=== PATIENT | female | born 1975 | race Caucasian/White ===

== ENCOUNTER 2024-05-31 08:20 | Outpatient (REF) | payer OTHER, SELFPAY ==
--- NOTE | ~2024-05-31 | XR_ITS ---
EXAMINATION: XR KNEE, RIGHT CLINICAL INFORMATION: M25.561 - Pain in right knee COMPARISON: None available. TECHNIQUE: 1 view right knee standing. FINDINGS: There is mild loss of medial compartment joint space right knee. Lateral compartment is normal. No acute fracture, lytic or sclerotic process seen. The soft tissues are normal. XR/XR knee RT 1V IMPRESSION: Mild DJD medial compartment right knee. Electronically signed by: Fredrick Ackerman MD 06/03/2024 10:32 AM [facility]
--- NOTE | ~2024-05-31 | XR_ITS ---
EXAMINATION: XR KNEE, LEFT CLINICAL INFORMATION: M25.562 - Pain in left knee COMPARISON: None available. TECHNIQUE: Three views of the left knee. FINDINGS: There is mild reduction in medial and minimal patellar femoral compartment joint space. No loose bodies, bony erosive changes, fracture or dislocation. No abnormal joint effusion. XR/XR knee LT 3V IMPRESSION: Suspect mild degenerative changes involving medial and patellofemoral compartment. No abnormal joint effusion suspected. Electronically signed by: Fredrick Ackerman MD 06/03/2024 09:26 AM [facility]
== END 2024-05-31 08:21 | disposition home or self-care (01) ==
LOC: HO.HOSX 08:20
DX: M25.562 Pain in left knee (principal); M25.561 Pain in right knee
CPT/HCPCS: 73560; 73562

== ENCOUNTER 2024-05-31 08:48 | Outpatient (AMB) | payer OTHER, SELFPAY ==
--- NOTE | 2024-05-31 08:56 | A.OFFVIS_ITS ---
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 Patient reports painful clicking, pain increases with ambulation of stairs, prolonged sitting, and certain positions on the couch when she is curled up. She expresses having issues with her left hip and currently seeing a eye specialist for this. Patient reports having a fall 2 weeks ago in front of her home. She states she slipped and hit her head and landed on right side of body. She has tried Tylenol, ibuprofen, and lidocaine patches with inadequate pain relief. She would be interested in possible injection treatment today. Hx of cortisone injections in left hip with no adverse reaction. Hx of aspirations of B/L knees in high school from playing soccer. Hx of Type 2 DM. Allergies No Known Allergies Allergy (Verified 05/31/24 08:59) HPI Comments Details: Patient is a 48-year-old female presents for evaluation of bilateral knee pain, left worse than right, ongoing for many years. Patient states that her knee edward n began when she was playing soccer in high school, and she had to have frequent aspiration due to this. Patient states that since that time, her knee pain has progressively worsened today. Today, the patient reports that she does have really good days where she does not have any pain, does state that there are days where her pain is quite bothersome. The patient states her pain is worst when going up and down stairs or when she has been seated in the same position for a long period of time. The patient states she has not tried any other interventions for her knees at this time. No other acute complaints or concerns. [facility] Social History (Updated 05/31/24 @ 09:01 by SALBADOR Sheehan) Alcohol intake: never Patient Tobacco Use Status: Never used Tobacco Current occupational status: unemployed Review of Systems Const All systems reviewed & are unremarkable except as noted in HPI and below Physical Exam Vital Signs: BMI result Body Mass Index 36.4 Extrem Other: Bilateral knee exam: Patient's bilateral knees normal to inspection No erythema, ecchymosis, edema noted No lacerations, abrasions, open areas No evidence of infection Patient reports no tenderness to palpation of the anterior knee, medial or lateral joint lines, patella, quad tendon, patellar tendon, or posterior knee bilaterally Patient is able to extend the knee to 0 degrees without difficulty Patient is able to flex the knee to 120 degrees without difficulty Negative Yonathan's Negative anterior drawer No ligamentous laxity with varus/valgus testing Distal sensation intact Capillary refill brisk Results Reviewed Results Reviewed: X-rays obtained in the office today and independently reviewed by me, Geovanny Galeano PA-C, demonstrate some very mild joint space narrowing of the medial compartment of the left knee. Assessment & Plan Assessment & Plan (1) Arthralgia of both knees: Code(s): M25.561 - Pain in right knee; M25.562 - Pain in left knee Category: Medical (2) Internal derangement of left knee: Code(s): M23.92 - Unspecified internal derangement of left knee Category: Medical Plan 1. Internal derangement of left knee 2. Arthralgia of both knees Patient is educated about this condition Patient is educated about the typical recovery course At this time, patient was given referral to physical therapy for range of motion and strengthening of bilateral knees in the setting of suspected internal derangement of the left knee and arthralgia of bilateral knees Patient is educated that if after her course of physical therapy her knees are still bothering her, she should call for follow-up appointment and potential further imaging Patient was amenable to this plan Patient will follow-up as needed with any acute concerns Orders: Orders XR knee LT 3V Today M25.562 - Pain in left knee XR knee RT 1V Today M25.561 - Pain in right knee PT Evaluation and Treatment Today M23.92 - Unspecified internal derangement of left knee, M25.561 - Pain in right knee, M25.562 - Pain in left knee Coding Level of Care Code New Pt Level 3 (04750) Diagnoses Arthralgia of both knees M25.561; M25.562 Internal derangement of left knee M23.92
[2024-05-31 08:59] VITALS: BMI 36.4
== END 2024-05-31 09:20 | disposition home or self-care (01) ==
PROVIDERS: PCP Internal Medicine
DX: M25.561 Pain in right knee (principal); M25.562 Pain in left knee; M23.92 Unspecified internal derangement of left knee
CPT/HCPCS: 99203

== ENCOUNTER 2024-06-04 08:17 | Outpatient (REF) | payer OTHER, SELFPAY ==
--- NOTE | ~2024-06-04 | XR_ITS ---
EXAMINATION: XR ELBOW 3 VIEWS RIGHT HISTORY: M25.521 - Pain in right elbow COMPARISON: There are no prior studies available for comparison. FINDINGS: Three views of the right elbow are submitted. Osseous mineralization is normal. There is no fracture or dislocation. The joint spaces are preserved. The soft tissues are unremarkable. XR/XR elbow RT min 3V IMPRESSION: Unremarkable examination of the right elbow. Electronically signed by: Miguel Angel Hale MD 06/04/2024 09:25 AM [facility]ANY
== END 2024-06-04 08:18 | disposition home or self-care (01) ==
LOC: HO.HOSX 08:17
DX: M25.521 Pain in right elbow (principal); R20.0 Anesthesia of skin; R20.2 Paresthesia of skin
CPT/HCPCS: 73080

== ENCOUNTER 2024-06-04 08:51 | Outpatient (AMB) | payer OTHER, SELFPAY ==
--- NOTE | 2024-06-04 08:56 | MHC.OFFVIS ---
Vital Signs 06/04/24 09:14 Height 5 ft 5 in Weight 219 lb BMI 36.4 Intake Visit Reasons: New prob - right elbow pain Intake Note: Fernanda is a 48 year old right hand dominant female who presents today for a new problem visit with complaints of right elbow pain. Patient reports having 4 seperate surgeries at [facility] for mass in her elbow. States mass was removed after the 4th attempt. She followed up with her PCP who suggested she has a second opinion due to symptoms. Currently her pain radiate up her arm and fuad into her 4th and 5th digit. She has numbness as well and frequently drops items. She attended PT and cortisone injections were given as well. Allergies No Known Allergies Allergy (Verified 06/04/24 09:03) HPI Comments Details: Patient is a 48-year-old female who presents for evaluation of right elbow pain with associated numbness and of the right in the 4th and 5th digits of the right hand. Patient states that this has been ongoing for several years, and that she has had several surgeries in the right elbow that she feels have worsened her symptoms. The patient reports that her elbow feels ?tight?. Patient states that the numbness and tingling forearm is constant but states that it is intermittent, daily, worse at night. No other acute complaints or concerns at this time. [facility] Surgical History (Updated 06/04/24 @ 09:04 by YUKO Basilio) Hx of elbow surgery Social History Alcohol intake: never Patient Tobacco Use Status: Never used Tobacco Current occupational status: unemployed Review of Systems Const All systems reviewed & are unremarkable except as noted in HPI and below Physical Exam Vital Signs: BMI result Body Mass Index 36.4 Extrem Other: Patient's R elbow normal to inspection No erythema, ecchymosis, edema noted No lacerations, abrasions, open areas No evidence of infection Tenderness to palpation of the medial epicondyle, proximal forearm, and distal aspect of the proximal arm No tenderness to palpation of the lateral epicondyle, process, humeral head, elsewhere in the right elbow Patient is able to extend the elbow to 0 degrees without difficulty Patient is able to flex the elbow to 120 degrees without difficulty Negative Cozen's Negative reverse Cozen's No ligamentous laxity with varus/valgus testing Distal sensation intact Capillary refill brisk Assessment & Plan Assessment & Plan (1) Numbness and tingling of right hand: Code(s): R20.0 - Anesthesia of skin; R20.2 - Paresthesia of skin Category: Medical (2) Right elbow pain: Code(s): M25.521 - Pain in right elbow Category: Medical Plan 1. Pain of medial elbow 2. Numbness and tingling of right forearm and hand In ulnar nerve distribution Symptoms intermittent, daily, worse at night This time, patient was referred for EMG and nerve conduction study for assessment of the health of the nerves of the right upper extremity Patient states that she has had 1 of these 17 years ago, but does not remember where and can not recall the results Patient will follow-up after EMG and nerve conduction study for results review and discussion of further treatment options if indicated Patient was amenable to this plan Patient will follow-up after EMG and nerve conduction study, sooner with any acute concerns Orders: Orders XR elbow RT min 3V Today M25.521 - Pain in right elbow NE electromyogram (EMG) Today R20.0 - Anesthesia of skin, R20.2 - Paresthesia of skin NE nerve conduction velocity Today R20.0 - Anesthesia of skin, R20.2 - Paresthesia of skin Coding Level of Care Code Est Pt Level 3 (14458) Diagnoses Numbness and tingling of right hand R20.0; R20.2 Right elbow pain M25.521
[2024-06-04 09:14] VITALS: BMI 36.4
== END 2024-06-04 09:43 | disposition home or self-care (01) ==
PROVIDERS: PCP Internal Medicine
DX: R20.0 Anesthesia of skin (principal); R20.2 Paresthesia of skin; M25.521 Pain in right elbow
CPT/HCPCS: 99213

== ENCOUNTER → 2024-06-04 08:52 | Outpatient (BNV) | payer OTHER, SELFPAY | PROVIDERS: Visit Provider Radiology Diagnostic Radiology | DX: M25.521 Pain in right elbow (principal) | CPT/HCPCS: 73080 ==

== ENCOUNTER 2024-06-12 08:35 | Outpatient (REF) | payer OTHER, SELFPAY ==
--- NOTE | 2024-06-12 08:39 | EMG_ITS ---
Chief complaint: History of for right elbow surgeries to remove a lipoma/mass that was thought to be compressing the ulnar nerve. She has had chronic, at least 5 years, of numbness on right 4th and 5th digits, the started even before the 1st surgery. No intrinsic hand weakness. Noted thinning of APB muscle. Reason for referral: Evaluate for ulnar neuropathy Referred by: Geovanny ANN Procedure done: Right upper extremity NCS/EMG Precautions and/or limitations: None The limb temperature was monitored continuously and remained between 32-36 degrees C during the performance of the NCS. Ulnar motor NCS was performed with moderate elbow flexion between 70-90 degrees, with across-elbow distance of 10 cm. Nerve Conduction Studies Anti Sensory Summary Table ?Stim Site NR Onset (ms) Norm Onset (ms) Peak (ms) Norm Peak (ms) O-P Amp (?V) Norm O-P Amp Site1 Site2 Delta-0 (ms) Dist (cm) [place] (m/s) Norm [place] (m/s) Right Median Anti Sensory (2nd Digit) Wrist ? 3.3 4.1 <3.6 11.1 >10 Wrist 2nd Digit 3.3 14.0 42 Right Radial Anti Sensory (Thumb) Forearm ? 2.0 2.7 <3.1 19.9 Forearm Thumb 2.0 0.0 Right Ulnar Anti Sensory (5th Digit) Wrist ? 2.5 3.3 <3.7 10.9 >15.0 Wrist 5th Digit 2.5 14.0 56 Motor Summary Table ?Stim Site NR Onset (ms) Norm Onset (ms) O-P Amp (mV) Norm O-P Amp iAmp (mV) Amp (1st) (%) Site1 Site2 Delta-0 (ms) Dist (cm) [place] (m/s) Norm [place] (m/s) Right Median Motor (Abd Poll Brev) Wrist ? 4.2 <3.9 7.3 >4.5 8.9 100.0 Elbow Wrist 3.5 19.5 56 >45 Elbow ? 7.7 7.1 8.8 97.3 Right Ulnar Motor (Abd Dig Minimi) Wrist ? 3.0 <3.0 8.4 >5 10.0 100.0 B Elbow Wrist 2.9 18.0 62 >45 B Elbow ? 5.9 8.0 9.7 95.2 A Elbow B Elbow 1.2 10.0 83 >45 A Elbow ? 7.1 7.5 9.3 89.3 Right Ulnar Motor (FDI) Wrist ? 3.0 <3.0 6.4 >5 8.4 100.0 B Elbow Wrist 3.3 18.0 55 >45 B Elbow ? 6.3 6.2 8.2 96.9 A Elbow B Elbow 1.2 10.0 83 >45 A Elbow ? 7.5 6.1 8.0 95.3 EMG ?Side Muscle Nerve Root Ins Act Fibs Psw Amp Dur Poly Recrt Int Pat Comment Right 1stDorInt Ulnar C8-T1 Nml Nml Nml Nml Nml 0 Nml Complete Right Biceps Musculocut C5-6 Nml Nml Nml Nml Nml 0 Nml Complete Right Triceps Radial C6-7-8 Nml Nml Nml Nml Nml 0 Nml Complete Right Deltoid Axillary C5-6 Nml Nml Nml Nml Nml 0 Nml Complete Right Abd Poll Brev Median C8-T1 Incr 1+ 1+ Nml Nml 0 Nml Complete Right ABD Dig Min Ulnar C8-T1 Nml Nml Nml Nml Nml 0 Nml Complete Right FlexCarpiUln Ulnar C8,T1 Nml Nml Nml Nml Nml 0 Nml Complete Paraspinal EMG ?Side Muscle Nerve Root Ins Act Fibs Psw Comment Right Cervical Upper Rami Nml Nml Nml Right Cervical Mid Rami Nml Nml Nml Right Cervical Lower Rami Nml Nml Nml FINDINGS: Right median motor nerve showed prolonged distal latency, normal amplitude and normal conduction velocity. Right median sensory nerve showed prolonged peak latency. Right ulnar sensory nerve showed normal peak latency but small amplitude. All other nerves tested were within normal. Note that right ulnar motor nerve, recording at both ADM and FDI muscles, was within normal, without conduction block across the elbow. Concentric needle EMG was performed in selected muscles of the right upper extremity and cervical paraspinals. Study revealed signs of electric abnormalities as shown in the table above. Right APB showed increased insertional activity, PSWs and fibrillations. IMPRESSION: 1. This is an abnormal study. 2. Perhaps she had a chronic right ulnar neuropathy, now evidenced only by a small ulnar sensory amplitude. There is no conduction block across the elbow. There is no evidence of ongoing denervation. 3. There is electrodiagnostic evidence for ongoing/active right median neuropathy at the wrist moderate-severe, consistent with Carpal Tunnel Syndrome. 4. There is no electrodiagnostic evidence for brachial plexopathy or cervical radiculopathy. Thank you for your kind referral. Carolyn Parks MD, [facility] Board Certified, [place] Board of Physical Medicine and Rehabilitation (ABPMR) Board Certified, [place] Board of Electrodiagnostic Medicine (ABEM) [place] [id number] [facility]
--- OUTSIDE RECORDS SUMMARY | 2024-06-12 08:54 | XMS_ITS | Data Portability ---
Author Organization [facility], , [facility], OFFICE Address [address] [place] [address] [place] [address] Care Team Providers Care Sign Writer Letterer Or Painter Name Role Phone JERAMY ERWIN OTHER ALBERTA HOUSER Orthopedic Surgeon [phone] GAMA MEDEIROS Lining Stuffer ALEX MAXWELL Geodetic Technician CECI VAZQUEZ Hematology/Oncology [facility] Tax Form Preparer Assessment Encounter Date Assessment Date Assessment LastModified by Organization Details LastModified Time 08/23/2023 08/23/2023 After a discussion of treatment options, which included consideration of best practices and patient preferences, the following treatment plan and objectives were adopted: [email or web address] Not available 08/23/2023 15:22:30 Plan of Treatment Reminders Order Date Submit Date Provider Last Modified By Organization Details Last Modified Time Details Appointments None recorded. Lab HbA1c (hemoglobin A1c), blood 2023 024 [facility], [address] [place] [address], [address], 4 11:47:49 hemoglobin A1C/hemoglo bin total, QN, blood [email or web address] [facility], [address] [place] [address], [address], 5 16:50:23 Referral neurologist referral 2023 024 KAYE Lloyd MD, [address] [place] [address], [address], 4 03:18:27 physical medicine and rehabilitat ion referral 2023 024 [email or web address] Melvin Wallace MD, [address], [place] [address], [place], [address], 4 13:11:26 orthopedic surgeon referral [email or web address] [place] [address] [place], [address], 4 11:11:22 Procedures None recorded. Surgeries None recorded. Imaging XR, hip + pelvis, unilateral, 2 or 3 view 2023 024 [email or web address] [facility] (Imaging), [address] [place] [address] , [place], [address], 4 12:19:05 Medication Orders Zepbound 2.5 mg/0.5 mL subcutaneou s pen injector 2023 024 [id number], [address] [place], [address], 4 14:32:14 ondansetron 4 mg disintegrat ing tablet 2023 024 [id number], [address] [place], [address], 4 14:32:14 Zepbound 5 mg/0.5 mL subcutaneou s pen injector 2024 025 [id number], [address] [place], [address], 5 16:41:49 Patient TargetsNo targets recorded. Patient Instructions Encounter Date Encounter Id Patient Instructions Last Modified By Organization Details Last Modified Time 05/01/2024 [id number] You have been prescribed a new medication called Zepbound. It is a once weekly injection which has been shown to assist with weight loss and appetite suppression in most patients. Weight loss in trials ranged up to 50 pounds. - Start by taking 2.5mg weekly. This is often just a starting dose to get used to the medication, and nearly all patients will need to increase the dose to lower blood sugars to goal. - Try to take the medication on the same day each week, but you can change the day of the dose as long as it has been at least two days since your last dose. - If you miss a dose, take the missed dose as soon as possible within 5 days of the due date. If it has been more than five days, skip the missed dose and take your next dose on schedule in two days. - If not at goal in four weeks, your provider will increase the dose to 5mg weekly. This will be a new prescription at the pharmacy. Injection: - Store the pens you are not using in the refrigerator. On the day of your injection, take one pen out to allow the medication to come to room temperature. - You can inject the medication in either the abdominal fat, upper arm or the outer thigh. Wipe the area you choose with an alcohol wipe before injection. Rotate the injection site each week. - Remove the townsend base cap off of the pen and throw it in the trash. - Place the clear base on the skin and twist to unlock at the top. - Press the button at the top of the pen, and wait for 10 seconds. You should hear two ? c licks.? - Place the entire pen into a sharps container. You can receive sharps containers from your insurance company or most [facility] have them available for free. - If after another 4 weeks your blood sugar is not at goal, your provider will increase the dose to the next dose. This dose would come in a separate pen. Side effects/Contraindi cations: - Common initial side effects are abdominal upset with nausea, diarrhea, or constipation. These often improve with each injection as your body adjusts to the medication. Eat small meals, stick to bland foods, and avoid greasy or sweet foods while the symptoms last. If the symptoms are severe or not improving, contact your provider. - Please tell your provider if you or a family member have a history of medullary thyroid cancer, MEN2, or if you have a history of diabetic retinopathy, acute gallbladder disease, gastroparesis or pancreatitis. - Zepbound is not for use in children under 18, or in or . - Doses of sulfonylureas or insulin should be lowered when this medication as started as hypoglycemia is possible. Not available 05/01/2024 14:34:13 Zepbound, Wegovy , Mounjaro and Ozempic are all part of a class of medications called GLP-1 agonists. Zepbound and Wegovy are FDA approved for the treatment of Obesity, whereas Mounjaro and Ozempic are approved for the treatment of Diabetes. Glucagon-like peptide 1 (GLP-1) agonists have many benefits, including: -GLP-1 agonists can help control blood sugar. -GLP-1 agonists can help with weight loss. -Some GLP-1 agonists may lower the risk of heart disease. GLP-1 agonists may also have risks, including: -Increased risk of pancreatitis -Increased risk of gastroparesis or slow stomach emptying -Side effects such as loss of appetite, nausea, vomiting, constipation, and diarrhea GLP-1 agonists should not be used in patients with a personal or family history of medullary thyroid cancer or multiple endocrine neoplasia 2A or 2B. Tips and Tricks: -HYDRATE. These medications may make you less thirsty. Not drinkinge enough liquids through the day can lead to constipation, fatigue and dizziness. -Eat slowly, stop when full, and have smaller portions. Avoid being too active immediately after eating. -Limit consumption of higher-fat and liquid carbohydrate foods. -Eat fiber-rich foods including whole grains, legumes, fruits, and vegetables. -If you experience constipation, try adding 1/2-1 cap of Miralax nightly for a few nights. If no improvement, contact your provider. -Call your provider if you experience nausea that is uncomfortable, as there are some medications that can help while your body adjusts. Not available 05/01/2024 14:33:23 Reason for Referral Physical Medicine And Rehabi litation Referral for Pain of left hip joint Referring Physician: Amber Larose, Family Medicine, Encounter Date: 01/31/2024 Neurologist Referral for Hea dache Referring Physician: Amber Larose Family Medicine, Encounter Date: 01/31/2024 Orthopedic Surgeon Referral for Pain of right elbow joint Referring Physician: Amber Larose, [facility] Medicine, Encounter Date: 04/08/2024 Results Created Date Observation Date Name Description Value Unit Range Abnormal Flag Note LastModifiedBy Organization Detail LastModifiedTime 08/16/19 24 08/16/2023 MICRO ALBUM IN/CR EATIN INE RATIO PANEL , URINE microalbumin 16.9 mg/L 1.3-20 .0 Not Available [address], [address], 08/16/2023 16:46:53 08/16/19 24 08/16/2023 MICRO ALBUM IN/CR EATIN INE RATIO PANEL , URINE creatinine urine 104.9 mg/dL 30.0-1 25.0 Not Available [address], [address], 08/16/2023 16:46:53 08/16/19 24 08/16/2023 MICRO ALBUM IN/CR EATIN INE RATIO PANEL , URINE microalb/cre at ratio 16.1 mg/g_ creat 0.0-29 .0 Not Available [address], [address], 08/16/2023 16:46:53 08/16/19 24 08/17/2023 HGB A1C hemoglobin A1C 6.3 % 4.8-6. 0 high Goal: <7% in Patie nts with Diabe huber An A1c betwe en 5.7-6 .4% is ident ified as pre-d iabet es and sugge sts risk for progr essio n to diabe huber Two a1c value s of 6.5% or highe r is consi stent with a diagn osis of diabe huber but may need furth er confi rmati on Not Available [address], [address], 08/17/2023 10:15:54 08/16/19 24 08/17/2023 HGB A1C estimated average glucose 134.1 mg/dL Not Available [address], [address], 08/17/2023 10:15:54 08/16/19 24 08/17/2023 COMP. METAB OLIC PANEL glucose 121 mg/dL 70-100 high Not Available [address], [address], 08/17/2023 12:22:55 08/16/19 24 08/17/2023 COMP. METAB OLIC PANEL BUN 15 mg/dL 7-18 Not Available [address], [address], 08/17/2023 12:22:55 08/16/19 24 08/17/2023 COMP. METAB OLIC PANEL creatinine 0.7 mg/dL 0.8-1. 3 low Not Available [address], [address], 08/17/2023 12:22:55 08/16/19 24 08/17/2023 COMP. METAB OLIC PANEL B/C 21.4 ratio Not Available [address], [address], 08/17/2023 12:22:55 08/16/19 24 08/17/2023 COMP. METAB OLIC PANEL GFR >=60ML /MIN mL/mi n normal >=60m L/min - Jerica l or midly reduc ed <60mL /min- Decre ased kidne y funct ion <15mL /min - Kidne y failu re [facility] calcu lates estim ated Glome rular Filtr ation Rate (eGFR ) using the Chron ic Kidne y Disea se Epide miolo gy Colla borat ion (CKD- EPI) Equat ion (Cal r et. al 2020) as recom lynn d by the Natio nal Kidne y Found ation . eGFR is based on age, serum creat inine , and sex. CKD-E PI does not calcu late eGFR by race, does not apply to child amaury (age <18 years ), and shoul d not be used in pregn lanie. Not Available [address], [address], 08/17/2023 12:22:55 08/16/19 24 08/17/2023 COMP. METAB OLIC PANEL sodium 140 mmol/ L 136-14 5 Not Available [address], [address], 08/17/2023 12:22:55 08/16/19 24 08/17/2023 COMP. METAB OLIC PANEL potassium 4.1 mmol/ L 3.5-5. 1 Not Available [address], [address], 08/17/2023 12:22:55 08/16/19 24 08/17/2023 COMP. METAB OLIC PANEL chloride 102 mmol/ L 96-107 Not Available [address], [address], 08/17/2023 12:22:55 08/16/19 24 08/17/2023 COMP. METAB OLIC PANEL anion gap 12.4 5.0-15 .0 Not Available [address], [address], 08/17/2023 12:22:55 08/16/19 24 08/17/2023 COMP. METAB OLIC PANEL CO2 26 mmol/ L 21-32 Not Available [address], [address], 08/17/2023 12:22:55 08/16/19 24 08/17/2023 COMP. METAB OLIC PANEL calcium 9.5 mg/dL 8.5-10 .3 Not Available [address], [address], 08/17/2023 12:22:55 08/16/19 24 08/17/2023 COMP. METAB OLIC PANEL total protein 7.2 g/dL 6.4-8. 2 Not Available [address], [address], 08/17/2023 12:22:55 08/16/19 24 08/17/2023 COMP. METAB OLIC PANEL albumin 3.7 g/dL 3.4-5. 0 Not Available [address], [address], 08/17/2023 12:22:55 08/16/19 24 08/17/2023 COMP. METAB OLIC PANEL globulin 3.5 g/dL Not Available [address], [address], 08/17/2023 12:22:55 08/16/19 24 08/17/2023 COMP. METAB OLIC PANEL A/G 1.1 ratio 0.8-2. 0 Not Available [address], [address], 08/17/2023 12:22:55 08/16/19 24 08/17/2023 COMP. METAB OLIC PANEL total bilirubin 0.40 mg/dL 0.00-1 .00 Not Available [address], [address], 08/17/2023 12:22:55 08/16/19 24 08/17/2023 COMP. METAB OLIC PANEL AST 28 U/L 0-37 Not Available [address], [address], 08/17/2023 12:22:55 08/16/19 24 08/17/2023 COMP. METAB OLIC PANEL ALT 56 U/L 6-63 Not Available [address], [address], 08/17/2023 12:22:55 08/16/19 24 08/17/2023 COMP. METAB OLIC PANEL alk. phos. 135 U/L 50-136 Not Available [address], [address], 08/17/2023 12:22:55 08/16/19 24 08/17/2023 LIPID PANEL cholesterol 189 mg/dL <200 mg/dl Allen able 200-2 39 mg/dl Borde rline High >240 mg/dl High Not Available [address], [address], 08/17/2023 12:22:56 08/16/19 24 08/17/2023 LIPID PANEL triglyceride s 174 mg/dL <150 mg/dL Jerica l 150-1 99 mg/dL Borde rline High 200-4 99 mg/dL High >500 mg/dL Very High Not Available [address], [address], 08/17/2023 12:22:56 08/16/19 24 08/17/2023 LIPID PANEL direct HDL 48 mg/dL <40 mg/dl - Major Risk for CHD >60 mg/dl - Negat diomedes Risk for CHD Not Available [address], [address], 08/17/2023 12:22:56 08/16/19 24 08/17/2023 LDL - CALCU LATED LDL - calculated 106.2 RISK CATEG ORY LDL GOAL _ CHD or CHD Risk Equiv alent s <100 mg/dl (10-y ear risk >20%) 2+ Risk Facto rs <130 mg/dl (10-y ear risk <= 20%) 0-1 Risk Facto r? <160 mg/dl ? Almos t all peopl e with 0-1 risk facto r have a 10 year risk <10%, thus 10 year risk asses ment in peopl e with 0-1 risk facto r is not lee gina. Not Available [address], [address], 08/17/2023 12:22:58 10/06/19 24 10/10/2023 ANATO RAKEL PATHO LOGY path report [facility] [address] [place] [address] Lab Direc tor: Anahi davila MD Surgi mini Patho logy Repor t Acces yohannes #: [id number] FINAL PATHO LOGIC DIAGN OSIS: A. DUODE NUM, BIOPS Y: Mild villo us blunt ing and mild intra epith elial lymph ocyti c infil trate . B. STOMA CH ANTRU M, BIOPS Y: React diomedes gastr ic mucos a. Note: Immun ohist ochem ical stain s for Helic obact er pylor i are perfo rmed on the gastr ic biops ies and DO NOT DEMON STRAT E organ isms with the morph ologi c citlali cteri stics of Helic obact er. Kelly ctron icall y Thu d Out By Lumin peter cannon MD By his/h er signarun neil above , the patho logis t liste d as taylor payne the Final Diagn osis certi fies that he/sh e has perso constantino revie wed this case and confi rmed or corre cted the diagn osis. CLINI MINI HISTO RY Follo w-up of dmitriy guzman disea se SPECI MENS SUBMI TTED: A: DUODE NUM, BIOPS Y B: STOMA CH ANTRU M, BIOPS Y GROSS DESCR IPTIO N A. DUODE NUM, BIOPS Y: Forma tano: Multi ple fragm ents measu ring in aggre gate 0.8 cm, entir cheryl casse tte A1. B. STOMA CH ANTRU M, BIOPS Y: Forma tano: 2 fragm ents each 0.2 cm, entir cheryl casse tte B1. DN 2023 Gross ing Staff : LM One or more of the reage nts used in immun ohist ochem ical testi ng in this case may not have been clear ed or appro sol by the U.S. Food and Drug Admin istra tion (FDA) . The FDA has deter mined that such clear ance or appro batsheva is not neces gina. These tests are used for clini mini purpo ses. This shoul d not be regar ded as inves tigat ional or for resea rch. These reage nts' perfo rmanc e citlali cteri stics have been deter mined by the [facility]. This labor atory is certi fied under the Clini mini Labor atory Impro vemen t Amend ments of 1987 (CLIA -88) as quali fied to perfo rm high compl exity clini mini labor atory testi ng. Immun ohist ochjose antonio istry is perfo rmed on forma tano-f ixed paraf fin-e mbedd ed secti ons (unle ss other monk speci fied) and on a Bench no Ultra immun ostai ner which utili zes a propr ietar y polym er detec tion syste m. Posit diomedes, negat diomedes and inter nal contr ols, when prese nt, stain appro priat cheryl. Patie nt Name: JACOB HUI : 1975 (Age: 47) Sex: F 3 Insti tutio n: [facility] Locat ion: [facility] Date of Opera tion: 2023 Date of Acces yohannes: 2023 Repor manuel: 2023 15:12 Resul ts To: Jesu singleton MD, AB Fadi tyler MD, POST- BA, BA Not Available [facility] (Outpatient) [address] [place], [address], 10/10/2023 17:20:06 04/06/20 24 04/08/2024 HGB A1C hemoglobin A1C 7.3 % 4.8-6. 0 high Goal: <7% in Patie nts with Diabe huber An A1c betwe en 5.7-6 .4% is ident ified as pre-d iabet es and sugge sts risk for progr essio n to diabe huber Two a1c value s of 6.5% or highe r is consi stent with a diagn osis of diabe huber but may need furth er confi rmati on Not Available [address], [place], [address], 04/08/2024 11:47:49 04/06/20 24 04/08/2024 HGB A1C estimated average glucose 162.8 mg/dL Not Available [address], [address], 04/08/2024 11:47:49 04/06/20 24 04/09/2024 BASIC METAB OLIC PANEL glucose 179 mg/dL 70-100 high Not Available [address], [address], 04/09/2024 16:36:15 04/06/20 24 04/09/2024 BASIC METAB OLIC PANEL BUN 14 mg/dL 7-18 Not Available [address], [address], 04/09/2024 16:36:15 04/06/20 24 04/09/2024 BASIC METAB OLIC PANEL creatinine 0.9 mg/dL 0.8-1. 3 Not Available [address], [address], 04/09/2024 16:36:15 04/06/20 24 04/09/2024 BASIC METAB OLIC PANEL B/C 15.6 ratio Not Available [address], [address], 04/09/2024 16:36:15 04/06/20 24 04/09/2024 BASIC METAB OLIC PANEL GFR >=60ML /MIN mL/mi n normal >=60m L/min - Jerica l or midly reduc ed <60mL /min- Decre ased kidne y funct ion <15mL /min - Kidne y failu re [facility] calcu lates estim ated Glome rular Filtr ation Rate (eGFR ) using the Chron ic Kidne y Disea se Epide miolo gy Colla borat ion (CKD- EPI) Equat ion (Cal r et. al 2020) as recom lynn d by the Natio nal Kidne y Found ation . eGFR is based on age, serum creat inine , and sex. CKD-E PI does not calcu late eGFR by race, does not apply to child amaury (age <18 years ), and shoul d not be used in pregn lanie. Not Available [address], [address], 04/09/2024 16:36:15 04/06/20 24 04/09/2024 BASIC METAB OLIC PANEL sodium 143 mmol/ L 136-14 5 Not Available [address], [address], 04/09/2024 16:36:15 04/06/20 24 04/09/2024 BASIC METAB OLIC PANEL potassium 4.1 mmol/ L 3.5-5. 1 Not Available [address], [address], 04/09/2024 16:36:15 04/06/20 24 04/09/2024 BASIC METAB OLIC PANEL chloride 105 mmol/ L 96-107 Not Available [address], [address], 04/09/2024 16:36:15 04/06/20 24 04/09/2024 BASIC METAB OLIC PANEL anion gap 9.7 5.0-15 .0 Not Available [address], [address], 04/09/2024 16:36:15 04/06/20 24 04/09/2024 BASIC METAB OLIC PANEL CO2 28 mmol/ L 21-32 Not Available [address], [address], 04/09/2024 16:36:15 04/06/20 24 04/09/2024 BASIC METAB OLIC PANEL calcium 9.3 mg/dL 8.5-10 .3 Not Available [address], [address], 04/09/2024 16:36:15 01/31/20 24 01/31/2024 XR, hip + pelvi s, unila teral , 2 or 3 view CLINIC AL HISTOR Y: Left hip pain. TECHNI QUE: Two views of the left hip were obtain ed. An AP view of the pelvis is added. COMPAR SERAFIN: Decemb er 2021 FINDIN GS: There is no fractu re, sublux ation, or disloc ation. There is preser vation of the hip joint space. IMPRES YOHANNES: No acute bone abnorm ality. Readin g Physic belkis: Tom guevara [facility] (Imaging) [address] [place], [address], 01/31/2024 17:22:29 Result Notes None recorded. Procedures Surgical History Date Name Laterality Status Provider Name and Address Organization Details Recorded Time 3 Kristen - Colonoscopy completed Isidro Peterson MD [address] [place] [address], [id number], [facility] 12/02/2022 13:59:37 3 Kristen - EGD completed Isidro Peterson MD [address] [place] [address], [id number], [facility] 12/02/2022 13:59:07 Imaging Results Imaging Date Name Status LastModified by Organiz ation Details LastModified Time 01/31/2024 XR, hip + pelvis, unilateral , 2 or 3 view completed [facility] (Imaging) [address] [place], [address], 01/31/2024 17:22:29 Procedure Notes None recorded. Medical Equipment None Reported. Allergies No known drug allergies Medications Name Sig Start Date Stop Date Status Note LastModified by Organization Details LastModified Time freestyle lancets misc active Not Available Not Available Not Available cyclobenz aprine 10 mg tablet Take 1 tablet every day by oral route at bedtime for 10 days. 06/15 completed Not Available Not Available Not Available prednison e 10 mg tablet take 6 tabs on day 1, 5 tabs on day 2 and continue to decrease by one tablet daily. 2010 active Not Available Not Available Not Avai lable lisinopri l 20 mg-hydroc hlorothia zide 12.5 mg tablet Take 1.00 tabs every day 12/14 completed Not Available Not Available Not Available metoprolo l succinate ER 50 mg tablet,ex tended release 24 hr TAKE 1 TABLET BY MOUTH EVERY DAY 10/25 completed Not Available Not Available Not Available meloxicam 15 mg tablet TAKE 1 TABLET BY MOUTH EVERY DAY active Not Available Not Available No t Available FreeStyle Lancets 28 gauge USE DIRECTED TO CHECK BLOOD SUGAR ONCE DAILY active Not Available Not Available No t Available Tubersol 5 tub. unit/0.1 mL intraderm al injection solution active Not Available Not Available Not Available clonazepa m 0.5 mg tablet TAKE 1 TABLET BY MOUTH EVERY DAY NEEDED 06/24 completed Not Available Not Available Not Available metoprolo l succinate ER 100 mg tablet,ex tended release 24 hr TAKE 1 TABLET BY MOUTH EVERY DAY active Not Available Not Available No t Available atenolol 25 mg tablet Take 2 tablets every day by oral route for 90 days. 10/24 completed Not Available Not Available Not Available sumatript an 50 mg tablet PLEASE SEE ATTACHED FOR DETAILED DIRECTIO NS active Not Available Not Available No t Available penicilli n V potassium 500 mg tablet Take 1 tablet 3 times a day by oral route as directed for 10 days. 07/10 completed Not Available Not Available Not Available butalbita l 50 mg-acetam inophen 325 mg tablet Take 1 tablet every 4 hours by oral route. 2010 active Not Available Not Available Not Avai lable topiramat e 25 mg tablet active Not Available Not Available Not Available amlodipin e 2.5 mg tablet TAKE 1 TABLET BY MOUTH EVERY DAY active Not Available Not Available No t Available amoxicill in 500 mg tablet Take 2 tablets every 12 hours by oral route for 7 days. 01/01 completed Not Available Not Available Not Available citalopra m 20 mg tablet TAKE 1 TABLET BY MOUTH EVERY DAY 2012 active Not Available Not Available Not Avai lable amitripty line 25 mg tablet TAKE 1 TABLET BY MOUTH EVERY DAY active Not Available Not Available No t Available lorazepam 0.5 mg tablet Take 1-2 tablets by oral route as needed at bedtime 03/11 completed Not Available Not Available Not Available ferrous sulfate 325 mg (65 mg iron) tablet TAKE 1 TAB BY MOUTH THREE TIMES WEEKLY DIRECTED active Not Available Not Available No t Available prednison e 50 mg tablet TAKE 1 TABLET BY MOUTH EVERY DAY FOR 5 DAYS 01/22 completed Not Available Not Available Not Available lidocaine 5 % topical patch APPLY 1 PATCH TO SKIN ONCE DAILY (MAY WEAR UP TO 12 HOURS) active Not Available Not Available No t Available hydrochlo rothiazid e 25 mg tablet TAKE 1 TABLET BY MOUTH EVERY DAY active Not Available Not Available No t Available gabapenti n 100 mg capsule TAKE 1 CAPSULE BY MOUTH EVERY DAY FOR 10 DAYS 10/25 completed Not Available Not Available Not Available ergocalci ferol (vitamin D2) 1,250 mcg (50,000 unit) capsule Take 1 capsule every week by oral route as directed . 11/23 completed Not Available Not Available Not Available verapamil 80 mg tablet Take 1 tablet 3 times a day by oral route for 30 days. 04/30 completed Not Available Not Available Not Available lisinopri l 40 mg tablet TAKE 1 TABLET BY MOUTH EVERY DAY 04/23 completed Not Available Not Available Not Available ondansetr on 4 mg disintegr ating tablet Place 1 tablet 3 times a day by translin gual route as needed for 30 days, for nausea. active Not Available Not Available No t Available Fioricet 50 mg-325 mg-40 mg tablet Take 1 tablet every 4 hours by oral route as needed. 11/23 completed Not Available Not Available Not Available clotrimaz ole 1 % topical cream Apply thin layer to affected area by topical route BID as directed . 2011 active Not Available Not Available Not Avai lable atenolol 50 mg tablet TAKE 1 TABLET BY MOUTH EVERY DAY 10/24 completed Not Available Not Available Not Available Tylenol Extra Strength 500 mg tablet Take 2 tablets every 6 hours by oral route. 11/10 completed Not Available Not Available Not Available oxycodone 5 mg tablet TAKE 1 TABLET BY MOUTH EVERY 6 HOURS NEEDED FOR PAIN 08/22 completed Not Available Not Available Not Available Bactrim DS 800 mg-160 mg tablet Take 1 tablet twice a day by oral route for 10 days. 09/23 completed Not Available Not Available Not Available chlorhexi dine gluconate 0.12 % mouthwash SWISH 15ML'S IN MOUTH UNDILUTE D FOR 30 SECONDS THEN SPIT OUT USE AFTER BREAKFAS T AND BEFORE BED 10/25 completed pt states no longer taking this med 08/14/18LC Not Available Not Available Not Available Vitamin C active Not Available Not Mariluz ilable Not Available omeprazol e PRN per GI active Not Available Not Available No t Available famotidin e BID per GI active Not Available Not Available No t Available Vitamin D active Not Available Not Mariluz ilable Not Available Metamucil QD per GI active Not Available Not Available No t Available Topamax active trial by neurolog y Not Available Not Available Not Available ProAir HFA 90 mcg/actua tion aerosol inhaler Inhale 2 puffs every 4 hours by inhalati on route. 2012 active Not Available Not Available Not Avai lable FreeStyle Lite Strips USE 1 STRIP BY MISC ROUTE EVERY DAY DIRECTED active Not Available Not Available No t Available FreeStyle Coyote Lite kit USE DIRECTED TO CHECK BLOOD SUGAR DAILY active Not Available Not Available No t Available diclofena c 1 % topical gel APPLY A THIN LAYER TO THE AFFECTED AREA FOUR TIMES DAILY NEEDED FOR PAIN active Not Available Not Available No t Available Multi Vitamin active Not Available Not Available Not Available Zepbound 5 mg/0.5 mL subcutane ous pen injector Inject 5 mg every week by subcutan eous route for 28 days. 2024 active Not Available Not Available Not Avai lable Zepbound 2.5 mg/0.5 mL subcutane ous pen injector Inject 2.5 mg every week by subcutan eous route for 28 days. active Not Available Not Available No t Available Vitals None Recorded Social History Question Answer Notes LastModified by Organization Details LastModified Time Do You Have An Advance Directive? No Information not available 03/31/2011 What Is Your Level Of Alcohol Consumption? None Checked Kb 06-12-23 [email or web address] Information not available 06/12/2023 What Is Your Level Of Caffeine Consumption? Moderate Information not available 09/22/2014 Are You Currently Employed? Yes Information not available 01/26/2021 What Type Of Diet Are You Following? REGULAR Information not available 03/31/2011 Education 12 Information not available 03/31/2011 What Is Your Occupation? [employer] Information not available 01/28/2022 How Many Days In The Past Year Have You Had A Heavy Drinking Consumption (4+ Female, 5+ Male)? 0 Information not available 08/21/2014 Are There Any Guns Present In Your Home? No Information not available 03/31/2011 Live Alone Or With Others? With Others 3 Children, Her Mother, Zahira And His 3 Children. Lost Father And Former Zahira [email or web address] Information not available 03/16/2010 Does The Patient Have Difficulty Speaking Faroese? No Information not available 03/31/2011 Does The Patient Have Difficulty Reading Faroese? 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 04/08/2024 01/28/22 CJ, 11/10/22mh, 11/17/22mh, 12/19/22mh, 02/15/23mh [email or web address] Information not available 04/08/2024 How Many Children Do You Have? 3 [email or web address] Information not available 03/31/2011 Are There Any Occupational Health Risks Where You Work? [employer] Information not available 01/28/2022 What Is Your Relationship Status? Information not available 01/26/2021 Seat Belts Used Routinely Yes Information not available 03/31/2011 Are You Sexually Active? Yes TL [email or web address] Information not available 03/18/2010 Smoke Alarm In Home Yes Information not available 03/31/2011 General Stress Level High Son With Substance Abuse Heroin Information not available 06/16/2015 Do You Use Any Illicit Or Recreational Drugs? No 01/22/2021 KM [email or web address] Information not available 01/22/2021 Do You Use Sunscreen Routinely? Yes kim Information not available 03/31/2011 Do You Or Have You Ever Used Any Other Forms Of Tobacco Or Nicotine? No 01/22/2021 MELY hutson Information not available 01/22/2021 Sex: Female Functional Status None recorded. Mental Status None recorded. Family History Relationship Description Onset Age of this Age Resolved Age Notes LastModified by Organization Details LastModified Time Father Hypertensive disorder aortic aneury sm tfurcolo Not available 09/22/2014 14:14:19 Maternal Aunt Malignant tumor of breast tfurcolo Not available 2014 14:14:19 Maternal Grandmother Malignant tumor of breast tfurcolo Not available 2014 14:14:19 Sister Hypertensive disorder tfurcolo Not available 2014 14:14:19 Maternal Grandfather Malignant tumor of colon diagno sed age 70s tfurcolo Not available 09/22/2014 14:14:19 Mother Hypertensive disorder previo usly record ed as Hypert ension tfurcolo Not available 09/22/2014 14:14:19 Mother Malignant tumor of breast diagno sed age 50s tfurcolo Not available 09/22/2014 14:14:19 Mother Malignant neoplasm of body of uterus 69 tfurcolo Not available 2016 11:28:51 Paternal Uncle Malignant neoplasm of brain 70 tfurcolo Not available 2014 14:14:19 Brother [place] son-White pattern 48 tfurcolo Not available 2016 11:31:20 Notes:All grandparents with DM and HTN Fernanda did genetic cancer tested through [facility]- negative Medical History Condition Response Diabetes Type II Obesity Y Anxiety Y CARDIOVASCULAR Y Abnormal Pap Y Migraine Headaches Y Hypertension Y Gynecological HistoryNo gynecological history recorded. Obstetrics History GPAL:G 0 P 0 0 0 0 Past Encounters Encounter ID Performer Location Encounter Start Date Encounter Closed Date Diagnosis/Indication Diagnosis SNOMED-CT Code Diagnosis ICD10 Code Diagnosis Note [id number] [facility], OFFICE [address] [place] [address] 04/13/2004 13:15:09 04/13/2004 13:52:33 [id number] [facility], OFFICE [address] [place] [address] 1 10/06/2005 14:44:39 10/06/2005 17:44:16 [id number] [facility] - [facility] [address] [place] [address] 10/06/2005 15:16:59 10/06/2005 15:17:09 [id number] CAM[facility], OFFICE [address] [place] [address] 1 10/17/2005 09:39:34 10/17/2005 11:47:03 [id number] [facility], OFFICE [address] [place] [address] 1 10/24/2005 09:56:34 06/04/2008 02:02:29 [id number] [facility], OFFICE [address] [place] [address] 1 11/22/2005 09:04:17 11/22/2005 16:06:53 [id number] [facility] - [facility] [address] [place] [id number] 1 11/22/2005 09:27:56 11/22/2005 09:28:05 [id number] [facility], OFFICE [address] [place] [address] [place] [address] 1 04/04/2006 16:15:39 04/04/2006 17:01:09 [id number] [facility], OFFICE [address] [place] [address] 1 08/16/2006 10:02:59 08/18/2006 07:49:02 [id number] [facility], OFFICE [address] [place] [address] [place] [id number] 1 08/30/2006 14:48:37 08/30/2006 17:32:27 [id number] [facility] [address] [place] [address] 1 08/30/2006 15:54:11 08/30/2006 15:54:16 [id number] [facility], [place] [address] 1 10/13/2006 10:18:52 10/13/2006 13:12:41 [id number] [facility], [place] [id number] 1 11/03/2006 10:10:13 11/03/2006 11:36:58 [id number] [facility], OFFICE [address] [place] [address] [place] [address] 1 02/16/2007 10:19:36 06/04/2008 02:02:29 [id number] [facility], [address] [place] [address] 1 01/26/2007 10:01:13 01/26/2007 15:25:44 [id number] [facility], [address] [place] [address] 1 12/17/2007 10:14:12 06/04/2008 02:02:29 [id number] [facility], [address] [place] [address] 1 06/05/2008 15:35:46 06/17/2008 02:02:00 [id number] GLENROY Reyes [facility], OFFICE [address] [place] [address] [place] [id number] 1 08/06/2008 12:16:07 08/07/2008 08:35:57 [id number] [facility], [address] [place] [id number] 1 09/05/2008 11:42:18 09/08/2008 08:21:[id number] [facility] [address] [place] [id number] 1 12/08/2008 16:32:50 12/09/2008 14:05:[id number] [facility] [address] [place] [id number] 1 12/23/2008 10:20:23 12/23/2008 16:02:28 [id number] [facility], [address] [place] [id number] 1 03/11/2009 14:47:03 03/11/2009 17:01:54 [id number] [facility] - [address] [place] [address] 1 07/30/2008 09:10:41 07/30/2008 09:10:47 [id number] [facility] [address] [place] [id number] 1 12/10/2008 10:17:14 12/10/2008 10:17:19 [id number] [facility] [address] [place] [id number] 1 09/01/2009 07:59:36 09/01/2009 09:05:09 [id number] [facility] [address] [place] [id number] 1 09/03/2009 09:31:25 09/04/2009 08:20:06 [id number] [facility] [address] [place] [id number] 1 11/23/2009 09:27:05 11/23/2009 12:22:11 [id number] FP, [facility], OFFICE [address] [place] [address] [address] [place], [place] [address] 1 12/14/2009 15:28:34 12/14/2009 16:21:22 [id number] FP, [facility], OFFICE [address] [place] [address] [address] [place], [place] [id number] 1 03/18/2010 09:21:43 03/18/2010 10:46:30 [id number] FP, [facility], [address] [place], [place] [address] 1 06/30/2010 16:24:46 06/30/2010 17:25:41 [id number] GLENROY Reyes, [facility], [address] [place] [address] 1 01/20/2011 10:19:33 01/20/2011 11:02:24 [id number] FP, [facility], [address] [place] [address] 1 03/31/2011 15:41:03 03/31/2011 16:54:54 [id number] FP, [facility], [address] [place], [place] [address] 1 09/13/2011 16:09:22 09/13/2011 16:43:30 [id number] Araceli Schuster LPN FP, [facility], [address] [place] [address] 1 10/12/2011 15:55:37 10/12/2011 16:24:26 [id number] GLENROY Reyes, [address] [place] [address] 1 10/26/2011 15:55:14 10/26/2011 16:08:12 [id number] GLENROY Reyes, [facility], [address] [place] [address] 1 07/16/2012 11:45:25 07/16/2012 12:22:07 [id number] GLENROY Prado, [facility], [address] [place] [address] 1 07/19/2012 10:20:12 07/19/2012 10:30:27 [id number] Stephanie Giraldo LPN FP, [facility], [address] [place] [address] 1 12/25/2012 16:14:20 12/26/2012 07:30:58 [id number] Araceli Schuster LPN [address] [place] [address] 1 03/04/2013 15:53:01 03/04/2013 16:53:56 [id number] Nathenrukhsana Chávez [address] [place] [address] 1 06/05/2013 10:45:47 06/05/2013 11:36:26 [id number] Bertha Razo [address] [place] [address] 1 06/24/2013 15:47:39 06/25/2013 10:20:00 [id number] Marta Mcghee [address] [place] [address] 1 09/18/2013 13:41:57 09/18/2013 14:35:[id number] [place] [address] 10/24/2013 13:30:56 10/24/2013 14:58:27 [id number] Stephanie Tavaresers [address] [place] [address] 1 08/21/2014 09:15:37 08/21/2014 12:58:29 [id number] Jaimie Montero [address] [place] [address] 1 09/22/2014 13:45:57 10/09/2014 16:20:03 [id number] Rohan Robert [address] [place] [address] 1 06/16/2015 10:15:14 06/17/2015 11:26:38 [id number] Eden Washington D.O. [address] [place] [address] 1 06/24/2016 13:45:51 06/27/2016 09:56:23 [id number] Eden Washington D.O. [address] [place] [address] 1 09/30/2016 10:41:57 09/30/2016 11:49:43 [id number] Miguel Angel Jim MD [address] [place] [address] 1 04/21/2017 16:26:41 04/24/2017 12:38:25 [id number] Eden Furcolo D.O. [address] [place] [id number] 1 10/24/2017 08:44:30 10/24/2017 09:30:25 [id number] Douglas Willis PA-C [address] [place] [address] 1 10/26/2017 13:39:56 10/26/2017 14:41:19 [id number] Eden Furcolo D.O. [address] [place] [address] 1 04/23/2018 14:36:20 04/23/2018 16:11:35 [id number] MARISSA Ortiz [address] [place] [address] 1 08/14/2018 09:28:25 08/14/2018 11:12:59 [id number] Eden Furcolo D.O. [address] [place] [address] 1 10/25/2018 08:47:16 10/25/2018 09:22:10 [id number] Eden Furcolo D.O. [address] [place] [address] 1 04/25/2019 09:47:24 04/25/2019 10:25:45 [id number] Eden Furcolo D.O. [address] [place] [address] 1 10/29/2019 08:12:09 10/29/2019 09:15:59 [id number] Gertrudis Roche RN [address] [place] [address] 1 03/20/2020 07:34:17 03/26/2020 16:52:10 [id number] STEVAN PEREZ MD [address] [place] [address] 1 11/06/2020 08:44:51 11/06/2020 10:09:53 [id number] Mason Multani DPM Podiatry, [address] [place] [address] 1 01/22/2021 09:01:08 01/22/2021 15:38:52 [id number] Eden Washington D.O. , [facility], OFFICE [address] [place] [address] 1 01/26/2021 08:57:23 01/26/2021 09:35:25 [id number] Matilde Rubio MD , [facility], OFFICE [address] [place] [address] 1 10/08/2021 12:02:47 10/08/2021 12:27:01 [id number] Alphonse Martinez DPT Physical Therapy, [facility] [address] [place] [address] 10/13/2021 13:52:59 10/14/2021 13:07:36 [id number] Alphonse Martinez DPT Physical Therapy, [address] [place] [address] 1 10/18/2021 13:10:11 10/18/2021 14:16:22 [id number] Alphonse Martinez DPT Physical Therapy, [address] [place] [address] 1 10/20/2021 10:32:00 10/20/2021 14:08:36 [id number] Alphonse Martinez DPT Physical Therapy, [address] [place] [address] 1 10/25/2021 11:26:03 10/25/2021 15:32:52 [id number] Alphonse Martinez DPT Physical Therapy, [address] [place] [address] 1 10/27/2021 14:28:08 10/27/2021 15:25:05 [id number] Zheng Figueroa MD Sports Medicine, [address] [place] [address] 11/03/2021 13:32:18 11/03/2021 14:02:41 [id number] Alphonse Martinez DPT Physical Therapy, [address] [place] [address] 1 11/03/2021 14:36:56 11/04/2021 10:24:32 [id number] AMINATA ResendezT Physical Therapy, [address] [place] [address] 1 11/09/2021 13:06:11 11/09/2021 13:59:30 [id number] AMINATA ResendezT Physical Therapy, [address] [place] [address] 1 11/18/2021 15:34:59 11/18/2021 16:09:31 [id number] AMINATA ResendezT Physical Therapy, [address] [place] [address] 1 11/23/2021 15:00:55 11/23/2021 15:37:44 [id number] Zheng Figueroa MD Sports Medicine, [address] [place] [address] 1 12/13/2021 13:28:52 12/13/2021 14:00:37 [id number] Eden Washington D.O. , [facility], OFFICE [address] [place] [address] 1 01/28/2022 08:18:22 01/28/2022 13:39:11 [id number] MARISSA Sal , [facility], OFFICE [address] [place] [address] 04/14/2022 11:51:53 04/19/2022 14:24:28 [id number] Eden Washington D.O. , [facility], OFFICE [address] [place] [address] 1 05/02/2022 10:10:17 05/03/2022 10:34:49 [id number] Zheng Figueroa MD Sports Medicine, [facility] [address] [place] [address] 05/03/2022 11:04:00 05/03/2022 11:21:52 [id number] Mason Dickey i, PT Physical Therapy, [address] [place] [address] 1 05/31/2022 14:26:57 05/31/2022 15:55:33 [id number] Mason Dickey i, PT Physical Therapy, [address] [place] [address] 1 06/06/2022 14:58:22 06/07/2022 13:01:15 [id number] MARCE DOC-D VICKI SOSA, [facility], OFF[address] [place] [address] 11/10/2022 14:53:30 11/10/2022 15:34:06 [id number] AUGUST DOC-D VICKI SOSA, [facility], OFFICE [address] [place] [address] 1 11/17/2022 13:28:47 11/17/2022 15:00:11 [id number] Florina Quevedo RN Endoscopy , [facility] [address] [place] [address] 12/02/2022 11:53:27 12/02/2022 14:02:53 [id number] MARCE DOC-D VICKI SOSA, [facility], OFFICE [address] [place] [address] 1 12/19/2022 09:19:08 12/19/2022 10:08:32 [id number] Tricia Maxwell RDN, [place], [facility] Nutrition -[facility] [address] [place] [address] 01/17/2023 09:54:56 01/18/2023 15:46:39 [id number] MARCE DOC-D VICKI SOSA, [facility], OFFICE [address] [place] [address] 1 02/15/2023 10:27:27 02/15/2023 15:31:28 [id number] Tricia Maxwell RDN, [place], [facility] Nutrition -[address] [place] [address] 02/21/2023 08:59:17 03/03/2023 16:13:21 [id number] MARCE DOC-D VICKI SOSA, [facility], OFFICE [address] [place] [address] 03/01/2023 10:54:57 03/01/2023 12:54:52 [id number] Sara marx, STATEMENT DISTRIBUTION CLERK FP, [facility], OFFICE [address] [place] [address] 1 04/14/2023 13:20:01 04/18/2023 09:08:55 [id number] Edna Martin NP , [facility], OFFICE [address] [place] [address] 1 06/12/2023 10:47:08 06/12/2023 17:30:56 [id number] Edna Martin NP , [facility], OFFICE [address] [place] [address] 1 08/23/2023 14:53:22 08/23/2023 16:05:30 [id number] AMBER LAROSE MD , [facility], OFFICE [address] [place] [address] [place] [address] 1 01/31/2024 10:13:15 01/31/2024 12:19:05 [id number] AMBER LAROSE MD , [facility], OFFICE [address] [place] [address] [place] [address] 1 04/08/2024 10:16:44 04/08/2024 11:44:27 [id number] AMBER LAROSE MD , [facility], OFFICE [address] [place] [address] [place] [address] 1 05/01/2024 14:03:34 05/01/2024 14:57:36 [id number] AMBER LAROSE MD , [facility], OFFICE [address] [place] [address] [place] [address] 1 06/10/2024 16:10:34 06/11/2024 10:47:39 Health Concerns Section Related Observation LastModified by Organization Detai ls LastModified Time None Recorded Concern Status LastModified by Organization Details LastModified Time None Recorded Advance Directives Directive N: Payers Encounter Date Sequence Insurance Name Policy Number Policy Zapata Covered Member ID Zapata Member ID Guarantor Name 08/23/2023 1 [employer] - DOS ON OR AFTER 2022 - [employer] (MEDICAID REPLACEMENT - HMO) Fernanda Hui [id number] Fernanda Hui 01/31/2024 1 [employer] - DOS ON OR AFTER 2022 - [employer] (MEDICAID REPLACEMENT - HMO) Fernanda Hui [id number] Fernanda Hui 04/08/2024 1 [employer] - DOS ON OR AFTER 2022 - [employer] (MEDICAID REPLACEMENT - HMO) Fernanda Hui [id number] Fernanda Hui 05/01/2024 1 [employer] - DOS ON OR AFTER 2022 - [employer] (MEDICAID REPLACEMENT - HMO) Fernanda Hui [id number] Fernanda Hui 06/10/2024 1 [employer] - DOS ON OR AFTER 2022 - [employer] (MEDICAID REPLACEMENT - HMO) Fernanda Hui [id number] Fernanda Hui OBGyn Episode No OBEpisode recorded.
--- OUTSIDE RECORDS SUMMARY | 2024-06-12 08:55 | XMS_ITS | Continuity of Care Document ---
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 Plan of Treatment Reminders Order Date Submit Date Provider Last Modified By Organization Details Last Modified Time Details Appointments None recorded. Lab hemoglobin A1C/hemoglo bin total, QN, blood 2024 025 [email or web address] [facility], [address] [place], [address], 5 16:50:23 Referral None recorded. Procedures None recorded. Surgeries None recorded. Imaging None recorded. Medication Orders Zepbound 5 mg/0.5 mL subcutaneou s pen injector 2024 025 [id number], [address] [place], [address], 5 16:41:49 Patient TargetsNo targets recorded. Patient InstructionsNo instructions recorded. Reason for Referral None Reported. Problems Name Problem SNOMED Code Status Onset Date Resolution Date Notes Provider Name and Address Organization Details Recorded Time Obesity 641500869 Active Not Available [facility] 10:25:21 Essentia l hyperten yohannes 38447622 Active Edna Martin NP [address] [place] [address], [address] , [facility] 4 13:24:50 Iron deficien cy anemia 88541039 Active 2022 DOC-Glo SOSA, DNP [address] [place] [address], [address] , [facility] 3 09:04:25 Celiac disease 880715686 Active 2022 AKHIL SOSA, DNP [address] [place] [address], [address] , [facility] 3 09:04:30 Osteopen ia 098981077 Active 2022 Sara marx, LUCA [address] [place] [address], [address] , [facility] 3 20:29:41 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 712131421 Completed 202206/12/2023 Neg for autoimmu ne hep - GI workup normal Edna Martin NP [address] [place] [address], [address] , [facility] 4 13:25:06 Steatosi s of liver 964193057 Active 2022 Edna Martin NP [address] [place] [address], [address] , [facility] 4 13:24:59 Type 2 diabetes mellitus without complica tion 713348396 Active 2023 Edna Martin NP [address] [place] [address], [address] , [facility] 4 11:37:25 Headache 37376804 Completed 11/09/2011 Not Available [facility] 3 03:09:36 Headache 05302087 Completed 200603/16/2010 Not Available [facility] 3 03:09:36 Precordi al pain 53833789 Completed 200603/17/2010 Not Available [facility] 3 03:09:36 Essentia l hyperten yohannes 55612395 Completed 06/02/2014 Edna Martin NP [address] [place] [address], [address] , [facility] 4 13:24:50 Aquiles molina hyperten yohannes 78091568 Completed 11/21/2011 Edna Martin NP [address] [place] [address], [address] , [facility] 4 13:24:50 Aquiles l hyperten yohannes 39921531 Completed 200503/17/2010 Edna Martin NP [address] [place] [address], [address] , [facility] 4 13:24:50 Symptom of head and neck region 899115730 Completed 03/16/2010 Not Available [facility] 3 03:09:36 Benign aquiles molina hyperten yohannes 9361617 Completed 200508/21/2014 Eden Washington D.O. [address] [place] [address], [address] , [facility] 5 09:43:29 Anxiety state 210931810 Completed 08/21/2014 Eden Washington D.O. [address] [place] [address], [address] , [facility] 5 09:43:29 Anxiety state 635971099 Completed 200703/17/2010 Not Available [facility] 3 03:09:36 Dizzines s 351082055 Completed 200503/16/2010 Not Available [facility] 3 03:09:36 Vitamin D deficien cy 57107079 Completed 200803/17/2010 Not Available [facility] 3 03:09:36 Coarctat ion of aorta 2744457 Active see [employer] Not Available [facility] 1 10:25:21 Coarctat ion of aorta 1991377 Completed 200603/17/2010 Eden Washington D.O. [address] [place] [address], [address] , [facility] 7 11:30:55 Acute stress disorder 54314351 Completed 200603/16/2010 Not Available [facility] 3 03:09:36 Panic disorder without agorapho cathy 09489375 Completed 200308/21/2014 Eden Cody.O. [address] [place], [address] , [facility] 5 09:43:29 Chest pain 44684350 Completed 03/17/2010 Not Available [facility] 3 03:09:36 Abnormal cervical Papanico laou smear with human papillom avirus deoxyrib onucleic acid detected 437418583 Completed 08/21/2014 Eden Cody.O. [address] [place], [address] , [facility] 5 09:43:29 Abnormal cervical Papanico laou smear with human papillom avirus deoxyrib onucleic acid detected 230581329 Completed 03/17/2010 Not Available [facility] 3 03:09:36 Impaired fasting glycemia 300131898 Completed 06/12/2023 Edna Martin NP [address] [place], [address] , [facility] 4 13:24:44 Low back pain 647284028 Completed 200606/02/2014 Eden Cody.O. [address] [place], [address] , [facility] 5 19:54:32 Migraine 20629290 Active Not Available [facility] 1 10:25:21 Acute bronchit is 37567168 Completed 200503/16/2010 [facility] Available [facility] 3 03:09:36 Malaise and fatigue 673075733 Completed 200603/16/2010 Not Available [facility] 3 03:09:36 Problem Notes None recorded. Procedures Surgical History Date Name Laterality Status Provider Name and Address Organization Details Recorded Time 11/24/19 22 35441: Therapeutic Exercise completed Alphonse Martinez DPT [address] [place], [address], [facility] 11/23/2021 15:08:02 11/24/19 22 08419: Manual Therapy completed Alphonse Martinez, AMINATAT [address] [place], [address], [facility] 11/23/2021 15:08:03 11/24/19 22 Neuromuscular re-education completed Alphonse Martinez DPT [address] [place], [address], [facility] 11/23/2021 15:08:03 11/19/19 22 86002: Therapeutic Exercise completed Alphonse Martinez DPT [address] [place], [address], [facility] 11/18/2021 15:45:36 11/19/19 22 44353: Manual Therapy completed Alphonse Martinez DPT [address] [place], [address], [facility] 11/18/2021 15:45:36 11/19/19 22 Neuromuscular re-education completed Alphonse Martinez DPT [address] [place], [address], [facility] 11/18/2021 15:45:36 11/19/19 22 Treatment and Advice completed Alphonse Martinez DPT [address] [place], [address], [facility] 11/18/2021 16:04:43 11/10/19 22 17423: Therapeutic Exercise completed Alphonse Martinez DPT [address] [place], [address], [facility] 11/09/2021 12:51:26 11/10/19 22 77251: Manual Therapy completed Alphonse Martinez DPT [address] [place], [address], [facility] 11/09/2021 12:52:07 11/10/19 22 Neuromuscular re-education completed Alphonse Martinez DPT [address] [place], [address], [facility] 11/09/2021 13:45:24 11/10/19 Treatment and Advice completed Alphonse Martinez DPT [address] [place], [address], [facility] 11/09/2021 12:49:44 11/04/19 22 05091: Therapeutic Exercise completed Alphonse Martinez DPT [address] [place], [address], [facility] 11/03/2021 15:02:00 11/04/19 Neuromuscular re-education completed Alphonse Martinez DPT [address] [place], [address], [facility] 11/03/2021 23:25:50 11/04/19 Treatment and Advice completed Alphonse Martinez DPT [address] [place], [address], [facility] 11/03/2021 23:22:49 10/28/19 22 19086: Therapeutic Exercise completed Alphonse Martinez DPT [address] [place] [address], [address], [facility] 10/27/2021 15:01:27 10/28/19 22 Neuromuscular re-education completed Alphonse Martinez DPT [address] [place], [address], [facility] 10/27/2021 15:01:40 10/28/19 22 Smoking Cessation Counselling completed Alphonse Martinez DPT [address] [place], [address], [facility] 10/27/2021 14:33:50 10/28/19 22 Physical Activity Counselling completed Alphonse Martinez DPT [address] [place], [address], [facility] 10/27/2021 14:33:50 10/28/19 22 Treatment and Advice completed Alphonse Martinez DPT [address] [place] [address], [address], [facility] 10/27/2021 15:01:18 10/26/19 22 01619: Therapeutic Exercise completed Alphonse Martinez DPT [address] [place], [address], [facility] 10/25/2021 11:39:14 10/26/19 22 Smoking Cessation Counselling completed Alphonse Martinez DPT [address] [place], [address], [facility] 10/25/2021 11:39:14 10/26/19 22 Physical Activity Counselling completed Alphonse Martinez DPT [address] [place], [address], [facility] 10/25/2021 11:39:14 10/26/19 22 Treatment and Advice completed Alphonse Martinez DPT [address] [place], [address], [facility] 10/25/2021 11:39:14 10/21/19 22 62214: Therapeutic Exercise completed Alphonse Martinez DPT [address] [place], [address], [facility] 10/20/2021 12:53:24 10/21/19 22 Smoking Cessation Counselling completed Alphonse Martinez DPT [address] [place], [address], [facility] 10/20/2021 12:46:29 10/21/19 22 Physical Activity Counselling completed Alphonse Martinez DPT [address] [place], [address], [facility] 10/20/2021 12:46:29 10/21/19 22 Treatment and Advice completed Alphonse Martinez DPT [address] [place], [address], [facility] 10/20/2021 12:51:57 10/19/19 22 25880: Therapeutic Exercise completed Alphonse Martinez DPT [address] [place], [address], [facility] 10/18/2021 13:58:42 10/19/19 22 Smoking Cessation Counselling completed Alphonse Martinez DPT [address] [place] [address], [address], [facility] 10/18/2021 12:41:42 10/19/19 22 Physical Activity Counselling completed Alphonse Martinez DPT [address] [place] [address], [address], [facility] 10/18/2021 12:41:42 10/19/19 22 Treatment and Advice completed Alphonse Martinez DPT [address] [place] [address], [address], [facility] 10/18/2021 13:55:32 10/14/19 22 Smoking Cessation Counselling completed Alphonse Martinez DPT [address] [place] [address], [address], [facility] 10/13/2021 20:25:31 10/14/19 22 Physical Activity Counselling completed Alphonse Martinez DPT [address] [place] [address], [address], [facility] 10/13/2021 20:25:31 10/14/19 22 37696: PT Eval Low Complexity completed Alphonse Martinez DPT [address] [place] [address], [address], [facility] 10/13/2021 20:25:31 10/14/19 22 Treatment and Advice completed Alphonse Martinez DPT [address] [place] [address], [address], [facility] 10/13/2021 15:02:39 10/29/19 20 prevention-cardiov ascular risk reduction counseling completed YUKO Angeles [facility] 10/29/2019 08:14:35 10/29/19 20 prevention-annual alcohol misuse screening completed Aspen Parra Pon[place] [facility] 10/29/2019 08:14:35 10/27/19 18 Corticosteroid Injection completed Douglas Willis PA-C [address] [place] [address], [address], [facility] 10/26/2017 13:54:16 Imaging Results None recorded. Procedure Notes None recorded. Medical Equipment None [...] Available Not Available No t Available FreeStyle Britton Lite kit USE DIRECTED TO CHECK BLOOD [...] Available Not Available No t Available Vitals Date Recorded Body height Provider Name an d Address Organization Details Last Updated DateTime 06/10/2024 165.1 cm Anahi Coppola [place] [facility] 06/10/2024 16:16:31 Date Recorded Body mass index (BMI) Body weight Provider Name and Address Organization Details Last Updated DateTime 06/10/2024 37.8 kg/m2 117191.47 g Anahi Coppola MA [facility] 06/10/2024 16:18:14 Date Recorded Heart rate Provider Name an d Address Organization Details Last Updated DateTime 06/10/2024 81 /min Anahi Coppola [facility] 06/10/2024 16:20:25 Date Recorded Systolic blood pressure Diastolic blood pressure Provider Name and Address Organization Details Last Updated DateTime 06/10/2024 122 mm[Hg] 74 mm[Hg] Anahi Coppola [facility] 06/10/2024 16:19:57 Social History Question Answer Notes LastModified by Organization Details LastModified Time Tobacco Smoking Status Never Smoker checked 08-23-23 [facility]ogn Aida, [facility] 15:05:33 Do You Have An Advance Directive? No Information not available 03/31/2011 What Is Your Level Of Alcohol Consumption? None Checked 06-12-23 [email or web address] Information not available 06/12/2023 What Is Your Level Of Caffeine Consumption? Moderate Information not available 09/22/2014 Are You Currently Employed? Yes Information not available 01/26/2021 What Type Of Diet Are You Following? REGULAR Information not available 03/31/2011 Education 12 Information not available 03/31/2011 What Is Your Occupation? [employer] Information not available 01/28/2022 How Many Days In The Past Year Have You Had A Heavy Drinking Consumption (4+ Female, 5+ Male)? 0 Information not available 08/21/2014 Are There Any Guns Present In Your Home? No Information not available 03/31/2011 Live Alone Or With Others? With Others 3 Children, Her Mother, Zahira And His 3 Children. Lost Father And Former Zahira [email or web address] Information not available 03/16/2010 Does The Patient Have Difficulty Speaking Malaysian? No Information not available 03/31/2011 Does The Patient Have Difficulty Reading Malaysian? 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 04/08/2024 01/28/22 CJ, 11/10/22mh, 11/17/22mh, 12/19/22mh, 02/15/23mh [email or web address] Information not available 04/08/2024 How Many Children Do You Have? 3 Information not available 03/31/2011 Are There Any Occupational Health Risks Where You Work? [employer] Information not available 01/28/2022 What Is Your Relationship Status? Information not available 01/26/2021 Seat Belts Used Routinely Yes Information not available 03/31/2011 Are You Sexually Active? Yes TL [email or web address] Information not available 03/18/2010 Smoke Alarm In Home Yes Information not available 03/31/2011 General Stress Level High Son With Substance Abuse Heroin Information not available 06/16/2015 Do You Use Any Illicit Or Recreational Drugs? No 01/22/2021 KM Information not available 01/22/2021 Do You Use Sunscreen Routinely? Yes Information not available 03/31/2011 Do You Or Have You Ever Used Any Other Forms Of Tobacco Or Nicotine? No 01/22/2021 KM Information not available 01/22/2021 Sex: Female Functional [...] 70 [email or web address] Not available 2014 14:14:19 Brother Guera-Liberty son-White pattern 48 [email or web address] Not available 2016 11:31:20 Notes:All grandparents with DM and HTN Fernanda did genetic cancer tested through [facility]- negative Medical History Condition Response Diabetes Type II Obesity Y Anxiety Y CARDIOVASCULAR Y Abnormal Pap Y Migraine Headaches Y Hypertension Y Gynecological HistoryNo gynecological history recorded. Obstetrics History GPAL:G 0 P 0 0 0 0 Immunizations Vaccine Type Date Status Note Provider Name and Address Organization Details Recorded Time Td(adult) unspecified formulation 007 completed Not Available [facility] 03/30/2011 05:21:29 Tdap 014 completed [facility] 02:27:11 Influenza, split virus, quadrivalent, PF 019 completed Not Available [facility] 06/01/2019 02:24:34 Influenza, split virus, quadrivalent, PF 020 completed eGrtrudis Roche RN [facility], [facility] 03/20/2020 11:03:26 Influenza, split virus, quadrivalent, PF 022 cancelled patient objection Eden Washington D.O. [address] [place] [address], [address], [facility] 05/02/2022 10:38:48 Influenza, split virus, quadrivalent, PF 024 cancelled patient objection Edna Martin NP [address] [place], [address], [facility] 06/12/2023 13:20:53 Tdap 024 completed Edna Martin NP [address] [place], [address], [facility] 08/23/2023 16:12:10 pneumococcal polysaccharide PPV23 010 completed Not Available [facility] 06/01/2019 02:27:38 COVID-19, mRNA, LNP-S, PF, 30 mcg/0.3 mL dose [facility] 03/27[facility]2021 08:34:50 COVID-19, mRNA, LNP-S, PF, 30 mcg/0.3 mL dose [facility] 04/21[facility]2021 14:50:21 Past Encounters Encounter ID Performer Location Encounter Start Date Encounter Closed Date Diagnosis/Indication Diagnosis SNOMED-CT Code Diagnosis ICD10 Code Diagnosis Note [id number] MARCELLA LAROSE MD , [facility] [place] [address] [place] [address] 06/10/2024 16:10:34 06/11/2024 10:47:39 Obesity 898110962 E66.9 Tolerating the 2.5 mg dose. Initially had some burping but this resolved after a few days. Decrease in appetite. Weight still the same. Will increase to 5 mg. Continue healthy eating, gym and hydration. ?I am seeing patient regularly to monitor medication and ongoing weight goals.?I, Marcella Larose MD, am certified by the [place] [employer] to provide obesity care. Type 2 heriberto betes mellitus without complication 003424940 E11.9 Last A1c in March was 7.3%. Repeat today. Essential hypertension 99431208 I10 At goal <130/80. Will monitor. Health Concerns Section Related Observation LastModified by Organization Detai ls LastModified Time None Recorded Concern Status LastModified by Organization Details LastModified Time None Recorded Payers Encounter Date Sequence Insurance Name Policy Number Policy Zapata Covered Member ID Zapata Member ID Guarantor Name 06/10/2024 1 [facility] - DOS ON OR AFTER 2022 - [facility] [employer] (MEDICAID REPLACEMENT - HMO) Fernanda Hill [id number] Fernanda Hill Notes Date Note Type Note Provider Name and Address Organization Details Recorded Time 5 text/html Appetite is down but weight has not changed yetGoing back to the gym, hopefully will comeStill eating protein, veggiesDrinkign water Went to ortho for the kneesOsteoarthritis bilaterallyDoing PT right nowR elbow saw the same doctor, thinks its cubital compartment syndromeW[place] doctorHas a plan for an EMGGoing to [facility] for [facility] Due for eye exam, plan to have this done in August MARCELLA LAROSE MD [address] [place] [address], [address], [facility] 06/10/2024 16:59:16 OBGyn Episode No OBEpisode recorded.
--- OUTSIDE RECORDS SUMMARY | 2024-06-12 08:55 | XMS_ITS | Data Portability ---
Author Organization [facility], FORMERLY [facility] Address [address] [place] [address] Care Team Providers Care Hogshead Inspector Name Role Phone JERAMY REWIN OTHER ALBERTA HOUSER Orthopedic Surgeon GAMA MEDEIROS Program Attendant ALEX MAXWELL Caddie CECI VAZQUEZ Hematology/Oncology [phone] [place] [address] GASTROENTEROLOGY Electronics Tech Assessment Encounter Date Assessment Date Assessment LastModified [...] Lab HbA1c (hemoglobin A1c), blood 2023 024 [facility], [address] [place] [address], [address], 4 11:47:49 hemoglobin A1C/hemoglo bin total, QN, blood [email or web address] [facility], [address] [place] [address], [address], 5 16:50:23 Referral neurologist referral 2023 024 KAYE Lloyd MD, [address] [place] [address], [address], 4 03:18:27 physical medicine and rehabilitat ion referral 2023 024 [email or web address] Melvin Wallace MD, [address], [place], [address], 4 13:11:26 orthopedic surgeon referral 2023 024 [email or web address] [facility], [address] [place] [address] [place], [address], 4 11:11:22 Procedures None recorded. Surgeries None recorded. Imaging XR, hip + pelvis, unilateral, 2 or 3 view 2023 024 [email or web address] [facility] (Imaging), [address] [place] [address] , [place], [address], 4 12:19:05 Medication Orders Zepbound 2.5 mg/0.5 mL subcutaneou s pen injector 2023 024 [id number], [address] [place], [address], 4 14:32:14 ondansetron 4 mg disintegrat ing tablet 2023 024 [id number], [address] [place], [address], 4 14:32:14 Zepbound 5 mg/0.5 mL subcutaneou s pen injector 2024 025 [id number], [address] [place], [address], 5 16:41:49 Patient TargetsNo targets recorded. Patient Instructions Encounter Date Encounter Id Patient Instructions Last Modified By Organization Details Last Modified Time 05/01/2024 [id number] You have been prescribed a new medication [...] containers from your insurance company or [facility] have them available for free. - [...] of left hip joint Referring Physician: [facility], Encounter Date: 01/31/2024 Neurologist Referral for Hea dache Referring Physician: [facility], Encounter Date: 01/31/2024 Orthopedic Surgeon Referral for Pain of right elbow joint Referring Physician: Amber Larose, [facility], Encounter Date: 04/08/2024 Results Created Date Observation Date Name Description Value Unit Range Abnormal Flag Note LastModifiedBy Organization Detail LastModifiedTime 08/16/19 24 08/16/2023 MICRO ALBUM IN/CR EATIN INE RATIO PANEL , URINE microalbumin 16.9 mg/L 1.3-20 .0 Not Available [address], [address], 08/16/2023 16:46:53 08/16/19 24 08/16/2023 MICRO ALBUM IN/CR EATIN INE RATIO PANEL , URINE creatinine urine 104.9 mg/dL 30.0-1 25.0 Not Available [address], [address], 08/16/2023 16:46:53 08/16/19 24 08/16/2023 MICRO ALBUM IN/CR EATIN INE RATIO PANEL , URINE microalb/cre at ratio 16.1 mg/g_ creat 0.0-29 .0 Not Available [address], [address], 08/16/2023 16:46:53 08/16/19 24 08/17/2023 HGB A1C [...] furth er confi rmati on Not Available [address], [address], 08/17/2023 10:15:54 08/16/19 24 08/17/2023 HGB A1C estimated average glucose 134.1 mg/dL Not Available [address], [address], 08/17/2023 10:15:54 08/16/19 24 08/17/2023 COMP. METAB OLIC PANEL glucose 121 mg/dL 70-100 high Not Available [address], [address], 08/17/2023 12:22:55 08/16/19 24 08/17/2023 COMP. METAB OLIC PANEL BUN 15 mg/dL 7-18 Not Available [address], [address], 08/17/2023 12:22:55 08/16/19 24 08/17/2023 COMP. METAB OLIC PANEL creatinine 0.7 mg/dL 0.8-1. 3 low Not Available [address], [address], 08/17/2023 12:22:55 08/16/19 24 08/17/2023 COMP. METAB OLIC PANEL B/C 21.4 ratio Not Available [address], [address], 08/17/2023 12:22:55 08/16/19 24 08/17/2023 COMP. METAB [...] be used in pregn lanie. Not Available [address], [address], 08/17/2023 12:22:55 08/16/19 24 08/17/2023 COMP. METAB OLIC PANEL sodium 140 mmol/ L 136-14 5 Not Available [address], [address], 08/17/2023 12:22:55 08/16/19 24 08/17/2023 COMP. METAB OLIC PANEL potassium 4.1 mmol/ L 3.5-5. 1 Not Available [address], [address], 08/17/2023 12:22:55 08/16/19 24 08/17/2023 COMP. METAB OLIC PANEL chloride 102 mmol/ L 96-107 Not Available [address], [address], 08/17/2023 12:22:55 08/16/19 24 08/17/2023 COMP. METAB OLIC PANEL anion gap 12.4 5.0-15 .0 Not Available [address], [address], 08/17/2023 12:22:55 08/16/19 24 08/17/2023 COMP. METAB OLIC PANEL CO2 26 mmol/ L 21-32 Not Available [address], [address], 08/17/2023 12:22:55 08/16/19 24 08/17/2023 COMP. METAB OLIC PANEL calcium 9.5 mg/dL 8.5-10 .3 Not Available [address], [address], 08/17/2023 12:22:55 08/16/19 24 08/17/2023 COMP. METAB OLIC PANEL total protein 7.2 g/dL 6.4-8. 2 Not Available [address], [address], 08/17/2023 12:22:55 08/16/19 24 08/17/2023 COMP. METAB OLIC PANEL albumin 3.7 g/dL 3.4-5. 0 Not Available [address], [address], 08/17/2023 12:22:55 08/16/19 24 08/17/2023 COMP. METAB OLIC PANEL globulin 3.5 g/dL Not Available [address], [address], 08/17/2023 12:22:55 08/16/19 24 08/17/2023 COMP. METAB OLIC PANEL A/G 1.1 ratio 0.8-2. 0 Not Available [address], [address], 08/17/2023 12:22:55 08/16/19 24 08/17/2023 COMP. METAB OLIC PANEL total bilirubin 0.40 mg/dL 0.00-1 .00 Not Available [address], [address], 08/17/2023 12:22:55 08/16/19 24 08/17/2023 COMP. METAB OLIC PANEL AST 28 U/L 0-37 Not Available [address], [address], 08/17/2023 12:22:55 08/16/19 24 08/17/2023 COMP. METAB OLIC PANEL ALT 56 U/L 6-63 Not Available [address], [address], 08/17/2023 12:22:55 08/16/19 24 08/17/2023 COMP. METAB OLIC PANEL alk. phos. 135 U/L 50-136 Not Available [address], [address], 08/17/2023 12:22:55 08/16/19 24 08/17/2023 LIPID PANEL cholesterol 189 mg/dL <200 mg/dl Allen able 200-2 39 mg/dl Borde rline High >240 mg/dl High Not Available [address], [address], 08/17/2023 12:22:56 08/16/19 24 08/17/2023 LIPID PANEL triglyceride s 174 mg/dL <150 mg/dL Jerica l 150-1 99 mg/dL Borde rline High 200-4 99 mg/dL High >500 mg/dL Very High Not Available [address], [address], 08/17/2023 12:22:56 08/16/19 24 08/17/2023 LIPID PANEL direct HDL 48 mg/dL <40 mg/dl - Major Risk for CHD >60 mg/dl - Negat diomedes Risk for CHD Not Available [address], [address], 08/17/2023 12:22:56 08/16/19 24 08/17/2023 LDL - [...] r is not lee gina. Not Available [address], [address], 08/17/2023 12:22:58 10/06/19 24 10/10/2023 ANATO RAKEL PATHO LOGY path report [facility] [address] [place] [address] Lab Direc tor: Anahi davila MD Surgi mini Patho logy Repor t Accnoris yohannes #: [id number] FINAL PATHO LOGIC [...] Lumin peter cannon MD By his/h er signponcho neil above , the patho logis t [...] mini labor atory testi ng. Immun ohist arely isalfonso is perfo rmed on forma tano-f ixed [...] tyler MD, POST- BA, BA Not Available [facility] (Outpatient) [address] [place], [address], 10/10/2023 17:20:06 04/06/20 24 04/08/2024 HGB A1C [...] furth er confi rmati on Not Available [address], [place], [address], 04/08/2024 11:47:49 04/06/20 24 04/08/2024 HGB A1C estimated average glucose 162.8 mg/dL Not Available [address], [address], 04/08/2024 11:47:49 04/06/20 24 04/09/2024 BASIC METAB OLIC PANEL glucose 179 mg/dL 70-100 high Not Available [address], [address], 04/09/2024 16:36:15 04/06/20 24 04/09/2024 BASIC METAB OLIC PANEL BUN 14 mg/dL 7-18 Not Available [address], [address], 04/09/2024 16:36:15 04/06/20 24 04/09/2024 BASIC METAB OLIC PANEL creatinine 0.9 mg/dL 0.8-1. 3 Not Available [address], [address], 04/09/2024 16:36:15 04/06/20 24 04/09/2024 BASIC METAB OLIC PANEL B/C 15.6 ratio Not Available [address], [address], 04/09/2024 16:36:15 04/06/20 24 04/09/2024 BASIC METAB [...] be used in pregn lanie. Not Available [address], [address], 04/09/2024 16:36:15 04/06/20 24 04/09/2024 BASIC METAB OLIC PANEL sodium 143 mmol/ L 136-14 5 Not Available [address], [address], 04/09/2024 16:36:15 04/06/20 24 04/09/2024 BASIC METAB OLIC PANEL potassium 4.1 mmol/ L 3.5-5. 1 Not Available [address], [address], 04/09/2024 16:36:15 04/06/20 24 04/09/2024 BASIC METAB OLIC PANEL chloride 105 mmol/ L 96-107 Not Available [address], [address], 04/09/2024 16:36:15 04/06/20 24 04/09/2024 BASIC METAB OLIC PANEL anion gap 9.7 5.0-15 .0 Not Available [address], [address], 04/09/2024 16:36:15 04/06/20 24 04/09/2024 BASIC METAB OLIC PANEL CO2 28 mmol/ L 21-32 Not Available [address], [address], 04/09/2024 16:36:15 04/06/20 24 04/09/2024 BASIC METAB OLIC PANEL calcium 9.3 mg/dL 8.5-10 .3 Not Available [address], [address], 04/09/2024 16:36:15 01/31/20 24 01/31/2024 XR, hip [...] bone abnorm ality. Readin g Physic belkis: Tomveronica Montez [facility] (Imaging) [address], [place], [address], 01/31/2024 17:22:29 Result Notes None recorded. Problems Name Problem SNOMED Code Status Onset Date Resolution Date Notes Provider Name and Address Organization Details Recorded Time Obesity 368536712 Active Not Available [facility] 1 10:25:21 Essentia l hyperten yohannes 19616002 Active Edna Martin NP [address] [place] [address], [address] , [facility] 4 13:24:50 Iron deficien cy anemia 32371749 Active 2022 DOC-Glo SOSA, VICKI [address] [place] [address], [address] , [facility] 3 09:04:25 Celiac disease 265340261 Active 2022 DOC-Glo SOSA, VICKI [address] [place] [address], [address] , [facility] 3 09:04:30 Osteopen ia 417601672 Active 2022 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, 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 [address] [place], [address] , [facility] 3 20:29:41 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 768733791 Completed 202206/12/2023 Neg for autoimmu ne hep - GI workup normal Edna Martin NP [address] [place] [address], [address] , [facility] 4 13:25:06 Steatosi s of liver 013465570 Active 2022 Edna Martin NP [address] [place], [address] , [facility] 4 13:24:59 Type 2 diabetes mellitus without complica tion 430536209 Active 2023 Edna Martin NP [address] [place], [address] , [facility] 4 11:37:25 Headache 94077172 Completed 11/09/2011 Not Available [facility] 3 03:09:36 Headache 51859777 Completed 200603/16/2010 Not Available [facility] 3 03:09:36 Precordi al pain 13898375 Completed 200603/17/2010 Not Available [facility] 3 03:09:36 Essentia l hyperten yohannes 60590269 Completed 06/02/2014 Edna Martin NP [address] [place] [address], [address] , [facility] 4 13:24:50 Essentia l hyperten yohannes 50011788 Completed 11/21/2011 Edna Martin NP [address] [place] [address], [address] , [facility] 4 13:24:50 Essentia l hyperten yohannes 05092689 Completed 200503/17/2010 Edna Martin NP [address] [place] [address], [address] , [facility] 4 13:24:50 Symptom of head and neck region 838418542 Completed 03/16/2010 Not Available [facility] 3 03:09:36 Benign essentia l hyperten yohannes 4805056 Completed 200508/21/2014 Eden Washington D.O. [address] [place] [address], [address] , [facility] 5 09:43:29 Anxiety state 948337670 Completed 08/21/2014 Eden Washington D.O. [address] [place] [address], [address] , [facility] 5 09:43:29 Anxiety state 579439112 Completed 200703/17/2010 Not Available [facility] 3 03:09:36 Dizzines s 325144624 Completed 200503/16/2010 Not Available [facility] 3 03:09:36 Vitamin D deficien cy 67789833 Completed 200803/17/2010 Not Available [facility] 3 03:09:36 Coarctat ion of aorta 7871590 Active see [employer] cards Not Available [facility] 1 10:25:21 Coarctat ion of aorta 5027241 Completed 200603/17/2010 Eden Washington D.O. [address] [place] [address], [address] [place] [address] , [facility] 7 11:30:55 Acute stress disorder 40180039 Completed 200603/16/2010 Not Available [facility] 3 03:09:36 Panic disorder without agorapho cathy 78633341 Completed 200308/21/2014 Eden Washington D.O. [address] [place] [address], [address] , [facility] 5 09:43:29 Chest pain 43455130 Completed 03/17/2010 Not Available [facility] 3 03:09:36 Abnormal cervical Papanico laou smear with human papillom avirus deoxyrib onucleic acid detected 835337215 Completed 08/21/2014 Eden Washington D.O. [address] [place], [address] , [facility] 5 09:43:29 Abnormal cervical Papanico laou smear with human papillom avirus deoxyrib onucleic acid detected 944413149 Completed 03/17/2010 Not Available [facility] 3 03:09:36 Impaired fasting glycemia 097587995 Completed 06/12/2023 Edna Martin NP [address] [place], [place], [address] [place] [address] , [facility] 4 13:24:44 Low back pain 659737863 Completed 200606/02/2014 Eden Washington D.O. [address] [place] [address], [address] , [facility] 5 19:54:32 Migraine 03747338 Active Not Available [facility] 1 10:25:21 Acute bronchit is 63682898 Completed 200503/16/2010 Not Available [facility] 3 03:09:36 Malaise and fatigue 399056645 Completed 200603/16/2010 Not Available [facility] 3 03:09:36 Problem Notes None recorded. Procedures Surgical History Date Name Laterality Status Provider Name and Address Organization Details Recorded Time 11/24/19 22 [address]: Therapeutic Exercise completed Alphonse Martinez DPT [address] [place] [address], [address], [facility] 11/23/2021 15:08:02 11/24/19 22 [address]4492: Manual Therapy completed Alphonse Martinez DPT [address] [place] [address], [address], [facility] 11/23/2021 15:08:03 11/24/19 22 Neuromuscular re-education completed Alphonse Martinez DPT [address] [place] [address], [address], [facility] 11/23/2021 15:08:03 11/19/19 22 61345: Therapeutic Exercise completed Alphonse Martinez DPT [address] [place] [address], [address], [facility] 11/18/2021 15:45:36 11/19/19 22 42201: Manual Therapy completed Alphonse Martinez DPT [address] [place] [address], [address], [facility] 11/18/2021 15:45:36 11/19/19 22 Neuromuscular re-education completed Alphonse Martinez DPT [address] [place] [address], [address], [facility] 11/18/2021 15:45:36 11/19/19 Treatment and Advice completed Alphonse Martinez DPT [address] [place], [address], [facility] 11/18/2021 16:04:43 11/10/19 [address]97: Therapeutic Exercise completed Alphonse Martinez DPT [address] [place], [address], [facility] 11/09/2021 12:51:26 11/10/19 22 87485: Manual Therapy completed Alphonse Martinez DPT [address] [place], [address], [facility] 11/09/2021 12:52:07 11/10/19 Neuromuscular re-education completed Alphonse Martinez DPT [address] [place], [address], [facility] 11/09/2021 13:45:24 11/10/19 Treatment and Advice completed Alphonse Martinez DPT [address] [place], [address], [facility] 11/09/2021 12:49:44 11/04/19 84558: Therapeutic Exercise completed Alphonse Martinez DPT [address] [place], [address], [facility] 11/03/2021 15:02:00 11/04/19 Neuromuscular re-education completed Alphonse Martinez DPT [address] [place], [address], [facility] 11/03/2021 23:25:50 11/04/19 Treatment and Advice completed Alphonse Martinez DPT [address] [place], [address], [facility] 11/03/2021 23:22:49 10/28/19 87757: Therapeutic Exercise completed Alphonse Martinez DPT [address] [place], [address], [facility] 10/27/2021 15:01:27 06/15/20 22 Neuromuscular re-education completed Alphonse Martinez DPT [address] [place], [address], [facility] 10/27/2021 15:01:40 10/28/19 22 Smoking Cessation Counselling completed Alphonse Martinez DPT [address] [place], [address], [facility] 10/27/2021 14:33:50 10/28/19 22 Physical Activity Counselling completed Alphonse Martinez DPT [address] [place], [address], [facility] 10/27/2021 14:33:50 10/28/19 22 Treatment and Advice completed Alphonse Martinez DPT [address] [place], [address], [facility] 10/27/2021 15:01:18 10/26/19 22 16003: Therapeutic Exercise completed Alphonse Martinez DPT [address] [place], [address], [facility] 10/25/2021 11:39:14 10/26/19 22 Smoking Cessation Counselling completed Alphonse Martinez DPT [address] [place], [address], [facility] 10/25/2021 11:39:14 10/26/19 22 Physical Activity Counselling completed Alphonse Martinez DPT [address] [place], [address], [facility] 10/25/2021 11:39:14 10/26/19 22 Treatment and Advice completed Alphonse Martinez DPT [address] [place], [address], [facility] 10/25/2021 11:39:14 10/21/19 22 [address]12: Therapeutic Exercise completed Alphonse Martinez DPT [address] [place], [address], [facility] 10/20/2021 12:53:24 10/21/19 22 Smoking Cessation Counselling completed Alphonse Martinez DPT [address] [place], [address], [facility] 10/20/2021 12:46:29 10/21/19 22 Physical Activity Counselling completed Alphonse Martinez DPT [address] [place], [address], [facility] 10/20/2021 12:46:29 10/21/19 22 Treatment and Advice completed Alphonse Martinez DPT [address] [place], [address], [facility] 10/20/2021 12:51:57 10/19/19 22 39202: Therapeutic Exercise completed Alphonse Martinez DPT [address] [place], [address], [facility] 10/18/2021 13:58:42 10/19/19 22 Smoking Cessation Counselling completed Alphonse Martinez DPT [address] [place], [address], [facility] 10/18/2021 12:41:42 10/19/19 22 Physical Activity Counselling completed Alphonse Martinez DPT [address] [place] [address], [address], [facility] 10/18/2021 12:41:42 10/19/19 22 Treatment and Advice completed Alphonse Martinez DPT [address] [place], [address], [facility] 10/18/2021 13:55:32 10/14/19 22 Smoking Cessation Counselling completed Alphonse Martinez DPT [address] [place] [address], [address], [facility] 10/13/2021 20:25:31 10/14/19 22 Physical Activity Counselling completed Alphonse Martinez DPT [address] [place], [address], [facility] 10/13/2021 20:25:31 10/14/19 22 11972: PT Eval Low Complexity completed Alphonse Martinez DPT [address] [place] [address], [address], [facility] 10/13/2021 20:25:31 10/14/19 22 Treatment and Advice completed AMINATA ResendezT [address] [place], [address], [facility] 10/13/2021 15:02:39 10/29/19 20 prevention-cardiov ascular risk reduction counseling completed Chong Aida, [facility] 10/29/2019 08:14:35 10/29/19 20 prevention-annual alcohol misuse screening completed Chongab Parra [facility] 10/29/2019 08:14:35 10/27/19 18 Corticosteroid Injection completed Douglas Willis PA-C [address] [place], [address], [facility] 10/26/2017 13:54:16 Imaging Results Imaging Date Name Status LastModified by Organiz ation Details LastModified Time 01/31/2024 XR, hip + pelvis, unilateral , 2 or 3 view completed [facility] (Imaging) [address], [place], [address], 01/31/2024 17:22:29 Procedure Notes None recorded. Medical [...] Available Not Available No t Available FreeStyle Zebulon Lite kit USE DIRECTED TO CHECK BLOOD [...] d Address Organization Details Last Updated DateTime 08/23/2023 165.1 cm Aspen LongkelYUKO plasencia [place] [facility] 08/23/2023 15:04:28 Date Recorded Oxygen saturation Oxygen saturation in Arterial blood by Pulse oximetry Provider Name and Address Organization Details Last Updated DateTime 08/23/2023 97 % 97 % Aspen Parra Poncho [facility] 08/23/2023 15:04:32 Date Recorded Heart rate Provider Name an d Address Organization Details Last Updated DateTime 08/23/2023 83 /min Aspen Aida, [facility] 08/23/2023 15:04:35 Date Recorded Body mass index (BMI) Provider Name and Address Organization Details Last Updated DateTime 08/23/2023 36.6 kg/m2 Aspen Aida YUKO [facility] 08/23/2023 15:04:37 Date Recorded Body weight Provider Name an d Address Organization Details Last Updated DateTime 08/23/2023 71014.32 g YUKO [place] MA [facility] 08/23/2023 15:04:38 Date Recorded Body height Provider Name an d Address Organization Details Last Updated DateTime 01/31/2024 165.1 cm Aanhi Coppola MA [facility] 01/31/2024 10:21:50 Date Recorded Body mass index (BMI) Body weight Provider Name and Address Organization Details Last Updated DateTime 01/31/2024 37.6 kg/m2 323647.88 g Anahi Coppola MA [facility] Batsheva dakota [facility] 01/31/2024 10:25:04 Date Recorded Heart rate Provider Name an d Address Organization Details Last Updated DateTime 01/31/2024 74 /min Anahi Coppola [facility] 01/31/2024 10:26:59 Date Recorded Oxygen saturation Oxygen saturation in Arterial blood by Pulse oximetry Provider Name and Address Organization Details Last Updated DateTime 01/31/2024 99 % 99 % Anahi Coppola MA [facility] 01/31/2024 10:27:54 Date Recorded Body height Provider Name an d Address Organization Details Last Updated DateTime 04/08/2024 165.1 cm Anahi Coppola MA [facility] 04/08/2024 10:31:08 Date Recorded Body mass index (BMI) Body weight Provider Name and Address Organization Details Last Updated DateTime 04/08/2024 38.3 kg/m2 406984.25 kerry [facility]ppola [facility] 04/08/2024 10:35:40 Date Recorded Heart rate Provider Name an d Address Organization Details Last Updated DateTime 04/08/2024 80 /min Anahi Coppola [facility] 04/08/2024 10:40:50 Date Recorded Body height Provider Name an d Address Organization Details Last Updated DateTime 05/01/2024 165.1 cm Aspen Parra Poncho [facility] Rachel pruett [facility] 05/01/2024 14:12:46 Date Recorded Body mass index (BMI) Body weight Provider Name and Address Organization Details Last Updated DateTime 05/01/2024 37.8 kg/m2 043007.47 g YUKO [place] [facility] 05/01/2024 14:12:51 Date Recorded Oxygen saturation Oxygen saturation in Arterial blood by Pulse oximetry Provider Name and Address Organization Details Last Updated DateTime 05/01/2024 97 % 97 % Aspen Parra Poncho [facility] 05/01/2024 14:14:23 Date Recorded Heart rate Provider Name an d Address Organization Details Last Updated DateTime 05/01/2024 75 /min Aspen Parra Poncho [facility] Rachel [facility] 05/01/2024 14:15:27 Date Recorded Body height Provider Name an d Address Organization Details Last Updated DateTime 06/10/2024 165.1 cm Anahi Anat [facility] 06/10/2024 16:16:31 Date Recorded Body mass index (BMI) Body weight Provider Name and Address Organization Details Last Updated DateTime 06/10/2024 37.8 kg/m2 294778.47 g Anahi Anat [facility] 06/10/2024 16:18:14 Date Recorded Heart rate Provider Name an d Address Organization Details Last Updated DateTime 06/10/2024 81 /min Anahi Paintermeeta [facility] 06/10/2024 16:20:25 Date Recorded Systolic blood pressure Diastolic blood pressure Provider Name and Address Organization Details Last Updated DateTime 08/23/2023 138 mm[Hg] 92 mm[Hg] Aspen Parra [facility] 08/23/2023 15:08:06 Date Recorded Systolic blood pressure Diastolic blood pressure Provider Name and Address Organization Details Last Updated DateTime 08/23/2023 136 mm[Hg] 87 mm[Hg] Aspen Parra [facility] 08/23/2023 15:17:30 Date Recorded Systolic blood pressure Diastolic blood pressure Provider Name and Address Organization Details Last Updated DateTime 01/31/2024 128 mm[Hg] 72 mm[Hg] Anahi CoppolaSAMARA [facility] 01/31/2024 10:28:39 Date Recorded Systolic blood pressure Diastolic blood pressure Provider Name and Address Organization Details Last Updated DateTime 04/08/2024 128 mm[Hg] 78 mm[Hg] Anahi Coppola MA [facility] 04/08/2024 10:40:33 Date Recorded Systolic blood pressure Diastolic blood pressure Provider Name and Address Organization Details Last Updated DateTime 05/01/2024 128 mm[Hg] 94 mm[Hg] YUKO Angeles [facility] 05/01/2024 14:15:35 Date Recorded Systolic blood pressure Diastolic blood pressure Provider Name and Address Organization Details Last Updated DateTime 06/10/2024 122 mm[Hg] 74 mm[Hg] Anahi Coppola MA [facility] 06/10/2024 16:19:57 Social History Question Answer Notes LastModified by Organization Details LastModified Time Tobacco Smoking Status Never Smoker checked kb 08-23-23 [facility] 15:05:33 Do You Have An [...] What Is Your Occupation? [employer] [place] Information not available 01/28/2022 How Many Days [...] 03/16/2010 Does The Patient Have Difficulty Speaking Central African? No Information not available 03/31/2011 Does The Patient Have Difficulty Reading Central African? No Information not available 03/31/2011 Patient Has Health Care Proxy Signed And In Chart Yes Form Given To Pt 03/31/11, 09/22/14, 06/16/15 [email or web address] Information not available 06/14/2023 Marital Status Helping [...] 03/31/2011 Are You Sexually Active? Yes TL [email or web address] Information not available 03/18/2010 Smoke Alarm In [...] 70 tfurcolo Not available 2014 14:14:19 Brother Guera-Emmett son-White pattern 48 tfurcolo Not available 2016 11:31:20 Notes:All grandparents with DM and HTN Fernanda did genetic cancer tested through [facility]- negative Medical History Condition Response Migraine Headaches Y Obesity Y CARDIOVASCULAR Y Anxiety Y Diabetes Type II Abnormal Pap Y Hypertension Y Gynecological HistoryNo gynecological history recorded.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 causes- check FOBT--disc ussed side effects of iron- constipati on and dark tarry stoolsrech jim labs with f/u in 1 month Multiple joint pain 3567 8005 M25.50 FH RA--oldest sister with autoimmune and other sister with RA--diffus e multiple joint pain over the last few years- has worked with PT for numerous joint pain--will check labs for RA; refer to rheum if abnormal [id number] Florina Quevedo RN Endoscopy , [facility] [address] [place] [address] 12/02/2022 11:53:27 12/02/2022 14:02:53 [id number] AUGUST AKHIL SOSA DNP , [facility], OFFICE [address] [place] [address] 12/19/2022 09:19:08 12/19/2022 10:08:32 Iron deficiency anemia 61273943 D50.9 endoscopy/ colonoscop y unremarkab le apart from celiac diseaseane danilo improving- -continue taking iron supplement --recheck levels in 1 monthdiscu ssed return precaution s Celiac disease 875816483 K90.0 dx recently on endoscopy/ colonoscop y--trying to incorporat e gluten free foods into her diet--has f/u with nutrition and GI to discuss further Benign ess ential hypertension 4640421 I10 You have chronic hypertensi on that is controlled . Your blood pressure is at goal <130/80. Continue current medication (s). Follow up for blood pressure check in 6 months with labs. Please limit your intake of salt to 1500 mg daily, dairy products, processed foods, alcohol, and caffeine. Read labels. Increase vegetables and fruits (high fiber). Please try to participat e in 30 minutes of activity daily. Please try to maintain a healthy weight. Check your blood pressure at least 1-2 times each month at [facility] the same time of day with 10-15 minutes of quiet rest prior to taking blood pressure. Make sure that your feet are flat on the floor and back upright resting on chair. Empty your bladder before taking your blood pressure. Please update us if your home blood pressures are not at goal. Call with any concerns or questions. [id number] Tricia Maxwell RDN, LDN, [facility] Nutrition -[address] [address] 01/17/2023 09:54:56 01/18/2023 15:46:39 Celiac disease 143263410 K90.0 [id number] AUGUST AKHIL SOSA DNP , [facility], [address] [place] [address] 02/15/2023 10:27:27 02/15/2023 15:31:28 Iron deficiency anemia 02957396 D50.9 endoscopy/ colonoscop y unremarkab le apart from celiac diseaselas t labs for anemia weren't showing any improvemen t. Reports worsening fatigue, nodding off--will recheck iron studies and if continues to be low, will refer to hematology . Had discussed previously with them and advised only to refer if anemia wasn't improving) --continue taking iron supplement f/u 2 weeks Edema of l ower extremity 820368415 R60.0 over the weekend, severe LE edema, unsure of pitting. Resolved, none on exam today. Continues with LE pain and cramping. No symptoms or risk factors concerning for CHF--no calf tenderness , erythema, warmth--ch jim BMP leg edema--OMAYRA r/o claudicati onf/u 2 weeks Fatigue 95134726 R53.83 Unintentio nal weight gain 0772614097 62678 R63.5 9# weight gain from 12/19 despite transition ing to gluten free diet and healthier eating habitsno recent TSH, will check today Screening mammography 24 143389 Z12.31 Multiple joint pain 3567 8005 M25.50 shoulder/h ip/elbow painALK phos elevated, GGT normalauto immune labs unremarkab lewany reach out to endo to discuss if this is something they work with [id number] Tricia Maxwell, RDN, LDN, [facility] Nutrition -[facility] [address] [place] [address] 02/21/2023 08:59:17 03/03/2023 16:13:21 Celiac disease 256828096 K90.0 Iron defic iency anemia 63057031 D50.9 [id number] AUGUST AKHIL SOSA DNP FP, [facility], OFFICE [address] [place] [address] 03/01/2023 10:54:57 03/01/2023 12:54:52 Iron deficiency 97748310 E61.1 continues with iron deficiency anemiahas been evaluated from GI with normal endo/colo. dx celiac disease--C BC slowly trending up. suspect possible malabsorpt ion 2/2 celiac disease(11/17/22-->7.6 /27.8; 11/25/22--> 8.7/32; 12/12/22--> 8.2/30.4; 12/26/22--> 8.1/29.3; 02/15/23--> 9.9/35.9)- -iron was increased to daily--sta rted on vitamin C--Has f/u with GI scheduled for 05/2023--If Hgb < 8, should consider re-consult with heme and/or order iron infusion ([facility]) Celiac disease 901600180 K90.0 dx recently with GIworking with nutrition and GI for dietary changessus pect contributi ng to iron def anemiainco rporating iron rich food sources in her diet Cramp in lower limb 4499 62313 R25.2 cramping b/l lower extremitie sstill present but improvingm ay be related to ongoing anemiadid have in conjunctio n with LE edema with normal lung/heart examschedu led for OMAYRA 03/14 Edema of l ower extremity 339771323 R60.0 scheduled for OMAYRA 03/14resol sol Foot pain 37348035 M79.6 73 b/l arch foot painnew sneakers with no improvemen tprolonged standing- on concrete floorsdisc ussed exercises for plantar fasciitis previously consider orthotics [id number] Berkley er, 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 FP, [facility], OFFICE [address] [place], [place] [address] 04/14/2023 13:20:01 04/18/2023 09:08:55 Imaging result abnormal 303947010 R93.[address] scan of abdomen and MRI with GI specialist for evaluation of ongoing abdominal pain and nausea, hx of celiac's disease. CT scan showed a nonspecifi c lesion to the right kidney and splenomega ly with MRI recommende d. MRI showed hepatic steatosis, mild splenomega ly, sub centimeter pancreatic branch duct without suspicious features and a 27mm right upper pole renal cyst. GI specialist recommende d follow up with PCP regarding these findings for follow up. LFTs unremarkab le from previous BMP completed 02/15/23. Alk phosph has historical ly been above reference range with negative workup for autoimmune hepatitis with GI specialist . --Reassura nce given to patient for all benign findings with no recommende d follow up.--For hepatic steatosis, recommende d healthy diet, exercising , recommende d Weight watchers and nume to patient. Celiac disease 938436104 K90.0 Pt has had ongoing abdominal pain and nausea, followed by [facility] for this ongoing issue. Patient has been keeping a food diary, as well as following a gluten free diet, unfortunat cheryl has not found a specific trigger. Pt had CT scan and MRI completed that was negative for acute intrabdomi nal process.-- Continue to follow up with [facility] specialist [facility]. Iron defic iency anemia 03102732 D50.9 Pt is followed by hematologi st at [facility] and receives periodic iron infusions, last one completed a few weeks prior. Will be obtaining follow up labs to recheck iron panel after allowing time for the iron infusion to stabilize levels. Pt does have upcoming follow up appointmen t with hematologi st specialist .--Continu e to follow up with [facility] hematology . [id number] LUCA Gil, [facility], [address]ICE [address] [place] [address] 06/12/2023 10:47:08 06/12/2023 17:30:56 Migraine 91993525 G43.909 stabledoes well with sumatripta n Active or passive immunization 403876428 Z23 Celiac disease 286057597 K90.0 dx 3doing well with no gluten though does have occasional sxsfollowe d by [facility] GIhas f/u next month Type 2 heriberto betes mellitus without complication 610414145 E11.9 new dx with fbs 141, 150A1c 6.5strong family hx of DMdiscusse d tx optionswil l work on diet and exerciseno meds nowsent metergoal fbs < 120 and 2 hrs after meals < 140f/u 3 months Steatosis of liver 1007 K76.0 discussed impact of weight- c/t work on diet and exercisedo es no ETOH Essential hypertension 16716706 I10 BP at goalc/w medsc/w low salt diet, regular exercise Iron defic iency anemia 35860750 D50.9 ferritin 151s/p 3 iron transfusio nsfollowed by Hem [id number] Edna Martin NP , [facility], [address] [place] [address] 08/23/2023 14:53:22 08/23/2023 16:05:30 Type 2 diabetes mellitus without complication 628242504 E11.9 new dx 05/2023fbs 121 down from fbs 141, 150 1A1c 6.3 down from 6.5great job, work!c/t work on diet, exercisego al fbs < 120 and 2 hrs after meals < 140will do labs at 3 monthspha in 6 months with labs Active immunization 3387 9002 Z23 Elevated blood-pressure reading without diagnosis of hypertension 612351773 R03.0 bp not at goaljust elevatedwi ll start checking at homewill send in readings in next few weeks [id number] AMBER LAROSE MD , [facility], [address] [place] [address] 01/31/2024 10:13:15 01/31/2024 12:19:05 Pain of left hip joint 4178183613 43492 M25.552 Will have her see a specialist as she has tried cortisone shots already and has seen rheum. She requested repeat x-ray, will obtain to assess for any new joint space narrowing. Headache 15267491 R51.9 Chronic headaches. Family history of brain aneurysm in father. Uncle also had it. [id number] AMBER LAROSE MD , [facility], [address]ICE [address] [place] [address] 04/08/2024 10:16:44 04/08/2024 11:44:27 Adult health examination 592330165 Z00.00 Doing well. Up to date with screenings . Continue healthy lifestyle measures including a diet rich in fruits and vegetables as well as regular exercise. Depression screening 171 406649 Z13.31 depression screening tool administer ed Screening for alcohol abuse 810322985 Z13.39 Alcohol use screening tool administer ed Type 2 heriberto betes mellitus without complication 240733250 E11.9 At goal A1c < 7. Managing with lifestyle. Recent A1c is pending. Discussed starting a medication to improving her fasting sugars further, she will decide if she wants to follow up. Influenza vaccination declined 662529586 Z28.21 Pain of ri ght elbow joint 8256858210 6319150 M25.521 Would like a second opinion for injury in her R elbow and subsequent neuropathy . Celiac disease 160917833 K90.0 Gluten-carlee e diet. Stable. [id number] AMBER LAROSE MD , [facility], [address]ICE [address] [place] [address] 05/01/2024 14:03:34 05/01/2024 14:57:36 Steatosis of liver 550219851 K76.0 Type 2 heriberto betes mellitus without complication 091875852 E11.9 Not at goal of A1c < 7, last checked was 7.3%. Managing with lifestyle. Obesity 095878720 E66.81 2 Patient is here today for a their first weight management visit.-the y deny any personal or family history of MEN 2 or medullary thyroid cancer-the y deny any personal history of severe gastropare sis or chronic/se amador pancreatit is-they have engaged in lifestyle modificati ons for over 3 months prior to starting their medication (low calorie diet, regular activity)?Patie nt's medical conditions that require weight loss are the following: DM II, MASH, HTN Starting weight: 227 lbsMedicat ion plan: Start Zepbound Activity plan: continue regular activity with grandkidsN utrition plan: higher protein, veggies, healthy fatsHydrat ion plan: stay hydrated?I am seeing patient regularly to monitor medication and ongoing weight goals.?I, Amber Larose MD, am certified by the [place] [employer] to provide obesity care. Essential hypertension 94975311 I10 At goal <130/80. Will monitor as she loses weight. [id number] AMBER LAROSE MD , [facility], OFFICE [address] [place] [address] 06/10/2024 16:10:34 06/11/2024 10:47:39 Obesity 899212696 E66.9 Tolerating the 2.5 mg dose. Initially had some burping but this resolved after a few days. Decrease in appetite. Weight still the same. Will increase to 5 mg. Continue healthy eating, gym and hydration. ?I am seeing patient regularly to monitor medication and ongoing weight goals.?I, Amber Larose MD, am certified by the [place] [employer] to provide obesity care. Type 2 heriberto betes mellitus without complication 563835839 E11.9 Last A1c in March was 7.3%. Repeat today. Essential hypertension 17253539 I10 At goal <130/80. Will monitor. Health [...] ACO (MEDICAID REPLACEMENT - HMO) Fernanda Hui [id number] Fernanda Hui 01/31/2024 1 [employer] - DOS ON OR AFTER 2022 - [employer] (MEDICAID REPLACEMENT - HMO) Fernanda Hui [id number] Fernanda Hui 04/08/2024 1 [employer] - DOS ON OR AFTER 2022 - [employer] (MEDICAID REPLACEMENT - HMO) Fernanda Hui [id number] Fernanda Patluis angel 05/01/2024 1 [employer] - DOS ON OR AFTER 2022 - [facility] ACO (MEDICAID REPLACEMENT - HMO) Fernanda Hui [id number] Fernanda Patry 06/10/2024 1 [employer] - DOS ON OR AFTER 2022 - [facility] ACO (MEDICAID REPLACEMENT - HMO) Fernanda Hui [id number] Fernanda Patluis angel Notes Date Note Type Note Provider Name and Address Organization Details Recorded Time 4 text/html f/u on dm dxmore monitoring of foods - reduced soda to no sodamore veggieschallenging with celiac- gluten freeexercise - walking 2-6 miles everyday with daughterout of work d/t elbow Edna Martin NP [address] [place] [address], [phone], [facility] 08/23/2023 16:23:18 4 text/html Left hip and low back painful x yearsGetting worse more recentlyHas had cortisone injections in the hip but not super helpfulHas lidoderm patchesCalves also sore, hands and feet swollenSeen rheum, no diagnosis Also has headaches, chest pain, abdominal painDebilitating headaches bothering her all night longSeen GI, has celiac, no improvement since stopping gluten AMBER LAROSE MD [address] [place] [address], [phone], [facility] 01/31/2024 13:02:29 4 text/html Physical Exam/FemaleReported bypatient.PHAPatient is here for a Wellness Visit. She describes her health status as fair. Patient's health is the same as last year.Notes:still with menses- every monthlosing weight- watching her carbs/smaller portions/exercising moreRisk Assessment and Lifestyle Change Counseling 18-50Reported bypatient.Coronary Artery Disease Risk Assesment:Family History of Coronary Artery Disease;Personal history of diabetes;History of peripheral vascular disease, AAA, or carotid disease Breast Cancer Risk Assessment:Family history of breast cancer one first degree relative Lung Cancer Risk Assessment:Never smoked Safety Risk Assessment:No evidence of abuse/neglect Colon Cancer Risk:Family history of colon polyps or canncer; Patient has risk for colon cancerVMG HypertensionReported bypatient.Control:Patient understands medications are to lower blood pressure Compliance:Compliant with medications Barriers to CareNo identified barriers to care DM II: fasting usually around 140-142. Lifestyle control.HTN: on 3 meds, all fine.Celiac: controlled, gluten-free.Weight: would like to lose weight. Sister doing lap band. Prefers not to do surgery. Exercise: active at workDiet: eats healthfully. Reduces excess sugar.Periods: irregular. No other menopause symptoms.Sexually active: no issues.Has an harness tier.Mood: sometimes gets frustrated because of the dietary restrictions. headaches: seeing neurologistback pain: using the brace AMBER LAROSE MD [address] [place] [address], [phone], [facility] 04/08/2024 11:03:55 4 text/html Was losing some weight but then diagnosed with celiacHas previously gone to the gym regularlyHusband jealous when she goes so she stoppedWithin the last year gained about 50 lbsCan't account for the weight gain Currently eating a low calorie dietNo alcohol useOn topamax for migraines just recentlyNot much of an appetite in generalBored watching TV sometimes will eat cerealEating a lot of veggies Would like to lose about 80 lbs AMBER LAROSE MD [address] [place] [address], [phone], [facility] 05/01/2024 14:34:58 5 text/html Appetite is down but weight has not changed yetGoing back to the gym, hopefully will comeStill eating protein, veggiesDrinkign water Went to ortho for the kneesOsteoarthritis bilaterallyDoing PT right nowR elbow saw the same doctor, thinks its cubital compartment syndromeW[place]Has a plan for an EMGGoing to [facility] for the hip Due for eye exam, plan to have this done in August AMBER LAROSE MD [address] [place] [address], [phone], [facility] 06/10/2024 16:59:16 OBGyn Episode No OBEpisode recorded.
== END 2024-06-12 08:36 | disposition home or self-care (01) ==
LOC: HO.NEURO 08:35
PROVIDERS: Visit Provider Midwife
DX: R20.0 Anesthesia of skin (principal); R20.2 Paresthesia of skin
CPT/HCPCS: 95886; 95909

== ENCOUNTER → 2024-06-12 08:39 | Outpatient (BNV) | payer OTHER, SELFPAY | PROVIDERS: Visit Provider Physical Medicine & Rehabilitation | DX: G56.01 Carpal tunnel syndrome, right upper limb (principal) | CPT/HCPCS: 95886; 95909 ==

== ENCOUNTER 2024-06-26 08:56 | Outpatient (AMB) | payer OTHER, SELFPAY ==
--- NOTE | 2024-06-26 09:01 | MHC.OFFVIS ---
Vital Signs 06/26/24 09:02 Height 5 ft 5 in Weight 219 lb BMI 36.4 Intake Visit Reasons: RT upper extremity EMG review Intake Note: Fernanda is a 48 year old right hand dominant female who presents today for follow up of her right elbow and right hand pain, and to review her EMG results. IMPRESSION: 1. This is an abnormal study. 2. Perhaps she had a chronic right ulnar neuropathy, now evidenced only by a small ulnar sensory amplitude. There is no conduction block across the elbow. There is no evidence of ongoing denervation. 3. There is electrodiagnostic evidence for ongoing/active right median neuropathy at the wrist moderate-severe, consistent with Carpal Tunnel Syndrome. 4. There is no electrodiagnostic evidence for brachial plexopathy or cervical radiculopathy. Allergies No Known Allergies Allergy (Verified 06/26/24 09:02) HPI HPI RT upper extremity EMG review: Details: Fernanda is a 48 year old right hand dominant female who presents today for follow up of her right elbow and right hand pain, and to review her EMG results. IMPRESSION: 1. This is an abnormal study. 2. Perhaps she had a chronic right ulnar neuropathy, now evidenced only by a small ulnar sensory amplitude. There is no conduction block across the elbow. There is no evidence of ongoing denervation. 3. There is electrodiagnostic evidence for ongoing/active right median neuropathy at the wrist moderate-severe, consistent with Carpal Tunnel Syndrome. 4. There is no electrodiagnostic evidence for brachial plexopathy or cervical radiculopathy. Of note, the patient does report that she did have 3 falls over the last week, and she has been experiencing very significant pain in the right shoulder since these falls. Patient inquires if she can get an x-ray to rule out any fracture. [facility] Surgical History (Updated 06/04/24 @ 09:04 by YUKO Basilio) Hx of elbow surgery Social History Alcohol intake: never Patient Tobacco Use Status: Never used Tobacco Current occupational status: unemployed Review of Systems Const All systems reviewed & are unremarkable except as noted in HPI and below Physical Exam Vital Signs: BMI result Body Mass Index 36.4 Extrem Other: Neuro: Decreased sensation in the digits of the right hand in the office today. Normal sensation in the tips of all digits of the left hand today. No thenar or intrinsic wasting. Good APB muscle firing and good finger cross. Vascular: Capillary refill brisk. ROM: Patient can make a fist and extend all their digits. Skin: No lacerations or abrasions noted. General: No ecchymosis. No erythema or evidence of infection. Right shoulder exam: Patient reports diffuse tenderness to palpation of the right shoulder Pain with external rotation and abduction Results Reviewed Results Reviewed: X-rays obtained in the office today and independently reviewed by me, Geovanny Galeano PA-C, demonstrate no fracture or acute bony abnormality of the right shoulder. Assessment & Plan Assessment & Plan (1) Right carpal tunnel syndrome: Code(s): G56.01 - Carpal tunnel syndrome, right upper limb Category: Medical (2) Right shoulder pain: Code(s): M25.511 - Pain in right shoulder Category: Medical Plan 1. Carpal tunnel syndrome, right Symptoms almost constant, daily, worse at night I educated the patient about the condition. I discussed both operative and nonoperative treatment options. The patient would like to proceed with surgery. The risks and benefits of operative treatment were discussed with the patient and the patient wishes to proceed with surgery. These risks include, but are not limited to, risk of damage to blood vessels, nerves, tendons, infection, recurrence, incomplete relief of preoperative symptoms, persistent pain, possible need for further surgery, and the risks associated with regional blocks and/or anesthesia. Plan is to take the patient to the operating room at some point in the next few weeks for the following procedures: 1. Right carpal tunnel release under local All of the preoperative paperwork including the consent was discussed today. All of the patient's questions were answered in the clinic today. The patient understands that they will be in contact with our regional vice president surgical sales to discuss scheduling their procedure. Patient reports diabetes, last A1c 6.5 Denies blood thinners, asthma, heart issues, lung issues, kidney issues, or current smoking. 2. Right shoulder pain Status post 3 falls this week Negative x-rays Patient was educated she should follow-up with my next available new problem visit for acute onset right shoulder pain with negative x-rays Patient was amenable to this plan Patient will follow-up as needed with any acute concerns Orders: Orders XR shoulder RT min 2V Today M25.511 - Pain in right shoulder Coding Level of Care Code Est Pt Level 4 (12862) Diagnoses Right carpal tunnel syndrome G56.01 Right shoulder pain M25.511
[2024-06-26 09:02] VITALS: BMI 36.4
--- OUTSIDE RECORDS SUMMARY | 2024-06-26 09:48 | XMS_ITS | Data Portability ---
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 Assessment Encounter Date Assessment Date Assessment LastModified [...] Lab HbA1c (hemoglobin A1c), blood 2023 024 [facility], [address] [place] [address], [address], 4 11:47:49 hemoglobin A1C/hemoglo bin total, QN, blood [email or web address] [facility], [address] [place] [address], [address], 5 16:50:23 Referral neurologist referral 2023 024 KAYE Lloyd MD, [address] [place] [address], [address], 4 03:18:27 physical medicine and rehabilitat ion referral 2023 024 [email or web address] Melvin Wallace MD, [address] , [place] [address], [place], [address], 4 13:11:26 orthopedic surgeon referral 2023 024 [email or web address] [facility], [address] [place] [address] [place], [address], 4 11:11:22 Procedures None recorded. Surgeries None recorded. Imaging XR, hip + pelvis, unilateral, 2 or 3 view 2023 024 [email or web address] [facility] (Imaging), [address] [place] [address] , [place], [address], 4 12:19:05 Medication Orders Zepbound 2.5 mg/0.5 mL subcutaneou s pen injector 2023 024 [facility]/Pharmacy #[id number], [address] [place], [address], 4 14:32:14 ondansetron 4 mg disintegrat ing tablet 2023 024 [facility]/Pharmacy #[id number], [address] [place], [address], 4 14:32:14 Zepbound 5 mg/0.5 mL subcutaneou s pen injector 2024 025 [facility]/Pharmacy #[id number], [address] [place], [address], 5 16:41:49 Patient TargetsNo targets recorded. Patient Instructions Encounter Date Encounter Id Patient Instructions Last Modified By Organization Details Last Modified Time 05/01/2024 [id number] You have been prescribed a new medication [...] containers from your insurance company or most [facility] have them available for free. - [...] right elbow joint Referring Physician: Amber Larose, [facility], Encounter Date: 04/08/2024 Results Created Date Observation Date Name Description Value Unit Range Abnormal Flag Note LastModifiedBy Organization Detail LastModifiedTime 08/16/19 24 08/16/2023 MICRO ALBUM IN/CR EATIN INE RATIO PANEL , URINE microalbumin 16.9 mg/L 1.3-20 .0 Not Available [address], [address], 08/16/2023 16:46:53 08/16/19 24 08/16/2023 MICRO ALBUM IN/CR EATIN INE RATIO PANEL , URINE creatinine urine 104.9 mg/dL 30.0-1 25.0 Not Available [address], [address], 08/16/2023 16:46:53 08/16/19 24 08/16/2023 MICRO ALBUM IN/CR EATIN INE RATIO PANEL , URINE microalb/cre at ratio 16.1 mg/g_ creat 0.0-29 .0 Not Available [address], [address], 08/16/2023 16:46:53 08/16/19 24 08/17/2023 HGB A1C [...] furth er confi rmati on Not Available [address], [address], 08/17/2023 10:15:54 08/16/19 24 08/17/2023 HGB A1C estimated average glucose 134.1 mg/dL Not Available [address], [address], 08/17/2023 10:15:54 08/16/19 24 08/17/2023 COMP. METAB OLIC PANEL glucose 121 mg/dL 70-100 high Not Available [address], [address], 08/17/2023 12:22:55 08/16/19 24 08/17/2023 COMP. METAB OLIC PANEL BUN 15 mg/dL 7-18 Not Available [address], [address], 08/17/2023 12:22:55 08/16/19 24 08/17/2023 COMP. METAB OLIC PANEL creatinine 0.7 mg/dL 0.8-1. 3 low Not Available [address], [address], 08/17/2023 12:22:55 08/16/19 24 08/17/2023 COMP. METAB OLIC PANEL B/C 21.4 ratio Not Available [address], [address], 08/17/2023 12:22:55 08/16/19 24 08/17/2023 COMP. METAB [...] be used in pregn lanie. Not Available [address], [address], 08/17/2023 12:22:55 08/16/19 24 08/17/2023 COMP. METAB OLIC PANEL sodium 140 mmol/ L 136-14 5 Not Available [address], [address], 08/17/2023 12:22:55 08/16/19 24 08/17/2023 COMP. METAB OLIC PANEL potassium 4.1 mmol/ L 3.5-5. 1 Not Available [address], [address], 08/17/2023 12:22:55 08/16/19 24 08/17/2023 COMP. METAB OLIC PANEL chloride 102 mmol/ L 96-107 Not Available [address], [address], 08/17/2023 12:22:55 08/16/19 24 08/17/2023 COMP. METAB OLIC PANEL anion gap 12.4 5.0-15 .0 Not Available [address], [address], 08/17/2023 12:22:55 08/16/19 24 08/17/2023 COMP. METAB OLIC PANEL CO2 26 mmol/ L 21-32 Not Available [address], [address], 08/17/2023 12:22:55 08/16/19 24 08/17/2023 COMP. METAB OLIC PANEL calcium 9.5 mg/dL 8.5-10 .3 Not Available [address], [address], 08/17/2023 12:22:55 08/16/19 24 08/17/2023 COMP. METAB OLIC PANEL total protein 7.2 g/dL 6.4-8. 2 Not Available [address], [address], 08/17/2023 12:22:55 08/16/19 24 08/17/2023 COMP. METAB OLIC PANEL albumin 3.7 g/dL 3.4-5. 0 Not Available [address], [address], 08/17/2023 12:22:55 08/16/19 24 08/17/2023 COMP. METAB OLIC PANEL globulin 3.5 g/dL Not Available [address], [address], 08/17/2023 12:22:55 08/16/19 24 08/17/2023 COMP. METAB OLIC PANEL A/G 1.1 ratio 0.8-2. 0 Not Available [address], [address], 08/17/2023 12:22:55 08/16/19 24 08/17/2023 COMP. METAB OLIC PANEL total bilirubin 0.40 mg/dL 0.00-1 .00 Not Available [address], [address], 08/17/2023 12:22:55 08/16/19 24 08/17/2023 COMP. METAB OLIC PANEL AST 28 U/L 0-37 Not Available [address], [address], 08/17/2023 12:22:55 08/16/19 24 08/17/2023 COMP. METAB OLIC PANEL ALT 56 U/L 6-63 Not Available [address], [address], 08/17/2023 12:22:55 08/16/19 24 08/17/2023 COMP. METAB OLIC PANEL alk. phos. 135 U/L 50-136 Not Available [address], [address], 08/17/2023 12:22:55 08/16/19 24 08/17/2023 LIPID PANEL cholesterol 189 mg/dL <200 mg/dl Allen able 200-2 39 mg/dl Borde rline High >240 mg/dl High Not Available [address], [address], 08/17/2023 12:22:56 08/16/19 24 08/17/2023 LIPID PANEL triglyceride s 174 mg/dL <150 mg/dL Jerica l 150-1 99 mg/dL Borde rline High 200-4 99 mg/dL High >500 mg/dL Very High Not Available [address], [address], 08/17/2023 12:22:56 08/16/19 24 08/17/2023 LIPID PANEL direct HDL 48 mg/dL <40 mg/dl - Major Risk for CHD >60 mg/dl - Negat diomedes Risk for CHD Not Available [address], [address], 08/17/2023 12:22:56 08/16/19 24 08/17/2023 LDL - [...] r is not lee gina. Not Available [address], [address], 08/17/2023 12:22:58 10/06/19 24 10/10/2023 ANATO RAKEL PATHO LOGY path report [facility] [address] [place] [address] Lab Direc tor: Anahi davila MD Surgi [...] tyler MD, POST- BA, BA Not Available [facility] (Outpatient) [address] [place], [address], 10/10/2023 17:20:06 04/06/20 24 04/08/2024 HGB A1C [...] furth er confi rmati on Not Available [address], [place], [address], 04/08/2024 11:47:49 04/06/20 24 04/08/2024 HGB A1C estimated average glucose 162.8 mg/dL Not Available [address], [address], 04/08/2024 11:47:49 04/06/20 24 04/09/2024 BASIC METAB OLIC PANEL glucose 179 mg/dL 70-100 high Not Available [address], [address], 04/09/2024 16:36:15 04/06/20 24 04/09/2024 BASIC METAB OLIC PANEL BUN 14 mg/dL 7-18 Not Available [address], [address], 04/09/2024 16:36:15 04/06/20 24 04/09/2024 BASIC METAB OLIC PANEL creatinine 0.9 mg/dL 0.8-1. 3 Not Available [address], [address], 04/09/2024 16:36:15 04/06/20 24 04/09/2024 BASIC METAB OLIC PANEL B/C 15.6 ratio Not Available [address], [address], 04/09/2024 16:36:15 04/06/20 24 04/09/2024 BASIC METAB [...] be used in pregn lanie. Not Available [address], [address], 04/09/2024 16:36:15 04/06/20 24 04/09/2024 BASIC METAB OLIC PANEL sodium 143 mmol/ L 136-14 5 Not Available [address], [address], 04/09/2024 16:36:15 04/06/20 24 04/09/2024 BASIC METAB OLIC PANEL potassium 4.1 mmol/ L 3.5-5. 1 Not Available [address], [address], 04/09/2024 16:36:15 04/06/20 24 04/09/2024 BASIC METAB OLIC PANEL chloride 105 mmol/ L 96-107 Not Available [address], [address], 04/09/2024 16:36:15 04/06/20 24 04/09/2024 BASIC METAB OLIC PANEL anion gap 9.7 5.0-15 .0 Not Available [address], [address], 04/09/2024 16:36:15 04/06/20 24 04/09/2024 BASIC METAB OLIC PANEL CO2 28 mmol/ L 21-32 Not Available [address], [address], 04/09/2024 16:36:15 04/06/20 24 04/09/2024 BASIC METAB OLIC PANEL calcium 9.3 mg/dL 8.5-10 .3 Not Available [address], [address], 04/09/2024 16:36:15 06/22/19 25 06/24/2024 MICRO ALBUM IN/CR EATIN INE RATIO PANEL , URINE microalbumin 5.9 mg/L 1.3-20 .0 Not Available [address], [address], 06/24/2024 10:52:46 06/22/19 25 06/24/2024 MICRO ALBUM IN/CR EATIN INE RATIO PANEL , URINE creatinine urine 133.5 mg/dL 30.0-1 25.0 high Not Available [address], [address], 06/24/2024 10:52:46 06/22/19 25 06/24/2024 MICRO ALBUM IN/CR EATIN INE RATIO PANEL , URINE microalb/cre at ratio 4.4 mg/g_ creat 0.0-29 .0 Not Available [address], [address], 06/24/2024 10:52:46 01/31/20 24 01/31/2024 XR, hip + pelvi [...] IMPRES YOHANNES: No acute bone abnorm ality. Readanila payne Physic belkis: Tom Montez [facility] (Imaging) [address], [place], [address], 01/31/2024 17:22:29 Result Notes None recorded. Problems Name Problem SNOMED Code Status Onset Date Resolution Date Notes Provider Name and Address Organization Details Recorded Time Obesity 495181685 Active Not Available [facility] 10:25:21 Essentia l hyperten yohannes 30665188 Active Edna Martin NP [address] [place], [address] , [facility] 4 13:24:50 Iron deficien cy anemia 30188038 Active 2022 DOC-D SHEILA, DNP [address] [place] [address], , [facility] 3 09:04:25 Celiac disease 410193305 Active 2022 DOC-D SHEILA, DNP [address] [place] [address], , [facility] 3 09:04:30 Osteopen ia 415546408 Active 2022 Sara marx, TRIMMER SAWYER [address] [place] [address], , [facility] 3 20:29:41 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 571887368 Completed 202206/12/2023 Neg for autoimmu ne hep - GI workup normal Edna Martin NP [address] [place] [address], [address] , [facility] 4 13:25:06 Steatosi s of liver 504197978 Active 2022 Edna Martin NP [address] [place] [address], [address] , [facility] 4 13:24:59 Type 2 diabetes mellitus without complica tion 393788871 Active 2023 Edna Martin NP [address] [place] [address], [address] , [facility] 4 11:37:25 Headache 45798834 Completed 11/09/2011 Not Available [facility] 3 03:09:36 Headache 47380892 Completed 200603/16/2010 Not Available [facility] 3 03:09:36 Precordi al pain 52924359 Completed 200603/17/2010 Not Available [facility] 3 03:09:36 Essentia l hyperten yohannes 26104205 Completed 06/02/2014 Edna Martin NP [address] [place] [address], [address] , [facility] 4 13:24:50 Essentia l hyperten yohannes 03461366 Completed 11/21/2011 Edna Martin NP [address] [place], [address] , [facility] 4 13:24:50 Aquiles molina hyperten yohannes 21024602 Completed 200503/17/2010 Edna Martin NP [address] [place], [address] , [facility] 4 13:24:50 Symptom of head and neck region 742465528 Completed 03/16/2010 Not Available [facility] 3 03:09:36 Benign aquiles l hyperten yohannes 1083335 Completed 200508/21/2014 Eden Washington D.O. [address] [place] [address], [address] , [facility] 5 09:43:29 Anxiety state 269406112 Completed 08/21/2014 Eden Washington D.O. [address] [place] [address], [address] , [facility] 5 09:43:29 Anxiety state 753129619 Completed 200703/17/2010 Not Available [facility] 3 03:09:36 Dizzines s 476196979 Completed 200503/16/2010 Not Available [facility] 3 03:09:36 Vitamin D deficien cy 96170091 Completed 200803/17/2010 Not Available [facility] 3 03:09:36 Coarctat ion of aorta 8979609 Active see [facility] Not Available [facility] 1 10:25:21 Coarctat ion of aorta 3441407 Completed 200603/17/2010 Eden Washington D.O. [address] [place] [address], [address] , [facility] 7 11:30:55 Acute stress disorder 13953827 Completed 200603/16/2010 Not Available [facility] 3 03:09:36 Panic disorder without agorapho cathy 79666491 Completed 200308/21/2014 Eden Washington D.O. [address] [place], [address] , [facility] 5 09:43:29 Chest pain 97809009 Completed 03/17/2010 Not Available [facility] 3 03:09:36 Abnormal cervical Papanico laou smear with human papillom avirus deoxyrib onucleic acid detected 956460112 Completed 08/21/2014 Eden Washington D.O. [address] [place], [address] , [facility] 5 09:43:29 Abnormal cervical Papanico laou smear with human papillom avirus deoxyrib onucleic acid detected 342943012 Completed 03/17/2010 Not Available [facility] 3 03:09:36 Impaired fasting glycemia 243560349 Completed 06/12/2023 Edna Martin NP [address] [place] [address], [address] , [facility] 4 13:24:44 Low back pain 127431404 Completed 200606/02/2014 Eden Cody.O. [address] [place] [address], [address] , [facility] 5 19:54:32 Migraine 48057255 Active Not Available [facility] 1 10:25:21 Acute bronchit is 47408214 Completed 200503/16/2010 Not Available [facility] 3 03:09:36 Malaise and fatigue 114336913 Completed 200603/16/2010 Not Available [facility] 3 03:09:36 Notes:Some problems listed i n Document: #[id number] could not be added to this patient's chart. Please review this document and add these problems to the patient's chart manually as needed. Problem Notes None recorded. Procedures Surgical History Date Name Laterality Status Provider Name and Address Organization Details Recorded Time 11/24/19 22 [address]63: Therapeutic Exercise completed Alphonse Martinez DPT [address] [place] [address], [address], [facility] 11/23/2021 15:08:02 11/24/19 22 45049: Manual Therapy completed Alphonse Martinez DPT [address] [place], [address], [facility] 11/23/2021 15:08:03 11/24/19 22 Neuromuscular re-education completed Alphonse Martinez DPT [address] [place], [address], [facility] 11/23/2021 15:08:03 11/19/19 22 88378: Therapeutic Exercise completed Alphonse Martinez DPT [address] [place], [address], [facility] 11/18/2021 15:45:36 11/19/19 22 94854: Manual Therapy completed Alphonse Martinez DPT [address] [place], [address], [facility] 11/18/2021 15:45:36 11/19/19 22 Neuromuscular re-education completed Alphonse Martinez DPT [address] [place], [address], [facility] 11/18/2021 15:45:36 11/19/19 22 Treatment and Advice completed Alphonse Martinez DPT [address] [place], [address], [facility] 11/18/2021 16:04:43 11/10/19 22 35685: Therapeutic Exercise completed Alphonse Martinez DPT [address] [place], [address], [facility] 11/09/2021 12:51:26 11/10/19 22 89463: Manual Therapy completed Alphonse Martinez DPT [address] [place], [address], [facility] 11/09/2021 12:52:07 11/10/19 22 Neuromuscular re-education completed Alphonse Martinez DPT [address] [place], [address], [facility] 11/09/2021 13:45:24 11/10/19 22 Treatment and Advice completed Alphonse Martinez DPT [address] [place], [address], [facility] 11/09/2021 12:49:44 11/04/19 22 96827: Therapeutic Exercise completed Alphonse Martinez DPT [address] [place], [address], [facility] 11/03/2021 15:02:00 11/04/19 22 Neuromuscular re-education completed Alphonse Martinez DPT [address] [place], [address], [facility] 11/03/2021 23:25:50 11/04/19 22 Treatment and Advice completed Alphonse Martinez DPT [address] [place], [address], [facility] 11/03/2021 23:22:49 10/28/19 22 68158: Therapeutic Exercise completed Alphonse Martinez DPT [address] [place], [address], [facility] 10/27/2021 15:01:27 10/28/19 Neuromuscular re-education completed Alphonse Martinez DPT [address] [place], [address], [facility] 10/27/2021 15:01:40 10/28/19 Smoking Cessation Counselling completed Alphonse Martinez DPT [address] [place], [address], [facility] 10/27/2021 14:33:50 10/28/19 22 Physical Activity Counselling completed Alphonse Martinez DPT [address] [place], [address], [facility] 10/27/2021 14:33:50 10/28/19 22 Treatment and Advice completed Alphonse Martinez DPT [address] [place], [address], [facility] 10/27/2021 15:01:18 10/26/19 22 59044: Therapeutic Exercise completed Alphonse Martinez DPT [address] [place], [address], [facility] 10/25/2021 11:39:14 10/26/19 22 Smoking Cessation Counselling completed Alphonse Martinez DPT [address] [place], [address], [facility] 10/25/2021 11:39:14 10/26/19 22 Physical Activity Counselling completed Alphonse Martinez DPT [address] [place], [address], [facility] 10/25/2021 11:39:14 10/26/19 22 Treatment and Advice completed Alphonse Martinez DPT [address] [place], [address], [facility] 10/25/2021 11:39:14 10/21/19 22 74622: Therapeutic Exercise completed Alphonse Martinez DPT [address] [place], [address], [facility] 10/20/2021 12:53:24 10/21/19 22 Smoking Cessation Counselling completed Alphonse Martinez DPT [address] [place], [address], [facility] 10/20/2021 12:46:29 10/21/19 22 Physical Activity Counselling completed Alphonse Martinez DPT [address] [place], [address], [facility] 10/20/2021 12:46:29 10/21/19 22 Treatment and Advice completed Alphonse Martinez DPT [address] [place], [address], [facility] 10/20/2021 12:51:57 10/19/19 22 02181: Therapeutic Exercise completed AMINATA ResendezT [address] [place], [address], [facility] 10/18/2021 13:58:42 10/19/19 22 Smoking Cessation Counselling completed Alphonse Martinez DPT [address] [place], [address], [facility] 10/18/2021 12:41:42 10/19/19 22 Physical Activity Counselling completed Alphonse Martinez DPT [address] [place] [address], [address], [facility] 10/18/2021 12:41:42 10/19/19 22 Treatment and Advice completed Alphonse Martinez DPT [address] [place] [address], [address], [facility] 10/18/2021 13:55:32 10/14/19 22 Smoking Cessation Counselling completed Alphonse Martinez DPT [address] [place] [address], [address], [facility] 10/13/2021 20:25:31 10/14/19 22 Physical Activity Counselling completed Alphonse Martinez DPT [address] [place] [address], [address], [facility] 10/13/2021 20:25:31 10/14/19 22 62954: PT Eval Low Complexity completed Alphonse Martinez DPT [address] [place] [address], [address], [facility] 10/13/2021 20:25:31 10/14/19 22 Treatment and Advice completed Alphonse Martinez DPT [address] [place] [address], [address], [facility] 10/13/2021 15:02:39 10/29/19 20 prevention-cardiov ascular risk reduction counseling completed YUKO [facility] 10/29/2019 08:14:35 10/29/19 20 prevention-annual alcohol misuse screening completed YUKO [facility] 10/29/2019 08:14:35 10/27/19 18 Corticosteroid Injection completed Douglas iWllis PA-C [address] [place] [address], [address], [facility] 10/26/2017 13:54:16 Imaging Results Imaging Date Name Status LastModified by Organ ation Details LastModified Time 01/31/2024 XR, hip + pelvis, unilateral , 2 or 3 view completed [facility] (Imaging) [address], [place], [address], 01/31/2024 17:22:29 Procedure Notes None recorded. Medical [...] Avai lable topiramat e 25 mg tablet TAKE 1 TABLET BY MOUTH BEFORE BED active Not Available Not Available No t Available amlodipin e 2.5 mg tablet TAKE [...] ondansetr on 4 mg disintegr ating tablet PLACE 1 TABLET 3 TIMES A DAY BY TRANSLIN GUAL ROUTE NEEDED FOR 30 DAYS, FOR NAUSEA. active Not Available Not Available No t [...] Available Not Available No t Available FreeStyle Rockfall Lite kit USE DIRECTED TO CHECK BLOOD [...] t Available Vitals Date Recorded Body height Oxygen saturation Oxygen saturation in Arterial blood by Pulse oximetry Heart rate Body mass index (BMI) Body weight Systolic blood pressure Diastolic blood pressure Systolic blood pressure Diastolic blood pressure Provider Name and Address Organization Details Last Updated DateTime 4 165.1 cm 97 % 97 % 83 /min 36.6 kg/m2 29310.3 2 g 138 mm[Hg] 92 mm[Hg] 136 mm[Hg] 87 mm[Hg] [facility] 15:17:30 Date Recorded Body height Body mass index (BMI) Body weight Heart rate Oxygen saturation Oxygen saturation in Arterial blood by Pulse oximetry Systolic blood pressure Diastolic blood pressure Provider Name and Address Organization Details Last Updated DateTime 4 165.1 cm 37.6 kg/m2 437850. 88 g 74 /min 99 % 99 % 128 mm[Hg] 72 mm[Hg] Anahi Coppola [facility] 4 10:28:39 Date Recorded Body height Body mass index (BMI) Body weight Heart rate Systolic blood pressure Diastolic blood pressure Provider Name and Address Organization Details Last Updated DateTime 4 165.1 cm 38.3 kg/m2 718237. 25 g 80 /min 128 mm[Hg] 78 mm[Hg] Anahi Coppola [facility] 4 10:40:33 Date Recorded Body height Body mass index (BMI) Body weight Oxygen saturation Oxygen saturation in Arterial blood by Pulse oximetry Heart rate Systolic blood pressure Diastolic blood pressure Provider Name and Address Organization Details Last Updated DateTime 4 165.1 cm 37.8 kg/m2 964148. 47 g 97 % 97 % 75 /min 128 mm[Hg] 94 mm[Hg] [facility] 4 14:15:35 Date Recorded Body height Body mass index (BMI) Body weight Heart rate Systolic blood pressure Diastolic blood pressure Provider Name and Address Organization Details Last Updated DateTime 5 165.1 cm 37.8 kg/m2 860501. 47 g 81 /min 122 mm[Hg] 74 mm[Hg] Anahi Coppola [facility] 5 16:19:57 Social History Question Answer Notes LastModified by Organization Details LastModified Time Tobacco Smoking Status Never Smoker checked 08-23-23 Aspen Longkele, YUKO tessa, [facility] 08/23/2023 15:05:33 Do You Have An Advance [...] What Is Your Occupation? [employer] Information not available 01/28/2022 How Many Days In The Past Year Have You Had A Heavy Drinking Consumption (4+ Female, 5+ Male)? 0 Information not available 08/21/2014 Are There Any Guns Present In Your Home? No Information not available 03/31/2011 Live Alone Or With Others? With Others 3 Children, Her Mother, Zahira And His 3 Children. Lost Father And Former Zahira Information not available 03/16/2010 Patient Has Health Care Proxy Signed And In Chart Yes Form Given To Pt 03/31/11, 09/22/14, 06/16/15 [email or web address] Information not available 06/14/2023 Marital Status Helping [...] 03/31/2011 Are You Sexually Active? Yes TL Information not available 03/18/2010 Smoke Alarm In [...] Td(adult) unspecified formulation 007 completed Not Available [facility] 03/30/2011 05:21:29 Tdap 014 completed Not Available [facility] 06/01/2019 02:27:11 Influenza, split virus, quadrivalent, PF 019 completed Not Available [facility] 06/01/2019 02:24:34 Influenza, split virus, quadrivalent, PF 020 completed Gertrudis Roche RN null, [facility] 03/20/2020 11:03:26 Influenza, split virus, quadrivalent, PF 022 cancelled patient objection Eden Washington D.O. [address] [place] [address], [phone], [facility] 05/02/2022 10:38:48 Influenza, split virus, quadrivalent, PF 024 cancelled patient objection Edna Martin NP [address] [place] [address], [phone], [facility] 06/12/2023 13:20:53 Tdap 024 completed Edna Martin NP [address] [place], [address], [facility] 08/23/2023 16:12:10 pneumococcal polysaccharide PPV23 010 completed Not Available [facility] 06/01/2019 02:27:38 COVID-19, mRNA, LNP-S, PF, 30 mcg/0.3 mL dose 021 completed YUKO Angeles null, [facility] 03/27/2021 08:34:50 COVID-19, mRNA, LNP-S, PF, 30 mcg/0.3 mL dose 021 completed Florecita Kennedy MA [facility] 04/21/2021 14:50:21 Past Encounters Encounter ID Performer Location Encounter Start Date Encounter Closed Date Diagnosis/Indication Diagnosis SNOMED-CT Code Diagnosis ICD10 Code Diagnosis Note [id number] [facility], OFFICE [address] [place] [address] 04/13/2004 13:15:09 04/13/2004 13:52:[id number] [facility], OFFICE [address] [place] [address] 1 10/06/2005 14:44:39 10/06/2005 17:44:16 [id number] [facility] [address] [place] [address] 10/06/2005 15:16:59 10/06/2005 15:17:[id number] [facility] OFFICE [address] [place] [address] [place] [address] 1 10/17/2005 09:39:34 10/17/2005 11:47:[id number] [facility] OFFICE [address] [place] [address] 1 10/24/2005 09:56:34 06/04/2008 02:02:[id number] [facility] OFFICE [address] [place] [address] 1 11/22/2005 09:04:17 11/22/2005 16:06:53 [id number] [place] [address] [place] [address] 1 11/22/2005 09:27:56 11/22/2005 09:28:[id number] [facility] OFFICE [address] [place] [address] [place] [address] 1 04/04/2006 16:15:39 04/04/2006 17:01:[id number] [facility] [place] [address] 1 08/16/2006 10:02:59 08/18/2006 07:49:[id number] [facility] OFFICE [address] [place] [address] 1 08/30/2006 14:48:37 08/30/2006 17:32:27 [id number] [facility] [address] [place] [address] 1 08/30/2006 15:54:11 08/30/2006 15:54:[id number] [facility], [place] [address] 1 10/13/2006 10:18:52 10/13/2006 13:12:[id number] [facility], [place] [address] 1 11/03/2006 10:10:13 11/03/2006 11:36:[id number] [facility], OFFICE [address] [place] [address] 1 02/16/2007 10:19:36 06/04/2008 02:02:[id number] [facility], [place] [address] 1 01/26/2007 10:01:13 01/26/2007 15:25:[id number] [facility], OFFICE [address]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 Essential hypertension 87166504 I10 BP at goalc/w medsc/w low salt diet, regular exercise Iron defic iency anemia 59750996 D50.9 ferritin 151s/p 3 iron transfusio nsfollowed by Hem [id number] Edna Martin NP , [facility], [address]ICE [address] [place] [address] 08/23/2023 14:53:22 08/23/2023 16:05:30 Type 2 diabetes mellitus without complication 564808825 E11.9 new dx 05/2023fbs 121 down from fbs 141, 150 1A1c 6.3 down from 6.5great job, work!c/t work on diet, exercisego al fbs < 120 and 2 hrs after meals < 140will do labs at 3 monthspha in 6 months with labs Active immunization 3387 9002 Z23 Elevated blood-pressure reading without diagnosis of hypertension 522001058 R03.0 bp not at goaljust elevatedwi ll start checking at homewill send in readings in next few weeks [id number] MD CAMRYN LEACH, [facility], OFFICE [address] [place] [address] 01/31/2024 10:13:15 01/31/2024 12:19:05 Pain of left hip joint 6812862983 29069 M25.552 Will have her see a specialist as she has tried cortisone shots already and has seen rheum. She requested repeat x-ray, will obtain to assess for any new joint space narrowing. Headache 63102068 R51.9 Chronic headaches. Family history of brain aneurysm in father. Uncle also had it. [id number] MD CAMRYN LEACH, [facility], [address]ICE [address] [place] [address] 04/08/2024 10:16:44 04/08/2024 11:44:27 Adult health examination 083723330 Z00.00 Doing well. Up to date with screenings . Continue healthy lifestyle measures including a diet rich in fruits and vegetables as well as regular exercise. Depression screening 171 197832 Z13.31 depression screening tool administer ed Screening for alcohol abuse 565971920 Z13.39 Alcohol use screening tool administer ed Type 2 heriberto betes mellitus without complication 235432466 E11.9 At goal A1c < 7. Managing with lifestyle. Recent A1c is pending. Discussed starting a medication to improving her fasting sugars further, she will decide if she wants to follow up. Influenza vaccination declined 747571644 Z28.21 Pain of ri ght elbow joint 5898313706 2147614 M25.521 Would like a second opinion for injury in her R elbow and subsequent neuropathy . Celiac disease 929763076 K90.0 Gluten-carlee e diet. Stable. [id number] AMBER LAROSE MD , [facility], OFFICE [address] [place] [address] 05/01/2024 14:03:34 05/01/2024 14:57:36 Steatosis of liver 350733572 K76.0 Type 2 heriberto betes mellitus without complication 222775754 E11.9 Not at goal of A1c < 7, last checked was 7.3%. Managing with lifestyle. Obesity 776500346 E66.81 2 Patient is here today for [...] Amber Larose MD, am certified by the [place] Board of Obesity Medicine to provide obesity care. Essential hypertension 18660662 I10 At goal <130/80. Will monitor as she loses weight. [id number] AMBER LAROSE MD , [facility], [address]ICE [address] [place] [address] 06/10/2024 16:10:34 06/11/2024 10:47:39 Obesity 438459873 E66.9 Tolerating the 2.5 mg dose. Initially had some burping but this resolved after a few days. Decrease in appetite. Weight still the same. Will increase to 5 mg. Continue healthy eating, gym and hydration. ?I am seeing patient regularly to monitor medication and ongoing weight goals.?I, Amber Larose MD, am certified by the [place] Board [employer]esity Medicine to provide obesity care. Type 2 heriberto betes mellitus without complication 159615496 E11.9 Last A1c in March was 7.3%. Repeat today. Essential hypertension 58859210 I10 At goal <130/80. Will monitor. Health [...] ACO (MEDICAID REPLACEMENT - HMO) Fernanda Hui [id number] Fernanda Hui 01/31/2024 1 [employer] - DOS ON OR AFTER 2022 - [employer] (MEDICAID REPLACEMENT - HMO) Fernanda Hui [id number] Fernanda Patry 04/08/2024 1 [employer] - DOS ON OR AFTER 2022 - [employer] (MEDICAID REPLACEMENT - HMO) Fernanda Hui [id number] Fernanda Durhamry 05/01/2024 1 [employer] - DOS ON OR AFTER 2022 - [employer] (MEDICAID REPLACEMENT - HMO) Fernanda Hui [id number] Fernanda Hui 06/10/2024 1 [employer] - DOS ON OR AFTER 2022 - [facility] (MEDICAID REPLACEMENT - HMO) Fernanda Hui [id number] Fernanda Hui Notes Date Note Type Note Provider Name and Address Organization Details Recorded Time 4 text/html f/u on dm dxmore monitoring of foods - reduced soda to no sodamore veggieschallenging with celiac- gluten freeexercise - walking 2-6 miles everyday with daughterout of work d/t elbow Edna Martin NP [address] [place], [address], [facility] 08/23/2023 16:23:18 4 text/html Left hip and low back painful x yearsGetting worse more recentlyHas had cortisone injections in the hip but not super helpfulHas lidoderm patchesCalves also sore, hands and feet swollenSeen rheum, no diagnosis Also has headaches, chest pain, abdominal painDebilitating headaches bothering her all night longSeen GI, has celiac, no improvement since stopping gluten AMBER LAROSE MD [address] [place] [address], [address], [facility] 01/31/2024 13:02:29 4 text/html Physical Exam/FemaleReported bypatient.PHAPatient [...] other menopause symptoms.Sexually active: no issues.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 headaches: seeing neurologistback pain: using the brace AMBER LAROSE MD [address] [place], [address], [facility] 04/08/2024 11:03:55 4 text/html Was losing some [...] lose about 80 lbs AMBER LAROSE MD [address] [place], [address], [facility] 05/01/2024 14:34:58 5 text/html Appetite is down but weight has not changed yetGoing back to the gym, hopefully will comeStill eating protein, veggiesDrinkign water Went to ortho for the kneesOsteoarthritis bilaterallyDoing PT right nowR elbow saw the same doctor, thinks its cubital compartment syndromeW[place] to [place] doctorHas a plan for an EMGGoing to [facility] for the hip Due for eye exam, plan to have this done in August AMBER LAROSE MD [address] [place], [address], [facility] 06/10/2024 16:59:16 OBGyn Episode No OBEpisode recorded.
--- OUTSIDE RECORDS SUMMARY | 2024-06-26 09:48 | XMS_ITS | Data Portability ---
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 Assessment Encounter Date Assessment Date Assessment LastModified [...] Lab HbA1c (hemoglobin A1c), blood 2023 024 [facility], [address] [place] [address], [address], 4 11:47:49 hemoglobin A1C/hemoglo bin total, QN, blood [email or web address] [facility], [address] [place] [address], [address], 5 16:50:23 Referral neurologist referral 2023 024 KAYE Lloyd MD, [address] [place] [address], [address], 4 03:18:27 physical medicine and rehabilitat ion referral 2023 024 [email or web address] Melvin Wallace MD, [address], [address], [place], [address], 4 13:11:26 orthopedic surgeon referral [email or web address] [place] [address] [place], [address], 4 11:11:22 Procedures None recorded. Surgeries None recorded. Imaging XR, hip + pelvis, unilateral, 2 or 3 view 2023 024 [email or web address] [facility] (Imaging), [address] [place] [address] , [place], [address], 4 12:19:05 Medication Orders Zepbound 2.5 mg/0.5 mL subcutaneou s pen injector 2023 024 [id number], [address] [place], [address], 4 14:32:14 ondansetron 4 mg disintegrat ing tablet 2023 024 [id number], [address] [place], [address], 4 14:32:14 Zepbound 5 mg/0.5 mL subcutaneou s pen injector 2024 025 [id number], [address] [place], [address], 5 16:41:49 Patient TargetsNo targets recorded. Patient Instructions Encounter Date Encounter Id Patient Instructions Last Modified By Organization Details Last Modified Time 05/01/2024 [id number] You have been prescribed a new medication [...] containers from your insurance company or most [facility] have them available for free. - [...] right elbow joint Referring Physician: Amber Larose, [facility], Encounter Date: 04/08/2024 Results Created Date Observation Date Name Description Value Unit Range Abnormal Flag Note LastModifiedBy Organization Detail LastModifiedTime 08/16/19 24 08/16/2023 MICRO ALBUM IN/CR EATIN INE RATIO PANEL , URINE microalbumin 16.9 mg/L 1.3-20 .0 Not Available [address], [address], 08/16/2023 16:46:53 08/16/19 24 08/16/2023 MICRO ALBUM IN/CR EATIN INE RATIO PANEL , URINE creatinine urine 104.9 mg/dL 30.0-1 25.0 Not Available [address], [address], 08/16/2023 16:46:53 08/16/19 24 08/16/2023 MICRO ALBUM IN/CR EATIN INE RATIO PANEL , URINE microalb/cre at ratio 16.1 mg/g_ creat 0.0-29 .0 Not Available [address], [address], 08/16/2023 16:46:53 08/16/19 24 08/17/2023 HGB A1C [...] furth er confi rmati on Not Available [address], [address], 08/17/2023 10:15:54 08/16/19 24 08/17/2023 HGB A1C estimated average glucose 134.1 mg/dL Not Available [address], [address], 08/17/2023 10:15:54 08/16/19 24 08/17/2023 COMP. METAB OLIC PANEL glucose 121 mg/dL 70-100 high Not Available [address], [address], 08/17/2023 12:22:55 08/16/19 24 08/17/2023 COMP. METAB OLIC PANEL BUN 15 mg/dL 7-18 Not Available [address], [address], 08/17/2023 12:22:55 08/16/19 24 08/17/2023 COMP. METAB OLIC PANEL creatinine 0.7 mg/dL 0.8-1. 3 low Not Available [address], [address], 08/17/2023 12:22:55 08/16/19 24 08/17/2023 COMP. METAB OLIC PANEL B/C 21.4 ratio Not Available [address], [address], 08/17/2023 12:22:55 08/16/19 24 08/17/2023 COMP. METAB [...] be used in pregn lanie. Not Available [address], [address], 08/17/2023 12:22:55 08/16/19 24 08/17/2023 COMP. METAB OLIC PANEL sodium 140 mmol/ L 136-14 5 Not Available [address], [address], 08/17/2023 12:22:55 08/16/19 24 08/17/2023 COMP. METAB OLIC PANEL potassium 4.1 mmol/ L 3.5-5. 1 Not Available [address], [address], 08/17/2023 12:22:55 08/16/19 24 08/17/2023 COMP. METAB OLIC PANEL chloride 102 mmol/ L 96-107 Not Available [address], [address], 08/17/2023 12:22:55 08/16/19 24 08/17/2023 COMP. METAB OLIC PANEL anion gap 12.4 5.0-15 .0 Not Available [address], [address], 08/17/2023 12:22:55 08/16/19 24 08/17/2023 COMP. METAB OLIC PANEL CO2 26 mmol/ L 21-32 Not Available [address], [address], 08/17/2023 12:22:55 08/16/19 24 08/17/2023 COMP. METAB OLIC PANEL calcium 9.5 mg/dL 8.5-10 .3 Not Available [address], [address], 08/17/2023 12:22:55 08/16/19 24 08/17/2023 COMP. METAB OLIC PANEL total protein 7.2 g/dL 6.4-8. 2 Not Available [address], [address], 08/17/2023 12:22:55 08/16/19 24 08/17/2023 COMP. METAB OLIC PANEL albumin 3.7 g/dL 3.4-5. 0 Not Available [address], [address], 08/17/2023 12:22:55 08/16/19 24 08/17/2023 COMP. METAB OLIC PANEL globulin 3.5 g/dL Not Available [address], [address], 08/17/2023 12:22:55 08/16/19 24 08/17/2023 COMP. METAB OLIC PANEL A/G 1.1 ratio 0.8-2. 0 Not Available [address], [address], 08/17/2023 12:22:55 08/16/19 24 08/17/2023 COMP. METAB OLIC PANEL total bilirubin 0.40 mg/dL 0.00-1 .00 Not Available [address], [address], 08/17/2023 12:22:55 08/16/19 24 08/17/2023 COMP. METAB OLIC PANEL AST 28 U/L 0-37 Not Available [address], [address], 08/17/2023 12:22:55 08/16/19 24 08/17/2023 COMP. METAB OLIC PANEL ALT 56 U/L 6-63 Not Available [address], [address], 08/17/2023 12:22:55 08/16/19 24 08/17/2023 COMP. METAB OLIC PANEL alk. phos. 135 U/L 50-136 Not Available [address], [address], 08/17/2023 12:22:55 08/16/19 24 08/17/2023 LIPID PANEL cholesterol 189 mg/dL <200 mg/dl Allen able 200-2 39 mg/dl Borde rline High >240 mg/dl High Not Available [address], [address], 08/17/2023 12:22:56 08/16/19 24 08/17/2023 LIPID PANEL triglyceride s 174 mg/dL <150 mg/dL Jerica l 150-1 99 mg/dL Borde rline High 200-4 99 mg/dL High >500 mg/dL Very High Not Available [address], [address], 08/17/2023 12:22:56 08/16/19 24 08/17/2023 LIPID PANEL direct HDL 48 mg/dL <40 mg/dl - Major Risk for CHD >60 mg/dl - Negat diomedes Risk for CHD Not Available [address], [address], 08/17/2023 12:22:56 08/16/19 24 08/17/2023 LDL - [...] r is not lee gina. Not Available [address], [address], 08/17/2023 12:22:58 10/06/19 24 10/10/2023 ANATO RAKEL PATHO LOGY path report [facility] [address] [address] Lab Direc tor: Anahi davila MD Surgi [...] tyler MD, POST- BA, BA Not Available [facility] (Outpatient) [address] [place], [address], 10/10/2023 17:20:06 04/06/20 24 04/08/2024 HGB A1C [...] er confi rmati on Not Available [address], [place], [address], 04/08/2024 11:47:49 04/06/20 24 04/08/2024 HGB A1C estimated average glucose 162.8 mg/dL Not Available [address], [address], 04/08/2024 11:47:49 04/06/20 24 04/09/2024 BASIC METAB OLIC PANEL glucose 179 mg/dL 70-100 high Not Available [address], [address], 04/09/2024 16:36:15 04/06/20 24 04/09/2024 BASIC METAB OLIC PANEL BUN 14 mg/dL 7-18 Not Available [address], [address], 04/09/2024 16:36:15 04/06/20 24 04/09/2024 BASIC METAB OLIC PANEL creatinine 0.9 mg/dL 0.8-1. 3 Not Available [address], [address], 04/09/2024 16:36:15 04/06/20 24 04/09/2024 BASIC METAB OLIC PANEL B/C 15.6 ratio Not Available [address], [address], 04/09/2024 16:36:15 04/06/20 24 04/09/2024 BASIC METAB [...] be used in pregn lanie. Not Available [address], [address], 04/09/2024 16:36:15 04/06/20 24 04/09/2024 BASIC METAB OLIC PANEL sodium 143 mmol/ L 136-14 5 Not Available [address], [address], 04/09/2024 16:36:15 04/06/20 24 04/09/2024 BASIC METAB OLIC PANEL potassium 4.1 mmol/ L 3.5-5. 1 Not Available [address], [address], 04/09/2024 16:36:15 04/06/20 24 04/09/2024 BASIC METAB OLIC PANEL chloride 105 mmol/ L 96-107 Not Available [address], [address], 04/09/2024 16:36:15 04/06/20 24 04/09/2024 BASIC METAB OLIC PANEL anion gap 9.7 5.0-15 .0 Not Available [address], [address], 04/09/2024 16:36:15 04/06/20 24 04/09/2024 BASIC METAB OLIC PANEL CO2 28 mmol/ L 21-32 Not Available [address], [address], 04/09/2024 16:36:15 04/06/20 24 04/09/2024 BASIC METAB OLIC PANEL calcium 9.3 mg/dL 8.5-10 .3 Not Available [address], [address], 04/09/2024 16:36:15 06/22/19 25 06/24/2024 MICRO ALBUM IN/CR EATIN INE RATIO PANEL , URINE microalbumin 5.9 mg/L 1.3-20 .0 Not Available [address], [address], 06/24/2024 10:52:46 06/22/19 25 06/24/2024 MICRO ALBUM IN/CR EATIN INE RATIO PANEL , URINE creatinine urine 133.5 mg/dL 30.0-1 25.0 high Not Available [address], [address], 06/24/2024 10:52:46 06/22/19 25 06/24/2024 MICRO ALBUM IN/CR EATIN INE RATIO PANEL , URINE microalb/cre at ratio 4.4 mg/g_ creat 0.0-29 .0 Not Available [address], [address], 06/24/2024 10:52:46 01/31/20 24 01/31/2024 XR, hip [...] YOHANNES: No acute bone abnorm ality. Readin kerry Physic belkis: Tom Montez [facility] ([facility]aging) [address], [place], [address], 01/31/2024 17:22:29 Result Notes None recorded. Procedures Surgical History Date Name Laterality Status Provider Name and Address Organization Details Recorded Time 3 Kristen - Colonoscopy completed Isidro Peterson MD [address] [place] [address], [phone], [facility] 12/02/2022 13:59:37 3 Kristen - EGD completed Isidro Peterson MD [address] [place] [address], [phone], [facility] 12/02/2022 13:59:07 Imaging Results Imaging Date Name Status LastModified by Organiz ation Details LastModified Time 01/31/2024 XR, hip + pelvis, unilateral , 2 or 3 view completed [facility] (Im[facility]) [address], [place], [place], [address], 01/31/2024 17:22:29 Procedure Notes None recorded. Medical [...] Available Not Available No t Available FreeStyle [place] Lite kit USE DIRECTED TO CHECK BLOOD [...] What Is Your Occupation? [employer] Information not available 01/28/2022 How Many Days [...] Former Zahira jessy Information not available 03/16/2010 Patient Has Health Care Proxy Signed And In Chart Yes Form Given To Pt 03/31/11, 09/22/14, 06/16/15 [id number] Information not available 06/14/2023 Marital Status Helping [...] available 01/26/2021 Seat Belts Used Routinely Yes [id number] Information not available 03/31/2011 Are You Sexually [...] SNOMED-CT Code Diagnosis ICD10 Code Diagnosis Note [id number] [facility] [place] [address] [place] [address] 04/13/2004 13:15:09 04/13/2004 13:52:33 [id number] [facility], [address] [place] [address] 10/06/2005 14:44:39 10/06/2005 17:44:16 [id number] [facility] - [address] [place] [address] 10/06/2005 15:16:59 10/06/2005 15:17:09 [id number] [facility] [address] [place] [address] [place] [address] 10/17/2005 09:39:34 10/17/2005 11:47:03 [id number] [facility], [address] [place] [address] 10/24/2005 09:56:34 06/04/2008 02:02:29 [id number] [facility], [address] [place] [address] 11/22/2005 09:04:17 11/22/2005 16:06:53 [id number] [facility] - [facility] [address] [place] [address] 11/22/2005 09:27:56 11/22/2005 09:28:05 [id number] [facility], [address] [place] [address] 04/04/2006 16:15:39 04/04/2006 17:01:09 [id number] [facility], [address] [place] [address] 08/16/2006 10:02:59 08/18/2006 07:49:02 [id number] [facility] [address] [place] [address] [place] [address] 08/30/2006 14:48:37 08/30/2006 17:32:27 [id number] [facility] [address] [place] [address] 08/30/2006 15:54:11 08/30/2006 15:54:16 [id number] [facility] [place] [address] [place] [address] [place] [address] 10/13/2006 10:18:52 10/13/2006 13:12:41 [id number] [facility] [place] [address] [place] [address] [place] [address] 11/03/2006 10:10:13 11/03/2006 11:36:58 [id number] [facility], [address] [place] [address] 02/16/2007 10:19:36 06/04/2008 02:02:29 [id number] [facility], [address] [place] [address] 01/26/2007 10:01:13 01/26/2007 15:25:44 [id number] [facility], [address] [place], [place] [address] 12/17/2007 10:14:12 06/04/2008 02:02:29 [id number] FP [facility], [address] [place], [place] [address] 06/05/2008 15:35:46 06/17/2008 02:02:00 [id number] Araceli Schuster LPN [facility], [address] [place] [address] 08/06/2008 12:16:07 08/07/2008 08:35:[id number] [place] [address] 09/05/2008 11:42:18 09/08/2008 08:21:27 [id number] FP [facility], [address] [place] [address] 12/08/2008 16:32:50 12/09/2008 14:05:05 [id number] FP [facility], [address] [place] [address] 12/23/2008 10:20:23 12/23/2008 16:02:28 [id number] [facility], [address] [place] [address] 03/11/2009 14:47:03 03/11/2009 17:01:54 [id number] LAB - [facility] [place] [address] 07/30/2008 09:10:41 07/30/2008 09:10:47 [id number] LAB - [address] [place] [address] 12/10/2008 10:17:14 12/10/2008 10:17:19 [id number] FP [facility] [address] 09/01/2009 07:59:36 09/01/2009 09:05:09 [id number] FP [facility], [address] [place] [address] 09/03/2009 09:31:25 09/04/2009 08:20:06 [id number] FP [facility], [address] [place] [address] 11/23/2009 09:27:05 11/23/2009 12:22:11 [id number] FP [facility], [address] [place] [address] 12/14/2009 15:28:34 12/14/2009 16:21:22 [id number] FP [facility], [address] [place] [address] 03/18/2010 09:21:43 03/18/2010 10:46:30 [id number] [facility], [address] [place] [address] 1 06/30/2010 16:24:46 06/30/2010 17:25:41 [id number] GLENROY Reyes [facility] [place] [address] [place] [address] 01/20/2011 10:19:33 01/20/2011 11:02:24 [id number] [facility], [address] [place] [address] 1 03/31/2011 15:41:03 03/31/2011 16:54:54 [id number] FP [facility], [address] [place] [address] 1 09/13/2011 16:09:22 09/13/2011 16:43:30 [id number] GLENROY Reyes [facility], [place] [address] [place] [address] 10/12/2011 15:55:37 10/12/2011 16:24:26 [id number] Araceli Schuster LPN FP, [facility] [address] [place] [address] [place] [address] 10/26/2011 15:55:14 10/26/2011 16:08:12 [id number] GLENROY Reyes, [address] [place] [address] 07/16/2012 11:45:25 07/16/2012 12:22:07 [id number] Lisa Jesus LPN FP, [address] [place] [address] 1 07/19/2012 10:20:12 07/19/2012 10:30:27 [id number] Stephanie Giraldo LPN , [address] [place] [address] 1 12/25/2012 16:14:20 12/26/2012 07:30:58 [id number] Araceli Schuster LPN , [address] [place] [address] 1 03/04/2013 15:53:01 03/04/2013 16:53:56 [id number] Nathen Chávez , [address] [place] [address] 06/05/2013 10:45:47 06/05/2013 11:36:26 [id number] Bertha Razo , [address] [place] [address] 1 06/24/2013 15:47:39 06/25/2013 10:20:00 [id number] Marta Mcghee , [address] [place] [address] 1 09/18/2013 13:41:57 09/18/2013 14:35:[id number] [place] [address] 10/24/2013 13:30:56 10/24/2013 14:58:27 [id number] Stephanie House , [facility] [address] [place] [address] [place] [address] 1 08/21/2014 09:15:37 08/21/2014 12:58:29 [id number] Jaimie Montero [address] [place] [address] 1 09/22/2014 13:45:57 10/09/2014 16:20:03 [id number] Rohan Jakob [address] [place] [address] 1 06/16/2015 10:15:14 06/17/2015 11:26:38 [id number] Eden Cody.ODaryc [address] [place] [address] 1 06/24/2016 13:45:51 06/27/2016 09:56:23 [id number] Eden Cody.ODarcy [address] [place] [address] 1 09/30/2016 10:41:57 09/30/2016 11:49:43 [id number] Miguel Angel Jim MD [address] [place] [address] 1 04/21/2017 16:26:41 04/24/2017 12:38:25 [id number] Eden Cody.ODarcy [address] [place] [address] 1 10/24/2017 08:44:30 10/24/2017 09:30:25 [id number] Douglas Willis PA-C [address] [place] [address] 1 10/26/2017 13:39:56 10/26/2017 14:41:19 [id number] Eden ByrdODarcy [address] [place] [address] 1 04/23/2018 14:36:20 04/23/2018 16:11:35 [id number] MARISSA Ortiz [address] [place] [address] 1 08/14/2018 09:28:25 08/14/2018 11:12:59 [id number] Eden Cody.ODarcy [address] [place] [address] 1 10/25/2018 08:47:16 10/25/2018 09:22:10 [id number] Eden CodyEdi [address] [place] [address] 1 04/25/2019 09:47:24 04/25/2019 10:25:45 [id number] Eden Washington D.O. [facility], [address] [place] [address] 1 10/29/2019 08:12:09 10/29/2019 09:15:59 [id number] Gertrudis Roche RN [address] [place] [address] 1 03/20/2020 07:34:17 03/26/2020 16:52:10 [id number] STEVAN PEREZ MD [address] [place] [address] 1 11/06/2020 08:44:51 11/06/2020 10:09:53 [id number] Mason Multani DPM Podiatry, [address] [place] [address] 1 01/22/2021 09:01:08 01/22/2021 15:38:52 [id number] Eden Washington D.O. [address] [place] [address] 1 01/26/2021 08:57:23 01/26/2021 09:35:25 [id number] Matilde Rubio MD [address] [place] [address] 1 10/08/2021 12:02:47 10/08/2021 12:27:01 [id number] Alphonse Martinez DPT Physical Therapy, [address] [place] [address] 10/13/2021 13:52:59 10/14/2021 13:07:36 [id number] Alphonse Martinez DPT Physical Therapy, [address] [place] [address] 1 10/18/2021 13:10:11 10/18/2021 14:16:22 [id number] Alphonse Martinez DPT Physical Therapy, [address] [place] [address] 10/20/2021 10:32:00 10/20/2021 14:08:36 [id number] Alphonse Martinez DPT Physical Therapy, [facility] [place] [address] 1 10/25/2021 11:26:03 10/25/2021 15:32:52 [id number] Alphonse Martinez DPT Physical Therapy, [facility] [place] [address] 1 10/27/2021 14:28:08 10/27/2021 15:25:05 [id number] Zheng Figueroa MD Sports Medicine, [address] [address] 11/03/2021 13:32:18 11/03/2021 14:02:41 [id number] Alphonse Martinez DPT Physical Therapy, [facility] [place] [address] 1 11/03/2021 14:36:56 11/04/2021 10:24:32 [id number] Alphonse Martinez DPT Physical Therapy, [facility] [place] [address] 1 11/09/2021 13:06:11 11/09/2021 13:59:30 [id number] Alphonse Martinez DPT Physical Therapy, [facility] [place] [address] 1 11/18/2021 15:34:59 11/18/2021 16:09:31 [id number] Alphonse Martinez DPT Physical Therapy, [facility] [place] [address] 1 11/23/2021 15:00:55 11/23/2021 15:37:44 [id number] Zheng Figueroa MD Sports Medicine, [facility] [place] [address] 1 12/13/2021 13:28:52 12/13/2021 14:00:37 [id number] Eden Washington D.O. , [facility] [place] [address] [place] [address] 01/28/2022 08:18:22 01/28/2022 13:39:11 [id number] MARISSA Sal , [facility], OFFICE [address] [place] [address] 04/14/2022 11:51:53 04/19/2022 14:24:28 [id number] Eden COWAN, [facility] [place] [address] [place] [address] 1 05/02/2022 10:10:17 05/03/2022 10:34:49 [id number] Zheng Figueroa MD Sports Medicine, [address] [address] 05/03/2022 11:04:00 05/03/2022 11:21:52 [id number] Mason Dickey i, PT Physical Therapy, [address] [place] [address] 1 05/31/2022 14:26:57 05/31/2022 15:55:33 [id number] Mason Dickey i, PT Physical Therapy, [address] [place] [address] 1 06/06/2022 14:58:22 06/07/2022 13:01:15 [id number] VICKI ADRIAN, [facility] [place] [address] [place] [address] 11/10/2022 14:53:30 11/10/2022 15:34:06 [id number] MARCE VICKI HUERTA, [facility] [place] [address] [place] [address] 11/17/2022 13:28:47 11/17/2022 15:00:11 [id number] Florina Quevedo RN Endoscopy , [address] [place] [place] [address] 12/02/2022 11:53:27 12/02/2022 14:02:53 [id number] MARCE DOC-VICKI CIFUENTES, [facility] [place] [address] [place] [address] 12/19/2022 09:19:08 12/19/2022 10:08:32 [id number] Tricia Maxwell RDN, LDN, CDCES Nutrition [place] [place] [address] [place] [address] 01/17/2023 09:54:56 01/18/2023 15:46:39 [id number] VICKI ADRIAN, [facility] [place] [address] [place] [address] 1 02/15/2023 10:27:27 02/15/2023 15:31:28 [id number] Tricia Maxwell, RDN, LDN, CDCES Nutrition -[facility] [place] [address] [place] [address] 02/21/2023 08:59:17 03/03/2023 16:13:21 [id number] MARCE AKHIL SOSA DNP FP, [facility] [place] [address] [place] [address] 03/01/2023 10:54:57 03/01/2023 12:54:52 [id number] Sara marx NP FP, [facility] [place] [address] [place] [address] [address] [place], [place] [address] 04/14/2023 13:20:01 04/18/2023 09:08:55 [id number] LUCA Gil, [facility] [place] [address] [place] [address] [place] [address] 06/12/2023 10:47:08 06/12/2023 17:30:56 [id number] LUCA Gil, [facility] [place] [address] [place] [address] [place] [address] 08/23/2023 14:53:22 08/23/2023 16:05:30 [id number] MD CAMRYN LEACH, [facility] [place] [address] [place] [address] [place] [address] 01/31/2024 10:13:15 01/31/2024 12:19:05 [id number] MD CAMRYN LEACH, [facility] [place] [address] [place] [address] 04/08/2024 10:16:44 04/08/2024 11:44:27 [id number] MD CAMRYN LEACH, [facility] [place] [address] [place] [address] [place] [address] 05/01/2024 14:03:34 05/01/2024 14:57:36 [id number] MD CAMRYN LEACH, [facility] [place] [address] [place] [address] [place] [address] 06/10/2024 16:10:34 06/11/2024 10:47:39 Health Concerns [...] PRINCE ACO (MEDICAID REPLACEMENT - HMO) Fernanda Patry [id number] Fernanda Patry 01/31/2024 1 [employer] HP - DOS ON OR AFTER 2022 - [employer] (MEDICAID REPLACEMENT - HMO) Fernanda Patry [id number] Fernanda Patry 04/08/2024 1 [employer] HP - DOS ON OR AFTER 2022 - [employer] (MEDICAID REPLACEMENT - HMO) Fernanda Patry [id number] Fernanda Patry 05/01/2024 1 [employer] HP - DOS ON OR AFTER 2022 - [employer] (MEDICAID REPLACEMENT - HMO) Fernanda Patry [id number] Fernanda Patry 06/10/2024 1 [employer] HP - DOS ON OR AFTER 2022 - [employer] (MEDICAID REPLACEMENT - HMO) Fernanda Patry [id number] Fernanda Patry OBGyn Episode No OBEpisode recorded.
== END 2024-06-26 09:47 | disposition home or self-care (01) ==
DX: G56.01 Carpal tunnel syndrome, right upper limb (principal); M25.511 Pain in right shoulder
CPT/HCPCS: 99214

== ENCOUNTER 2024-06-26 08:56 | Outpatient (REF) | payer OTHER, SELFPAY ==
--- NOTE | ~2024-06-26 | XR_ITS ---
EXAMINATION: XR SHOULDER, RIGHT CLINICAL INFORMATION: M25.511 - Pain in right shoulder COMPARISON: None available. TECHNIQUE: AP external rotation, Grashey, scapular Y, and axillary views of the right shoulder. FINDINGS: No acute cortical disruption or malalignment. No lytic or blastic lesions. No subcutaneous edema. No metallic or radiopaque foreign body. XR/XR shoulder RT min 2V IMPRESSION: Normal right shoulder. Electronically signed by: Sae Amaya MD 06/26/2024 09:32 AM FANY SCHAEFFER
--- OUTSIDE RECORDS SUMMARY | 2024-06-26 10:16 | XMS_ITS | Continuity of Care Document ---
Author Organization [facility], , [facility] [place] [address] [place] [address] Care Team Providers Care Fish Flipper Name Role Phone JERAMY ERWIN OTHER ALBERTA HOUSER Orthopedic Surgeon GAMA MEDEIROS Refractory Tile Helper ALEX VACA Embroidery Operator CECI VAZQUEZ Hematology/Oncology [facility] Regulatory Services Consultant Assessment No assessment recorded. Plan of Treatment Reminders Order Date Submit Date Provider Last Modified By Organization Details Last Modified Time Details Appointments None recorded. Lab hemoglobin A1C/hemoglo bin total, QN, blood 2024 025 [email or web address] [facility], [address] [place], [address], 5 16:50:23 Referral None recorded. Procedures None recorded. Surgeries None recorded. Imaging None recorded. Medication Orders Zepbound 5 mg/0.5 mL subcutaneou s pen injector [address] [id number], [address] [place], [address], 5 16:41:49 Patient TargetsNo targets recorded. Patient InstructionsNo instructions recorded. Reason for Referral None Reported. Problems Name Problem SNOMED Code Status Onset Date Resolution Date Notes Provider Name and Address Organization Details Recorded Time Obesity 974282399 Active Not Available [facility] 10:25:21 Essentia l hyperten yohannes 98107080 Active Edna Martin NP [address] [place] [address], [address] , [facility] 4 13:24:50 Iron deficien cy anemia 98589412 Active 2022 DOC-Glo SOSA, DNP [address] [place] [address], [address] , [facility] 3 09:04:25 Celiac disease 423642213 Active 2022 AKHIL SOSA, DNP [address] [place] [address], [address] , [facility] 3 09:04:30 Osteopen ia 500811026 Active 2022 Sara marx, LUCA [address] [place] [address], [address] , [facility] 3 20:29:41 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 156742906 Completed 202206/12/2023 Neg for autoimmu ne hep - GI workup normal Edna Martin NP [address] [place] [address], [address] , [facility] 4 13:25:06 Steatosi s of liver 440954201 Active 2022 Edna Martin NP [address] [place] [address], [address] , [facility] 4 13:24:59 Type 2 diabetes mellitus without complica tion 283453511 Active 2023 Edna Martin NP [address] [place] [address], [address] , [facility] 4 11:37:25 Headache 37685587 Completed 11/09/2011 Not Available [facility] 3 03:09:36 Headache 20932056 Completed 200603/16/2010 Not Available [facility] 3 03:09:36 Precordi al pain 20588072 Completed 200603/17/2010 Not Available [facility] 3 03:09:36 Essentia l hyperten yohannes 11528905 Completed 06/02/2014 Edna Martin NP [address] [place] [address], [address] , [facility] 4 13:24:50 Aquiles molina hyperten yohannes 47213625 Completed 11/21/2011 Edna Martin NP [address] [place] [address], [address] , [facility] 4 13:24:50 Aquiles l hyperten yohannes 99677657 Completed 200503/17/2010 Edna Martin NP [address] [place] [address], [address] , [facility] 4 13:24:50 Symptom of head and neck region 600484370 Completed 03/16/2010 Not Available [facility] 3 03:09:36 Benign aquiles molina hyperten yohannes 4099072 Completed 200508/21/2014 Eden Washington D.O. [address] [place] [address], [address] , [facility] 5 09:43:29 Anxiety state 014912142 Completed 08/21/2014 Eden Washington D.O. [address] [place] [address], [address] , [facility] 5 09:43:29 Anxiety state 683260155 Completed 200703/17/2010 Not Available [facility] 3 03:09:36 Dizzines s 689212670 Completed 200503/16/2010 Not Available [facility] 3 03:09:36 Vitamin D deficien cy 85738445 Completed 200803/17/2010 Not Available [facility] 3 03:09:36 Coarctat ion of aorta 7836756 Active see emporiastate cards Not Available [facility] 1 10:25:21 Coarctat ion of aorta 3949505 Completed 200603/17/2010 Eden Washington D.O. [address] [place] [address], [address] , [facility] 7 11:30:55 Acute stress disorder 34680770 Completed 200603/16/2010 Not Available [facility] 3 03:09:36 Panic disorder without agorapho cathy 95003278 Completed 200308/21/2014 Eden Cody.O. [address] [place], [address] , [facility] 5 09:43:29 Chest pain 79231891 Completed 03/17/2010 Not Available [facility] 3 03:09:36 Abnormal cervical Papanico laou smear with human papillom avirus deoxyrib onucleic acid detected 351039291 Completed 08/21/2014 Eden Washington D.O. [address] [place], [address] , [facility] 5 09:43:29 Abnormal cervical Papanico laou smear with human papillom avirus deoxyrib onucleic acid detected 602844413 Completed 03/17/2010 Not Available [facility] 3 03:09:36 Impaired fasting glycemia 830865986 Completed 06/12/2023 Edna Martin NP [address] [place], [address] , [facility] 4 13:24:44 Low back pain 982344373 Completed 200606/02/2014 Eden Cody.O. [address] [place] [address], [address] , [facility] 5 19:54:32 Migraine 50045644 Active Not Available [facility] 1 10:25:21 Acute bronchit is 48194102 Completed 200503/16/2010 Not Available [facility] 3 03:09:36 Malaise and fatigue 212010860 Completed 200603/16/2010 Not Available [facility] 3 03:09:36 Notes:Some problems listed i n Document: #[id number] could not be added to this patient's chart. Please review this document and add these problems to the patient's chart manually as needed. Problem Notes None recorded. Procedures Surgical History Date Name Laterality Status Provider Name and Address Organization Details Recorded Time 11/24/19 86967: Therapeutic Exercise completed Alphonse Martinez DPT [address] [place], [address], [facility] 11/23/2021 15:08:02 11/24/19 22 22036: Manual Therapy completed Alphonse Martinez DPT [address] [place], [address], [facility] 11/23/2021 15:08:03 11/24/19 22 Neuromuscular re-education completed Alphonse Martinez DPT [address] [place], [address], [facility] 11/23/2021 15:08:03 11/19/19 52507: Therapeutic Exercise completed Alphonse Martinez DPT [address] [place], [address], [facility] 11/18/2021 15:45:36 11/19/19 22 62372: Manual Therapy completed Alphonse Martinez DPT [address] [place], [address], [facility] 11/18/2021 15:45:36 11/19/19 22 Neuromuscular re-education completed Alphonse Martinez DPT [address] [place], [place] [address]way [place], [address], [facility] 11/18/2021 15:45:36 11/19/19 22 Treatment and Advice completed Alphonse Martinez DPT [address] [place], [address], [facility] 11/18/2021 16:04:43 11/10/19 22 38361: Therapeutic Exercise completed Alphonse Martinez DPT [address] [place], [address], [facility] 11/09/2021 12:51:26 11/10/19 22 09217: Manual Therapy completed Alphonse Martinez DPT [address] [place], [address], [facility] 11/09/2021 12:52:07 11/10/19 22 Neuromuscular re-education completed Alphonse Martinez DPT [address] [place], [address], [facility] 11/09/2021 13:45:24 11/10/19 Treatment and Advice completed Alphonse Martinez DPT [address] [place], [address], [facility] 11/09/2021 12:49:44 11/04/19 22 67146: Therapeutic Exercise completed Alphonse Martinez DPT [address] [place], [address], [facility] 11/03/2021 15:02:00 11/04/19 Neuromuscular re-education completed Alphonse Martinez DPT [address] [place], [address], [facility] 11/03/2021 23:25:50 11/04/19 22 Treatment and Advice completed Alphonse Martinez DPT [address] [place], [address], [facility] 11/03/2021 23:22:49 10/28/19 22 63028: Therapeutic Exercise completed Alphonse Martinez DPT [address] [place], [address], [facility] 10/27/2021 15:01:27 10/28/19 22 Neuromuscular re-education completed Alphonse Martinez DPT [address] [place], [address], [facility] 10/27/2021 15:01:40 10/28/19 22 Smoking Cessation Counselling completed Alphonse Martinez DPT [address] [place], [address], [facility] 10/27/2021 14:33:50 10/28/19 Physical Activity Counselling completed Alphonse Martinez DPT [address] [place], [address], [facility] 10/27/2021 14:33:50 10/28/19 Treatment and Advice completed Alphonse Martinez DPT [address] [place], [address], [facility] 10/27/2021 15:01:18 10/26/19 22 41680: Therapeutic Exercise completed Alphonse Martinez DPT [address] [place], [address], [facility] 10/25/2021 11:39:14 10/26/19 22 Smoking Cessation Counselling completed Alphonse Martinez DPT [address] [place], [address], [facility] 10/25/2021 11:39:14 10/26/19 22 Physical Activity Counselling completed Alphonse Martinez DPT [address] [place], [address], [facility] 10/25/2021 11:39:14 10/26/19 22 Treatment and Advice completed Alphonse Martinez DPT [address] [place], [address], [facility] 10/25/2021 11:39:14 10/21/19 22 76074: Therapeutic Exercise completed Alphonse Martinez DPT [address] [place], [address], [facility] 10/20/2021 12:53:24 10/21/19 22 Smoking Cessation Counselling completed Alphonse Martinez DPT [address] [place], [address], [facility] 10/20/2021 12:46:29 10/21/19 22 Physical Activity Counselling completed Alphonse Martinez DPT [address] [place], [address], [facility] 10/20/2021 12:46:29 10/21/19 22 Treatment and Advice completed Alphonse Martinez DPT [address] [place], [address], [facility] 10/20/2021 12:51:57 10/19/19 22 48653: Therapeutic Exercise completed Alphonse Martinez DPT [address] [place], [address], [facility] 10/18/2021 13:58:42 10/19/19 22 Smoking Cessation Counselling completed Alphonse Martinez DPT [address] [place], [address], [facility] 10/18/2021 12:41:42 10/19/19 22 Physical Activity Counselling completed Alphonse Martinez DPT [address] [place], [address], [facility] 10/18/2021 12:41:42 10/19/19 22 Treatment and Advice completed Alphonse Martinez DPT [address] [place], [address], [facility] 10/18/2021 13:55:32 10/14/19 22 Smoking Cessation Counselling completed Alphonse Martinez DPT [address] [place], [address], [facility] 10/13/2021 20:25:31 10/14/19 22 Physical Activity Counselling completed Alphonse Martinez DPT [address] [place], [address], [facility] 10/13/2021 20:25:31 10/14/19 22 00223: PT Eval Low Complexity completed Alphonse Martinez DPT [address] [place], [address], [facility] 10/13/2021 20:25:31 10/14/19 22 Treatment and Advice completed Alphonse Martinez DPT [address] [place], [address], [facility] 10/13/2021 15:02:39 10/29/19 20 prevention-cardiov ascular risk reduction counseling completed YUKO Angeles [facility] 10/29/2019 08:14:35 10/29/19 20 prevention-annual alcohol misuse screening completed YUKO Angeles [facility] 10/29/2019 08:14:35 06/14/20 18 Corticosteroid Injection completed Douglas Willis PA-C [address] [place] [address], [address], [facility] 10/26/2017 13:54:16 Imaging Results None recorded. [...] Available Not Available No t Available FreeStyle Delta Lite kit USE DIRECTED TO CHECK BLOOD [...] 2024 active Not Available Not Available Not Kit haji Zepbound 2.5 mg/0.5 mL subcutane ous pen injector Inject 2.5 mg every week by subcutan eous route for 28 days. active Not Available Not Available No t Available Vitals Date Recorded Body height Body mass index (BMI) Body weight Heart rate Systolic blood pressure Diastolic blood pressure Provider Name and Address Organization Details Last Updated DateTime 5 165.1 cm 37.8 kg/m2 049133. 47 g 81 /min 122 mm[Hg] 74 mm[Hg] Anahi Coppola [facility] 5 16:19:57 Social History Question Answer Notes LastModified by Organization Details LastModified Time Tobacco Smoking Status Never Smoker checked kb 08-23-23 [facility]2023 15:05:33 Do You Have An Advance Directive? No Information not available 03/31/2011 What Is Your Level Of Alcohol Consumption? None Checked Kb 06-12-23 [email or web address] Information not available 06/12/2023 What Is Your Level Of Caffeine Consumption? Moderate Information not available 09/22/2014 Are You Currently Employed? Yes Information not available 01/26/2021 What Type Of Diet Are You Following? REGULAR [id number] Information not available 03/31/2011 Education 12 Information not available 03/31/2011 What Is Your Occupation? [employer] Information not available 01/28/2022 How Many Days In The Past Year Have You Had A Heavy Drinking Consumption (4+ Female, 5+ Male)? 0 Information not available 08/21/2014 Are There Any Guns Present In Your Home? No Information not available 03/31/2011 Live Alone Or With Others? With Others 3 Children, Her Mother, Zahira And His 3 Children. Lost Father And Former Zahira [email or web address] Information not available 03/16/2010 Patient Has Health Care Proxy Signed And In Chart Yes Form Given To Pt 03/31/11, 09/22/14, 06/16/15 [email or web address] Information not available 06/14/2023 Marital Status Helping [...] 70 [email or web address] Not available 2014 14:14:19 Brother Guera-Foster son-White pattern 48 tfurcolo Not available 2016 [...] Td(adult) unspecified formulation 007 completed Not Available [facility] 03/30/2011 05:21:29 Tdap 014 completed Not Available [facility] 06/01/2019 02:27:11 Influenza, split virus, quadrivalent, PF 019 completed Not Available [facility] 06/01/2019 02:24:34 Influenza, split virus, quadrivalent, PF 020 completed Gertrudis Roche RN [facility], [facility] 03/20/2020 11:03:26 Influenza, split virus, quadrivalent, PF 022 cancelled patient objection Eden Washington D.O. [address] [place] [address], [address], [facility] 05/02/2022 10:38:48 Influenza, split virus, quadrivalent, PF 024 cancelled patient objection Edna Martin NP [address] [place] [address], [address], [facility] 06/12/2023 13:20:53 Tdap 024 completed Edna Martin NP [address] [place], [address], [facility] 08/23/2023 16:12:10 pneumococcal polysaccharide PPV23 010 completed Not Available [facility] 06/01/2019 02:27:38 COVID-19, mRNA, LNP-S, PF, 30 mcg/0.3 mL dose 021 completed [facility] 03/27/2021 08:34:50 COVID-19, mRNA, LNP-S, PF, 30 mcg/0.3 mL dose completed Florecita Kennedy [facility] 04/21/2021 14:50:21 Past Encounters Encounter ID Performer Location Encounter Start Date Encounter Closed Date Diagnosis/Indication Diagnosis SNOMED-CT Code Diagnosis ICD10 Code Diagnosis Note [id number] MARCELLA LAROSE MD , [facility] [place] [address] [place] [address] 06/10/2024 16:10:34 06/11/2024 10:47:39 Obesity 372482192 E66.9 Tolerating the 2.5 mg dose. Initially had some burping but this resolved after a few days. Decrease in appetite. Weight still the same. Will increase to 5 mg. Continue healthy eating, gym and hydration. ?I am seeing patient regularly to monitor medication and ongoing weight goals.?I, Marcella Larose MD, am certified by the [place] [employer] to provide obesity care. Type 2 heriberto betes mellitus without complication 926239617 E11.9 Last A1c in March was 7.3%. Repeat today. Essential hypertension 23390275 I10 At goal <130/80. Will monitor. Health Concerns Section Related Observation LastModified by Organization Detai ls LastModified Time None Recorded Concern Status LastModified by Organization Details LastModified Time None Recorded Payers Encounter Date Sequence Insurance Name Policy Number Policy Zapata Covered Member ID Zapata Member ID Guarantor Name 06/10/2024 1 [facility] HP - DOS ON OR AFTER 2022 - [facility] [employer] (MEDICAID REPLACEMENT - HMO) [place] [id number] [place] Notes Date Note Type Note Provider Name and Address Organization Details Recorded Time text/html Appetite is down but weight has not changed yetGoing back to the gym, hopefully will comeStill eating protein, veggiesDrinkign water Went to ortho for the kneesOsteoarthritis bilaterallyDoing PT right nowR elbow saw the same doctor, thinks its cubital compartment syndromeW[place] to [place] doctorHas a plan for an EMGGoing to [facility] Due for eye exam, plan to have this done in August MARCELLA LAROSE MD [address] [place] [address], [address], [facility] 06/10/2024 16:59:16 OBGyn Episode No OBEpisode recorded.
== END 2024-06-26 08:57 | disposition home or self-care (01) ==
LOC: HO.HOSX 08:56
DX: M25.511 Pain in right shoulder (principal)
CPT/HCPCS: 73030

== ENCOUNTER → 2024-06-26 09:19 | Outpatient (BNV) | payer OTHER, SELFPAY | PROVIDERS: Visit Provider Radiology Diagnostic Radiology | DX: M25.511 Pain in right shoulder (principal) | CPT/HCPCS: 73030 ==

== ENCOUNTER 2024-07-16 08:14 | Outpatient (REF) | payer OTHER, SELFPAY ==
--- NOTE | ~2024-07-16 | XR_ITS ---
EXAMINATION: XR HIP, LEFT CLINICAL INFORMATION: M25.552 - Pain in left hip COMPARISON: None available. TECHNIQUE: Two views of the left hip. AP pelvis. FINDINGS: No acute cortical disruption or malalignment. No lytic or blastic lesions. There is preservation of the joint spaces. Degenerative changes in the symphysis pubis. The bony pelvis intact. There is spina bifida occulta S1, congenital. XR/XR hip LT min 2V IMPRESSION: Normal x-ray left hip. Mild degenerative changes in the symphysis pubis. Electronically signed by: Sae Amaya MD 07/16/2024 02:36 PM EST
== END 2024-07-16 08:15 | disposition home or self-care (01) ==
LOC: HO.HOSX 08:14
DX: M25.552 Pain in left hip (principal); M54.30 Sciatica, unspecified side; M53.3 Sacrococcygeal disorders, not elsewhere classified
CPT/HCPCS: 73502

== ENCOUNTER 2024-07-16 09:40 | Outpatient (AMB) | payer OTHER, SELFPAY ==
[2024-07-16 09:48] VITALS: BMI 36.4
--- NOTE | 2024-07-16 09:48 | A.OFFVIS_ITS ---
Vital Signs 07/16/24 09:48 Height 5 ft 5 in Weight 219 lb BMI 36.4 Intake Visit Reasons: New prob- Left hip pain Intake Note: Fernanda is a 48 year old female who presents today for a new problem visit with complaints of left hip pain. Patient reports that she has ongoing left hip pain for quite some time now. She has history of a left hip bursa injection years ago. She has also seen a technical services specialist who did an SI joint injection. Neither of these injections were helpful for her. She reports pain felt in the lateral and posterior aspect of the hip as well as the lower back.She has sharp shooting pain down the back of her leg and reports numbness and tingling in the feet as well as swelling. She feels a grinding in the lower back while walking. She has done physical therapy with no relief. She uses lidocane patches, voltaren and uses Tylenol PRN - neither of these are rather helpful, they just take the edge off. Allergies No Known Allergies Allergy (Verified 07/16/24 09:52) HPI HPI New prob- Left hip pain: Details: Fernanda is a 48 year old female who presents today for a new problem visit with complaints of left hip pain. Patient reports that she has ongoing left hip pain for quite some time now. She has history of a left hip bursa injection years ago. She has also seen a technical services specialist who did an SI joint injection. Neither of these injections were helpful for her. She reports pain felt in the lateral and posterior aspect of the hip as well as the lower back.She has sharp shooting pain down the back of her leg and reports numbness and tingling in the feet as well as swelling. Patient does report occasional pain in the groin, but states that her pain is primarily located in the lower back and buttocks region. She feels a grinding in the lower back while walking. She has done physical therapy with no relief. She uses lidocane patches, voltaren and uses Tylenol PRN - neither of these are rather helpful, they just take the edge off. PFSH Surgical History Hx of elbow surgery Social History Alcohol intake: never Patient Tobacco Use Status: Never used Tobacco Current occupational status: unemployed Review of Systems Const All systems reviewed & are unremarkable except as noted in HPI and below Physical Exam Vital Signs: BMI result Body Mass Index 36.4 Extrem Other: Patient's left hip normal to inspection No erythema, ecchymosis, edema noted No lacerations, abrasions, open areas No evidence of infection Patient reports no tenderness to palpation of the lateral left hip Positive straight leg raise in the left No discomfort with passive internal or external rotation of the left hip Distal sensation intact Capillary refill brisk Results Reviewed Results Reviewed: X-rays obtained in the office today and independently reviewed by me, Geovanny Galeano PA-C, demonstrate very mild degenerative changes of the hip joint on the left. Assessment & Plan Assessment & Plan (1) Sciatic nerve pain: Code(s): M54.30 - Sciatica, unspecified side Category: Medical (2) Sacroiliac joint dysfunction: Code(s): M53.3 - Sacrococcygeal disorders, not elsewhere classified Category: Medical Plan 1. Sciatic nerve pain 2. SI joint arthritis Patient is educated about these conditions Patient was educated about the typical recovery course At this time, patient was informed that these issues are not something that is treated by Orthopedics, and it was referred to Dr. Calixto in physiatry for further evaluation, as she has already been seen by pain management with no relief Patient was amenable to this plan Patient will follow-up as needed with any acute concerns Orders: Orders XR hip LT min 2V Today M25.552 - Pain in left hip Coding Level of Care Code Est Pt Level 3 (15616) Diagnoses Sciatic nerve pain M54.30 Sacroiliac joint dysfunction M53.3
== END 2024-07-16 10:10 | disposition home or self-care (01) ==
DX: M54.30 Sciatica, unspecified side (principal); M53.3 Sacrococcygeal disorders, not elsewhere classified
CPT/HCPCS: 99213

== ENCOUNTER → 2024-07-16 09:41 | Outpatient (BNV) | payer OTHER, SELFPAY | PROVIDERS: Visit Provider Radiology Diagnostic Radiology | DX: M25.552 Pain in left hip (principal) | CPT/HCPCS: 73502 ==

== ENCOUNTER 2024-07-22 07:00 | Outpatient (RCR) | payer OTHER, SELFPAY ==
--- NOTE | 2024-06-13 09:44 | MHC.PT.EP ---
[facility] [place] [facility] [place] [facility] [place] [facility] [address] Kirill Urbina [address] [phone] F: [phone] F: [phone] F: [phone] F: [phone] Physical Therapy Plan of Care Date of Evaluation: 06/13/24 Date of Surgery: n/a Diagnosis: chronic B knee pain Assessment: Patient is a 48 year old female presenting to PT with complaints of pain in her B knees. Pt reports onset of pain began at age 16 due to inisious onset. She presents today with impairments in ROM, pain, hip strength, knee strength. Pt's current occupation is none currently, with baseline physical activities including ADLs, ambulating, sitting, stair negotiation. Pt expresses [facility] goal of reducing pain, and is motivated to work towards this in PT. Clinical presentation today is most consistent with signs and sx associated with B knee pain and pt will benefit from skilled PT 2 week x 4 weeks to address the following problems and impairments noted upon evaluation: ROM, pain, hip strength, knee strength. These problems limit the patient with the following functional activities: ADLs, ambulating, sitting, stair negotiation. The prescribed treatment plan of care is medically necessary. Co-morbidities of coarctation of aorta, DM were identified and taken into considerations of plan of care. Pt was educated on HEP, role of PT, prognosis, POC. Frequency and Duration: The patient will be seen 2 x week x 4 weeks Short Term Goals: Pt will demonstrate improved knee ROM to equal B in 2 weeks. Pt will demonstrate improved B hip strength by 1/3 grade in 2 weeks. Pt will demonstrate improved L knee strength to 5/5 in 2 weeks. Assisted Goals: Pt will demonstrate improved LEFI score by 9 points in 4 weeks for improved functional mobility. Pt will demonstrate ability to ambulate with min to no pain in 4 week for return to PLOF. Pt will demonstrate improved ability to negotiate stairs with min to no pain in 4 weeks for return to PLOF. Treatment Plan: Modalities to reduce pain, spasms and effusion. Manual therapy to restore motion and function. Therapeutic exercise to improve strength and flexibility. Neuromuscular re-education for posture and balance. Therapeutic activities to return to functional activities of daily living. Electronically signed by: Bridgette Ferrera, PT, DPT, ATC Please sign and return to therapist. Thank you for your referral.
--- NOTE | 2024-07-22 07:49 | MHC.PT.DC ---
[facility] [place] Office [place] Office [place] Office [address] Kirill Urbina [address] [phone] F: [phone] F: [phone] F: [phone] F: [phone] Physical Therapy Discharge Report Diagnosis: chronic B knee pain Date of Surgery: n/a Date of Evaluation: 06/13/24 Date of Discharge: 07/22/24 Treatments to Date: 6 Cancellations to Date: 6 No Shows to Date: 0 Discharge Status: Recommend MD Follow-up Discharge Summary: 07/22/2024: Pt still having knee pain L>R. Does not complain of pain in her knees during the exercises. She informed this PT today that she is getting carpal tunnel surgery tomorrow and will be needing to go to OT. At this time due to pt being scheduled for surgery she will have a change of status. Therefore will d/c today and if she needs PT down the road she will need a new order and evaluation. She is in agreement with plan. Electronically signed by: Bridgette Ferrera, PT, DPT, ATC Please sign and return to therapist. Thank you for your referral.
== END 2024-07-22 07:50 | disposition home or self-care (01) ==
LOC: HO.PTCHIC 07:00
PROVIDERS: PCP Internal Medicine
DX: M25.561 Pain in right knee (principal); M25.562 Pain in left knee; M23.92 Unspecified internal derangement of left knee
CPT/HCPCS: 97110; 97140; 97161

== ENCOUNTER 2024-07-23 06:33 | Day surgery (SDC) | payer OTHER, SELFPAY ==
--- OUTSIDE RECORDS SUMMARY | 2024-07-15 14:02 | XMS_ITS | Data Portability ---
Author Organization [facility], , [facility] [place], OFFICE Address [address] [place] [address] [place] [address] Care Team Providers Care Nursing Assistants Teacher Name Role Phone JERAMY ERWIN OTHER ALBERTA HOUSER Orthopedic Surgeon [phone] GAMA MEDEIROS Dressage Judge ALEX MAXWELL Mate First CECI VAZQUEZ Hematology/Oncology [facility] Policy Service Coordinator Assessment Encounter Date Assessment Date Assessment LastModified [...] Modified Time Details Appointments None recorded. Lab hemoglobi n A1C/hemog lobin total, QN, blood 2024 025 [email or web address], [address] [place] [address], [address], 5 10:02:28 HbA1c (hemoglob in A1c), blood 2023 024 [facility] [address] [place], [address], 4 11:47:49 Referral orthopedi c surgeon referral 2023 024 [facility] [place], [address], 4 11:11:[address] referral 2023 024 KAYE Lloyd MD, [address] [place] [address], [address], 4 03:18:27 physical medicine and rehabilit ation referral 2023 024 [email or web address] Melvin Wallace MD, [address], [place], [address], 4 13:11:26 Procedures None recorded. Surgeries None recorded. Imaging XR, hip + pelvis, unilatera l, 2 or 3 view 2023 024 [email or web address] [facility] (Imaging), [address], [place], [address], 4 12:19:05 Medication Orders Zepbound 5 mg/0.5 mL subcutane ous pen injector 2024 025 [facility][id number], [address] [place], [address], 5 16:41:49 Zepbound 2.5 mg/0.5 mL subcutane ous pen injector 2023 024 [facility][id number], [address] [place], [address], 4 14:32:14 ondansetr on 4 mg disintegr ating tablet 2023 024 [facility][id number], [address] [place], [address], 4 14:32:14 Patient TargetsNo targets recorded. Patient Instructions Encounter Date Encounter Id Patient Instructions Last Modified By Organization Details Last Modified Time 05/01/2024 [id number] You have been prescribed a new medication [...] containers from your insurance company or most [facility] have them available for free. - If [...] Medicine, Encounter Date: 01/31/2024 Neurologist Referral for Hearun dache [facility] Encounter Date: 01/31/2024 Orthopedic Surgeon Referral for Pain of right elbow joint Referring Physician: Amber Larose [facility], Encounter Date: 04/08/2024 Results Created Date Observation Date Name Description Value Unit Range Abnormal Flag Note LastModifiedBy Organization Detail LastModifiedTime 08/16/19 24 08/16/2023 MICRO ALBUM IN/CR EATIN INE RATIO PANEL , URINE microalbumin 16.9 mg/L 1.3-20 .0 Not Available [address], [address], 08/16/2023 16:46:53 08/16/19 24 08/16/2023 MICRO ALBUM IN/CR EATIN INE RATIO PANEL , URINE creatinine urine 104.9 mg/dL 30.0-1 25.0 Not Available [address], [address], 08/16/2023 16:46:53 08/16/19 24 08/16/2023 MICRO ALBUM IN/CR EATIN INE RATIO PANEL , URINE microalb/cre at ratio 16.1 mg/g_ creat 0.0-29 .0 Not Available [address], [address], 08/16/2023 16:46:53 08/16/19 24 08/17/2023 HGB A1C [...] furth er confi rmati on Not Available [address], [address], 08/17/2023 10:15:54 08/16/19 24 08/17/2023 HGB A1C estimated average glucose 134.1 mg/dL Not Available [address], [address], 08/17/2023 10:15:54 08/16/19 24 08/17/2023 COMP. METAB OLIC PANEL glucose 121 mg/dL 70-100 high Not Available [address], [address], 08/17/2023 12:22:55 08/16/19 24 08/17/2023 COMP. METAB OLIC PANEL BUN 15 mg/dL 7-18 Not Available [address], [address], 08/17/2023 12:22:55 08/16/19 24 08/17/2023 COMP. METAB OLIC PANEL creatinine 0.7 mg/dL 0.8-1. 3 low Not Available [address], [address], 08/17/2023 12:22:55 08/16/19 24 08/17/2023 COMP. METAB OLIC PANEL B/C 21.4 ratio Not Available [address], [address], 08/17/2023 12:22:55 08/16/19 24 08/17/2023 COMP. METAB [...] borat ion (CKD- EPI) Equat ion (Cal chacko et. al 2020) as recom lynn d by the Natio nal Kidne y Found ation . eGFR is based on age, serum creat inine , and sex. CKD-E PI does not calcu late eGFR by race, does not apply to child amaury (age <18 years ), and shoul d not be used in pregn lanie. Not Available [address], [address], 08/17/2023 12:22:55 08/16/19 24 08/17/2023 COMP. METAB OLIC PANEL sodium 140 mmol/ L 136-14 5 Not Available [address], [address], 08/17/2023 12:22:55 08/16/19 24 08/17/2023 COMP. METAB OLIC PANEL potassium 4.1 mmol/ L 3.5-5. 1 Not Available [address], [address], 08/17/2023 12:22:55 08/16/19 24 08/17/2023 COMP. METAB OLIC PANEL chloride 102 mmol/ L 96-107 Not Available [address], [address], 08/17/2023 12:22:55 08/16/19 24 08/17/2023 COMP. METAB OLIC PANEL anion gap 12.4 5.0-15 .0 Not Available [address], [address], 08/17/2023 12:22:55 08/16/19 24 08/17/2023 COMP. METAB OLIC PANEL CO2 26 mmol/ L 21-32 Not Available [address], [address], 08/17/2023 12:22:55 08/16/19 24 08/17/2023 COMP. METAB OLIC PANEL calcium 9.5 mg/dL 8.5-10 .3 Not Available [address], [address], 08/17/2023 12:22:55 08/16/19 24 08/17/2023 COMP. METAB OLIC PANEL total protein 7.2 g/dL 6.4-8. 2 Not Available [address], [address], 08/17/2023 12:22:55 08/16/19 24 08/17/2023 COMP. METAB OLIC PANEL albumin 3.7 g/dL 3.4-5. 0 Not Available [address], [address], 08/17/2023 12:22:55 08/16/19 24 08/17/2023 COMP. METAB OLIC PANEL globulin 3.5 g/dL Not Available [address], [address], 08/17/2023 12:22:55 08/16/19 24 08/17/2023 COMP. METAB OLIC PANEL A/G 1.1 ratio 0.8-2. 0 Not Available [address], [address], 08/17/2023 12:22:55 08/16/19 24 08/17/2023 COMP. METAB OLIC PANEL total bilirubin 0.40 mg/dL 0.00-1 .00 Not Available [address], [address], 08/17/2023 12:22:55 08/16/19 24 08/17/2023 COMP. METAB OLIC PANEL AST 28 U/L 0-37 Not Available [address], [address], 08/17/2023 12:22:55 08/16/19 24 08/17/2023 COMP. METAB OLIC PANEL ALT 56 U/L 6-63 Not Available [address], [address], 08/17/2023 12:22:55 08/16/19 24 08/17/2023 COMP. METAB OLIC PANEL alk. phos. 135 U/L 50-136 Not Available [address], [address], 08/17/2023 12:22:55 08/16/19 24 08/17/2023 LIPID PANEL cholesterol 189 mg/dL <200 mg/dl Allen able 200-2 39 mg/dl Borde rline High >240 mg/dl High Not Available [address], [address], 08/17/2023 12:22:56 08/16/19 24 08/17/2023 LIPID PANEL triglyceride s 174 mg/dL <150 mg/dL Jerica l 150-1 99 mg/dL Borde rline High 200-4 99 mg/dL High >500 mg/dL Very High Not Available [address], [address], 08/17/2023 12:22:56 08/16/19 24 08/17/2023 LIPID PANEL direct HDL 48 mg/dL <40 mg/dl - Major Risk for CHD >60 mg/dl - Negat diomedes Risk for CHD Not Available [address], [address], 08/17/2023 12:22:56 08/16/19 24 08/17/2023 LDL - [...] with 0-1 risk facto r is not neces gina. Not Available [address], [address], 08/17/2023 12:22:58 10/06/19 24 10/10/2023 ANATO RAKEL PATHO LOGY path report [facility] [address] [facility] [place] [address] Lab Direc tor: Anahi davila MD Surgi [...] MINI HISTO RY Follo w-up of dmitriy tadeo se SPECI MENS SUBMI TTED: A: DUODE [...] have been deter mined by the [facility]. This labor atory is certi fied under the Clini mini Labor atory Impro vemen t Amend ments of 1987 (CLIA -88) as quali fied to perfo rm high compl exity clini mini labor atory testi ng. Immun ohist arely istry is perfo rmed on forma tano-f [...] tyler MD, POST- BA, BA Not Available [facility] (Outpatient) [address] [place], [address], 10/10/2023 17:20:06 04/06/20 24 04/08/2024 HGB A1C [...] furth er confi rmati on Not Available [address], [address], 04/08/2024 11:47:49 04/06/20 24 04/08/2024 HGB A1C estimated average glucose 162.8 mg/dL Not Available [address], [address], 04/08/2024 11:47:49 04/06/2004/09/2024 BASIC METAB OLIC PANEL glucose 179 mg/dL 70-100 high Not Available [address], [address], 04/09/2024 16:36:15 04/06/2004/09/2024 BASIC METAB OLIC PANEL BUN 14 mg/dL 7-18 Not Available [address], [address], 04/09/2024 16:36:15 04/06/20 24 04/09/2024 BASIC METAB OLIC PANEL creatinine 0.9 mg/dL 0.8-1. 3 Not Available [address], [address], 04/09/2024 16:36:15 04/06/2004/09/2024 BASIC METAB OLIC PANEL B/C 15.6 ratio Not Available [address], [address], 04/09/2024 16:36:15 04/06/20 24 04/09/2024 BASIC METAB [...] borat ion (CKD- EPI) Equat ion (Cal chacko et. al 2020) as recom lynn d by the Natio nal Kidne y Found ation . eGFR is based on age, serum creat inine , and sex. CKD-E PI does not calcu late eGFR by race, does not apply to child amaury (age <18 years ), and shoul d not be used in pregn lanie. Not Available [address], [address], 04/09/2024 16:36:15 04/06/20 24 04/09/2024 BASIC METAB OLIC PANEL sodium 143 mmol/ L 136-14 5 Not Available [address], [address], 04/09/2024 16:36:15 04/06/20 24 04/09/2024 BASIC METAB OLIC PANEL potassium 4.1 mmol/ L 3.5-5. 1 Not Available [address], [address], 04/09/2024 16:36:15 04/06/20 24 04/09/2024 BASIC METAB OLIC PANEL chloride 105 mmol/ L 96-107 Not Available [address], [address], 04/09/2024 16:36:15 04/06/20 24 04/09/2024 BASIC METAB OLIC PANEL anion gap 9.7 5.0-15 .0 Not Available [address], [address], 04/09/2024 16:36:15 04/06/20 24 04/09/2024 BASIC METAB OLIC PANEL CO2 28 mmol/ L 21-32 Not Available [address], [address], 04/09/2024 16:36:15 04/06/20 24 04/09/2024 BASIC METAB OLIC PANEL calcium 9.3 mg/dL 8.5-10 .3 Not Available [address], [address], 04/09/2024 16:36:15 06/22/19 25 06/23/2024 CBC (INCL UDES DIFF/ PLT) white blood cell count 5.7 thous and/u L 3.8-10 .8 normal Not Available [facility] [place] [facility] [address], [place], [address], 06/23/2024 08:43:39 06/22/19 25 06/23/2024 CBC (INCL UDES DIFF/ PLT) red blood cell count 4.94 priscilla on/uL 3.80-5 .10 normal Not Available [facility] [place] [facility] [address], [place], [address], 06/23/2024 08:43:39 06/22/1906/23/2024 CBC (INCL UDES DIFF/ PLT) hemoglobin 14.4 g/dL 11.7-1 5.5 normal Not Available [facility] [place] [facility] [address], [place], [address], 06/23/2024 08:43:39 06/22/19 25 06/23/2024 CBC (INCL UDES DIFF/ PLT) hematocrit 43.7 % 35.0-4 5.0 normal Not Available [facility] [place] [facility] [address], [place], [address], 06/23/2024 08:43:39 06/22/19 25 06/23/2024 CBC (INCL UDES DIFF/ PLT) MCV 88.5 fL 80.0-1 00.0 normal Not Available [facility] [place] [facility] [address], [place], [address], 06/23/2024 08:43:39 06/22/19 25 06/23/2024 CBC (INCL UDES DIFF/ PLT) MCH 29.1 pg 27.0-3 3.0 normal Not Available [facility] [address], [place], [address], 06/23/2024 08:43:39 06/22/19 25 06/23/2024 CBC (INCL UDES DIFF/ PLT) MCHC 33.0 g/dL 32.0-3 6.0 normal For adult s, a sligh t decre ase in the calcu lated MCHC value (in the range of 30 to 32 g/dL) is most likel y not clini arianna signi fican t; howev er, it shoul d be inter prete d with cauti on in [facility] with other red cell jaspreet eters and the patie nt's clini mini condi tion. Not Available [facility] [place] [facility] [address], [place], [address], 06/23/2024 08:43:39 06/22/19 25 06/23/2024 CBC (INCL UDES DIFF/ PLT) RDW 12.8 % 11.0-1 5.0 normal Not Available [facility] [place] [facility] [address], [place], [address], 06/23/2024 08:43:39 06/22/19 25 06/23/2024 CBC (INCL UDES DIFF/ PLT) platelet count 251 thous and/u L 140-40 0 normal Not Available [facility] [place] [facility] [address], [place], [address], 06/23/2024 08:43:39 06/22/19 25 06/23/2024 CBC (INCL UDES DIFF/ PLT) MPV 11.8 fL 7.5-12 .5 normal Not Available [facility] [place] [facility] [address], [place], [address], 06/23/2024 08:43:39 06/22/19 25 06/23/2024 CBC (INCL UDES DIFF/ PLT) absolute neutrophils 3329 cells /uL 1500-7 800 normal Not Available [facility] [place] [facility] [address], [place], [address], 06/23/2024 08:43:39 06/22/19 25 06/23/2024 CBC (INCL UDES DIFF/ PLT) absolute lymphocytes 1693 cells /uL 850-39 00 normal Not Available [facility] [place] [facility] [address], [place], [address], 06/23/2024 08:43:39 06/22/19 25 06/23/2024 CBC (INCL UDES DIFF/ PLT) absolute monocytes 502 cells /uL 200-95 0 normal Not Available [facility] [place] [facility] [address], [place], [address], 06/23/2024 08:43:39 06/22/19 25 06/23/2024 CBC (INCL UDES DIFF/ PLT) absolute eosinophils 154 cells /uL 15-500 normal Not Available [facility] [place] [facility] [address], [place], [address], 06/23/2024 08:43:39 06/22/19 25 06/23/2024 CBC (INCL UDES DIFF/ PLT) absolute basophils 23 cells /uL 0-200 normal Not Available [facility] [place] [facility] [address], [place], [address], 06/23/2024 08:43:39 06/22/19 25 06/23/2024 CBC (INCL UDES DIFF/ PLT) neutrophils 58.4 % normal Not Available [facility] [place] [facility] [address], [place], [address], 06/23/2024 08:43:39 06/22/19 25 06/23/2024 CBC (INCL UDES DIFF/ PLT) lymphocytes 29.7 % normal Not Available [facility] [place] [facility] [address], [place], [address], 06/23/2024 08:43:39 06/22/19 25 06/23/2024 CBC (INCL UDES DIFF/ PLT) monocytes 8.8 % normal Not Available [facility] [address], [place], [address], 06/23/2024 08:43:39 06/22/19 25 06/23/2024 CBC (INCL UDES DIFF/ PLT) eosinophils 2.7 % normal Not Available [facility] [address], [place], [address], 06/23/2024 08:43:39 06/22/19 25 06/23/2024 CBC (INCL UDES DIFF/ PLT) basophils 0.4 % normal Not Available [facility] [address], [place], [address], 06/23/2024 08:43:39 06/22/19 25 06/24/2024 MICRO ALBUM IN/CR EATIN INE RATIO PANEL , URINE microalbumin 5.9 mg/L 1.3-20 .0 Not Available [address], [address], 06/24/2024 10:52:46 06/22/19 25 06/24/2024 MICRO ALBUM IN/CR EATIN INE RATIO PANEL , URINE creatinine urine 133.5 mg/dL 30.0-1 25.0 high Not Available [address], [address], 06/24/2024 10:52:46 06/22/19 25 06/24/2024 MICRO ALBUM IN/CR EATIN INE RATIO PANEL , URINE microalb/cre at ratio 4.4 mg/g_ creat 0.0-29 .0 Not Available [address], [address], 06/24/2024 10:52:46 06/22/19 25 06/24/2024 HGB A1C hemoglobin A1C 6.8 % 4.8-6. 0 high Goal: <7% in [...] furth er confi rmati on Not Available [address], [address], 06/24/2024 12:23:17 06/22/19 25 06/24/2024 HGB A1C estimated average glucose 148.5 mg/dL Not Available [address], [address], 06/24/2024 12:23:17 06/22/19 25 06/24/2024 BASIC METAB OLIC PANEL glucose 150 mg/dL 70-100 high Not Available [address], [address], 06/24/2024 15:23:10 06/22/19 25 06/24/2024 BASIC METAB OLIC PANEL BUN 15 mg/dL 7-18 Not Available [address], [address], 06/24/2024 15:23:10 06/22/19 25 06/24/2024 BASIC METAB OLIC PANEL creatinine 0.9 mg/dL 0.8-1. 3 Not Available [address], [address], 06/24/2024 15:23:10 06/22/19 25 06/24/2024 BASIC METAB OLIC PANEL B/C 16.7 ratio Not Available [address], [address], 06/24/2024 15:23:10 06/22/19 25 06/24/2024 BASIC METAB OLIC PANEL GFR >=60ML /MIN [...] be used in pregn lanie. Not Available [address], [address], 06/24/2024 15:23:10 06/22/19 25 06/24/2024 BASIC METAB OLIC PANEL sodium 143 mmol/ L 136-14 5 Not Available [address], [address], 06/24/2024 15:23:10 06/22/19 25 06/24/2024 BASIC METAB OLIC PANEL potassium 4.1 mmol/ L 3.5-5. 1 Not Available [address], [address], 06/24/2024 15:23:10 06/22/19 25 06/24/2024 BASIC METAB OLIC PANEL chloride 104 mmol/ L 96-107 Not Available [address], [address], 06/24/2024 15:23:10 06/22/19 25 06/24/2024 BASIC METAB OLIC PANEL anion gap 11.4 5.0-15 .0 Not Available [address], [address], 06/24/2024 15:23:10 06/22/19 25 06/24/2024 BASIC METAB OLIC PANEL CO2 28 mmol/ L 21-32 Not Available [address], [address], 06/24/2024 15:23:10 06/22/19 25 06/24/2024 BASIC METAB OLIC PANEL calcium 9.4 mg/dL 8.5-10 .3 Not Available [address], [address], 06/24/2024 15:23:10 06/22/19 25 06/24/2024 LIPID PANEL cholesterol 191 mg/dL <200 mg/dl Allen able 200-2 39 mg/dl Borde rline High >240 mg/dl High Not Available [address], [address], 06/24/2024 15:23:11 06/22/19 25 06/24/2024 LIPID PANEL triglyceride s 125 mg/dL <150 mg/dL Jerica l 150-1 99 mg/dL Borde rline High 200-4 99 mg/dL High >500 mg/dL Very High Not Available [address], [address], 06/24/2024 15:23:11 06/22/19 25 06/24/2024 LIPID PANEL direct HDL 48 mg/dL <40 mg/dl - Major Risk for CHD >60 mg/dl - Negat diomedes Risk for CHD Not Available [address], [address], 06/24/2024 15:23:11 06/22/19 25 06/24/2024 LDL - CALCU LATED LDL - calculated 118 RISK CATEG ORY LDL GOAL _ CHD [...] with 0-1 risk facto r is not necnoris fuentes. Not Available [address], [address], 06/24/2024 15:23:12 01/31/20 24 01/31/2024 XR, hip + pelvi [...] IMPRES YOHANNES: No acute bone abnorm ality. Angela payne Physic belkis: Tom Montez [facility] (Imaging) [address], [place], [address], 01/31/2024 17:22:29 Result Notes None recorded. Procedures Surgical History Date Name Laterality Status Provider Name and Address Organization Details Recorded Time 3 Kristen - Colonoscopy completed Isidro Peterson MD [address] [place] [address], [phone], [facility] 12/02/2022 13:59:37 3 Kristen - EGD completed Isidro Peterson MD [address] [place] [address], [phone], [facility] 12/02/2022 13:59:07 Imaging Results Imaging Date Name Status LastModified by Organiz ation Details LastModified Time 01/31/2024 XR, hip + pelvis, unilateral , 2 or 3 view completed [facility] ([facility]) [address], [place], [address], 01/31/2024 17:22:29 Procedure Notes None recorded. Medical [...] Not Available sumatript an 50 mg tablet TAKE 1 TABLET BY MOUTH AT 1ST INDICATI ON OF HEADACHE IF NO IMPROVEM ENT IN 2 HOURS MAY REPEAT DOSE TOTAL DAILY DOSE SHOULD NOT EXCEED 200MG 2024 active Not Available Not Available Not Avai lable penicilli n V potassium 500 mg tablet [...] STRIP BY MISC ROUTE EVERY DAY DIRECTED 2024 active Not Available Not Available Not Avai lable FreeStyle [place] Lite kit USE DIRECTED TO CHECK BLOOD SUGAR DAILY 2024 active Not Available Not Available Not Avai lable diclofena c 1 % topical gel APPLY A THIN LAYER TO THE AFFECTED AREA FOUR TIMES DAILY NEEDED FOR PAIN active Not Available Not Available No t Available Multi Vitamin active Not Available Not Available Not Available Zepbound 5 mg/0.5 mL subcutane ous pen injector INJECT 5 MG SUBCUTAN EOUSLY WEEKLY FOR 28 DAYS active Not Available Not Available No t Available Zepbound 2.5 mg/0.5 mL subcutane ous pen [...] What Is Your Occupation? [employer] Information not available 01/28/2022 How Many Days [...] Form Given To Pt 03/31/11, 09/22/14, 06/16/15 [email or web address] Information not available 06/14/2023 Marital Status Helping [...] through [facility]- negative Medical History Condition Response Anxiety Y Migraine Headaches Y Obesity Y Diabetes Type II CARDIOVASCULAR Y Abnormal Pap Y Hypertension Y Gynecological HistoryNo gynecological history recorded. Obstetrics History GPAL:G 0 P 0 0 0 0 Past Encounters Encounter ID Performer Location Encounter Start Date Encounter Closed Date Diagnosis/Indication Diagnosis SNOMED-CT Code Diagnosis ICD10 Code Diagnosis Note [id number] [facility] [place], OFFICE [address] [place] [id number] 04/13/2004 13:15:09 04/13/2004 13:52:33 [id number] [facility] [place], OFFICE [address] [place] [address] 10/06/2005 14:44:39 10/06/2005 17:44:16 [id number] [facility] [place] [address] [place] [address] 10/06/2005 15:16:59 10/06/2005 15:17:09 [id number] [facility] [place], OFFICE [address] [place] [address] 10/17/2005 09:39:34 10/17/2005 11:47:03 [id number] [facility] [place], OFFICE [address] [place] [address] 10/24/2005 09:56:34 06/04/2008 02:02:29 [id number] [facility] [place], OFFICE [address] [place] [address] MARGARETPatsySAMARA [id number] 11/22/2005 09:04:17 11/22/2005 16:06:53 [id number] [facility] [place] [address] [place] [address] 11/22/2005 09:27:56 11/22/2005 09:28:05 [id number] [facility] [place], OFFICE [address] MARGARETPatsySAM[place] [id number] 04/04/2006 16:15:39 04/04/2006 17:01:09 [id number] [facility] [place], OFFICE [address] [place] [address] MARGARETPatsySAMARA [id number] 08/16/2006 10:02:59 08/18/2006 07:49:02 [id number] [facility] [place], OFFICE [address] [place] [id number] 08/30/2006 14:48:37 08/30/2006 17:32:[id number] [place] [address] 08/30/2006 15:54:11 08/30/2006 15:54:16 [id number] [facility] [place], OFFICE [address] [place] [address] DR NIEVESCHEMAPatsy [place] [id number] 10/13/2006 10:18:52 10/13/2006 13:12:41 [id number] [facility] [place], [place]ICE [address] [place] [address] 11/03/2006 10:10:13 11/03/2006 11:36:58 [id number] [facility] [place], OFFICE [address] [place] [address] [place] [id number] 02/16/2007 10:19:36 06/04/2008 02:02:29 [id number] [facility] [place], OFFICE [address] [place] [address] [place] [id number] 01/26/2007 10:01:13 01/26/2007 15:25:44 [id number] [facility] – [place], OFFICE [address] [place] [id number] 12/17/2007 10:14:12 06/04/2008 02:02:29 [id number] [facility] [place], OFFICE [address] [place] [address] [place] [id number] 1 06/05/2008 15:35:46 06/17/2008 02:02:00 [id number] GLENROY Reyes [facility] [place], OFFICE [address] [place] [address] [place] [id number] 1 08/06/2008 12:16:07 08/07/2008 08:35:57 [id number] [facility] [place], OFFICE [address] [place] [address] [place] [id number] 1 09/05/2008 11:42:18 09/08/2008 08:21:27 [id number] FP [facility] [place], OFFICE [address] [place] [address] DR M[place]O, SAMARA [id number] 1 12/08/2008 16:32:50 12/09/2008 14:05:05 [id number] [facility] [place], [address] [place] [id number] 1 12/23/2008 10:20:23 12/23/2008 16:02:28 [id number] [facility] – [place], OFFICE [address] [place] [address] [place] [id number] 1 03/11/2009 14:47:03 03/11/2009 17:01:54 [id number] [facility] - [address] [place] [id number] 1 07/30/2008 09:10:41 07/30/2008 09:10:47 [id number] LAB - [address] [place]O [id number] 1 12/10/2008 10:17:14 12/10/2008 10:17:19 [id number] FP, [facility] – [place], OFFICE [address] [place] [address] DR MORILLO, SAMARA [id number] 1 09/01/2009 07:59:36 09/01/2009 09:05:09 [id number] FP, [facility] [place], [address] [place], [place] [address] 09/03/2009 09:31:25 09/04/2009 08:20:06 [id number] FP, [facility] [place], [address] [place], [place] [address] 1 11/23/2009 09:27:05 11/23/2009 12:22:11 [id number] FP, [facility] [place], OFFICE [address] [place] [address] DR [place], [place] [address] 1 12/14/2009 15:28:34 12/14/2009 16:21:22 [id number] FP, [facility] [place], [address] [place], [place] [address] 1 03/18/2010 09:21:43 03/18/2010 10:46:30 [id number] FP, [facility] [place], [address] [place] [address] 1 06/30/2010 16:24:46 06/30/2010 17:25:41 [id number] GLENROY Reyes, [facility] [place], [address] [place], [place] [address] 1 01/20/2011 10:19:33 01/20/2011 11:02:24 [id number] FP, [facility] [place], [address] [place], [place] [address] 1 03/31/2011 15:41:03 03/31/2011 16:54:54 [id number] FP, [facility] [place], [address] [place], [place] [address] 1 09/13/2011 16:09:22 09/13/2011 16:43:30 [id number] GLENROY Reyes [facility] [place], [address] [place], [place] [address] 1 10/12/2011 15:55:37 10/12/2011 16:24:26 [id number] GLENROY Reyes, [facility] [place], [address] [place], [place] [address] 1 10/26/2011 15:55:14 10/26/2011 16:08:12 [id number] GLENROY Reyes [facility] [place], [address] [place] [address] 1 07/16/2012 11:45:25 07/16/2012 12:22:07 [id number] Lisa Jesus LPN , [address] [place] [address] 1 07/19/2012 10:20:12 07/19/2012 10:30:27 [id number] Stephanie Giraldo LPN , [facility] [place] OFFICE [address] [place] [address] DR [place], [place] [address] 1 12/25/2012 16:14:20 12/26/2012 07:30:58 [id number] Araceli Schuster LPN , [address] [place], [place] [address] 1 03/04/2013 15:53:01 03/04/2013 16:53:56 [id number] Nathen Chávez , [address] [place] [address] 1 06/05/2013 10:45:47 06/05/2013 11:36:26 [id number] Bertha Razo , [address] [place] [address] 1 06/24/2013 15:47:39 06/25/2013 10:20:00 [id number] Marta Mcghee , [facility] [place] OFFICE [address] [place] [address] DR [place], [place] [address] 1 09/18/2013 13:41:57 09/18/2013 14:35:[id number] [place] [address] 4 10/24/2013 13:30:56 10/24/2013 14:58:27 [id number] Stephanie House , [address] [place] [address] 1 08/21/2014 09:15:37 08/21/2014 12:58:29 [id number] Jaimie Montero , [address] [place] [address] 1 09/22/2014 13:45:57 10/09/2014 16:20:03 [id number] Rohan Robert , [address] [place] [address] 1 06/16/2015 10:15:14 06/17/2015 11:26:38 [id number] Eden Washington D.O. , [address] [place] [address] 1 06/24/2016 13:45:51 06/27/2016 09:56:23 [id number] Eden Furcolo D.O. [address] [place] [address] 1 09/30/2016 10:41:57 09/30/2016 11:49:43 [id number] Miguel Angel Jim MD [address] [place] [address] 1 04/21/2017 16:26:41 04/24/2017 12:38:25 [id number] Eden Furcolo D.O. [address] [place] [address] 1 10/24/2017 08:44:30 10/24/2017 09:30:25 [id number] Douglas Willis PA-C [address] [place] [address] 1 10/26/2017 13:39:56 10/26/2017 14:41:19 [id number] Edne Furcolo D.O. [address] [place] [address] 1 04/23/2018 14:36:20 04/23/2018 16:11:35 [id number] MARISSA Ortiz [address] [place] [address] 1 08/14/2018 09:28:25 08/14/2018 11:12:59 [id number] Eden Furcolo D.O. [address] [place] [address] 1 10/25/2018 08:47:16 10/25/2018 09:22:10 [id number] Eden Furcolo D.O. [address] [place] [address] 1 04/25/2019 09:47:24 04/25/2019 10:25:45 [id number] Eden Furcolo D.O. [address] [place] [address] 1 10/29/2019 08:12:09 10/29/2019 09:15:59 [id number] Gertrudis Roche RN [address] [place] [address] 1 03/20/2020 07:34:17 03/26/2020 16:52:10 [id number] STEVAN PEREZ MD , [facility] [place], OFFICE [address] [place], [place] [address] 1 11/06/2020 08:44:51 11/06/2020 10:09:53 [id number] Mason Multani DPM Podiatry, [facility] [place] [address] [place] [address] 1 01/22/2021 09:01:08 01/22/2021 15:38:52 [id number] Eden Washington D.O. , [facility] [place], OFFICE [address] [place], [place] [address] 1 01/26/2021 08:57:23 01/26/2021 09:35:25 [id number] Matilde Rubio MD , [facility] [place], OFFICE [address] [place], [place] [address] 1 10/08/2021 12:02:47 10/08/2021 12:27:01 [id number] Alphonse Martinez DPT Physical Therapy, [address] [place] [address] 1 10/13/2021 13:52:59 10/14/2021 13:07:36 [id number] Alphonse Martinez DPT Physical Therapy, [address] [place] [address] 1 10/18/2021 13:10:11 10/18/2021 14:16:22 [id number] Alphonse Martinez DPT Physical Therapy, [address] [place] [address] 1 10/20/2021 10:32:00 10/20/2021 14:08:36 [id number] Alphonse Martinez DPT Physical Therapy, [address] [place] [address] 1 10/25/2021 11:26:03 10/25/2021 15:32:52 [id number] Alphonse Martinez DPT Physical Therapy, [address] [place] [address] 1 10/27/2021 14:28:08 10/27/2021 15:25:05 [id number] Zheng Figueroa MD Sports Medicine, [address] [place] [address] 11/03/2021 13:32:18 11/03/2021 14:02:41 [id number] Alphonse Martinez DPT Physical Therapy, [address] [place] [address] 1 11/03/2021 14:36:56 11/04/2021 10:24:32 [id number] Alphonse Martinez DPT Physical Therapy, [address] [place] [address] 1 11/09/2021 13:06:11 11/09/2021 13:59:30 [id number] Alphonse Martinez DPT Physical Therapy, [address] [place] [address] 1 11/18/2021 15:34:59 11/18/2021 16:09:31 [id number] Alphonse Martinez DPT Physical Therapy, [address] [place] [address] 1 11/23/2021 15:00:55 11/23/2021 15:37:44 [id number] Zheng Figueroa MD Sports Medicine, [address] [place] [address] 1 12/13/2021 13:28:52 12/13/2021 14:00:37 [id number] Eden Washington D.O. , [facility] [place], [place]ICE [address] [place] [address] 1 01/28/2022 08:18:22 01/28/2022 13:39:11 [id number] MARISSA Sal, [facility], OFFICE [address] [place] [address] 6 04/14/2022 11:51:53 04/19/2022 14:24:28 [id number] Eden Washington D.O. , [facility] [place], OFFICE [address] [place] [address] 1 05/02/2022 10:10:17 05/03/2022 10:34:49 [id number] Zheng Figueroa MD Sports Medicine, [facility] [address] [place] [address] 05/03/2022 11:04:00 05/03/2022 11:21:52 [id number] Mason Dickey i, PT Physical Therapy, [address] [place] [address] 1 05/31/2022 14:26:57 05/31/2022 15:55:33 [id number] Mason Dickey i, PT Physical Therapy, [address] [place] [address] 1 06/06/2022 14:58:22 06/07/2022 13:01:15 [id number] MARCE VICKI HUERTA, [facility] [place], OFFICE [address] [place] [address] 1 11/10/2022 14:53:30 11/10/2022 15:34:06 [id number] MARCE VICKI HUERTA, [facility] [place], OFFICE [address] [place] [address] 1 11/17/2022 13:28:47 11/17/2022 15:00:11 [id number] Florina Quevedo RN Endoscopy , [address] [address] 1 12/02/2022 11:53:27 12/02/2022 14:02:53 [id number] [facility] VICKI HUERTA, [facility] [place], OFFICE [address] [place] [address] 1 12/19/2022 09:19:08 12/19/2022 10:08:32 [id number] Tricia Maxwell RDN, ANDREW, [facility] Nutrition -[address] [place] [address] 01/17/2023 09:54:56 01/18/2023 15:46:39 [id number] [facility] VICKI HUERTA, [facility] [place], OFFICE [address] [place] [address] 02/15/2023 10:27:27 02/15/2023 15:31:28 [id number] Tricia aMxwell RDN, [place], [facility] Nutrition -[address] [place] [address] 02/21/2023 08:59:17 03/03/2023 16:13:21 [id number] [facility] VICKI HUERTA, [facility] [place], [address]ICE [address] [place] [address] 1 03/01/2023 10:54:57 03/01/2023 12:54:52 [id number] Sara marx, LUCA , [facility] [place], OFFICE [address] [place] [address] [place] [address] 1 04/14/2023 13:20:01 04/18/2023 09:08:55 [id number] Edna Martin NP , [address] [place] [address] 1 06/12/2023 10:47:08 06/12/2023 17:30:56 [id number] Edan Martin NP , [facility] [place] OFFICE [address] [place] [address] [place] [address] 1 08/23/2023 14:53:22 08/23/2023 16:05:30 [id number] AMBER LAROSE MD , [address] [place] [address] 1 01/31/2024 10:13:15 01/31/2024 12:19:05 [id number] AMBER LAROSE MD , [address] [place] [address] 1 04/08/2024 10:16:44 04/08/2024 11:44:27 [id number] AMBER LAROSE MD , [address] [place] [address] 1 05/01/2024 14:03:34 05/01/2024 14:57:36 [id number] AMBER LAROSE MD , [address] [place] [address] 1 06/10/2024 16:10:34 06/11/2024 10:47:39 Health Concerns Section Related Observation LastModified by Organization Detai ls LastModified Time None Recorded Concern Status LastModified by Organization Details LastModified Time None Recorded Advance Directives Directive N: Payers Encounter Date Sequence Insurance Name Policy Number Policy Zapata Covered Member ID Zapata Member ID Guarantor Name 08/23/[address] [facility] HP - DOS ON OR AFTER 2022 - [facility] ACO (MEDICAID REPLACEMENT - HMO) Fernanda Hui [id number] Fernanda Hui 01/31/2024 1 [employer] [facility] [employer] - DOS ON OR AFTER 2022 - [facility] [facility] [employer] (MEDICAID REPLACEMENT - HMO) Fernanda Patry [id number] Fernanda Patry 04/08/2024 1 [employer] - DOS ON OR AFTER 2022 - [facility] [employer] (MEDICAID REPLACEMENT - HMO) Fernanda Patry [id number] Fernanda Patry 05/01/2024 1 [employer] HP - DOS ON OR AFTER 2022 - [employer] [facility] [employer] (MEDICAID REPLACEMENT - HMO) Fernanda Patry [id number] Fernanda Patry 06/10/2024 1 [employer] - DOS ON OR AFTER 2022 - [employer] [facility] (MEDICAID REPLACEMENT - HMO) Fernanda Patry [id number] Fernanda Patry OBGyn Episode No OBEpisode recorded.
--- OUTSIDE RECORDS SUMMARY | 2024-07-15 14:03 | XMS_ITS | Data Portability ---
Author Organization [facility], FORMERLY [facility] Address [address] [place] [address] Care Team Providers Care Color Receiver Name Role Phone JERAMY ERWIN OTHER ALBERTA HOUSER Orthopedic Surgeon GAAM MEDEIROS Groundskeeper Porter ALEX MAXWELL Interface Analyst CECI VAZQUEZ Hematology/Oncology [facility] Gut Dropper Assessment Encounter Date Assessment Date Assessment LastModified [...] A1C/hemog lobin total, QN, blood 2024 025 [email or web address] [facility], [address] [place] [address], [address], 5 10:02:28 HbA1c (hemoglob in A1c), blood 2023 024 KAYE [facility], [address] [place] [address], [address], 4 11:47:49 Referral orthopedi c surgeon referral 2023 024 graciela [facility] [place], [address], 4 11:11:[address] referral 2023 024 KAYE Lloyd MD, [address] [place] [address], [address], 4 03:18:27 physical medicine and rehabilit ation referral 2023 024 [email or web address] Melvin Wallace MD, [address], [place], [address], 4 13:11:26 Procedures None recorded. Surgeries None recorded. Imaging XR, hip + pelvis, unilatera l, 2 or 3 view 2023 024 [email or web address] [facility] [address] , [place], [address], 4 12:19:05 Medication Orders Zepbound 5 mg/0.5 mL subcutane ous pen injector 2024 025 [id number], [address] [place], [address], 5 16:41:49 Zepbound 2.5 mg/0.5 mL subcutane ous pen injector 2023 024 [id number], [address] [place], [address], 4 14:32:14 ondansetr on 4 mg disintegr ating tablet 2023 024 [id number], [address] [place], [address], 4 14:32:14 Patient TargetsNo targets recorded. Patient Instructions Encounter Date Encounter Id Patient Instructions Last Modified By Organization Details Last Modified Time 05/01/2024 [id number] You have been prescribed a new medication [...] containers from your insurance company or most [facility] have them available for free. - If [...] Referral for Hea dache [facility]: 01/31/2024 Orthopedic Surgeon Referral for Pain of right elbow joint Referring Physician: Amber Larose [facility], Encounter Date: 04/08/2024 Results Created Date Observation Date Name Description Value Unit Range Abnormal Flag Note LastModifiedBy Organization Detail LastModifiedTime 08/16/19 24 08/16/2023 MICRO ALBUM IN/CR EATIN INE RATIO PANEL , URINE microalbumin 16.9 mg/L 1.3-20 .0 Not Available [address], [address], 08/16/2023 16:46:53 08/16/19 24 08/16/2023 MICRO ALBUM IN/CR EATIN INE RATIO PANEL , URINE creatinine urine 104.9 mg/dL 30.0-1 25.0 Not Available [address], [address], 08/16/2023 16:46:53 08/16/19 24 08/16/2023 MICRO ALBUM IN/CR EATIN INE RATIO PANEL , URINE microalb/cre at ratio 16.1 mg/g_ creat 0.0-29 .0 Not Available [address], [address], 08/16/2023 16:46:53 08/16/19 24 08/17/2023 HGB A1C [...] furth er confi rmati on Not Available [address], [address], 08/17/2023 10:15:54 08/16/19 24 08/17/2023 HGB A1C estimated average glucose 134.1 mg/dL Not Available [address], [address], 08/17/2023 10:15:54 08/16/19 24 08/17/2023 COMP. METAB OLIC PANEL glucose 121 mg/dL 70-100 high Not Available [address], [address], 08/17/2023 12:22:55 08/16/19 24 08/17/2023 COMP. METAB OLIC PANEL BUN 15 mg/dL 7-18 Not Available [address], [address], 08/17/2023 12:22:55 08/16/19 24 08/17/2023 COMP. METAB OLIC PANEL creatinine 0.7 mg/dL 0.8-1. 3 low Not Available [address], [address], 08/17/2023 12:22:55 08/16/19 24 08/17/2023 COMP. METAB OLIC PANEL B/C 21.4 ratio Not Available [address], [address], 08/17/2023 12:22:55 08/16/19 24 08/17/2023 COMP. METAB [...] be used in pregn lanie. Not Available [address], [address], 08/17/2023 12:22:55 08/16/19 24 08/17/2023 COMP. METAB OLIC PANEL sodium 140 mmol/ L 136-14 5 Not Available [address], [address], 08/17/2023 12:22:55 08/16/19 24 08/17/2023 COMP. METAB OLIC PANEL potassium 4.1 mmol/ L 3.5-5. 1 Not Available [address], [address], 08/17/2023 12:22:55 08/16/19 24 08/17/2023 COMP. METAB OLIC PANEL chloride 102 mmol/ L 96-107 Not Available [address], [address], 08/17/2023 12:22:55 08/16/19 24 08/17/2023 COMP. METAB OLIC PANEL anion gap 12.4 5.0-15 .0 Not Available [address], [address], 08/17/2023 12:22:55 08/16/19 24 08/17/2023 COMP. METAB OLIC PANEL CO2 26 mmol/ L 21-32 Not Available [address], [address], 08/17/2023 12:22:55 08/16/19 24 08/17/2023 COMP. METAB OLIC PANEL calcium 9.5 mg/dL 8.5-10 .3 Not Available [address], [address], 08/17/2023 12:22:55 08/16/19 24 08/17/2023 COMP. METAB OLIC PANEL total protein 7.2 g/dL 6.4-8. 2 Not Available [address], [address], 08/17/2023 12:22:55 08/16/19 24 08/17/2023 COMP. METAB OLIC PANEL albumin 3.7 g/dL 3.4-5. 0 Not Available [address], [address], 08/17/2023 12:22:55 08/16/19 24 08/17/2023 COMP. METAB OLIC PANEL globulin 3.5 g/dL Not Available [address], [address], 08/17/2023 12:22:55 08/16/19 24 08/17/2023 COMP. METAB OLIC PANEL A/G 1.1 ratio 0.8-2. 0 Not Available [address], [address], 08/17/2023 12:22:55 08/16/19 24 08/17/2023 COMP. METAB OLIC PANEL total bilirubin 0.40 mg/dL 0.00-1 .00 Not Available [address], [address], 08/17/2023 12:22:55 08/16/19 24 08/17/2023 COMP. METAB OLIC PANEL AST 28 U/L 0-37 Not Available [address], [address], 08/17/2023 12:22:55 08/16/19 24 08/17/2023 COMP. METAB OLIC PANEL ALT 56 U/L 6-63 Not Available [address], [address], 08/17/2023 12:22:55 08/16/19 24 08/17/2023 COMP. METAB OLIC PANEL alk. phos. 135 U/L 50-136 Not Available [address], [address], 08/17/2023 12:22:55 08/16/19 24 08/17/2023 LIPID PANEL cholesterol 189 mg/dL <200 mg/dl Allen able 200-2 39 mg/dl Borde rline High >240 mg/dl High Not Available [address], [address], 08/17/2023 12:22:56 08/16/19 24 08/17/2023 LIPID PANEL triglyceride s 174 mg/dL <150 mg/dL Jerica l 150-1 99 mg/dL Borde rline High 200-4 99 mg/dL High >500 mg/dL Very High Not Available [address], [address], 08/17/2023 12:22:56 08/16/19 24 08/17/2023 LIPID PANEL direct HDL 48 mg/dL <40 mg/dl - Major Risk for CHD >60 mg/dl - Negat diomedes Risk for CHD Not Available [address], [address], 08/17/2023 12:22:56 08/16/19 24 08/17/2023 LDL - [...] r is not neces gina. Not Available [address], [address], 08/17/2023 12:22:58 10/06/19 24 10/10/2023 ANATO RAKEL PATHO LOGY path report [facility] [address] [facility] [place], [place] [address] Lab Direc tor: Anahi davila MD Surgi [...] stics have been deter mined by the [facility]. This labor atory is certi [...] tyler MD, POST- BA, BA Not Available [facility] ([facility]) [address] [place], [address], 10/10/2023 17:20:06 04/06/20 24 04/08/2024 HGB A1C [...] furth er confi rmati on Not Available [address], [address], 04/08/2024 11:47:49 04/06/20 24 04/08/2024 HGB A1C estimated average glucose 162.8 mg/dL Not Available [address], [address], 04/08/2024 11:47:49 04/06/2004/09/2024 BASIC METAB OLIC PANEL glucose 179 mg/dL 70-100 high Not Available [address], [address], 04/09/2024 16:36:15 04/06/2004/09/2024 BASIC METAB OLIC PANEL BUN 14 mg/dL 7-18 Not Available [address], [address], 04/09/2024 16:36:15 04/06/20 24 04/09/2024 BASIC METAB OLIC PANEL creatinine 0.9 mg/dL 0.8-1. 3 Not Available [address], [address], 04/09/2024 16:36:15 04/06/2004/09/2024 BASIC METAB OLIC PANEL B/C 15.6 ratio Not Available [address], [address], 04/09/2024 16:36:15 04/06/20 24 04/09/2024 BASIC METAB [...] be used in pregn lanie. Not Available [address], [address], 04/09/2024 16:36:15 04/06/20 24 04/09/2024 BASIC METAB OLIC PANEL sodium 143 mmol/ L 136-14 5 Not Available [address], [address], 04/09/2024 16:36:15 04/06/20 24 04/09/2024 BASIC METAB OLIC PANEL potassium 4.1 mmol/ L 3.5-5. 1 Not Available [address], [address], 04/09/2024 16:36:15 04/06/20 24 04/09/2024 BASIC METAB OLIC PANEL chloride 105 mmol/ L 96-107 Not Available [address], [address], 04/09/2024 16:36:15 04/06/20 24 04/09/2024 BASIC METAB OLIC PANEL anion gap 9.7 5.0-15 .0 Not Available [address], [address], 04/09/2024 16:36:15 04/06/20 24 04/09/2024 BASIC METAB OLIC PANEL CO2 28 mmol/ L 21-32 Not Available [address], [address], 04/09/2024 16:36:15 04/06/20 24 04/09/2024 BASIC METAB OLIC PANEL calcium 9.3 mg/dL 8.5-10 .3 Not Available [address], [address], 04/09/2024 16:36:15 06/22/19 25 06/23/2024 CBC (INCL UDES DIFF/ PLT) white blood cell count 5.7 thous and/u L 3.8-10 .8 normal Not Available [facility] [address], [place], [address], 06/23/2024 08:43:39 06/22/19 25 06/23/2024 CBC (INCL UDES DIFF/ PLT) red blood cell count 4.94 priscilla on/uL 3.80-5 .10 normal Not Available [facility] [address], [place], [address], 06/23/2024 08:43:39 06/22/1906/23/2024 CBC (INCL UDES DIFF/ PLT) hemoglobin 14.4 g/dL 11.7-1 5.5 normal Not Available [facility] [address], [place], [address], 06/23/2024 08:43:39 06/22/19 25 06/23/2024 CBC (INCL UDES DIFF/ PLT) hematocrit 43.7 % 35.0-4 5.0 normal Not Available [facility] [address], [place], [address], 06/23/2024 08:43:39 06/22/1906/23/2024 CBC (INCL UDES DIFF/ PLT) MCV 88.5 fL 80.0-1 00.0 normal Not Available [facility] [address], [place], [address], 06/23/2024 08:43:39 06/22/19 25 06/23/2024 CBC (INCL UDES DIFF/ PLT) MCH 29.1 pg 27.0-3 3.0 normal Not Available [facility] [address], [place], [address], 06/23/2024 08:43:39 06/22/19 25 06/23/2024 CBC (INCL UDES DIFF/ PLT) MCHC 33.0 g/dL 32.0-3 6.0 normal For adult s, a sligh t decre ase in the calcu lated MCHC value (in the range of 30 to 32 g/dL) is most likel y not clini arianna signi fican t; howev er, it shoul d be inter prete d with cauti on in [facility] n with other red cell jaspreet eters and the patie nt's clini mini condi tion. Not Available [facility] [address], [place], [address], 06/23/2024 08:43:39 06/22/19 25 06/23/2024 CBC (INCL UDES DIFF/ PLT) RDW 12.8 % 11.0-1 5.0 normal Not Available [facility] [address], [place], [address], 06/23/2024 08:43:39 06/22/19 25 06/23/2024 CBC (INCL UDES DIFF/ PLT) platelet count 251 thous and/u L 140-40 0 normal Not Available [facility] [address], [place], [address], 06/23/2024 08:43:39 06/22/19 25 06/23/2024 CBC (INCL UDES DIFF/ PLT) MPV 11.8 fL 7.5-12 .5 normal Not Available [facility] [address], [place], [address], 06/23/2024 08:43:39 06/22/19 25 06/23/2024 CBC (INCL UDES DIFF/ PLT) absolute neutrophils 3329 cells /uL 1500-7 800 normal Not Available [facility] [address], [place], [address], 06/23/2024 08:43:39 06/22/19 25 06/23/2024 CBC (INCL UDES DIFF/ PLT) absolute lymphocytes 1693 cells /uL 850-39 00 normal Not Available [facility] [address], [place], [address], 06/23/2024 08:43:39 06/22/19 25 06/23/2024 CBC (INCL UDES DIFF/ PLT) absolute monocytes 502 cells /uL 200-95 0 normal Not Available [facility] [address], [place], [address], 06/23/2024 08:43:39 06/22/19 25 06/23/2024 CBC (INCL UDES DIFF/ PLT) absolute eosinophils 154 cells /uL 15-500 normal Not Available [facility] [address], [place], [address], 06/23/2024 08:43:39 06/22/19 25 06/23/2024 CBC (INCL UDES DIFF/ PLT) absolute basophils 23 cells /uL 0-200 normal Not Available [facility] [address], [place], [address], 06/23/2024 08:43:39 06/22/19 25 06/23/2024 CBC (INCL UDES DIFF/ PLT) neutrophils 58.4 % normal Not Available [facility] [address], [place], [address], 06/23/2024 08:43:39 06/22/19 25 06/23/2024 CBC (INCL UDES DIFF/ PLT) lymphocytes 29.7 % normal Not Available [facility] [address], [place], [address], 06/23/2024 08:43:39 06/22/19 25 06/23/2024 CBC (INCL UDES DIFF/ PLT) monocytes 8.8 % normal Not Available [facility] [address], [place], [address], 06/23/2024 08:43:39 06/22/19 25 06/23/2024 CBC (INCL UDES DIFF/ PLT) eosinophils 2.7 % normal Not Available [facility] [address], [place], [address], 06/23/2024 08:43:39 06/22/19 25 06/23/2024 CBC (INCL UDES DIFF/ PLT) basophils 0.4 % normal Not Available [facility] [address], [place], [address], 06/23/2024 08:43:39 06/22/19 25 06/24/2024 MICRO ALBUM IN/CR EATIN INE RATIO PANEL , URINE microalbumin 5.9 mg/L 1.3-20 .0 Not Available [address], [address], 06/24/2024 10:52:46 06/22/19 25 06/24/2024 MICRO ALBUM IN/CR EATIN INE RATIO PANEL , URINE creatinine urine 133.5 mg/dL 30.0-1 25.0 high Not Available [address], [address], 06/24/2024 10:52:46 06/22/19 25 06/24/2024 MICRO ALBUM IN/CR EATIN INE RATIO PANEL , URINE microalb/cre at ratio 4.4 mg/g_ creat 0.0-29 .0 Not Available [address], [address], 06/24/2024 10:52:46 06/22/19 25 06/24/2024 HGB A1C [...] furth er confi rmati on Not Available [address], [address], 06/24/2024 12:23:17 06/22/19 25 06/24/2024 HGB A1C estimated average glucose 148.5 mg/dL Not Available [address], [address], 06/24/2024 12:23:17 06/22/19 25 06/24/2024 BASIC METAB OLIC PANEL glucose 150 mg/dL 70-100 high Not Available [address], [address], 06/24/2024 15:23:10 06/22/19 25 06/24/2024 BASIC METAB OLIC PANEL BUN 15 mg/dL 7-18 Not Available [address], [address], 06/24/2024 15:23:10 06/22/19 25 06/24/2024 BASIC METAB OLIC PANEL creatinine 0.9 mg/dL 0.8-1. 3 Not Available [address], [address], 06/24/2024 15:23:10 06/22/19 25 06/24/2024 BASIC METAB OLIC PANEL B/C 16.7 ratio Not Available [address], [address], 06/24/2024 15:23:10 06/22/19 25 06/24/2024 BASIC METAB [...] be used in pregn lanie. Not Available [address], [address], 06/24/2024 15:23:10 06/22/19 25 06/24/2024 BASIC METAB OLIC PANEL sodium 143 mmol/ L 136-14 5 Not Available [address], [address], 06/24/2024 15:23:10 06/22/19 25 06/24/2024 BASIC METAB OLIC PANEL potassium 4.1 mmol/ L 3.5-5. 1 Not Available [address], [address], 06/24/2024 15:23:10 06/22/19 25 06/24/2024 BASIC METAB OLIC PANEL chloride 104 mmol/ L 96-107 Not Available [address], [address], 06/24/2024 15:23:10 06/22/19 25 06/24/2024 BASIC METAB OLIC PANEL anion gap 11.4 5.0-15 .0 Not Available [address], [address], 06/24/2024 15:23:10 06/22/19 25 06/24/2024 BASIC METAB OLIC PANEL CO2 28 mmol/ L 21-32 Not Available [address], [address], 06/24/2024 15:23:10 06/22/19 25 06/24/2024 BASIC METAB OLIC PANEL calcium 9.4 mg/dL 8.5-10 .3 Not Available [address], [address], 06/24/2024 15:23:10 06/22/19 25 06/24/2024 LIPID PANEL cholesterol 191 mg/dL <200 mg/dl Allen able 200-2 39 mg/dl Borde rline High >240 mg/dl High Not Available [address], [address], 06/24/2024 15:23:11 06/22/19 25 06/24/2024 LIPID PANEL triglyceride s 125 mg/dL <150 mg/dL Jerica l 150-1 99 mg/dL Borde rline High 200-4 99 mg/dL High >500 mg/dL Very High Not Available [address], [address], 06/24/2024 15:23:11 06/22/19 25 06/24/2024 LIPID PANEL direct HDL 48 mg/dL <40 mg/dl - Major Risk for CHD >60 mg/dl - Negat diomedes Risk for CHD Not Available [address], [address], 06/24/2024 15:23:11 06/22/19 25 06/24/2024 LDL - [...] r is not neces gina. Not Available [address], [address], 06/24/2024 15:23:12 01/31/20 24 01/31/2024 XR, hip [...] ality. Angela payne Physic belkis: Tom Montez [facility]) [address], [place], [address], 01/31/2024 17:22:29 Result Notes None recorded. Problems Name Problem SNOMED Code Status Onset Date Resolution Date Notes Provider Name and Address Organization Details Recorded Time Obesity 838915882 Active Not Available Replaced by [facility] 1 10:25:21 Essentia l hyperten yohannes 06873080 Active Edna Martin, LUCA [address] [place] [address], [address] , [facility], [place] 4 13:24:50 Iron deficien cy anemia 32785576 Active 2022 AKHIL SOSA DNP [address] [place] [address], [address] , [facility], [place] 3 09:04:25 Celiac disease 208766083 Active 2022 AKHIL SOSA DNP [address] [place] [address], [address] , [facility], [place] 3 09:04:30 Osteopen ia 264992222 Active 2022 Sara Gooden er, COATER OPERATOR [employer] [address] [place] [address], [address] , [facility], [place] 3 20:29:41 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 264233716 Completed 202206/12/2023 Neg for autoimmu ne hep - GI workup normal Edna Martin NP [address] [place] [address], [address] , [facility], [place] 4 13:25:06 Steatosi s of liver 344160882 Active 2022 Edna Martin NP [address] [place] [address], [address] , [facility], [place] 4 13:24:59 Type 2 diabetes mellitus without complica tion 247315854 Active 2023 Edna Martin NP [address] [place] [address], [address] , [facility], [place] 4 11:37:25 Headache 85516350 Completed 11/09/2011 Not Available [facility] 3 03:09:36 Headache 01161730 Completed 200603/16/2010 Not Available [facility] 3 03:09:36 Precordi al pain 73093012 Completed 200603/17/2010 Not Available [facility] 3 03:09:36 Essentia l hyperten yohannes 15570787 Completed 06/02/2014 Edna Martin NP [address] [place] [address], [address] , [facility], [place] 4 13:24:50 Essentia l hyperten yohannes 65612742 Completed 11/21/2011 Edna Martin NP [address] [place] [address], [address] , [facility], [place] 4 13:24:50 Essentia l hyperten yohannes 21718943 Completed 200503/17/2010 Edna Martin NP [address] [place] [address], [address] , [facility], [place] 4 13:24:50 Symptom of head and neck region 614642887 Completed 03/16/2010 Not Available [facility] 3 03:09:36 Benign essentia l hyperten yohannes 7383670 Completed 200508/21/2014 Eden Najeracolo D.O. [address] [place], [address] , [facility], [place] 5 09:43:29 Anxiety state 099589158 Completed 08/21/2014 Eden Reinaldocolo D.O. [address] [place], [address] , [facility], [place] 5 09:43:29 Anxiety state 149217915 Completed 200703/17/2010 Not Available [facility] 3 03:09:36 Dizzines s 706888700 Completed 200503/16/2010 Not Available [facility] 3 03:09:36 Vitamin D deficien cy 83601637 Completed 200803/17/2010 Not Available [facility] 3 03:09:36 Coarctat ion of aorta 0735844 Active see [employer] Not Available [facility] 1 10:25:21 Coarctat ion of aorta 1407413 Completed 200603/17/2010 Eden Najeracolo D.O. [address] [place], [address] , [facility], [place] 7 11:30:55 Acute stress disorder 18559895 Completed 200603/16/2010 Not Available [facility] 3 03:09:36 Panic disorder without agorapho cathy 93692594 Completed 200308/21/2014 Eden Reinaldocolo D.O. [address] [place], [address] , [facility], [place] 5 09:43:29 Chest pain 68644640 Completed 03/17/2010 Not Available [facility] 3 03:09:36 Abnormal cervical Papanico laou smear with human papillom avirus deoxyrib onucleic acid detected 024019979 Completed 08/21/2014 Eden Reinaldocolo D.O. [address] [place], [address] , [facility], [place] 5 09:43:29 Abnormal cervical Papanico laou smear with human papillom avirus deoxyrib onucleic acid detected 391340931 Completed 03/17/2010 Not Available [facility] 3 03:09:36 Impaired fasting glycemia 859250996 Completed 06/12/2023 Edna Martin NP [address] [place], [address] , [facility], [place] 4 13:24:44 Low back pain 455603258 Completed 200606/02/2014 Eden Washington D.O. [address] [place], [address] , [facility], [place] 5 19:54:32 Migraine 24383642 Active Not Available Replaced by [facility] 1 10:25:21 Acute bronchit is 03891155 Completed 200503/16/2010 Not Available [facility] 3 03:09:36 Malaise and fatigue 715507718 Completed 200603/16/2010 Not Available [facility] 3 03:09:36 Notes:Some problems listed i n Document: #[id number] could not be added to this patient's chart. Please review this document and add these problems to the patient's chart manually as needed. Problem Notes None recorded. Procedures Surgical History Date Name Laterality Status Provider Name and Address Organization Details Recorded Time 11/24/19 22 13293: Therapeutic Exercise completed Alphonse Martinez DPT [address] [place] [address], [address], [facility], [place] 11/23/2021 15:08:02 11/24/19 22 91520: Manual Therapy completed Alphonse Martinez DPT [address] [place] [address], [address], [facility], [place] 11/23/2021 15:08:03 11/24/19 22 Neuromuscular re-education completed Alphonse Martinez DPT [address] [place] [address], [address], [facility], [place] 11/23/2021 15:08:03 11/19/19 22 35194: Therapeutic Exercise completed Alphonse Martinez DPT [address] [place], [address], [facility], [place] 11/18/2021 15:45:36 11/19/19 22 19386: Manual Therapy completed Alphonse Martinez DPT [address] [place], [address], [facility], [place] 11/18/2021 15:45:36 11/19/19 22 Neuromuscular re-education completed Alphonse Martinez DPT [address] [place], [address], [facility] [place] [facility], [place] 11/18/2021 15:45:36 11/19/19 22 Treatment and Advice completed Alphonse Martinez DPT [address] [place], [address], [facility] [place] [facility], [place] 11/18/2021 16:04:43 11/10/19 22 06250: Therapeutic Exercise completed Alphonse Martinez DPT [address] [place], [address], [facility] [place] [facility], [place] 11/09/2021 12:51:26 11/10/19 22 00227: Manual Therapy completed Alphonse Martinez DPT [address] [place], [address], [facility] [place] [facility], [place] 11/09/2021 12:52:07 11/10/19 Neuromuscular re-education completed Alphonse Martinez DPT [address] [place], [address], [facility], [place] 11/09/2021 13:45:24 11/10/19 Treatment and Advice completed Alphonse Martinez DPT [address] [place], [address], [facility], [place] 11/09/2021 12:49:44 11/04/19 22 85063: Therapeutic Exercise completed Alphonse Martinez DPT [address] [place], [address], [facility] [place] [facility], [place] 11/03/2021 15:02:00 11/04/19 Neuromuscular re-education completed Alphonse Martinez DPT [address] [place], [address], [facility] [place] [facility], [place] 11/03/2021 23:25:50 11/04/19 22 Treatment and Advice completed Alphonse Martinez DPT [address] [place], [address], [facility] [place] [facility], [place] 11/03/2021 23:22:49 10/28/19 22 46743: Therapeutic Exercise completed Alphonse Martinez DPT [address] [place], [address], [facility] [place] [facility], [place] 10/27/2021 15:01:27 10/28/19 22 Neuromuscular re-education completed Alphonse Martinez DPT [address] [place], [address], [facility] [place], [place] 10/27/2021 15:01:40 10/28/19 22 Smoking Cessation Counselling completed Alphonse Martinez DPT [address] [place], [address], [facility] [place], [place] 10/27/2021 14:33:50 10/28/19 22 Physical Activity Counselling completed Alphonse Martinez DPT [address] [place], [address], [facility] [place], [place] 10/27/2021 14:33:50 10/28/19 22 Treatment and Advice completed Alphonse Martinez DPT [address] [place], [address], [facility] [place], [place] 10/27/2021 15:01:18 10/26/19 22 32594: Therapeutic Exercise completed Alphonse Martinez DPT [address] [place], [address], [facility] [place], [place] 10/25/2021 11:39:14 10/26/19 22 Smoking Cessation Counselling completed Alphonse Martinez DPT [address] [place], [address], [facility] [place], [place] 10/25/2021 11:39:14 10/26/19 22 Physical Activity Counselling completed Alphonse Martinez DPT [address] [place], [address], [facility] [place], [place] 10/25/2021 11:39:14 10/26/19 22 Treatment and Advice completed Alphonse Martinez DPT [address] [place], [address], [facility] [place], [place] 10/25/2021 11:39:14 10/21/19 22 48801: Therapeutic Exercise completed Alphonse Martinez DPT [address] [place], [address], [facility] [place], [place] 10/20/2021 12:53:24 10/21/19 22 Smoking Cessation Counselling completed Alphonse Martinez DPT [address] [place], [address], [facility] [place], [place] 10/20/2021 12:46:29 10/21/19 22 Physical Activity Counselling completed Alphonse Martinez DPT [address] [place], [address], [facility] [place], [place] 10/20/2021 12:46:29 10/21/19 22 Treatment and Advice completed Alphonse Martinez DPT [address] [place], [address], [facility] [place], [place] 10/20/2021 12:51:57 10/19/19 22 73887: Therapeutic Exercise completed Alphonse Martinez DPT [address] [place], [address], [facility] [place], [place] 10/18/2021 13:58:42 10/19/19 22 Smoking Cessation Counselling completed Alphonse Martinez DPT [address] [place], [address], [facility] [place], [place] 10/18/2021 12:41:42 10/19/19 22 Physical Activity Counselling completed Alphonse Martinez DPT [address] [place], [address], [facility] [place], [place] 10/18/2021 12:41:42 10/19/19 22 Treatment and Advice completed Alphonse Martinez DPT [address] [place], [address], [facility] [place], [place] 10/18/2021 13:55:32 10/14/19 22 Smoking Cessation Counselling completed Alphonse Martinez DPT [address] [place], [address], [facility] [place], [place] 10/13/2021 20:25:31 10/14/19 22 Physical Activity Counselling completed Alphonse Martinez DPT [address] [place] [address], [address], [facility] [place] [facility] [place], [place] 10/13/2021 20:25:31 10/14/19 22 07729: PT Eval Low Complexity completed Alphonse Martinez DPT [address] [place] [address], [address], [facility]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 247061 6464 25016 M79.672 pain to palpation along arch. +ROM, +CMSsuspec t plantar fasciitis as pain is worse with bearing weight and improves with sitting--h as been wearing more supportive footwear-- given handouts on stretching exercises, icef/u 1 week to reasses [id number] AUGUST VICKI HUERTA, [facility], OFFICE [address] [place] 1 11/17/2022 13:28:47 11/17/2022 15:00:11 Iron deficiency 57408797 E61.1 last OV 11/10 presented with leg [...] for RA; refer to rheum if abnormal [id number] Florina Quevedo RN Endoscopy , [address] [place] [address] 12/02/2022 11:53:27 12/02/2022 14:02:53 [id number] MARCE AKHIL SOSA DNP FP, [facility], OFFICE [address] [place] [address] 12/19/2022 09:19:08 12/19/2022 10:08:32 Iron deficiency anemia 45969736 D50.9 endoscopy/ colonoscop y unremarkab le apart from celiac diseaseane danilo improving- -continue taking iron supplement --recheck levels in 1 monthdiscu ssed return precaution s Celiac disease 381233061 K90.0 dx recently on endoscopy/ colonoscop y--trying to incorporat e gluten free foods into her diet--has f/u with nutrition and GI to discuss further Benign ess ential hypertension 7296738 I10 You have chronic hypertensi on that [...] at least 1-2 times each month at [facility] the same time of day with 10-15 minutes of quiet rest prior to taking blood pressure. Make sure that your feet are flat on the floor and back upright resting on chair. Empty your bladder before taking your blood pressure. Please update us if your home blood pressures are not at goal. Call with any concerns or questions. [id number] Tricia Maxwell RDN, LDN, CDCES Nutrition -[address] [place] [address] 01/17/2023 09:54:56 01/18/2023 15:46:39 Celiac disease 420484495 K90.0 [id number] AUGUST AKHIL SOSA DNP , [facility], OFFICE [address] [place] [address] 02/15/2023 10:27:27 02/15/2023 15:31:28 Iron deficiency anemia 46017532 D50.9 endoscopy/ colonoscop y unremarkab le apart [...] 2 weeks Edema of l ower extremity 734362481 R60.0 over the weekend, severe LE edema, unsure of pitting. Resolved, none on exam today. Continues with LE pain and cramping. No symptoms or risk factors concerning for CHF--no calf tenderness , erythema, warmth--ch jim BMP leg edema--OMAYRA r/o claudicati onf/u 2 weeks Fatigue 80880634 R53.83 Unintentio nal weight gain 4674252619 39021 R63.5 9# weight gain from 12/19 despite transition ing to gluten free diet and healthier eating habitsno recent TSH, will check today Screening mammography 24 988892 Z12.31 Multiple joint pain 3567 8005 M25.50 shoulder/h ip/elbow painALK phos elevated, GGT normalauto immune labs un[facility]ab [facility] out to [facility]o to discuss if this is something they work with [id number] Tricia Maxwell, FRANCIS, LDN, CDCES Nutrition -[facility] [address] [place] [address] 02/21/2023 08:59:17 03/03/2023 16:13:21 Celiac disease 767619062 K90.0 Iron defic iency anemia 93239683 D50.9 [id number] AUGUST AKHIL SOSA DNP , [facility], [address]ICE [address] [place] [address] 03/01/2023 10:54:57 03/01/2023 12:54:52 Iron deficiency 27648670 E61.1 continues with iron deficiency anemiahas been [...] and/or order iron infusion ([facility]) Celiac disease 928975637 K90.0 dx recently with GIworking with nutrition and GI for dietary changessus pect contributi ng to iron def anemiainco rporating iron rich food sources in her diet Cramp in lower limb 4499 18370 R25.2 cramping b/l lower extremitie sstill present but improvingm ay be related to ongoing anemiadid have in conjunctio n with LE edema with normal lung/heart examschedu led for OMAYRA 03/14 Edema of l ower extremity 817094008 R60.0 scheduled for OMAYRA 03/14resol sol Foot pain 09776010 M79.6 73 b/l arch foot painnew sneakers with no improvemen tprolonged standing- on concrete floorsdisc ussed exercises for plantar fasciitis previously consider orthotics [id number] Sara Gooden er, [employer] FP, [facility], OFFICE [address] [place], [place] [address] 04/14/2023 13:20:01 04/18/2023 09:08:55 Imaging result abnormal 339908234 R93.[address] scan of abdomen [...] watchers and nume to patient. Celiac disease 293704596 K90.0 Pt has had ongoing abdominal pain and nausea, followed by [facility] for this ongoing issue. Patient has been keeping a food diary, as well as following a gluten free diet, unfortunat cheryl has not found a specific trigger. Pt had CT scan and MRI completed that was negative for acute intrabdomi nal process.-- Continue to follow up with [facility]. Iron defic iency anemia 60228244 D50.9 Pt is followed by hematologi st at [facility] and receives periodic iron infusions, last one completed a few weeks prior. Will be obtaining follow up labs to recheck iron panel after allowing time for the iron infusion to stabilize levels. Pt does have upcoming follow up appointmen t with hematologi st specialist .--Continu e to follow up with [facility] hematology . [id number] Edna Martin NP , [facility], [address]ICE [address] [place] [address] 06/12/2023 10:47:08 06/12/2023 17:30:56 Migraine 36989932 G43.909 stabledoes well with sumatripta n Active or passive immunization 107380315 Z23 Celiac disease 407534360 K90.0 dx 3doing well with no gluten though does have occasional sxsfollowe d by [facility] GIhas f/u next month Type 2 heriberto betes mellitus without complication 633083411 E11.9 new dx with fbs 141, 150A1c 6.5strong family hx of DMdiscusse d tx optionswil l work on diet and exerciseno meds nowsent metergoal fbs < 120 and 2 hrs after meals < 140f/u 3 months Steatosis of liver 1007 K76.0 discussed impact of weight- c/t work on diet and exercisedo es no ETOH Essential hypertension 24483128 I10 BP at goalc/w medsc/w low salt diet, regular exercise Iron defic iency anemia 17818419 D50.9 ferritin 151s/p 3 iron transfusio nsfollowed by Hem [id number] Edna Martin NP , [facility], [address] [place] [address] 08/23/2023 14:53:22 08/23/2023 16:05:30 Type 2 diabetes mellitus without complication 294085872 E11.9 new dx 05/2023fbs 121 down from fbs 141, 150 1A1c 6.3 down from 6.5great job, work!c/t work on diet, exercisego al fbs < 120 and 2 hrs after meals < 140will do labs at 3 monthspha in 6 months with labs Active immunization 3387 9002 Z23 Elevated blood-pressure reading without diagnosis of hypertension 874992698 R03.0 bp not at goaljust elevatedwi ll start checking at homewill send in readings in next few weeks [id number] AMBER LAROSE MD , [facility], [address]ICE [address] [place] [address] 01/31/2024 10:13:15 01/31/2024 12:19:05 Pain of left hip joint 8839363278 47239 M25.552 Will have her see a specialist as she has tried cortisone shots already and has seen rheum. She requested repeat x-ray, will obtain to assess for any new joint space narrowing. Headache 05732904 R51.9 Chronic headaches. Family history of brain aneurysm in father. Uncle also had it. [id number] AMBER LAROSE MD , [facility], [address]ICE [address] [place] [address] 04/08/2024 10:16:44 04/08/2024 11:44:27 Adult health examination 042136480 Z00.00 Doing well. Up to date with screenings . Continue healthy lifestyle measures including a diet rich in fruits and vegetables as well as regular exercise. Depression screening 171 961716 Z13.31 depression screening tool administer ed Screening for alcohol abuse 195752714 Z13.39 Alcohol use screening tool administer ed Type 2 heriberto betes mellitus without complication 669400577 E11.9 At goal A1c < 7. Managing with lifestyle. Recent A1c is pending. Discussed starting a medication to improving her fasting sugars further, she will decide if she wants to follow up. Influenza vaccination declined 994840474 Z28.21 Pain of ri ght elbow joint 2750358962 9130084 M25.521 Would like a second opinion for injury in her R elbow and subsequent neuropathy . Celiac disease 333120634 K90.0 Gluten-carlee e diet. Stable. [id number] AMBER LAROSE MD , [facility], [address]ICE [address] [place] [address] 05/01/2024 14:03:34 05/01/2024 14:57:36 Steatosis of liver 759447712 K76.0 Type 2 heriberto betes mellitus without complication 816320413 E11.9 Not at goal of A1c < 7, last checked was 7.3%. Managing with lifestyle. Obesity 082136180 E66.81 2 Patient is here today for [...] Amber Larose MD, am certified by the [place] [employer] to provide obesity care. Essential hypertension 86847980 I10 At goal <130/80. Will monitor as she loses weight. [id number] AMBER LAROSE MD , [facility], [address]ICE [address] [place] [address] 06/10/2024 16:10:34 06/11/2024 10:47:39 Obesity 992849892 E66.9 Tolerating the 2.5 mg dose. Initially had some burping but this resolved after a few days. Decrease in appetite. Weight still the same. Will increase to 5 mg. Continue healthy eating, gym and hydration. ?I am seeing patient regularly to monitor medication and ongoing weight goals.?I, Amber Larose MD, am certified by the [place] [employer] to provide obesity care. Type 2 heriberto betes mellitus without complication 583208180 E11.9 Last A1c in March was 7.3%. Repeat today. Essential hypertension 04894079 I10 At goal <130/80. Will monitor. Health [...] ACO (MEDICAID REPLACEMENT - HMO) Fernanda Patry [id number] Fernanda Patry 01/31/2024 1 [employer] HP - DOS ON OR AFTER 2022 - [employer] A[employer] (MEDICAID REPLACEMENT - HMO) Fernanda Patry [id number] Fernanda Patry 04/08/2024 1 [employer] HP - DOS ON OR AFTER 2022 - [employer] A[employer] (MEDICAID REPLACEMENT - HMO) Fernanda Patry [id number] Fernanda Patry 05/01/2024 1 [employer] HP - DOS ON OR AFTER 2022 - [employer] ACO (MEDICAID REPLACEMENT - HMO) Fernanda Patry [id number] Fernanda Patry 06/10/2024 1 [employer] HP - DOS ON OR AFTER 2022 - [employer] ACO (MEDICAID REPLACEMENT - HMO) Ferannda Patry [id number] Fernanda Marvary Notes Date Note Type Note Provider Name and Address Organization Details Recorded Time 4 text/html f/u on dm dxmore monitoring of foods - reduced soda to no sodamore veggieschallenging with celiac- gluten freeexercise - walking 2-6 miles everyday with daughterout of work d/t elbow Edna Martin NP [address] [place] [address], [address], [facility] [place] [facility] [place], [place] 08/23/2023 16:23:18 4 text/html Left hip and low back painful x yearsGetting worse more recentlyHas had cortisone injections in the hip but not super helpfulHas lidoderm patchesCalves also sore, hands and feet swollenSeen rheum, no diagnosis Also has headaches, chest pain, abdominal painDebilitating headaches bothering her all night longSeen GI, has celiac, no improvement since stopping gluten AMBER LAROSE MD [address] [place], [address], [facility] [place] [facility] [place], [place] 01/31/2024 13:02:29 4 text/html Physical Exam/FemaleReported bypatient.PHAPatient [...] other menopause symptoms.Sexually active: no issues.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 headaches: seeing neurologistback pain: using the brace AMBER LAROSE MD [address] [place], [address], [facility] [place] [facility] [place], [place] 04/08/2024 11:03:55 4 text/html Was losing some [...] about 80 lbs AMBER LAROSE MD [address] [place], [address], [facility] [place] [facility] [place], [place] 05/01/2024 14:34:58 5 text/html Appetite is down but weight has not changed yetGoing back to the gym, hopefully will comeStill eating protein, veggiesDrinkign water Went to ortho for the kneesOsteoarthritis bilaterallyDoing PT right nowR elbow saw the same doctor, thinks its cubital compartment syndromeWent to [place] doctorHas a plan for an EMGGoing to [facility] for the hip Due for eye exam, plan to have this done in August AMBER LAROSE MD [address] [place], [address], [facility] [place] [facility] [place], [place] 06/10/2024 16:59:16 OBGyn Episode No OBEpisode recorded.
[2024-07-23 06:49] VITALS: BP 145/85; PULSE 66; RESP 18; TEMP 36.7; O2SAT 97; BMI 36.1
--- NOTE | 2024-07-23 07:34 | P.OP_ITS ---
Operative Note Operative Note Date of Service: 07/23/24 Narrative: Preop diagnosis: 1. Right Carpal tunnel syndrome Postop diagnosis: same Procedure: 1. Right Carpal tunnel release Surgeon: Cary Smiley MD [employer] Sales Representative: Geovanny ANN Anesthesia: local block using 1% lidocaine with epinephrine Findings: Thickened transverse carpal ligament. EBL: Less than 5 mL Specimens: None Complications: None Disposition: Brought to recovery room in stable condition Plan: Follow-up for 10-14 days for wound check and suture removal Indications: The patient is 48 years old, with right carpal tunnel syndrome that has been unresponsive to nonoperative management. The risks and benefits of operative treatment including but not limited to risk of damage to blood vessels, nerves, tendons, infection, persistent pain, persistent symptoms, or possible need for additional surgery were discussed with the patient and the patient wishes to proceed with surgery. Procedure: Once consent was obtained a local block was performed using a combination of 1% lidocaine with epinephrine. The patient was then brought back to the operating suite and placed on the operative table in supine position. The right upper extremity was prepped and draped in a standard surgical fashion. Once assured that we had a good block, a 2.0 cm longitudinal incision was made centered over the carpal tunnel. The incision was made through the skin to the subcutaneous tissues using a #15 blade. Dissection was made down to the level of the transverse carpal ligament with care being taken to protect the palmar cutaneous nerve. Once the transverse carpal ligament was clearly visualized, a longitudinal incision was made in the transverse carpal ligament 1st using a #15 blade, then using tenotomy scissors under direct visualization. Care was taken to look for and protect the motor branch of the median nerve when seen in this area. Once satisfied with our carpal tunnel release the wound was copiously irrigated with normal saline and hemostasis was obtained with a brief period of local pressure. The skin edges were reapproximated with some 5.0 nylon suture material and a sterile dressing was applied. The patient appears to have tolerated the procedure well and with no complications. All digits were well vascularized at the conclusion of the case.
--- NOTE | 2024-07-23 07:34 | MHC.SHP ---
Pre-Procedural Eval Section A - 24 Hr Update-Section A only Date of Service: 07/23/24 The patient is an INPATIENT: No Changes since office visit: No Cold of Flu in the past 2 weeks, No New Medical Problems, No Changes in Medication and No Patient answered all questions The patient has been examined within 24 hours of the surgical procedure. The History & Physical has been completed within 30 days and I have reviewed it.: Yes Section B - Complete if H&P > 30 days Chief Complaint: Carpal tunnel syndrome, right upper limb Allergies: Allergies Allergy/AdvReac Type Severity Reaction Status Date / Time No Known Allergies Allergy Verified 07/23/24 06:55 Plan Diagnosis/Plan: Unchanged I have reviewed the history and physical and performed a pertinent physical examination on my patient. No changes have occurred unless specified. Time Spent With Patient Time: Total time managing care of this patient today ____ minutes.
[2024-07-23 08:26] VITALS: BP 135/75; PULSE 62; RESP 17; TEMP 36.1; O2SAT 97
== END 2024-07-23 08:28 | disposition home or self-care (01) ==
PROVIDERS: PCP Internal Medicine; Visit Provider Orthopaedic Surgery
PROC: (CPT 64721; principal; 2024-07-23 08:00)
DX: G56.01 Carpal tunnel syndrome, right upper limb (principal); M79.641 Pain in right hand; M25.521 Pain in right elbow; M25.511 Pain in right shoulder; Z91.81 History of falling; Z98.890 Other specified postprocedural states; Z56.0 Unemployment, unspecified; E11.9 Type 2 diabetes mellitus without complications
CPT/HCPCS: 64721; J0171; J2003; J2004

== ENCOUNTER → 2024-07-23 06:33 | Outpatient (BNV) | payer OTHER, SELFPAY | PROVIDERS: PCP Internal Medicine; Visit Provider Orthopaedic Surgery | DX: G56.01 Carpal tunnel syndrome, right upper limb (principal) | CPT/HCPCS: 64721 ==

== ENCOUNTER 2024-08-06 09:32 | Outpatient (AMB) | payer OTHER, SELFPAY ==
--- NOTE | 2024-08-06 09:35 | A.OFFVIS_ITS ---
Vital Signs 08/06/24 09:45 Height 5 ft 5 in Weight 216 lb BMI 35.9 Intake Visit Reasons: PO-Rt CTR 07/23/24 AR Intake Note: Fernanda is a 48 year old right hand dominant female who presents today post operatively s/p right carpal tunnel release DOS: 07/23/24 w/ Dr Cary Smiley. Patient denies numbness, tingling, finger locking. Patient complains of soreness at the base of the right thumb. Allergies No Known Allergies Allergy (Verified 08/06/24 09:40) HPI HPI PO-Rt CTR 07/23/24 AR: Details: Fernanda is a 48 year old right hand dominant female who presents today post operatively s/p right carpal tunnel release DOS: 07/23/24 w/ Dr Cary Smiley. Patient denies numbness, tingling, finger locking. Patient complains of soreness at the base of the right thumb. Of note, the patient does also report intermittent numbness and tingling in the left hand. [facility] Medical History (Updated 08/06/24 @ 13:18 by MARISSA Moffett) Migraine Hypertension Surgical History (Updated 07/23/24 @ 07:00 by Eneida Moses RN) History of surgical removal of ganglion cyst Hx of tubal ligation Hx of appendectomy Hx of colonoscopy Hx of elbow surgery Social History Are you a primary grounds caretaker to a significant other at home: No Do you presently have visiting nurse or other home services: No Alcohol intake: never Patient Tobacco Use Status: Never used Tobacco Current occupational status: unemployed Review of Systems Const All systems reviewed & are unremarkable except as noted in HPI and below Physical Exam Vital Signs: BMI result Body Mass Index 35.9 Extrem Other: Neuro: Decreased sensation in the thumb and index finger of the right hand. Normal sensation of the tips of all of the digits Normal sensation in the tips of all digits of the left hand today. No thenar or intrinsic wasting. Good APB muscle firing and good finger cross. Vascular: Capillary refill brisk. ROM: Patient can make a fist and extend all their digits. Skin: Well approximated and well healing incision site noted over the volar right wrist No lacerations or abrasions noted. General: No ecchymosis. No erythema or evidence of infection. Right shoulder exam: Patient reports diffuse tenderness to palpation of the right shoulder Pain with external rotation and abduction Assessment & Plan Assessment & Plan (1) Right carpal tunnel syndrome: Code(s): G56.01 - Carpal tunnel syndrome, right upper limb Category: Medical (2) Numbness and tingling in left hand: Code(s): R20.0 - Anesthesia of skin; R20.2 - Paresthesia of skin Category: Medical Plan 1. Numbness and tingling of left hand Intermittent, daily, worse at night At this time, patient was referred for EMG and nerve conduction study for assessment of the health of the nerves of the left upper extremity Patient will follow-up after EMG and nerve conduction study for results review and discussion of further treatment options Patient was amenable to this plan 2. Status post right carpal tunnel release DOS 07/23/2024 Patient appears to be recovering well postoperatively Patient is educated about the typical recovery course At this time, patient was informed she will require no acute postoperative follow-up, as she is recovering very well Patient was amenable to this plan Patient will follow-up after EMG and nerve conduction study, sooner with any acute concerns Orders: Orders NE nerve conduction velocity Today R20.0 - Anesthesia of skin, R20.2 - Paresthesia of skin NE electromyogram (EMG) Today R20.0 - Anesthesia of skin, R20.2 - Paresthesia o f skin Coding Level of Care Code Est Pt Level 3 (11033) Diagnoses Right carpal tunnel syndrome G56.01 Numbness and tingling in left hand R20.0; R20.2
[2024-08-06 09:45] VITALS: BMI 35.9
== END 2024-08-06 09:56 | disposition home or self-care (01) ==
LOC: HO.HOS 09:32
DX: R20.0 Anesthesia of skin (principal); R20.2 Paresthesia of skin; G56.01 Carpal tunnel syndrome, right upper limb
CPT/HCPCS: 99213

== ENCOUNTER 2024-08-12 08:49 | Outpatient (REF) | payer OTHER, SELFPAY ==
--- NOTE | ~2024-08-12 | XR_ITS ---
EXAMINATION: XR SHOULDER 2 OR MORE VIEWS RIGHT HISTORY: M25.511 - Pain in right shoulder COMPARISON: Comparison is made with the prior examination dated 06/26/2024. FINDINGS: Three views of the right shoulder are submitted. Osseous mineralization is normal. There is no fracture or dislocation. The glenohumeral and acromioclavicular joint spaces are preserved. The soft tissues are unremarkable. XR/XR shoulder RT min 2V IMPRESSION: Unremarkable examination of the right shoulder. Electronically signed by: Miguel Angel Hale MD 08/12/2024 12:47 PM EDT
--- OUTSIDE RECORDS SUMMARY | 2024-08-13 09:19 | XMS_ITS | Data Portability ---
Author Organization [facility], , [facility] OFFICE Address [address] [place] [address] Care Team Providers Care Information Technology Professor Name Role Phone JERAMY ERWIN OTHER ALBERTA HOUSER Orthopedic Surgeon GAMA MEDEIROS Reverse Unit Operator ALEX MAXWELL Chemical Engineer CECI VAZQUEZ Hematology/Oncology ELEANOR GASTROENTEROLOGY Meat Cooler AMAYA BEAR Primary Care Provider Assessment Encounter Date Assessment Date Assessment LastModified [...] A1C/hemog lobin total, QN, blood 2024 025 [email or web address], [address] [place], [address], 5 10:02:28 HbA1c (hemoglob in A1c), [facility] [address] [place], [address], 4 11:47:49 Referral orthopedi c surgeon referral 2023 024 [email or web address] [facility], [address] [facility] , [place], [address], 4 11:11:[address] referral 2023 024 KAYE Lloyd MD, [address] [place], [address], 4 03:18:27 physical medicine and rehabilit ation referral 2023 024 [email or web address] Melvin Wallace MD, [address], [place], [address], 4 13:11:26 Procedures None recorded. Surgeries None recorded. Imaging XR, hip + pelvis, unilatera l, 2 or 3 view 2023 [email or web address] [facility] ([facility]), [address] , [place], [address], 4 12:19:05 Medication Orders Zepbound 5 mg/0.5 mL subcutane ous pen injector 2024 025 [id number], [address] [place], [address], 5 16:41:49 Zepbound 2.5 mg/0.5 mL subcutane ous pen injector 2023 024 [id number], [address] [place], [address], 4 14:32:14 ondansetr on 4 mg disintegr ating tablet 2023 024 [id number], [address] [place], [address], 4 14:32:14 Patient TargetsNo targets recorded. Patient Instructions Encounter Date Encounter Id Patient Instructions Last Modified By Organization Details Last Modified Time 05/01/2024 [id number] You have been prescribed a new medication [...] containers from your insurance company or most [facility] have them available for free. - [...] for Hea dache Referring Physician: Amber Larose [facility], Encounter Date: 01/31/2024 Orthopedic Surgeon Referral for Pain of right elbow joint Referring Physician: Amber Larose [facility], Encounter Date: 04/08/2024 Results Created Date Observation Date Name Description Value Unit Range Abnormal Flag Note LastModifiedBy Organization Detail LastModifiedTime 08/16/19 24 08/16/2023 MICRO ALBUM IN/CR EATIN INE RATIO PANEL , URINE microalbumin 16.9 mg/L 1.3-20 .0 Not Available [address], [address], 08/16/2023 16:46:53 08/16/19 24 08/16/2023 MICRO ALBUM IN/CR EATIN INE RATIO PANEL , URINE creatinine urine 104.9 mg/dL 30.0-1 25.0 Not Available [address], [address], 08/16/2023 16:46:53 08/16/19 24 08/16/2023 MICRO ALBUM IN/CR EATIN INE RATIO PANEL , URINE microalb/cre at ratio 16.1 mg/g_ creat 0.0-29 .0 Not Available [address], [address], 08/16/2023 16:46:53 08/16/19 24 08/17/2023 HGB A1C [...] furth er confi rmati on Not Available [address], [address], 08/17/2023 10:15:54 08/16/19 24 08/17/2023 HGB A1C estimated average glucose 134.1 mg/dL Not Available [address], [address], 08/17/2023 10:15:54 08/16/19 24 08/17/2023 COMP. METAB OLIC PANEL glucose 121 mg/dL 70-100 high Not Available [address], [address], 08/17/2023 12:22:55 08/16/19 24 08/17/2023 COMP. METAB OLIC PANEL BUN 15 mg/dL 7-18 Not Available [address], [address], 08/17/2023 12:22:55 08/16/19 24 08/17/2023 COMP. METAB OLIC PANEL creatinine 0.7 mg/dL 0.8-1. 3 low Not Available [address], [address], 08/17/2023 12:22:55 08/16/19 24 08/17/2023 COMP. METAB OLIC PANEL B/C 21.4 ratio Not Available [address], [address], 08/17/2023 12:22:55 08/16/19 24 08/17/2023 COMP. METAB [...] be used in pregn lanie. Not Available [address], [address], 08/17/2023 12:22:55 08/16/19 24 08/17/2023 COMP. METAB OLIC PANEL sodium 140 mmol/ L 136-14 5 Not Available [address], [address], 08/17/2023 12:22:55 08/16/19 24 08/17/2023 COMP. METAB OLIC PANEL potassium 4.1 mmol/ L 3.5-5. 1 Not Available [address], [address], 08/17/2023 12:22:55 08/16/19 24 08/17/2023 COMP. METAB OLIC PANEL chloride 102 mmol/ L 96-107 Not Available [address], [address], 08/17/2023 12:22:55 08/16/19 24 08/17/2023 COMP. METAB OLIC PANEL anion gap 12.4 5.0-15 .0 Not Available [address], [address], 08/17/2023 12:22:55 08/16/19 24 08/17/2023 COMP. METAB OLIC PANEL CO2 26 mmol/ L 21-32 Not Available [address], [address], 08/17/2023 12:22:55 08/16/19 24 08/17/2023 COMP. METAB OLIC PANEL calcium 9.5 mg/dL 8.5-10 .3 Not Available [address], [address], 08/17/2023 12:22:55 08/16/19 24 08/17/2023 COMP. METAB OLIC PANEL total protein 7.2 g/dL 6.4-8. 2 Not Available [address], [address], 08/17/2023 12:22:55 08/16/19 24 08/17/2023 COMP. METAB OLIC PANEL albumin 3.7 g/dL 3.4-5. 0 Not Available [address], [address], 08/17/2023 12:22:55 08/16/19 24 08/17/2023 COMP. METAB OLIC PANEL globulin 3.5 g/dL Not Available [address], [address], 08/17/2023 12:22:55 08/16/19 24 08/17/2023 COMP. METAB OLIC PANEL A/G 1.1 ratio 0.8-2. 0 Not Available [address], [address], 08/17/2023 12:22:55 08/16/19 24 08/17/2023 COMP. METAB OLIC PANEL total bilirubin 0.40 mg/dL 0.00-1 .00 Not Available [address], [address], 08/17/2023 12:22:55 08/16/19 24 08/17/2023 COMP. METAB OLIC PANEL AST 28 U/L 0-37 Not Available [address], [address], 08/17/2023 12:22:55 08/16/19 24 08/17/2023 COMP. METAB OLIC PANEL ALT 56 U/L 6-63 Not Available [address], [address], 08/17/2023 12:22:55 08/16/19 24 08/17/2023 COMP. METAB OLIC PANEL alk. phos. 135 U/L 50-136 Not Available [address], [address], 08/17/2023 12:22:55 08/16/19 24 08/17/2023 LIPID PANEL cholesterol 189 mg/dL <200 mg/dl Allen able 200-2 39 mg/dl Borde rline High >240 mg/dl High Not Available [address], [address], 08/17/2023 12:22:56 08/16/19 24 08/17/2023 LIPID PANEL triglyceride s 174 mg/dL <150 mg/dL Jerica l 150-1 99 mg/dL Borde rline High 200-4 99 mg/dL High >500 mg/dL Very High Not Available [address], [address], 08/17/2023 12:22:56 08/16/19 24 08/17/2023 LIPID PANEL direct HDL 48 mg/dL <40 mg/dl - Major Risk for CHD >60 mg/dl - Negat diomedes Risk for CHD Not Available [address], [address], 08/17/2023 12:22:56 08/16/19 24 08/17/2023 LDL - [...] r is not neces gina. Not Available [address], [address], 08/17/2023 12:22:58 10/06/19 24 10/10/2023 ANATO RAKEL PATHO LOGY path report [facility] [address] [facility] [place] [address] Lab Direc tor: Anahi davila MD Surgi [...] been deter mined by the [facility]. This labor atory is certi fied under the Clini mini Labor atory Impro vemen t Amend ments of 1987 (CLIA -88) as quali fied to perfo rm high compl exity clini mini labor atory testi ng. Immun ohist ochem istry is perfo rmed on forma tano-f [...] MD, POST- BA, BA Not Available [facility] (Outpatient) [address] [place] [address], [address], 10/10/2023 17:20:06 04/06/20 24 04/08/2024 HGB A1C [...] furth er confi rmati on Not Available [address], [address], 04/08/2024 11:47:49 04/06/2004/08/2024 HGB A1C estimated average glucose 162.8 mg/dL Not Available [address], [address], 04/08/2024 11:47:49 04/06/2004/09/2024 BASIC METAB OLIC PANEL glucose 179 mg/dL 70-100 high Not Available [address], [address], 04/09/2024 16:36:15 04/06/2004/09/2024 BASIC METAB OLIC PANEL BUN 14 mg/dL 7-18 Not Available [address], [address], 04/09/2024 16:36:15 04/06/2004/09/2024 BASIC METAB OLIC PANEL creatinine 0.9 mg/dL 0.8-1. 3 Not Available [address], [address], 04/09/2024 16:36:15 04/06/2004/09/2024 BASIC METAB OLIC PANEL B/C 15.6 ratio Not Available [address], [address], 04/09/2024 16:36:15 04/06/2004/09/2024 BASIC METAB OLIC PANEL GFR >=60ML /MIN [...] 2020) as recom lynn d by the [facility] . eGFR is based on age, serum creat inine , and sex. CKD-E PI does not calcu late eGFR by race, does not apply to child amaury (age <18 years ), and shoul d not be used in pregn lanie. Not Available [address], [address], 04/09/2024 16:36:15 04/06/2004/09/2024 BASIC METAB OLIC PANEL sodium 143 mmol/ L 136-14 5 Not Available [address], [address], 04/09/2024 16:36:15 04/06/2004/09/2024 BASIC METAB OLIC PANEL potassium 4.1 mmol/ L 3.5-5. 1 Not Available [address], [address], 04/09/2024 16:36:15 04/06/20 24 04/09/2024 BASIC METAB OLIC PANEL chloride 105 mmol/ L 96-107 Not Available [address], [address], 04/09/2024 16:36:15 04/06/20 24 04/09/2024 BASIC METAB OLIC PANEL anion gap 9.7 5.0-15 .0 Not Available [address], [address], 04/09/2024 16:36:15 04/06/20 24 04/09/2024 BASIC METAB OLIC PANEL CO2 28 mmol/ L 21-32 Not Available [address], [address], 04/09/2024 16:36:15 04/06/20 24 04/09/2024 BASIC METAB OLIC PANEL calcium 9.3 mg/dL 8.5-10 .3 Not Available [address], [address], 04/09/2024 16:36:15 06/22/19 25 06/23/2024 CBC (INCL UDES DIFF/ PLT) white blood cell count 5.7 thous and/u L 3.8-10 .8 normal Not Available [facility] [address], [place], [address], 06/23/2024 08:43:39 06/22/19 25 06/23/2024 CBC (INCL UDES DIFF/ PLT) red blood cell count 4.94 priscilla on/uL 3.80-5 .10 normal Not Available [facility] [address], [place], [address], 06/23/2024 08:43:39 06/22/19 25 06/23/2024 CBC (INCL UDES DIFF/ PLT) hemoglobin 14.4 g/dL 11.7-1 5.5 normal Not Available [facility] [address], [place], [address], 06/23/2024 08:43:39 06/22/19 25 06/23/2024 CBC (INCL UDES DIFF/ PLT) hematocrit 43.7 % 35.0-4 5.0 normal Not Available [facility] [address], [place], [address], 06/23/2024 08:43:39 06/22/19 25 06/23/2024 CBC (INCL UDES DIFF/ PLT) MCV 88.5 fL 80.0-1 00.0 normal Not Available [facility] [address], [place], [address], 06/23/2024 08:43:39 06/22/19 25 06/23/2024 CBC (INCL UDES DIFF/ PLT) MCH 29.1 pg 27.0-3 3.0 normal Not Available [facility] [address], [place], [address], 06/23/2024 08:43:39 06/22/19 25 06/23/2024 CBC (INCL UDES DIFF/ PLT) MCHC 33.0 g/dL 32.0-3 6.0 normal For adult s, a sligh t decre ase in the calcu lated MCHC value (in the range of 30 to 32 g/dL) is most likel y not clini arianna signi fican t; jeanine er, it shoul d be inter prete d with cauti on in corre lat n with other red cell jaspreet eters and the patie nt's clini mini condi tion. Not Available [facility] [address], [address], 06/23/2024 08:43:39 06/22/19 25 06/23/2024 CBC (INCL UDES DIFF/ PLT) RDW 12.8 % 11.0-1 5.0 normal Not Available [facility] [address], [place], [address], 06/23/2024 08:43:39 06/22/19 25 06/23/2024 CBC (INCL UDES DIFF/ PLT) platelet count 251 thous and/u L 140-40 0 normal Not Available [facility] [address], [place], [address], 06/23/2024 08:43:39 06/22/19 25 06/23/2024 CBC (INCL UDES DIFF/ PLT) MPV 11.8 fL 7.5-12 .5 normal Not Available [facility] [address], [address], 06/23/2024 08:43:39 06/22/19 25 06/23/2024 CBC (INCL UDES DIFF/ PLT) absolute neutrophils 3329 cells /uL 1500-7 800 normal Not Available [facility] [address] [place], [address], 06/23/2024 08:43:39 06/22/19 25 06/23/2024 CBC (INCL UDES DIFF/ PLT) absolute lymphocytes 1693 cells /uL 850-39 00 normal Not Available [facility] [address], [place], [address], 06/23/2024 08:43:39 06/22/19 25 06/23/2024 CBC (INCL UDES DIFF/ PLT) absolute monocytes 502 cells /uL 200-95 0 normal Not Available [facility] [address], [place], [address], 06/23/2024 08:43:39 06/22/19 25 06/23/2024 CBC (INCL UDES DIFF/ PLT) absolute eosinophils 154 cells /uL 15-500 normal Not Available [facility] [address], [place], [address], 06/23/2024 08:43:39 06/22/19 25 06/23/2024 CBC (INCL UDES DIFF/ PLT) absolute basophils 23 cells /uL 0-200 normal Not Available [facility] [address], [place], [address], 06/23/2024 08:43:39 06/22/19 25 06/23/2024 CBC (INCL UDES DIFF/ PLT) neutrophils 58.4 % normal Not Available [facility] [address], [place], [address], 06/23/2024 08:43:39 06/22/19 25 06/23/2024 CBC (INCL UDES DIFF/ PLT) lymphocytes 29.7 % normal Not Available [facility] [address], [place], [address], 06/23/2024 08:43:39 06/22/19 25 06/23/2024 CBC (INCL UDES DIFF/ PLT) monocytes 8.8 % normal Not Available [facility] [address], [place], [address], 06/23/2024 08:43:39 06/22/19 25 06/23/2024 CBC (INCL UDES DIFF/ PLT) eosinophils 2.7 % normal Not Available [facility] [address], [place], [address], 06/23/2024 08:43:39 06/22/19 25 06/23/2024 CBC (INCL UDES DIFF/ PLT) basophils 0.4 % normal Not Available [facility] [address], [place], [address], 06/23/2024 08:43:39 06/22/19 25 06/24/2024 MICRO ALBUM IN/CR EATIN INE RATIO PANEL , URINE microalbumin 5.9 mg/L 1.3-20 .0 Not Available [address], [address], 06/24/2024 10:52:46 06/22/19 25 06/24/2024 MICRO ALBUM IN/CR EATIN INE RATIO PANEL , URINE creatinine urine 133.5 mg/dL 30.0-1 25.0 high Not Available [address], [address], 06/24/2024 10:52:46 06/22/19 25 06/24/2024 MICRO ALBUM IN/CR EATIN INE RATIO PANEL , URINE microalb/cre at ratio 4.4 mg/g_ creat 0.0-29 .0 Not Available [address], [address], 06/24/2024 10:52:46 06/22/19 25 06/24/2024 HGB A1C [...] furth er confi rmati on Not Available [address], [address], 06/24/2024 12:23:17 06/22/19 25 06/24/2024 HGB A1C estimated average glucose 148.5 mg/dL Not Available [address], [address], 06/24/2024 12:23:17 06/22/19 25 06/24/2024 BASIC METAB OLIC PANEL glucose 150 mg/dL 70-100 high Not Available [address], [address], 06/24/2024 15:23:10 06/22/19 25 06/24/2024 BASIC METAB OLIC PANEL BUN 15 mg/dL 7-18 Not Available [address], [address], 06/24/2024 15:23:10 06/22/19 25 06/24/2024 BASIC METAB OLIC PANEL creatinine 0.9 mg/dL 0.8-1. 3 Not Available [address], [address], 06/24/2024 15:23:10 06/22/19 25 06/24/2024 BASIC METAB OLIC PANEL B/C 16.7 ratio Not Available [address], [address], 06/24/2024 15:23:10 06/22/19 25 06/24/2024 BASIC METAB [...] be used in pregn lanie. Not Available [address], [address], 06/24/2024 15:23:10 06/22/19 25 06/24/2024 BASIC METAB OLIC PANEL sodium 143 mmol/ L 136-14 5 Not Available [address], [address], 06/24/2024 15:23:10 06/22/19 25 06/24/2024 BASIC METAB OLIC PANEL potassium 4.1 mmol/ L 3.5-5. 1 Not Available [address], [address], 06/24/2024 15:23:10 06/22/19 25 06/24/2024 BASIC METAB OLIC PANEL chloride 104 mmol/ L 96-107 Not Available [address], [address], 06/24/2024 15:23:10 06/22/19 25 06/24/2024 BASIC METAB OLIC PANEL anion gap 11.4 5.0-15 .0 Not Available [address], [address], 06/24/2024 15:23:10 06/22/19 25 06/24/2024 BASIC METAB OLIC PANEL CO2 28 mmol/ L 21-32 Not Available [address], [address], 06/24/2024 15:23:10 06/22/19 25 06/24/2024 BASIC METAB OLIC PANEL calcium 9.4 mg/dL 8.5-10 .3 Not Available [address], [address], 06/24/2024 15:23:10 06/22/19 25 06/24/2024 LIPID PANEL cholesterol 191 mg/dL <200 mg/dl Allen able 200-2 39 mg/dl Borde rline High >240 mg/dl High Not Available [address], [address], 06/24/2024 15:23:11 06/22/19 25 06/24/2024 LIPID PANEL triglyceride s 125 mg/dL <150 mg/dL Jerica l 150-1 99 mg/dL Borde rline High 200-4 99 mg/dL High >500 mg/dL Very High Not Available [address], [address], 06/24/2024 15:23:11 06/22/19 25 06/24/2024 LIPID PANEL direct HDL 48 mg/dL <40 mg/dl - Major Risk for CHD >60 mg/dl - Negat diomedes Risk for CHD Not Available [address], [address], 06/24/2024 15:23:11 06/22/19 25 06/24/2024 LDL - [...] with 0-1 risk facto r is not trnoris fuentes. Not Available [address], [address], 06/24/2024 15:23:12 01/31/20 24 01/31/2024 XR, hip [...] abnorm ality. Readin g Physic belkis: Tom ia Cross [facility] (Imaging) [address], [place], [address], 01/31/2024 17:22:29 Result Notes None recorded. Procedures Surgical History Date Name Laterality Status Provider Name and Address Organization Details Recorded Time 3 Kristen - Colonoscopy completed Isidro Peterson MD [address] [place] [address], [phone], [facility] 12/02/2022 13:59:37 3 Kristen - EGD completed Isidro Peterson MD [address] [place] [address], [phone], [facility] 12/02/2022 13:59:07 Imaging Results Imaging Date Name Status LastModified by Organiz ation Details LastModified Time 01/31/2024 XR, hip + pelvis, unilateral , 2 or 3 view completed [facility] ([facility]) [address] [place], [address], 01/31/2024 17:22:29 Procedure Notes None recorded. Medical [...] DIRECTED TO CHECK BLOOD SUGAR ONCE DAILY 2024 active Not Available Not Available Not Avai lable Tubersol 5 tub. unit/0.1 mL intraderm al [...] mg (65 mg iron) tablet TAKE 1 TABLET BY MOUTH 3 TIMES A WEEK DIRECTED \ 2024 active Not Available Not Available Not Avai lable prednison e 50 mg tablet TAKE 1 [...] Available Not Available Not Avai lable FreeStyle [place] Lite kit USE DIRECTED TO CHECK BLOOD [...] What Is Your Occupation? [employer] Information not available 01/28/2022 How Many Days [...] Form Given To Pt 03/31/11, 09/22/14, 06/16/15 [id number] Information not available 06/14/2023 Marital Status Helping [...] 70 [email or web address] Not available 2014 14:14:19 Brother Guera-Ransom son-White pattern 48 tfurcolo Not available 2016 [...] SNOMED-CT Code Diagnosis ICD10 Code Diagnosis Note [id number] [facility] [address] [place] [address] 04/13/2004 13:15:09 04/13/2004 13:52:33 [id number] [facility] [address] [place] [address] 10/06/2005 14:44:39 10/06/2005 17:44:16 [id number] [place] [address] [place] [address] 10/06/2005 15:16:59 10/06/2005 15:17:[id number] [facility] [address] [place] [address] 10/17/2005 09:39:34 10/17/2005 11:47:[id number] [facility] [address] [place] [address] 10/24/2005 09:56:34 06/04/2008 02:02:29 [id number] [facility] [address] [place] [address] 11/22/2005 09:04:17 11/22/2005 16:06:[id number] [place] [address] 11/22/2005 09:27:56 11/22/2005 09:28:05 [id number] [facility] [address] [place] [address] 04/04/2006 16:15:39 04/04/2006 17:01:09 [id number] [facility] [address] [place] [address] 08/16/2006 10:02:59 08/18/2006 07:49:02 [id number] [facility] [address] [place] [address] 08/30/2006 14:48:37 08/30/2006 17:32:[id number] Martha [place] [address] 08/30/2006 15:54:11 08/30/2006 15:54:16 [id number] [facility], [address] [place] [address] 10/13/2006 10:18:52 10/13/2006 13:12:41 [id number] [facility] OFFICE [address] [place] [address] [place] [address] 11/03/2006 10:10:13 11/03/2006 11:36:58 [id number] [facility], [place]ICE [address] [place] [address] 02/16/2007 10:19:36 06/04/2008 02:02:29 [id number] [facility] OFFICE [address] [place], [place] [address] 01/26/2007 10:01:13 01/26/2007 15:25:44 [id number] [facility] OFFICE [address] [place] [address] [place] [address] 12/17/2007 10:14:12 06/04/2008 02:02:29 [id number] [facility] OFFICE [address] [place] [address] [place] [address] 06/05/2008 15:35:46 06/17/2008 02:02:00 [id number] GLENROY Reyes [facility] OFFICE [address] [place] [address] [place] [address] 08/06/2008 12:16:07 08/07/2008 08:35:57 [id number] [facility] OFFICE [address] [place] [address] DR [place], [place] [address] 09/05/2008 11:42:18 09/08/2008 08:21:27 [id number] [facility] OFFICE [address] [place] [address] [place] [address] 12/08/2008 16:32:50 12/09/2008 14:05:05 [id number] [facility] OFFICE [address] [place] [address] [place] [address] 12/23/2008 10:20:23 12/23/2008 16:02:28 [id number] [facility] [address] 03/11/2009 14:47:03 03/11/2009 17:01:54 [id number] [facility] [address] [place] [address] 07/30/2008 09:10:41 07/30/2008 09:10:47 [id number] LAB - [facility] [address] [place] [address] 12/10/2008 10:17:14 12/10/2008 10:17:19 [id number] FP, [facility], [address] [place] [address] 09/01/2009 07:59:36 09/01/2009 09:05:09 [id number] FP, [facility], [address] [place] [address] 09/03/2009 09:31:25 09/04/2009 08:20:06 [id number] FP, [facility], OFFICE [address] [place] [address] DR [place], [place] [address] 11/23/2009 09:27:05 11/23/2009 12:22:11 [id number] FP, [facility], [address] [place] [address] 1 12/14/2009 15:28:34 12/14/2009 16:21:22 [id number] FP, [facility], [address] [place] [id number] 1 03/18/2010 09:21:43 03/18/2010 10:46:30 [id number] FP, [facility], [place] [address] [address] M[place], [place] [address] 1 06/30/2010 16:24:46 06/30/2010 17:25:41 [id number] GLENROY Reyes, [facility], [address] [place] [address] 1 01/20/2011 10:19:33 01/20/2011 11:02:24 [id number] FP, [facility], [address] [place] [id number] 1 03/31/2011 15:41:03 03/31/2011 16:54:54 [id number] FP, [facility], [address] [place] [address] 1 09/13/2011 16:09:22 09/13/2011 16:43:30 [id number] GLENROY Reyes [facility], [place] [address] [place] [address] 1 10/12/2011 15:55:37 10/12/2011 16:24:26 [id number] GLENROY Reyes, [facility], [address] [place] [id number] 10/26/2011 15:55:14 10/26/2011 16:08:12 [id number] Araceli Schuster LPN , [facility], OFFICE [address] [place] [address] [place], [place] [address] 1 07/16/2012 11:45:25 07/16/2012 12:22:07 [id number] Lisa Jesus LPN , [facility], OFFICE [address] [place] [address] [place], [place] [address] 1 07/19/2012 10:20:12 07/19/2012 10:30:27 [id number] Stephanie Giraldo LPN , [facility] OFFICE [address] [place] [address] [place] [address] 1 12/25/2012 16:14:20 12/26/2012 07:30:58 [id number] Araceli Schuster LPN , [address] [place], [place] [address] 03/04/2013 15:53:01 03/04/2013 16:53:56 [id number] Nathen Chávez , [address] [place] [address] 1 06/05/2013 10:45:47 06/05/2013 11:36:26 [id number] Bertha Razo , [address] [place], [place] [address] 1 06/24/2013 15:47:39 06/25/2013 10:20:00 [id number] Marta Mcghee , [address] [place] [id number] 1 09/18/2013 13:41:57 09/18/2013 14:35:[id number] [place] [address] 10/24/2013 13:30:56 10/24/2013 14:58:27 [id number] Stephanie House , [facility] OFFICE 94 [place] [address] DR NIEVESCHEMAPatsy SAMARA [id number] 1 08/21/2014 09:15:37 08/21/2014 12:58:29 [id number] Jaimie Montero , [facility] OFFICE [address] [place] [address] DR [place] [id number] 1 09/22/2014 13:45:57 10/09/2014 16:20:03 [id number] Rohan Robert , [facility], OFFICE [address] [place] [address] [place] [id number] 1 06/16/2015 10:15:14 06/17/2015 11:26:38 [id number] Eden Furcolo D.O. [address] [place] [address] 1 06/24/2016 13:45:51 06/27/2016 09:56:23 [id number] Eden Furcolo D.O. [address] [place] [id number] 1 09/30/2016 10:41:57 09/30/2016 11:49:43 [id number] Miguel Angel Jim MD [address] [place] [address] 1 04/21/2017 16:26:41 04/24/2017 12:38:25 [id number] Eden Furcolo D.O. [address] [place] [address] 1 10/24/2017 08:44:30 10/24/2017 09:30:25 [id number] Douglas Willis PA-C [address] [place] [id number] 1 10/26/2017 13:39:56 10/26/2017 14:41:19 [id number] Eden Furcolo D.O. [address] [place] [id number] 1 04/23/2018 14:36:20 04/23/2018 16:11:35 [id number] MARISSA Ortiz [address] [place] [id number] 1 08/14/2018 09:28:25 08/14/2018 11:12:59 [id number] Eden Furcolo D.O. [address] [place] [id number] 1 10/25/2018 08:47:16 10/25/2018 09:22:10 [id number] Eden Furcolo D.O. [address] [place] [address] 1 04/25/2019 09:47:24 04/25/2019 10:25:45 [id number] Eden Furcolo D.O. [address] [place] [address] 1 10/29/2019 08:12:09 10/29/2019 09:15:59 [id number] Gertrudis Roche RN , [facility], OFFICE [address] [place] [address] 1 03/20/2020 07:34:17 03/26/2020 16:52:10 [id number] STEVAN PEREZ MD , [facility], OFFICE [address] [place] [address] 1 11/06/2020 08:44:51 11/06/2020 10:09:53 [id number] Mason Multani DPM Podiatry, [address] [place] [address] 1 01/22/2021 09:01:08 01/22/2021 15:38:52 [id number] Eden Washington D.O. , [facility], OFFICE [address] [place] [address] 1 01/26/2021 08:57:23 01/26/2021 09:35:25 [id number] Matilde Rubio MD , [facility], OFFICE [address] [place] [address] 1 10/08/2021 12:02:47 10/08/2021 12:27:01 [id number] Alphonse Martinez DPT Physical Therapy, [address] [place] [address] 1 10/13/2021 13:52:59 10/14/2021 13:07:36 [id number] Alphonse Martinez DPT Physical Therapy, [address] [place] [address] 1 10/18/2021 13:10:11 10/18/2021 14:16:22 [id number] Alphonse Martinez DPT Physical Therapy, [address] [place] [address] 1 10/20/2021 10:32:00 10/20/2021 14:08:36 [id number] Alphonse Martinez DPT Physical Therapy, [address] [place] [address] 1 10/25/2021 11:26:03 10/25/2021 15:32:52 [id number] Alphonse Martinez DPT Physical Therapy, [address] [place] [address] 1 10/27/2021 14:28:08 10/27/2021 15:25:05 [id number] Zheng Figueroa MD Sports Medicine, [facility] [address] [place] [address] 11/03/2021 13:32:18 11/03/2021 14:02:41 [id number] AMINATA ResendezT Physical Therapy, [address] [address] 1 11/03/2021 14:36:56 11/04/2021 10:24:32 [id number] AMINATA ResendezT Physical Therapy, [address] [address] 1 11/09/2021 13:06:11 11/09/2021 13:59:30 [id number] Alphonse Martinez DPT Physical Therapy, [address] [address] 1 11/18/2021 15:34:59 11/18/2021 16:09:31 [id number] Alphonse Martinez DPT Physical Therapy, [address] [address] 1 11/23/2021 15:00:55 11/23/2021 15:37:44 [id number] Zheng Figueroa MD Sports Medicine, [address] [address] 1 12/13/2021 13:28:52 12/13/2021 14:00:37 [id number] Eden Washington D.O. , [facility], OFFICE [address] [place] [address] 1 01/28/2022 08:18:22 01/28/2022 13:39:11 [id number] MARISSA Sal , [facility], OFFICE [address] [place] [address], [place] [address] 6 04/14/2022 11:51:53 04/19/2022 14:24:28 [id number] Eden Washington D.O. , [facility], OFFICE [address] [place] [address] 1 05/02/2022 10:10:17 05/03/2022 10:34:49 [id number] Zheng Figueroa MD Sports Medicine, [facility] [address] [place] [address] 05/03/2022 11:04:00 05/03/2022 11:21:52 [id number] Mason Dickey i, PT Physical Therapy, [address] [place] [address] 1 05/31/2022 14:26:57 05/31/2022 15:55:33 [id number] Mason Dickey i, PT Physical Therapy, [address] [place] [address] 1 06/06/2022 14:58:22 06/07/2022 13:01:15 [id number] VICKI ADRIAN, [facility], OFFICE [address] [place] [address] 1 11/10/2022 14:53:30 11/10/2022 15:34:06 [id number] MARCE VICKI HUERTA, [facility], OFFICE [address] [place] [address] 1 11/17/2022 13:28:47 11/17/2022 15:00:11 [id number] Florina Quevedo RN Endoscopy , [address] [place] [address] 1 12/02/2022 11:53:27 12/02/2022 14:02:53 [id number] MARCE VICKI HUERTA, [facility], OFFICE [address] [place] [address] 1 12/19/2022 09:19:08 12/19/2022 10:08:32 [id number] Tricia Maxwell RDN, [place], [facility] Nutrition -[address] [place] [address] 4 01/17/2023 09:54:56 01/18/2023 15:46:39 [id number] MARCE VICKI HUERTA, [facility], OFFICE [address] [place] [address] 1 02/15/2023 10:27:27 02/15/2023 15:31:28 [id number] Tricia Maxwell RDN, [place] Nutrition -[address] [place] [address] 4 02/21/2023 08:59:17 03/03/2023 16:13:21 [id number] AUGUST AKHIL SOSA DNP FP, [facility], OFFICE [address] [place] [address] [place] [address] 1 03/01/2023 10:54:57 03/01/2023 12:54:52 [id number] Berkley marx, EVALUATION ANALYST , [facility], OFFICE [address] [place] [address] [place] [address] 1 04/14/2023 13:20:01 04/18/2023 09:08:55 [id number] Amaya Bear NP , [facility], OFFICE [address] [place] [address] [place] [address] 1 06/12/2023 10:47:08 06/12/2023 17:30:56 [id number] Amaya Bear NP , [facility], OFFICE [address] [place] [address] [place] [address] 1 08/23/2023 14:53:22 08/23/2023 16:05:30 [id number] MD CAMRYN LEACH, [facility], OFFICE [address] [place] [address] [place] [address] 1 01/31/2024 10:13:15 01/31/2024 12:19:05 [id number] AMBER LAROSE MD , [facility] OFFICE [address] [place] [address] [place] [address] 1 04/08/2024 10:16:44 04/08/2024 11:44:27 [id number] MD CAMRYN LEACH, [facility] OFFICE [address] [place] [address] [place] [address] 1 05/01/2024 14:03:34 05/01/2024 14:57:36 [id number] MD CAMRYN LEACH, [facility], OFFICE [address] [place] [address] [place] [address] 1 06/10/2024 16:10:34 06/11/2024 10:47:39 Health Concerns Section Related Observation LastModified by Organization Detai ls LastModified Time None Recorded Concern Status LastModified by Organization Details LastModified Time None Recorded Advance Directives Directive N: Payers Encounter Date Sequence Insurance Name Policy Number Policy Zapata Covered Member ID Zapata Member ID Guarantor Name 08/23/2023 1 [facility] ON OR AFTER 08/13/2022 - [employer] (MEDICAID REPLACEMENT - HMO) Fernanda Patry [id number] Fernanda Patry 01/31/2024 1 [employer] - DOS ON OR AFTER 2022 - [employer] (MEDICAID REPLACEMENT - HMO) Fernanda Patry [id number] Fernanda Patry 04/08/2024 1 [employer] - DOS ON OR AFTER 2022 - [employer] (MEDICAID REPLACEMENT - HMO) Fernanda Patry [id number] Fernadna Patry 05/01/2024 1 [employer] - DOS ON OR AFTER 2022 - [employer] (MEDICAID REPLACEMENT - HMO) Fernanda Patry [id number] Fernanda Patry 06/10/2024 1 [employer] - DOS ON OR AFTER 2022 - [employer] (MEDICAID REPLACEMENT - HMO) Fernanda Patry [id number] Fernanda Patry OBGyn Episode No OBEpisode recorded.
--- OUTSIDE RECORDS SUMMARY | 2024-08-13 09:20 | XMS_ITS | Data Portability ---
Author Organization [facility], [facility] Address [address] [place] [address] Care Team Providers Care Capacitor Pack Press Operator Name Role Phone JERAMY ERWIN OTHER ALBERTA HOUSER Orthopedic Surgeon [phone] GAMA MEDEIROS Special Machine Stitcher ALEX MAXWELL Rolloff Driver CECI VAZQUEZ Hematology/Oncology [facility] Library Services Assistant AMAYA BEAR Primary Care Provider [phone] Assessment Encounter Date Assessment Date Assessment LastModified [...] lobin total, QN, blood 2024 025 [email or web address] [facility], [address] [place], [address], 5 10:02:28 HbA1c (hemoglob in A1c), blood 2023 024 KAYE [facility], [address] [place], [address], 4 11:47:49 Referral orthopedi c surgeon referral 2023 024 [email or web address] [facility], [address] [facility] , [place], [address], 4 11:11:[address] referral 2023 024 KAYE Lloyd MD, [address] [place], [address], 4 03:18:27 physical medicine and rehabilit ation referral 2023 024 [email or web address] Melvin Wallace MD, [address] [place] [address], [place], [address], 4 13:11:26 Procedures None recorded. Surgeries None recorded. Imaging XR, hip + pelvis, unilatera l, 2 or 3 view 2023 [email or web address] [facility]), [address] , [place], [address], 4 12:19:05 Medication Orders Zepbound 5 mg/0.5 mL subcutane ous pen injector 2024 025 [facility][id number], [address] [place], [address], 5 16:41:49 Zepbound 2.5 mg/0.5 mL subcutane ous pen injector 2023 024 [facility] #[id number], [address] [place], [address], 4 14:32:14 ondansetr on 4 mg disintegr ating tablet 2023 024 [facility][id number], [address] [place], [address], 4 14:32:14 Patient TargetsNo targets recorded. Patient Instructions Encounter Date Encounter Id Patient Instructions Last Modified By Organization Details Last Modified Time 05/01/2024 [id number] You have been prescribed a new medication [...] for Hea dache Referring Physician: Amber Larose [facility], Encounter Date: 01/31/2024 Orthopedic Surgeon Referral for Pain of right elbow joint Referring Physician: Amber Larose [facility], Encounter Date: 04/08/2024 Results Created Date Observation Date Name Description Value Unit Range Abnormal Flag Note LastModifiedBy Organization Detail LastModifiedTime 08/16/19 24 08/16/2023 MICRO ALBUM IN/CR EATIN INE RATIO PANEL , URINE microalbumin 16.9 mg/L 1.3-20 .0 Not Available [address], [address], 08/16/2023 16:46:53 08/16/19 24 08/16/2023 MICRO ALBUM IN/CR EATIN INE RATIO PANEL , URINE creatinine urine 104.9 mg/dL 30.0-1 25.0 Not Available [address], [address], 08/16/2023 16:46:53 08/16/19 24 08/16/2023 MICRO ALBUM IN/CR EATIN INE RATIO PANEL , URINE microalb/cre at ratio 16.1 mg/g_ creat 0.0-29 .0 Not Available [address], [address], 08/16/2023 16:46:53 08/16/19 24 08/17/2023 HGB A1C [...] er confi rmati on Not Available [address], [address], 08/17/2023 10:15:54 08/16/19 24 08/17/2023 HGB A1C estimated average glucose 134.1 mg/dL Not Available [address], [address], 08/17/2023 10:15:54 08/16/19 24 08/17/2023 COMP. METAB OLIC PANEL glucose 121 mg/dL 70-100 high Not Available [address], [address], 08/17/2023 12:22:55 08/16/19 24 08/17/2023 COMP. METAB OLIC PANEL BUN 15 mg/dL 7-18 Not Available [address], [address], 08/17/2023 12:22:55 08/16/19 24 08/17/2023 COMP. METAB OLIC PANEL creatinine 0.7 mg/dL 0.8-1. 3 low Not Available [address], [address], 08/17/2023 12:22:55 08/16/19 24 08/17/2023 COMP. METAB OLIC PANEL B/C 21.4 ratio Not Available [address], [address], 08/17/2023 12:22:55 08/16/19 24 08/17/2023 COMP. METAB [...] used in pregn lanie. Not Available [address], [address], 08/17/2023 12:22:55 08/16/19 24 08/17/2023 COMP. METAB OLIC PANEL sodium 140 mmol/ L 136-14 5 Not Available [address], [address], 08/17/2023 12:22:55 08/16/19 24 08/17/2023 COMP. METAB OLIC PANEL potassium 4.1 mmol/ L 3.5-5. 1 Not Available [address], [address], 08/17/2023 12:22:55 08/16/19 24 08/17/2023 COMP. METAB OLIC PANEL chloride 102 mmol/ L 96-107 Not Available [address], [address], 08/17/2023 12:22:55 08/16/19 24 08/17/2023 COMP. METAB OLIC PANEL anion gap 12.4 5.0-15 .0 Not Available [address], [address], 08/17/2023 12:22:55 08/16/19 24 08/17/2023 COMP. METAB OLIC PANEL CO2 26 mmol/ L 21-32 Not Available [address], [address], 08/17/2023 12:22:55 08/16/19 24 08/17/2023 COMP. METAB OLIC PANEL calcium 9.5 mg/dL 8.5-10 .3 Not Available [address], [address], 08/17/2023 12:22:55 08/16/19 24 08/17/2023 COMP. METAB OLIC PANEL total protein 7.2 g/dL 6.4-8. 2 Not Available [address], [address], 08/17/2023 12:22:55 08/16/19 24 08/17/2023 COMP. METAB OLIC PANEL albumin 3.7 g/dL 3.4-5. 0 Not Available [address], [address], 08/17/2023 12:22:55 08/16/19 24 08/17/2023 COMP. METAB OLIC PANEL globulin 3.5 g/dL Not Available [address], [address], 08/17/2023 12:22:55 08/16/19 24 08/17/2023 COMP. METAB OLIC PANEL A/G 1.1 ratio 0.8-2. 0 Not Available [address], [address], 08/17/2023 12:22:55 08/16/19 24 08/17/2023 COMP. METAB OLIC PANEL total bilirubin 0.40 mg/dL 0.00-1 .00 Not Available [address], [address], 08/17/2023 12:22:55 08/16/19 24 08/17/2023 COMP. METAB OLIC PANEL AST 28 U/L 0-37 Not Available [address], [address], 08/17/2023 12:22:55 08/16/19 24 08/17/2023 COMP. METAB OLIC PANEL ALT 56 U/L 6-63 Not Available [address], [address], 08/17/2023 12:22:55 08/16/19 24 08/17/2023 COMP. METAB OLIC PANEL alk. phos. 135 U/L 50-136 Not Available [address], [address], 08/17/2023 12:22:55 08/16/19 24 08/17/2023 LIPID PANEL cholesterol 189 mg/dL <200 mg/dl Allen able 200-2 39 mg/dl Borde rline High >240 mg/dl High Not Available [address], [address], 08/17/2023 12:22:56 08/16/19 24 08/17/2023 LIPID PANEL triglyceride s 174 mg/dL <150 mg/dL Jerica l 150-1 99 mg/dL Borde rline High 200-4 99 mg/dL High >500 mg/dL Very High Not Available [address], [address], 08/17/2023 12:22:56 08/16/19 24 08/17/2023 LIPID PANEL direct HDL 48 mg/dL <40 mg/dl - Major Risk for CHD >60 mg/dl - Negat diomedes Risk for CHD Not Available [address], [address], 08/17/2023 12:22:56 08/16/19 24 08/17/2023 LDL - [...] is not neces gina. Not Available [address], [address], 08/17/2023 12:22:58 10/06/19 24 10/10/2023 ANATO RAKEL PATHO LOGY path report [facility] [address] [place] [address] Lab Direc tor: Anahi davila MD Surgi [...] HISTO RY Follo w-up of dmitriy guzman yovanya se SPECI MENS SUBMI TTED: A: DUODE [...] tyler MD, POST- BA, BA Not Available [facility] (Out[facility]) [address] [place], [address], 10/10/2023 17:20:06 04/06/20 24 04/08/2024 HGB A1C [...] er confi rmati on Not Available [address], [address], 04/08/2024 11:47:49 04/06/2004/08/2024 HGB A1C estimated average glucose 162.8 mg/dL Not Available [address], [address], 04/08/2024 11:47:49 04/06/2004/09/2024 BASIC METAB OLIC PANEL glucose 179 mg/dL 70-100 high Not Available [address], [address], 04/09/2024 16:36:15 04/06/2004/09/2024 BASIC METAB OLIC PANEL BUN 14 mg/dL 7-18 Not Available [address], [address], 04/09/2024 16:36:15 04/06/2004/09/2024 BASIC METAB OLIC PANEL creatinine 0.9 mg/dL 0.8-1. 3 Not Available [address], [address], 04/09/2024 16:36:15 04/06/2004/09/2024 BASIC METAB OLIC PANEL B/C 15.6 ratio Not Available [address], [address], 04/09/2024 16:36:15 04/06/2004/09/2024 BASIC METAB OLIC PANEL [...] as recom lynn d by the [place] [facility] . eGFR is based on age, serum creat inine , and sex. CKD-E PI does not calcu late eGFR by race, does not apply to child amaury (age <18 years ), and shoul d not be used in pregn lanie. Not Available [address], [address], 04/09/2024 16:36:15 04/06/20 24 04/09/2024 BASIC METAB OLIC PANEL sodium 143 mmol/ L 136-14 5 Not Available [address], [address], 04/09/2024 16:36:15 04/06/2004/09/2024 BASIC METAB OLIC PANEL potassium 4.1 mmol/ L 3.5-5. 1 Not Available [address], [address], 04/09/2024 16:36:15 04/06/20 24 04/09/2024 BASIC METAB OLIC PANEL chloride 105 mmol/ L 96-107 Not Available [address], [address], 04/09/2024 16:36:15 04/06/20 24 04/09/2024 BASIC METAB OLIC PANEL anion gap 9.7 5.0-15 .0 Not Available [address], [address], 04/09/2024 16:36:15 04/06/20 24 04/09/2024 BASIC METAB OLIC PANEL CO2 28 mmol/ L 21-32 Not Available [address], [address], 04/09/2024 16:36:15 04/06/20 24 04/09/2024 BASIC METAB OLIC PANEL calcium 9.3 mg/dL 8.5-10 .3 Not Available [address], [address], 04/09/2024 16:36:15 06/22/19 25 06/23/2024 CBC (INCL UDES DIFF/ PLT) white blood cell count 5.7 thous and/u L 3.8-10 .8 normal Not Available [facility] [place] [facility] [address], [place], [address], 06/23/2024 08:43:39 06/22/19 25 06/23/2024 CBC (INCL UDES DIFF/ PLT) red blood cell count 4.94 priscilla on/uL 3.80-5 .10 normal Not Available [facility] [place] [facility] [address], [place], [address], 06/23/2024 08:43:39 06/22/19 25 06/23/2024 CBC (INCL UDES DIFF/ PLT) hemoglobin 14.4 g/dL 11.7-1 5.5 normal Not Available [facility] [place] [facility] [address], [place], [address], 06/23/2024 08:43:39 06/22/19 25 06/23/2024 CBC (INCL UDES DIFF/ PLT) hematocrit 43.7 % 35.0-4 5.0 normal Not Available [facility] [place] [facility] [address], [place], [address], 06/23/2024 08:43:39 06/22/1906/23/2024 CBC (INCL UDES DIFF/ PLT) MCV 88.5 fL 80.0-1 00.0 normal Not Available [facility] [place] [facility] [address], [place], [address], 06/23/2024 08:43:39 06/22/19 25 06/23/2024 CBC (INCL UDES DIFF/ PLT) MCH 29.1 pg 27.0-3 3.0 normal Not Available [facility] [place] [facility] [address], [place], [address], 06/23/2024 08:43:39 06/22/19 25 06/23/2024 CBC (INCL UDES DIFF/ PLT) MCHC 33.0 g/dL 32.0-3 6.0 normal For adult s, a sligh t decre ase in the calcu lated MCHC value (in the range of 30 to 32 g/dL) is most likel y not clini arianna signi fican t; jeanine er, it shoul d be inter prete d with cauti on in corre latio n with other red cell jaspreet eters and the patie nt's clini mini condi tion. Not Available [facility] [place] [facility] [address], [address], 06/23/2024 08:43:39 06/22/19 25 06/23/2024 CBC (INCL UDES DIFF/ PLT) RDW 12.8 % 11.0-1 5.0 normal Not Available [facility] [place] [facility] [address], [place], [address], 06/23/2024 08:43:39 06/22/19 25 06/23/2024 CBC (INCL UDES DIFF/ PLT) platelet count 251 thous and/u L 140-40 0 normal Not Available [facility] [place] [facility] [address], [address], 06/23/2024 08:43:39 06/22/19 25 06/23/2024 CBC (INCL UDES DIFF/ PLT) MPV 11.8 fL 7.5-12 .5 normal Not Available [facility] [place] [facility] [address], [address], 06/23/2024 08:43:39 06/22/19 25 06/23/2024 CBC (INCL UDES DIFF/ PLT) absolute neutrophils 3329 cells /uL 1500-7 800 normal Not Available [facility] [place] [facility] [address], [address], 06/23/2024 08:43:39 06/22/19 25 06/23/2024 CBC (INCL UDES DIFF/ PLT) absolute lymphocytes 1693 cells /uL 850-39 00 normal Not Available [facility] [place] [facility] [address], [place], [address], 06/23/2024 08:43:39 06/22/19 25 06/23/2024 CBC (INCL UDES DIFF/ PLT) absolute monocytes 502 cells /uL 200-95 0 normal Not Available [facility] [place] [facility] [address], [place], [address], 06/23/2024 08:43:39 06/22/19 25 06/23/2024 CBC (INCL UDES DIFF/ PLT) absolute eosinophils 154 cells /uL 15-500 normal Not Available [facility] [place] [facility] [address], [place], [address], 06/23/2024 08:43:39 06/22/19 25 06/23/2024 CBC (INCL UDES DIFF/ PLT) absolute basophils 23 cells /uL 0-200 normal Not Available [facility] [place] [facility] [address], [place], [address], 06/23/2024 08:43:39 06/22/19 25 06/23/2024 CBC (INCL UDES DIFF/ PLT) neutrophils 58.4 % normal Not Available [facility] [place] [facility] [address], [place], [address], 06/23/2024 08:43:39 06/22/19 25 06/23/2024 CBC (INCL UDES DIFF/ PLT) lymphocytes 29.7 % normal Not Available [facility] [place] [facility] [address], [place], [address], 06/23/2024 08:43:39 06/22/19 25 06/23/2024 CBC (INCL UDES DIFF/ PLT) monocytes 8.8 % normal Not Available [facility] [address], [place], [address], 06/23/2024 08:43:39 06/22/19 25 06/23/2024 CBC (INCL UDES DIFF/ PLT) eosinophils 2.7 % normal Not Available [facility] [address], [place], [address], 06/23/2024 08:43:39 06/22/19 25 06/23/2024 CBC (INCL UDES DIFF/ PLT) basophils 0.4 % normal Not Available [facility] [address], [place], [address], 06/23/2024 08:43:39 06/22/19 25 06/24/2024 MICRO ALBUM IN/CR EATIN INE RATIO PANEL , URINE microalbumin 5.9 mg/L 1.3-20 .0 Not Available [address], [address], 06/24/2024 10:52:46 06/22/19 25 06/24/2024 MICRO ALBUM IN/CR EATIN INE RATIO PANEL , URINE creatinine urine 133.5 mg/dL 30.0-1 25.0 high Not Available [address], [address], 06/24/2024 10:52:46 06/22/19 25 06/24/2024 MICRO ALBUM IN/CR EATIN INE RATIO PANEL , URINE microalb/cre at ratio 4.4 mg/g_ creat 0.0-29 .0 Not Available [address], [address], 06/24/2024 10:52:46 06/22/19 25 06/24/2024 HGB A1C [...] er confi rmati on Not Available [address], [address], 06/24/2024 12:23:17 06/22/19 25 06/24/2024 HGB A1C estimated average glucose 148.5 mg/dL Not Available [address], [address], 06/24/2024 12:23:17 06/22/19 25 06/24/2024 BASIC METAB OLIC PANEL glucose 150 mg/dL 70-100 high Not Available [address], [address], 06/24/2024 15:23:10 06/22/19 25 06/24/2024 BASIC METAB OLIC PANEL BUN 15 mg/dL 7-18 Not Available [address], [address], 06/24/2024 15:23:10 06/22/19 25 06/24/2024 BASIC METAB OLIC PANEL creatinine 0.9 mg/dL 0.8-1. 3 Not Available [address], [address], 06/24/2024 15:23:10 06/22/19 25 06/24/2024 BASIC METAB OLIC PANEL B/C 16.7 ratio Not Available [address], [address], 06/24/2024 15:23:10 06/22/19 25 06/24/2024 BASIC METAB [...] used in pregn lanie. Not Available [address], [address], 06/24/2024 15:23:10 06/22/19 25 06/24/2024 BASIC METAB OLIC PANEL sodium 143 mmol/ L 136-14 5 Not Available [address], [address], 06/24/2024 15:23:10 06/22/19 25 06/24/2024 BASIC METAB OLIC PANEL potassium 4.1 mmol/ L 3.5-5. 1 Not Available [address], [address], 06/24/2024 15:23:10 06/22/19 25 06/24/2024 BASIC METAB OLIC PANEL chloride 104 mmol/ L 96-107 Not Available [address], [address], 06/24/2024 15:23:10 06/22/19 25 06/24/2024 BASIC METAB OLIC PANEL anion gap 11.4 5.0-15 .0 Not Available [address], [address], 06/24/2024 15:23:10 06/22/19 25 06/24/2024 BASIC METAB OLIC PANEL CO2 28 mmol/ L 21-32 Not Available [address], [address], 06/24/2024 15:23:10 06/22/19 25 06/24/2024 BASIC METAB OLIC PANEL calcium 9.4 mg/dL 8.5-10 .3 Not Available [address], [address], 06/24/2024 15:23:10 06/22/19 25 06/24/2024 LIPID PANEL cholesterol 191 mg/dL <200 mg/dl Allen able 200-2 39 mg/dl Borde rline High >240 mg/dl High Not Available [address], [address], 06/24/2024 15:23:11 06/22/19 25 06/24/2024 LIPID PANEL triglyceride s 125 mg/dL <150 mg/dL Jerica l 150-1 99 mg/dL Borde rline High 200-4 99 mg/dL High >500 mg/dL Very High Not Available [address], [address], 06/24/2024 15:23:11 06/22/19 25 06/24/2024 LIPID PANEL direct HDL 48 mg/dL <40 mg/dl - Major Risk for CHD >60 mg/dl - Negat diomedes Risk for CHD Not Available [address], [address], 06/24/2024 15:23:11 06/22/19 25 06/24/2024 LDL - [...] 0-1 risk facto r is not lee fuentes. Not Available [address], [address], 06/24/2024 15:23:12 01/31/20 24 01/31/2024 XR, hip [...] ality. Readanila payne Physic belkis: Tom Montez [facility] ([facility]) [address], [place], [address], 01/31/2024 17:22:29 Result Notes None recorded. Problems Name Problem SNOMED Code Status Onset Date Resolution Date Notes Provider Name and Address Organization Details Recorded Time Obesity 674091582 Active Not Available [facility] 1 10:25:21 Essentia l hyperten yohannes 63030450 Active Amaya Bear, LUCA [address] [place] [address], [address] , [facility] 4 13:24:50 Iron deficien cy anemia 13111942 Active 2022 AKHIL SOSA DNP [address] [place] [address], [address] , [facility] 3 09:04:25 Celiac disease 197124924 Active 2022 DOC-Glo SOSA DNP [address] [place] [address], [address] , [facility] 3 09:04:30 Osteopen ia 262160160 Active 2022 Sara marx, LIBRARY ASSOCIATE [address] [place] [address], [address] , [facility] 3 20:29:41 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 936192502 Completed 202206/12/2023 Neg for autoimmu ne hep - GI workup normal Amaya Bear NP [address] [place] [address], [address] , [facility] 4 13:25:06 Steatosi s of liver 254247846 Active 2022 Amaya Bear NP [address] [place] [address], [address] , [facility] 4 13:24:59 Type 2 diabetes mellitus without complica tion 613336777 Active 2023 Amaya Bear NP [address] [place] [address], [address] , [facility] 4 11:37:25 Headache 11954430 Completed 11/09/2011 Not Available [facility] 3 03:09:36 Headache 68793505 Completed 200603/16/2010 Not Available [facility] 3 03:09:36 Precordi al pain 82352808 Completed 200603/17/2010 Not Available [facility] 3 03:09:36 Essentia l hyperten yohannes 68268666 Completed 06/02/2014 Amaya Bear NP [address] [place] [address], [address] , [facility] 4 13:24:50 Essentia l hyperten yohannes 83297355 Completed 11/21/2011 Amaya Bear NP [address] [place] [address], [address] , [facility] 4 13:24:50 Essentia l hyperten yohannes 66032451 Completed 200503/17/2010 Amaya Bear NP [address] [place] [address], [address] , [facility] 4 13:24:50 Symptom of head and neck region 304053759 Completed 03/16/2010 Not Available [facility] 3 03:09:36 Benign essentia l hyperten yohannes 7031070 Completed 200508/21/2014 Eden Washington D.O. [address] [place], [address] , [facility] 5 09:43:29 Anxiety state 048487336 Completed 08/21/2014 Eden Washington D.O. [address] [place], [address] , [facility] 5 09:43:29 Anxiety state 123748190 Completed 200703/17/2010 Not Available [facility] 3 03:09:36 Dizzines s 623248206 Completed 200503/16/2010 Not Available [facility] 3 03:09:36 Vitamin D deficien cy 77500000 Completed 200803/17/2010 Not Available [facility] 3 03:09:36 Coarctat ion of aorta 2498983 Active see [facility] cards Not Available [facility] 1 10:25:21 Coarctat ion of aorta 5495306 Completed 200603/17/2010 Eden Washington D[address]O. [address] [place], [address] , [facility] 7 11:30:55 Acute stress disorder 08542989 Completed 200603/16/2010 Not Available [facility] 3 03:09:36 Panic disorder without agorapho cathy 36920566 Completed 200308/21/2014 Eden Washington D.O. [address] [place], [address] , [facility] 5 09:43:29 Chest pain 96355613 Completed 03/17/2010 Not Available [facility] 3 03:09:36 Abnormal cervical Papanico laou smear with human papillom avirus deoxyrib onucleic acid detected 951694255 Completed 08/21/2014 Eden Washington D[address] [place], [address] , [facility] 5 09:43:29 Abnormal cervical Papanico laou smear with human papillom avirus deoxyrib onucleic acid detected 483968278 Completed 03/17/2010 Not Available [facility] 3 03:09:36 Impaired fasting glycemia 002494786 Completed 06/12/2023 Amaya Bear NP [address] [place], [address] , [facility] 4 13:24:44 Low back pain 461753511 Completed 200606/02/2014 Eden Washington D.O[address] [place], [address] , [facility] 5 19:54:32 Migraine 43318377 Active Not Available [facility] 1 10:25:21 Acute bronchit is 97515714 Completed 200503/16/2010 Not Available [facility] 3 03:09:36 Malaise and fatigue 172852330 Completed 200603/16/2010 Not Available [facility] 3 03:09:36 Notes:Some problems listed i n Document: #[id number] could not be added to this patient's chart. Please review this document and add these problems to the patient's chart manually as needed. Problem Notes None recorded. Procedures Surgical History Date Name Laterality Status Provider Name and Address Organization Details Recorded Time 11/24/19 22 04840: Therapeutic Exercise completed Alphonse Martinez DPT [address] [place] [address], [address], [facility] 11/23/2021 15:08:02 11/24/19 22 79136: Manual Therapy completed Alphonse Martinez DPT [address] [place] [address], [address], [facility] 11/23/2021 15:08:03 11/24/19 22 Neuromuscular re-education completed Alphonse Martinez DPT [address] [place] [address], [address], [facility] 11/23/2021 15:08:03 11/19/19 22 07677: Therapeutic Exercise completed Alphonse Martinez, AMINATAT [address] [place], [address], [facility] 11/18/2021 15:45:36 11/19/19 22 00260: Manual Therapy completed Alphonse Martinez, AMINATAT [address] [place], [address], [facility] 11/18/2021 15:45:36 11/19/19 22 Neuromuscular re-education completed Alphonse Martinez DPT [address] [place], [address], [facility] 11/18/2021 15:45:36 11/19/19 Treatment and Advice completed Alphonse Martinez DPT [address] [place], [address], [facility] 11/18/2021 16:04:43 11/10/19 22 51731: Therapeutic Exercise completed Alphonse Martinez DPT [address] [place], [address], [facility] 11/09/2021 12:51:26 11/10/19 22 78529: Manual Therapy completed Alphonse Martinez DPT [address] [place], [address], [facility] 11/09/2021 12:52:07 11/10/19 Neuromuscular re-education completed Alphonse Martinez DPT [address] [place], [address], [facility] 11/09/2021 13:45:24 11/10/19 Treatment and Advice completed Alphonse Martinez DPT [address] [place], [address], [facility] 11/09/2021 12:49:44 11/04/19 22 33276: Therapeutic Exercise completed Alphonse Martinez DPT [address] [place], [address], [facility] 11/03/2021 15:02:00 11/04/19 Neuromuscular re-education completed Alphonse Martinez DPT [address] [place], [address], [facility] 11/03/2021 23:25:50 11/04/19 22 Treatment and Advice completed Alphonse Martinez DPT [address] [place], [address], [facility] 11/03/2021 23:22:49 10/28/19 22 56068: Therapeutic Exercise completed Alphonse Martinez DPT [address] [place], [address], [facility] 10/27/2021 15:01:27 10/28/19 22 Neuromuscular re-education completed Alphonse Martinez DPT [address] [place], [address], [facility] 10/27/2021 15:01:40 10/28/19 22 Smoking Cessation Counselling completed Alphonse Martinez DPT [address] [place], [address], [facility] 10/27/2021 14:33:50 10/28/19 22 Physical Activity Counselling completed Alphonse Martinez DPT [address] [place], [address], [facility] 10/27/2021 14:33:50 10/28/19 22 Treatment and Advice completed Alphonse Martinez DPT [address] [place], [address], [facility] 10/27/2021 15:01:18 10/26/19 22 59720: Therapeutic Exercise completed Alphonse Martinez DPT [address] [place], [address], [facility] 10/25/2021 11:39:14 10/26/19 22 Smoking Cessation Counselling completed Alphonse Martinez DPT [address] [place], [address], [facility] 10/25/2021 11:39:14 10/26/19 22 Physical Activity Counselling completed Alphonse Martinez DPT [address] [place], [address], [facility] 10/25/2021 11:39:14 10/26/19 22 Treatment and Advice completed Alpohnse Martinez DPT [address] [place], [address], [facility] 10/25/2021 11:39:14 10/21/19 22 75114: Therapeutic Exercise completed Alphonse Martinez DPT [address] [place], [address], [facility] 10/20/2021 12:53:24 10/21/19 22 Smoking Cessation Counselling completed Alphonse Martinez DPT [address] [place], [address], [facility] 10/20/2021 12:46:29 10/21/19 22 Physical Activity Counselling completed Alphonse Martinez DPT [address] [place], [address], [facility] 10/20/2021 12:46:29 10/21/19 22 Treatment and Advice completed Alphonse Martinez DPT [address] [place], [address], [facility] 10/20/2021 12:51:57 10/19/19 22 34855: Therapeutic Exercise completed Alphonse Martinez DPT [address] [place], [address], [facility] 10/18/2021 13:58:42 10/19/19 22 Smoking Cessation Counselling completed Alphonse Martinez DPT [address] [place], [address], [facility] 10/18/2021 12:41:42 10/19/19 22 Physical Activity Counselling completed Alphonse Martinez DPT [address] [place], [address], [facility] 10/18/2021 12:41:42 10/19/19 22 Treatment and Advice completed Alphonse Martinez DPT [address] [place], [address], [facility] 10/18/2021 13:55:32 10/14/19 22 Smoking Cessation Counselling completed Alphonse Martinez DPT [address] [place], [address], [facility] 10/13/2021 20:25:31 10/14/19 22 Physical Activity Counselling completed Alphonse Martinez DPT [address] [place], [address], [facility] 10/13/2021 20:25:31 10/14/19 22 53741: PT Eval Low Complexity completed Alphonse Martinez DPT [address] [place], [address], [facility] 10/13/2021 20:25:31 10/14/19 22 Treatment and Advice completed Alphonse Martinez DPT [address] [place] [address], [address], [facility] 10/13/2021 15:02:39 10/29/19 20 prevention-cardiov ascular risk reduction counseling completed Aspen Parra [facility] 10/29/2019 08:14:35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 15:34:06 Cramp in lower limb 815704690 R25.2 cramping b/l lower extremitie s increasing in frequency, noted more with sitting, driving, sleepingwa lking improves pain--no calf pain, erythema or warmth with comparison , pulses intact, +CMS--no varicosis- -will check labs r/o vitamin deficienci es, iron deficiency anemia and electrolyt e abnormalit ies--f/u 1 week to review Pain in left foot 020054 3696 22373 M79.672 pain to palpation along arch. +ROM, +CMSsuspec t plantar fasciitis as pain is worse with bearing weight and improves with sitting--h as been wearing more supportive footwear-- given handouts on stretching exercises, icef/u 1 week to reasses [id number] AUGUST VICKI HUERTA, [facility], [place]ICE [address] [place] [address] 11/17/2022 13:28:47 11/17/2022 15:00:11 Iron deficiency 84310140 E61.1 last OV 11/10 presented with leg [...] for RA; refer to rheum if abnormal [id number] Florina Quevedo RN Endoscopy , [facility] [address] [place] [address] 12/02/2022 11:53:27 12/02/2022 14:02:53 [id number] AUGUST AKHIL SOSA DNP FP, [facility], [address] [place] [address] 12/19/2022 09:19:08 12/19/2022 10:08:32 Iron deficiency anemia 47703340 D50.9 endoscopy/ colonoscop y unremarkab le apart from celiac diseaseane danilo improving- -continue taking iron supplement --recheck levels in 1 monthdiscu ssed return precaution s Celiac disease 489945851 K90.0 dx recently on endoscopy/ colonoscop y--trying to incorporat e gluten free foods into her diet--has f/u with nutrition and GI to discuss further Benign ess ential hypertension 1589554 I10 You have chronic hypertensi on that [...] at least 1-2 times each month at our community hospital the same time of day with 10-15 minutes of quiet rest prior to taking blood pressure. Make sure that your feet are flat on the floor and back upright resting on chair. Empty your bladder before taking your blood pressure. Please update us if your home blood pressures are not at goal. Call with any concerns or questions. [id number] Tricia Maxwell, GARETHN, LDN, [facility] Nutrition -[facility] [address] [facility] [place] [address] 01/17/2023 09:54:56 01/18/2023 15:46:39 Celiac disease 637071035 K90.0 [id number] AUGUST AKHIL SOSA DNP , [facility], OFFICE [address] [place] [address] 02/15/2023 10:27:27 02/15/2023 15:31:28 Iron deficiency anemia 53072927 D50.9 endoscopy/ colonoscop y unremarkab le apart [...] 2 weeks Edema of l ower extremity 728440115 R60.0 over the weekend, severe LE edema, unsure of pitting. Resolved, none on exam today. Continues with LE pain and cramping. No symptoms or risk factors concerning for CHF--no calf tenderness , erythema, warmth--ch jim BMP leg edema--OMAYRA r/o claudicati onf/u 2 weeks Fatigue 49646857 R53.83 Unintentio nal weight gain 0602364973 01691 R63.5 9# weight gain from 12/19 despite transition ing to gluten free diet and healthier eating habitsno recent TSH, will check today Screening mammography 24 590660 Z12.31 Multiple joint pain 3567 8005 M25.50 shoulder/h ip/elbow painALK phos elevated, GGT normalauto immune labs unremarkab [facility] reach out to endo to discuss if this is something they work with [id number] Tricia Maxwell, GARETHN, LDN, [facility] Nutrition -[facility] [address] [place] [address] 02/21/2023 08:59:17 03/03/2023 16:13:21 Celiac disease 404605001 K90.0 Iron defic iency anemia 54475136 D50.9 [id number] AUGUST AKHIL SOSA DNP , [facility], OFFICE [address] [place] [address] 03/01/2023 10:54:57 03/01/2023 12:54:52 Iron deficiency 22386954 E61.1 continues with iron deficiency anemiahas been [...] and/or order iron infusion ([facility]) Celiac disease 736477027 K90.0 dx recently with GIworking with nutrition and GI for dietary changessus pect contributi ng to iron def anemiainco rporating iron rich food sources in her diet Cramp in lower limb 4499 90838 R25.2 cramping b/l lower extremitie sstill present but improvingm ay be related to ongoing anemiadid have in conjunctio n with LE edema with normal lung/heart examschedu led for OMAYRA 03/14 Edema of l ower extremity 814688868 R60.0 scheduled for OMAYRA 03/14resol sol Foot pain 56174149 M79.6 73 b/l arch foot painnew sneakers with no improvemen tprolonged standing- on concrete floorsdisc ussed exercises for plantar fasciitis previously consider orthotics [id number] Sara Gooden er, LIBRARY ASSOC[employer] FP, [facility], OFFICE [address] [place], [place] [address] 04/14/2023 13:20:01 04/18/2023 09:08:55 Imaging result abnormal 061969522 R93.[address] scan of abdomen [...] watchers and nume to patient. Celiac disease 692234026 K90.0 Pt has had ongoing abdominal pain and nausea, followed by [facility] for this ongoing issue. Patient has been keeping a food diary, as well as following a gluten free diet, unfortunat cheryl has not found a specific trigger. Pt had CT scan and MRI completed that was negative for acute intrabdomi nal process.-- Continue to follow up with [facility]. Iron defic iency anemia 39821948 D50.9 Pt is followed by hematologi st at [facility] and receives periodic iron infusions, last one completed a few weeks prior. Will be obtaining follow up labs to recheck iron panel after allowing time for the iron infusion to stabilize levels. Pt does have upcoming follow up appointmen t with hematologi st specialist .--Continu e to follow up with [facility] hematology . [id number] Amaya Bear NP , [facility], OFFICE [address] [place] [address] 06/12/2023 10:47:08 06/12/2023 17:30:56 Migraine 66275957 G43.909 stabledoes well with sumatripta n Active or passive immunization 580235316 Z23 Celiac disease 178426243 K90.0 dx 2023doing well with no gluten though does have occasional sxsfollowe d by Marie GIyamilet f/u next month Type 2 heriberto betes mellitus without complication 172621144 E11.9 new dx with fbs 141, 150A1c 6.5strong family hx of DMdiscusse d tx optionswil l work on diet and exerciseno meds nowsent metergoal fbs < 120 and 2 hrs after meals < 140f/u 3 months Steatosis of liver 1007 K76.0 discussed impact of weight- c/t work on diet and exercisedo es no ETOH Essential hypertension 37936981 I10 BP at goalc/w medsc/w low salt diet, regular exercise Iron defic iency anemia 82630144 D50.9 ferritin 151s/p 3 iron transfusio nsfollowed by Hem [id number] Amaya Bear NP , [facility], [address]ICE [address] [place] [address] 08/23/2023 14:53:22 08/23/2023 16:05:30 Type 2 diabetes mellitus without complication 961044275 E11.9 new dx 05/2023fbs 121 down from fbs 141, 150 1A1c 6.3 down from 6.5great job, work!c/t work on diet, exercisego al fbs < 120 and 2 hrs after meals < 140will do labs at 3 monthspha in 6 months with labs Active immunization 3387 9002 Z23 Elevated blood-pressure reading without diagnosis of hypertension 917535382 R03.0 bp not at goaljust elevatedwi ll start checking at homewill send in readings in next few weeks [id number] AMBER LAROSE MD , [facility], [address]ICE [address] [place] [address] 01/31/2024 10:13:15 01/31/2024 12:19:05 Pain of left hip joint 9144245467 36285 M25.552 Will have her see a specialist as she has tried cortisone shots already and has seen rheum. She requested repeat x-ray, will obtain to assess for any new joint space narrowing. Headache 92644679 R51.9 Chronic headaches. Family history of brain aneurysm in father. Uncle also had it. [id number] AMBER LAROSE MD , [facility], [address] [place] [address] 04/08/2024 10:16:44 04/08/2024 11:44:27 Adult health examination 195132665 Z00.00 Doing well. Up to date with screenings . Continue healthy lifestyle measures including a diet rich in fruits and vegetables as well as regular exercise. Depression screening 171 217140 Z13.31 depression screening tool administer ed Screening for alcohol abuse 832264209 Z13.39 Alcohol use screening tool administer ed Type 2 heriberto betes mellitus without complication 182528032 E11.9 At goal A1c < 7. Managing with lifestyle. Recent A1c is pending. Discussed starting a medication to improving her fasting sugars further, she will decide if she wants to follow up. Influenza vaccination declined 519244926 Z28.21 Pain of ri ght elbow joint 7327367593 5544940 M25.521 Would like a second opinion for injury in her R elbow and subsequent neuropathy . Celiac disease 019818247 K90.0 Gluten-carlee e diet. Stable. [id number] AMBER LAROSE MD , [facility], [address] [place] [address] 05/01/2024 14:03:34 05/01/2024 14:57:36 Steatosis of liver 862287509 K76.0 Type 2 heriberto betes mellitus without complication 391898850 E11.9 Not at goal of A1c < 7, last checked was 7.3%. Managing with lifestyle. Obesity 485522854 E66.81 2 Patient is here today for a their first weight management visit.-the y deny any personal or family history of MEN 2 or medullary thyroid cancer-the y deny any personal history of severe gastropare sis or chronic/se amador pancreatit is-they have engaged in lifestyle modificati ons for over 3 months prior to starting their medication (low calorie diet, regular activity)?Patiluis angel nt's medical conditions that require weight loss are the following: DM II, MASH, HTN Starting weight: 227 lbsMedicat ion plan: Start Zepbound Activity plan: continue regular activity with grandkidsN utrition plan: higher protein, veggies, healthy fatsHydrat ion plan: stay hydrated?I am seeing patient regularly to monitor medication and ongoing weight goals.?I, Amber Larose MD, am certified by the [place] [employer] to provide obesity care. Essential hypertension 38348313 I10 At goal <130/80. Will monitor as she loses weight. [id number] AMBER LAROSE MD , [facility], OFFICE [address] [place] [address] 06/10/2024 16:10:34 06/11/2024 10:47:39 Obesity 771443192 E66.9 Tolerating the 2.5 mg dose. Initially had some burping but this resolved after a few days. Decrease in appetite. Weight still the same. Will increase to 5 mg. Continue healthy eating, gym and hydration. ?I am seeing patient regularly to monitor medication and ongoing weight goals.?I, Amber Larose MD, am certified by the [place] [employer] to provide obesity care. Type 2 heriberto betes mellitus without complication 352589453 E11.9 Last A1c in March was 7.3%. Repeat today. Essential hypertension 63290371 I10 At goal <130/80. Will monitor. Health Concerns Section Related Observation LastModified by Organization Detai ls LastModified Time None Recorded Concern Status LastModified by Organization Details LastModified Time None Recorded Advance Directives Directive N: Payers Encounter Date Sequence Insurance Name Policy Number Policy [employer] Covered Member ID Zpaata Member ID Guarantor Name 08/23/2023 1 [employer] - DOS ON OR AFTER 2022 - [employer] (MEDICAID REPLACEMENT - HMO) Fernanda Hui [id number] Fernanda Hui 01/31/2024 1 [employer] - DOS ON OR AFTER 2022 - [employer] (MEDICAID REPLACEMENT - HMO) Fernanda Hui [id number] Fernanda Hui 04/08/2024 1 [employer] - DOS ON OR AFTER 2022 - [employer] (MEDICAID REPLACEMENT - HMO) Fernanda Hui [id number] Fernanda Durhamry 05/01/2024 1 [employer] - DOS ON OR AFTER 2022 - [employer] (MEDICAID REPLACEMENT - HMO) Fernanda Hui [id number] Fernanda Patry 06/10/2024 1 [employer] - DOS ON OR AFTER 2022 - [employer] (MEDICAID REPLACEMENT - HMO) Fernanda Hui [id number] Fernanda Hui Notes Date Note Type Note Provider Name and Address Organization Details Recorded Time 4 text/html f/u on dm dxmore monitoring of foods - reduced soda to no sodamore veggieschallenging with celiac- gluten freeexercise - walking 2-6 miles everyday with daughterout of work d/t elbow Amaya Bear NP [address] [place], [address], [facility] 08/23/2023 16:23:18 4 text/html Left hip and low back painful x yearsGetting worse more recentlyHas had cortisone injections in the hip but not super helpfulHas lidoderm patchesCalves also sore, hands and feet swollenSeen rheum, no diagnosis Also has headaches, chest pain, abdominal painDebilitating headaches bothering her all night longSeen GI, has celiac, no improvement since stopping gluten AMBER LARSOE MD [address] [place], [address], [facility] 01/31/2024 13:02:29 4 text/html Physical Exam/FemaleReported bypatient.PHAPatient [...] other menopause symptoms.Sexually active: no issues.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 headaches: seeing neurologistback pain: using the brace AMBER LAROSE MD [address] [place], [address], [facility] 04/08/2024 11:03:55 4 text/html Was losing some [...] about 80 lbs AMBER LAROSE MD [address] [place], [address], [facility] 05/01/2024 14:34:58 5 text/html Appetite is down but weight has not changed yetGoing back to the gym, hopefully will comeStill eating protein, veggiesDrinkign water Went to ortho for the kneesOsteoarthritis bilaterallyDoing PT right nowR elbow saw the same doctor, thinks its cubital compartment syndromeW[place]Has a plan for an EMGGoing to [facility] for the hip Due for eye exam, plan to have this done in August AMBER LAROSE MD [address] [place], [address], [facility] 06/10/2024 16:59:16 OBGyn Episode No OBEpisode recorded.
== END 2024-08-12 08:50 | disposition home or self-care (01) ==
LOC: HO.HOSX 08:49
DX: M25.511 Pain in right shoulder (principal); M75.101 Unspecified rotator cuff tear or rupture of right shoulder, not specified as traumatic; Z98.890 Other specified postprocedural states
CPT/HCPCS: 20610; 73030; J1010; J2003

== ENCOUNTER 2024-08-12 09:18 | Outpatient (AMB) | payer OTHER, SELFPAY ==
[2024-08-12 09:29] VITALS: BMI 35.9
--- NOTE | 2024-08-12 09:29 | A.OFFVIS_ITS ---
Vital Signs 08/12/24 09:29 Height 5 ft 5 in Weight 216 lb BMI 35.9 Intake Visit Reasons: New Prob-Right Shoulder Pain Intake Note: Fernanda is a 48 year old right hand dominant female who presents today for a new problem visit with complaints of right shoulder pain. 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 She has had multiple falls which she has landed on her shoulder and made her pain increase, last fall was in June. States her ROM is ok but has soreness and aches. States she continues to have numbness in her thumb and mild neck pain. Hx of right surgery and RT CTR. Allergies No Known Allergies Allergy (Verified 08/12/24 09:35) HPI HPI New Prob-Right Shoulder Pain: Details: Fernanda is a 48 year old right hand dominant female who presents today for a new problem visit with complaints of right shoulder pain. 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 She has had multiple falls which she has landed on her shoulder and made her pain increase, last fall was in June. States her ROM is ok but has soreness and aches. States she continues to have numbness in her thumb and mild neck pain. Hx of right surgery and RT CTR. [facility] Medical History (Updated 08/12/24 @ 10:39 by MARISSA Moffett) Migraine Hypertension Surgical History History of surgical removal of ganglion cyst Hx of tubal ligation Hx of appendectomy Hx of colonoscopy Hx of elbow surgery Social History Are you a primary care manager cna to a significant other at home: No Do you presently have visiting nurse or other home services: No Alcohol intake: never Patient Tobacco Use Status: Never used Tobacco Current occupational status: unemployed Review of Systems Const All systems reviewed & are unremarkable except as noted in HPI and below Physical Exam Vital Signs: BMI result Body Mass Index 35.9 Extrem Other: Patient's right shoulder normal to inspection No erythema, ecchymosis, edema noted No lacerations, abrasions, open areas No evidence of infection Patient reports no tenderness to palpation of the right shoulder at the bicipital groove, acromion, clavicle, or elsewhere in the right shoulder Patient was able to forward flex to approximately 100 degrees before experiencing pain on the right side Patient able to externally rotate the right shoulder to approximately 60 degrees bilaterally and without difficulty 5/5 strength empty can bilaterally 4/5 belly press on the right, 5/5 in the left 4/5 lift-off on the right, 5/5 in the left Distal sensation intact Capillary refill brisk Office Procedures Joint Inj/Aspir; Non-Pain Clin Joint Injection/Drain Prep: site was prepped using aseptic technique and injection warnings given Approach Used: posterolateral Procedure: The patient tolerated the procedure well and there was some relief with the local anesthesia Shoulders, Hips, Knees, Shoulder Injection Large joint 61256: Right Shoulder Coding Procedure code (CPT) selection complete Results Reviewed Results Reviewed: X-rays obtained in the office today and independently reviewed by me, Geovanny Galeano PA-C, demonstrate no fracture or acute bony abnormality of the right shoulder. Assessment & Plan Assessment & Plan (1) Right shoulder pain: Code(s): M25.511 - Pain in right shoulder Category: Medical (2) Painful arc syndrome of right shoulder: Code(s): M75.101 - Unspecified rotator cuff tear or rupture of right shoulder, not specified as traumatic Category: Medical Plan 1. Painful arc syndrome of right shoulder Patient is educated about this condition Patient is educated about the treatment options available Patient would like to proceed with steroid injection at this time The risks and benefits of a steroid injection including but not limited to risk of damage to blood vessels, nerves, tendons, infection, skin bleaching, failure to improve symptoms, increased pain, and possible need for further injections or other intervention were discussed with the patient and the patient wishes to proceed with the steroid injection. Once consent was obtained, I aseptically prepped the area over the anterolateral joint line of the right shoulder. I then injected the area over the lateral epicondyle with a combination of 40 mg of dexamethasone and 8 mL of 1% lidocaine. The patient tolerated the procedure well with no complications. If the patient continues to experience symptoms over the following few weeks or months, they can make an appointment to return and discuss alternative treatment measures, such as physical therapy. Follow-up prn Orders: Orders XR shoulder RT min 2V Today M25.511 - Pain in right shoulder OT Evaluation and Treatment Today G89.18 - Other acute postprocedural pain Coding Level of Care Code Est Pt Level 3 (14623) Diagnoses Right shoulder pain M25.511 Painful arc syndrome of right shoulder M75.101 CPT Codes Shoulders, Hips, Knees, - Shoulder Injection Large joint 76372: Right Shoulder ([id number])
== END 2024-08-12 09:59 | disposition home or self-care (01) ==
LOC: HO.HOS 09:18
PROVIDERS: PCP Internal Medicine
DX: M75.101 Unspecified rotator cuff tear or rupture of right shoulder, not specified as traumatic (principal); M25.511 Pain in right shoulder
CPT/HCPCS: 20610; 99213

== ENCOUNTER → 2024-08-12 09:20 | Outpatient (BNV) | payer OTHER, SELFPAY | PROVIDERS: Visit Provider Radiology Diagnostic Radiology | DX: M25.511 Pain in right shoulder (principal) | CPT/HCPCS: 73030 ==

== ENCOUNTER 2024-08-27 10:12 | Outpatient (AMB) | payer OTHER, SELFPAY ==
--- NOTE | 2024-08-27 10:21 | A.OFFVIS_ITS ---
Intake Visit Reasons: [employer]AT [employer]-SI Joint/sciatica pain Intake Note: Fernanda is a 48 year old female who presents today for a new patient evaluation of SI joint pain. Patient referred by MARISSA Galeano for sharp shooting pain that travels down the back of her left leg as well as numbness and tingling in the foot. Occasional pain in the groin, but states that her pain is primarily located in the lower back and LT hip region. Her pain is worse when bending, prolong sitting and walking. Difficulty with getting comfortable to sleep at night. She was also seen at [facility] who ordered x-rays that were obtained at [facility]. An SI joint injection was given with no relief. As well as hip braces that did not help. She was referred to PT however she was unable to start due to recent CTR and is being seen for this. She mentions in the winter she had 3 separate falls in one week. Allergies No Known Allergies Allergy (Verified 08/27/24 10:26) Medication List - Last Reconciled 08/27/24 by Carolyn Parks MD amlodipine 2.5 mg PO DAILY blood sugar diagnostic (FreeStyle Lite Strips) As directed blood-glucose meter (FreeStyle [place] Lite kit) As directed ferrous sulfate mg PO hydrochlorothiazide 25 mg PO DAILY lancets (FreeStyle Lancets) As directed meloxicam 15 mg PO DAILY metoprolol succinate ER 100 mg PO DAILY ondansetron 4 mg PO Q8H PRN sumatriptan succinate mg PO tirzepatide (weight loss) (Zepbound) 5 mg subcut QWEEK topiramate 25 mg PO DAILY HPI Comments Details: Lower back pain, across the back, left sided, goes to lateral hip and left groin. Can hear pop from lateral hip with certain movements. Can shoot down to left calf. Can hear grinding on lower back with bending forwards. Can be worse with lying on left side. No numbness on left leg or foot. Denies pain on pubic symphisis. Sometimes when she stand for a long time, would have numbness on hands and feet. Right shoulder pain. Elbow surgeries right from [facility]. Right CTR by Dr. Smiley. So Geovanny Galeano for right shoulder and elbow pain. Sent to therapy, finishing therapy for elbow pain. She had also gone to [facility] for the same issue, referred to PT but she has not started. [facility] Medical History (Updated 08/27/24 @ 10:51 by Carolyn Parks MD) Migraine Hypertension Surgical History History of surgical removal of ganglion cyst Hx of tubal ligation Hx of appendectomy Hx of colonoscopy Hx of elbow surgery Social History (Updated 08/27/24 @ 10:26 by YUKO Basilio) Are you a primary career information specialist to a significant other at home: No Do you presently have visiting nurse or other home services: No Alcohol intake: never Patient Tobacco Use Status: Never used Tobacco Current occupational status: unemployed Current occupation: right hand dominant Review of Systems Const All systems reviewed & are unremarkable except as noted in HPI and below Physical Exam Constitutional: Patient appears to be in no acute distress, well nourished and well developed. Patient was appropriately conversant and oriented. Good historian. MSK: No specific abnormalities found on inspection of the spine and all extremities. No pain with palpation over the lumbar area. No tenderness over paraspinals. Left SI joint tender, more so than right, right milder. Left gluteus and piriformis muscles tender. Left GT tender. Tender along F proximal ITB. Lumbar ROM was full. Bilateral hip, knee and ankle ROM WNL. No ligamentous laxity or crepitance. No increased effusion. Straight-leg raising test negative. FABERE test positive left lower back pain. Gillet test show stiffness in right SI joint. Cammie test is negative. Scour test is negative. Strength is 5/5 in all muscle groups tested. No increased tone noted. Neurological: Neurologic examination of the upper and lower extremities was nonfocal with intact sensation, muscle stretch reflexes and without focal motor deficits . Jeong?s negative bilaterally. Babinski was down going bilaterally. Clonus was negative. Gait is non-antalgic without loss of balance. Results Reviewed Results Reviewed: I independently reviewed the results of the following: Hip itself unremarkable. Ordering Physician: Geovanny Galeano Date of Service: 07/16/24 Procedure(s): XR hip LT min 2V Accession Number(s): [id number] cc: Geovanny Galeano~ EXAMINATION: XR HIP, LEFT CLINICAL INFORMATION: M25.552 - Pain in left hip COMPARISON: None available. TECHNIQUE: Two views of the left hip. AP pelvis. FINDINGS: No acute cortical disruption or malalignment. No lytic or blastic lesions. There is preservation of the joint spaces. Degenerative changes in the symphysis pubis. The bony pelvis intact. There is spina bifida occulta S1, congenital. XR/XR hip LT min 2V IMPRESSION: Normal x-ray left hip. Mild degenerative changes in the symphysis pubis. Electronically signed by: Sae Amaya MD 07/16/2024 02:36 PM EST I reviewed records from the following: Ortho Assessment & Plan Assessment & Plan (1) Sacroiliac joint dysfunction: Code(s): M53.3 - Sacrococcygeal disorders, not elsewhere classified Category: Medical (2) Piriformis syndrome of left side: Code(s): G57.02 - Lesion of sciatic nerve, left lower limb Category: Medical (3) Iliotibial band syndrome, left leg: Code(s): M76.32 - Iliotibial band syndrome, left leg Category: Medical Plan Used a spine model to discuss diagnosis. Left SI joint dysfunction, although right side also stiff. Left piriformis and gluteus are tender, as well as left ITB. We discussed how important biomechanics and symmetry are. Referring to physical therapy to work on left SI joint, left gluteus and piriformis muscle, left greater trochanter bursa, left ITB. If really not improve with therapy, we may consider SI joint injection or GT injection or trigger point injection. However emphasize the importance of lifelong home exercises/stretches to maintain SI joint symmetry and prevent very exacerbation. Assessment and plan discussed with patient, and patient was agreeable. All questions were answered thoroughly. Follow up 4 months. Carolyn Parks MD, [facility] Board Certified, [place] [employer] and [employer] (ABPMR) Board Certified, [place] [employer] (ABEM) Orders: Orders PT Evaluation and Treatment Today G57.02 - Lesion of sciatic nerve, left lower limb, M53.3 - Sacrococcygeal disorders, not elsewhere classified, M76.32 - Iliotibial band syndrome, left leg Coding Level of Care Code New Pt Level 4 (99744) Diagnoses Sacroiliac joint dysfunction M53.3 Piriformis syndrome of left side G57.02 Iliotibial band syndrome, left leg M76.32
--- OUTSIDE RECORDS SUMMARY | 2024-08-27 12:07 | XMS_ITS | Data Portability ---
Author Organization [facility], [facility] Address [address] [place] [address] Care Team Providers Care Electronic Specialist Name Role Phone JERAMY ERWIN OTHER ALBERTA HOUSER Orthopedic Surgeon GAMA MEDEIROS Kennel Attendant ALEX MAXWELL [employer] CECI VAZQUEZ Hematology/Oncology [facility] Battery Checker [phone] AMAYA BEAR Primary Care Provider [facility] Orthopedic Surgeon NATALY LLOYD Neurologist [facility] Phys. Med. & Rehab Assessment Encounter Date Assessment Date Assessment LastModified by Organization Details LastModified Time 08/23/2023 08/23/2023 After a discussion of treatment options, which included consideration of best practices and patient preferences, the following treatment plan and objectives were adopted: [email or web address] Not available 08/23/2023 15:22:30 Plan of Treatment Reminders Order Date Submit Date Provider Last Modified By Organization Details Last Modified Time Details Appointments Weightlo ss F-Up 2024 02:30P M AMBER LAROSE MD Not available Not available Not available Lab hemoglob in A1C/hemo globin total, QN, blood [facility]24 [email or web address] [address] [facility], [place], [address], 07/03/2024 10:02:28 HbA1c (hemoglo bin A1c), blood 2023 024 [facility], [address] [facility], [place], [address], 04/08/2024 11:47:49 Referral orthoped ic surgeon referral 2023 024 [email or web address] [facility], [address] [place] [address] [place], [address], 04/17/2024 11:11:22 neurolog ist referral 2023 024 KAYE Lloyd MD, [address] [place] [address], [address], 04/19/2024 03:18:27 physical medicine and rehabili tation referral 2023 024 [email or web address] Melvin Wallace MD, [address], [place], [address], 01/31/2024 13:11:26 Procedures None recorded . Surgeries None recorded . Imaging XR, hip + pelvis, unilater al, 2 or 3 view 2023 024 [email or web address] [facility] (Imaging), [address], [place], [address], 01/31/2024 12:19:05 Medication Orders Zepbound 5 mg/0.5 mL subcutan eous pen injector 2024 025 [facility]acy #[id number], [address] [place], [address], 06/10/2024 16:41:49 Zepbound 2.5 mg/0.5 mL subcutan eous pen injector 2023 024 [id number], [address] [place], [address], 05/01/2024 14:32:14 [email or web address] lizy 4 mg disinteg rating tablet 2023 024 [facility] #[id number], [address] [place], [address], 05/01/2024 14:32:14 Patient TargetsNo targets recorded. Patient Instructions Encounter Date Encounter Id Patient Instructions Last Modified By Organization Details Last Modified Time 05/01/2024 [id number] You have been prescribed a new medication [...] left hip joint Referring Physician: Amber Larose [facility] Medicine, Encounter Date: 01/31/2024 Neurologist Referral for Hea dache Referring Physician: Amber Larose [facility] Medicine, Encounter Date: 01/31/2024 Orthopedic Surgeon Referral for Pain of right elbow joint Referring Physician: Amber Larose [facility] Medicine, Encounter Date: 04/08/2024 Results Created Date Observation Date Name Description Value Unit Range Abnormal Flag Note LastModifiedBy Organization Detail LastModifiedTime 08/16/19 24 08/16/2023 MICRO ALBUM IN/CR EATIN INE RATIO PANEL , URINE microalbumin 16.9 mg/L 1.3-20 .0 Not Available [address], [address], 08/16/2023 16:46:53 08/16/19 24 08/16/2023 MICRO ALBUM IN/CR EATIN INE RATIO PANEL , URINE creatinine urine 104.9 mg/dL 30.0-1 25.0 Not Available [address], [address], 08/16/2023 16:46:53 08/16/19 24 08/16/2023 MICRO ALBUM IN/CR EATIN INE RATIO PANEL , URINE microalb/cre at ratio 16.1 mg/g_ creat 0.0-29 .0 Not Available [address], [address], 08/16/2023 16:46:53 08/16/19 24 08/17/2023 HGB A1C [...] furth er confi rmati on Not Available [address], [address], 08/17/2023 10:15:54 08/16/19 24 08/17/2023 HGB A1C estimated average glucose 134.1 mg/dL Not Available [address], [address], 08/17/2023 10:15:54 08/16/19 24 08/17/2023 COMP. METAB OLIC PANEL glucose 121 mg/dL 70-100 high Not Available [address], [address], 08/17/2023 12:22:55 08/16/19 24 08/17/2023 COMP. METAB OLIC PANEL BUN 15 mg/dL 7-18 Not Available [address], [address], 08/17/2023 12:22:55 08/16/19 24 08/17/2023 COMP. METAB OLIC PANEL creatinine 0.7 mg/dL 0.8-1. 3 low Not Available [address], [address], 08/17/2023 12:22:55 08/16/19 24 08/17/2023 COMP. METAB OLIC PANEL B/C 21.4 ratio Not Available [address], [address], 08/17/2023 12:22:55 08/16/19 24 08/17/2023 COMP. METAB [...] be used in pregn lanie. Not Available [address], [address], 08/17/2023 12:22:55 08/16/19 24 08/17/2023 COMP. METAB OLIC PANEL sodium 140 mmol/ L 136-14 5 Not Available [address], [address], 08/17/2023 12:22:55 08/16/19 24 08/17/2023 COMP. METAB OLIC PANEL potassium 4.1 mmol/ L 3.5-5. 1 Not Available [address], [address], 08/17/2023 12:22:55 08/16/19 24 08/17/2023 COMP. METAB OLIC PANEL chloride 102 mmol/ L 96-107 Not Available [address], [address], 08/17/2023 12:22:55 08/16/19 24 08/17/2023 COMP. METAB OLIC PANEL anion gap 12.4 5.0-15 .0 Not Available [address], [address], 08/17/2023 12:22:55 08/16/19 24 08/17/2023 COMP. METAB OLIC PANEL CO2 26 mmol/ L 21-32 Not Available [address], [address], 08/17/2023 12:22:55 08/16/19 24 08/17/2023 COMP. METAB OLIC PANEL calcium 9.5 mg/dL 8.5-10 .3 Not Available [address], [address], 08/17/2023 12:22:55 08/16/19 24 08/17/2023 COMP. METAB OLIC PANEL total protein 7.2 g/dL 6.4-8. 2 Not Available [address], [address], 08/17/2023 12:22:55 08/16/19 24 08/17/2023 COMP. METAB OLIC PANEL albumin 3.7 g/dL 3.4-5. 0 Not Available [address], [address], 08/17/2023 12:22:55 08/16/19 24 08/17/2023 COMP. METAB OLIC PANEL globulin 3.5 g/dL Not Available [address], [address], 08/17/2023 12:22:55 08/16/19 24 08/17/2023 COMP. METAB OLIC PANEL A/G 1.1 ratio 0.8-2. 0 Not Available [address], [address], 08/17/2023 12:22:55 08/16/19 24 08/17/2023 COMP. METAB OLIC PANEL total bilirubin 0.40 mg/dL 0.00-1 .00 Not Available [address], [address], 08/17/2023 12:22:55 08/16/19 24 08/17/2023 COMP. METAB OLIC PANEL AST 28 U/L 0-37 Not Available [address], [address], 08/17/2023 12:22:55 08/16/19 24 08/17/2023 COMP. METAB OLIC PANEL ALT 56 U/L 6-63 Not Available [address], [address], 08/17/2023 12:22:55 08/16/19 24 08/17/2023 COMP. METAB OLIC PANEL alk. phos. 135 U/L 50-136 Not Available [address], [address], 08/17/2023 12:22:55 08/16/19 24 08/17/2023 LIPID PANEL cholesterol 189 mg/dL <200 mg/dl Allen able 200-2 39 mg/dl Borde rline High >240 mg/dl High Not Available [address], [address], 08/17/2023 12:22:56 08/16/19 24 08/17/2023 LIPID PANEL triglyceride s 174 mg/dL <150 mg/dL Jerica l 150-1 99 mg/dL Borde rline High 200-4 99 mg/dL High >500 mg/dL Very High Not Available [address], [address], 08/17/2023 12:22:56 08/16/19 24 08/17/2023 LIPID PANEL direct HDL 48 mg/dL <40 mg/dl - Major Risk for CHD >60 mg/dl - Negat diomedes Risk for CHD Not Available [address], [address], 08/17/2023 12:22:56 08/16/19 24 08/17/2023 LDL - [...] r is not neces gina. Not Available [facility] [address], [place], [address], 08/17/2023 12:22:58 10/06/19 24 10/10/2023 ANATO RAKEL PATHO LOGY path report [facility] [address] [place] [address] Lab Direc tor: Anahi davila MD Surgi [...] organ isms with the morph ologi c ctilali cteri stics of Helic obact er. Kelly [...] B1. DN 2023 Gross ing Staff : VASQUEZ One or more of the reage nts [...] deter mined by the [facility]. This labor atory is [...] tyler MD, POST- BA, BA Not Available [facility] (Outpatient) [address] [place] [address], [address], 10/10/2023 17:20:06 04/06/20 24 04/08/2024 HGB A1C [...] furth er confi rmati on Not Available [address], [address], 04/08/2024 11:47:49 04/06/2004/08/2024 HGB A1C estimated average glucose 162.8 mg/dL Not Available [address], [address], 04/08/2024 11:47:49 04/06/2004/09/2024 BASIC METAB OLIC PANEL glucose 179 mg/dL 70-100 high Not Available [address], [address], 04/09/2024 16:36:15 04/06/20 24 04/09/2024 BASIC METAB OLIC PANEL BUN 14 mg/dL 7-18 Not Available [address], [address], 04/09/2024 16:36:15 04/06/20 24 04/09/2024 BASIC METAB OLIC PANEL creatinine 0.9 mg/dL 0.8-1. 3 Not Available [address], [address], 04/09/2024 16:36:15 04/06/2004/09/2024 BASIC METAB OLIC PANEL B/C 15.6 ratio Not Available [address], [address], 04/09/2024 16:36:15 04/06/20 24 04/09/2024 BASIC METAB [...] be used in pregn lanie. Not Available [address], [address], 04/09/2024 16:36:15 04/06/20 24 04/09/2024 BASIC METAB OLIC PANEL sodium 143 mmol/ L 136-14 5 Not Available [address], [address], 04/09/2024 16:36:15 04/06/20 24 04/09/2024 BASIC METAB OLIC PANEL potassium 4.1 mmol/ L 3.5-5. 1 Not Available [address], [address], 04/09/2024 16:36:15 04/06/20 24 04/09/2024 BASIC METAB OLIC PANEL chloride 105 mmol/ L 96-107 Not Available [address], [address], 04/09/2024 16:36:15 04/06/20 24 04/09/2024 BASIC METAB OLIC PANEL anion gap 9.7 5.0-15 .0 Not Available [address], [address], 04/09/2024 16:36:15 04/06/20 24 04/09/2024 BASIC METAB OLIC PANEL CO2 28 mmol/ L 21-32 Not Available [address], [address], 04/09/2024 16:36:15 04/06/20 24 04/09/2024 BASIC METAB OLIC PANEL calcium 9.3 mg/dL 8.5-10 .3 Not Available [address], [place], [address], 04/09/2024 16:36:15 06/22/19 25 06/23/2024 CBC (INCL UDES DIFF/ PLT) white blood cell count 5.7 thous and/u L 3.8-10 .8 normal Not Available [facility] [address], [place], [address], 06/23/2024 08:43:39 06/22/19 25 06/23/2024 CBC (INCL UDES DIFF/ PLT) red blood cell count 4.94 priscilla on/uL 3.80-5 .10 normal Not Available [facility] [place] [facility] [address], [place], [address], 06/23/2024 08:43:39 06/22/19 25 06/23/2024 CBC (INCL UDES DIFF/ PLT) hemoglobin 14.4 g/dL 11.7-1 5.5 normal Not Available [facility] [address], [place], [address], 06/23/2024 08:43:39 06/22/19 25 06/23/2024 CBC (INCL UDES DIFF/ PLT) hematocrit 43.7 % 35.0-4 5.0 normal Not Available [facility] [address], [place], [address], 06/23/2024 08:43:39 06/22/19 25 06/23/2024 CBC (INCL UDES DIFF/ PLT) MCV 88.5 fL 80.0-1 00.0 normal Not Available [facility] [address], [place], [address], 06/23/2024 08:43:39 06/22/19 25 06/23/2024 CBC (INCL UDES DIFF/ PLT) MCH 29.1 pg 27.0-3 3.0 normal Not Available [facility] [place] [facility] [address] [place], [place], [address], 06/23/2024 08:43:39 06/22/19 25 06/23/2024 CBC (INCL UDES DIFF/ PLT) MCHC 33.0 g/dL 32.0-3 6.0 normal For adult s, a sligh t decre ase in the calcu lated MCHC value (in the range of 30 to 32 g/dL) is most likel y not clini arianna keithi brian t; jeanine er, it shoul d be inter prete d with cauti on in [facility] somerset n with other red cell jaspreet eters and the patie nt's clini mini condi tion. Not Available [facility] [place] [facility] [address] [place], [place], [address], 06/23/2024 08:43:39 06/22/19 25 06/23/2024 CBC (INCL UDES DIFF/ PLT) RDW 12.8 % 11.0-1 5.0 normal Not Available [facility] [place] [facility] [address], [place], [address], 06/23/2024 08:43:39 06/22/19 25 06/23/2024 CBC (INCL UDES DIFF/ PLT) platelet count 251 thous and/u L 140-40 0 normal Not Available [facility] [place] [facility] [address], [place], [address], 06/23/2024 08:43:39 06/22/19 25 06/23/2024 CBC (INCL UDES DIFF/ PLT) MPV 11.8 fL 7.5-12 .5 normal Not Available [facility] [place] [facility] [address], [place], [address], 06/23/2024 08:43:39 06/22/19 25 06/23/2024 CBC (INCL UDES DIFF/ PLT) absolute neutrophils 3329 cells /uL 1500-7 800 normal Not Available [facility] [place] [facility] [address], [place], [address], 06/23/2024 08:43:39 06/22/19 25 06/23/2024 CBC (INCL UDES DIFF/ PLT) absolute lymphocytes 1693 cells /uL 850-39 00 normal Not Available [facility] [place] [facility] [address], [place], [address], 06/23/2024 08:43:39 06/22/19 25 06/23/2024 CBC (INCL UDES DIFF/ PLT) absolute monocytes 502 cells /uL 200-95 0 normal Not Available [facility] [place] [facility] [address], [place], [address], 06/23/2024 08:43:39 06/22/19 25 06/23/2024 CBC (INCL UDES DIFF/ PLT) absolute eosinophils 154 cells /uL 15-500 normal Not Available [facility] [place] [facility] [address], [place], [address], 06/23/2024 08:43:39 06/22/19 25 06/23/2024 CBC (INCL UDES DIFF/ PLT) absolute basophils 23 cells /uL 0-200 normal Not Available [facility] [place] [facility] [address], [place], [address], 06/23/2024 08:43:39 06/22/19 25 06/23/2024 CBC (INCL UDES DIFF/ PLT) neutrophils 58.4 % normal Not Available [facility] [place] [facility] [address], [place], [address], 06/23/2024 08:43:39 06/22/19 25 06/23/2024 CBC (INCL UDES DIFF/ PLT) lymphocytes 29.7 % normal Not Available [facility] [place] [facility] [address], [place], [address], 06/23/2024 08:43:39 06/22/19 25 06/23/2024 CBC (INCL UDES DIFF/ PLT) monocytes 8.8 % normal Not Available [facility] [place] [facility] [address], [place], [address], 06/23/2024 08:43:39 06/22/19 25 06/23/2024 CBC (INCL UDES DIFF/ PLT) eosinophils 2.7 % normal Not Available [facility] [place] [facility] [address], [place], [address], 06/23/2024 08:43:39 06/22/19 25 06/23/2024 CBC (INCL UDES DIFF/ PLT) basophils 0.4 % normal Not Available [facility] [place] [facility] [address], [place], [address], 06/23/2024 08:43:39 06/22/19 25 06/24/2024 MICRO ALBUM IN/CR EATIN INE RATIO PANEL , URINE microalbumin 5.9 mg/L 1.3-20 .0 Not Available [address], [address], 06/24/2024 10:52:46 06/22/19 25 06/24/2024 MICRO ALBUM IN/CR EATIN INE RATIO PANEL , URINE creatinine urine 133.5 mg/dL 30.0-1 25.0 high Not Available [address], [address], 06/24/2024 10:52:46 06/22/19 25 06/24/2024 MICRO ALBUM IN/CR EATIN INE RATIO PANEL , URINE microalb/cre at ratio 4.4 mg/g_ creat 0.0-29 .0 Not Available [address], [address], 06/24/2024 10:52:46 06/22/19 25 06/24/2024 HGB A1C [...] furth er confi rmati on Not Available [address], [address], 06/24/2024 12:23:17 06/22/19 25 06/24/2024 HGB A1C estimated average glucose 148.5 mg/dL Not Available [address], [address], 06/24/2024 12:23:17 06/22/19 25 06/24/2024 BASIC METAB OLIC PANEL glucose 150 mg/dL 70-100 high Not Available [address], [address], 06/24/2024 15:23:10 06/22/19 25 06/24/2024 BASIC METAB OLIC PANEL BUN 15 mg/dL 7-18 Not Available [address], [address], 06/24/2024 15:23:10 06/22/19 25 06/24/2024 BASIC METAB OLIC PANEL creatinine 0.9 mg/dL 0.8-1. 3 Not Available [address], [address], 06/24/2024 15:23:10 06/22/19 25 06/24/2024 BASIC METAB OLIC PANEL B/C 16.7 ratio Not Available [address] [place], [address], 06/24/2024 15:23:10 06/22/19 25 06/24/2024 BASIC METAB [...] be used in pregn lanie. Not Available [address], [address], 06/24/2024 15:23:10 06/22/19 25 06/24/2024 BASIC METAB OLIC PANEL sodium 143 mmol/ L 136-14 5 Not Available [address], [address], 06/24/2024 15:23:10 06/22/19 25 06/24/2024 BASIC METAB OLIC PANEL potassium 4.1 mmol/ L 3.5-5. 1 Not Available [address], [address], 06/24/2024 15:23:10 06/22/19 25 06/24/2024 BASIC METAB OLIC PANEL chloride 104 mmol/ L 96-107 Not Available [address], [address], 06/24/2024 15:23:10 06/22/19 25 06/24/2024 BASIC METAB OLIC PANEL anion gap 11.4 5.0-15 .0 Not Available [address], [address], 06/24/2024 15:23:10 06/22/19 25 06/24/2024 BASIC METAB OLIC PANEL CO2 28 mmol/ L 21-32 Not Available [address], [address], 06/24/2024 15:23:10 06/22/19 25 06/24/2024 BASIC METAB OLIC PANEL calcium 9.4 mg/dL 8.5-10 .3 Not Available [address], [address], 06/24/2024 15:23:10 06/22/19 25 06/24/2024 LIPID PANEL cholesterol 191 mg/dL <200 mg/dl Allen able 200-2 39 mg/dl Borde rline High >240 mg/dl High Not Available [address], [address], 06/24/2024 15:23:11 06/22/19 25 06/24/2024 LIPID PANEL triglyceride s 125 mg/dL <150 mg/dL Jerica l 150-1 99 mg/dL Borde rline High 200-4 99 mg/dL High >500 mg/dL Very High Not Available [address], [address], 06/24/2024 15:23:11 06/22/19 25 06/24/2024 LIPID PANEL direct HDL 48 mg/dL <40 mg/dl - Major Risk for CHD >60 mg/dl - Negat diomedes Risk for CHD Not Available [address], [address], 06/24/2024 15:23:11 06/22/19 25 06/24/2024 LDL - [...] r is not neces gina. Not Available [address], [address], 06/24/2024 15:23:12 01/31/20 24 01/31/2024 XR, hip [...] abnorm ality. Readin g Physic belkis: Tom Montez [facility] (Imaging) [address] , [place], [address], 01/31/2024 17:22:29 Result Notes None recorded. Problems Name Problem SNOMED Code Status Onset Date Resolution Date Notes Provider Name and Address Organization Details Recorded Time Obesity 477690417 Active Not Available [facility] 1 10:25:21 Essentia l hyperten yohannes 50972813 Active Amaya Bear, LUCA [address] [place] [address], [address] , [facility] 4 13:24:50 Iron deficien cy anemia 19963116 Active 2022 AKHIL SOSA DNP [address] [place] [address], [address] , [facility] 3 09:04:25 Celiac disease 199765608 Active 2022 AKHIL SOSA DNP [address] [place], [address] , [facility] 3 09:04:30 Osteopen ia 276757425 Active 2022 Sara marx NP [address] [place] [address], , [facility] 3 20:29:41 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 120997182 Completed 202206/12/2023 Neg for autoimmu ne hep - GI workup normal Amaya Bear NP [address] [place] [address], , [facility] 4 13:25:06 Steatosi s of liver 863103733 Active 2022 Amaya Bear NP [address] [place] [address], , [facility] 4 13:24:59 Type 2 diabetes mellitus without complica tion 952842752 Active 2023 Amaya Bear NP [address] [place] [address], [address] , [facility] 4 11:37:25 Headache 39535611 Completed 11/09/2011 Not Available [facility] 3 03:09:36 Headache 80795086 Completed 200603/16/2010 Not Available [facility] 3 03:09:36 Precordi al pain 91280703 Completed 200603/17/2010 Not Available [facility] 3 03:09:36 Essentia l hyperten yohannes 61301156 Completed 06/02/2014 Amaya Bear NP [address] [place] [address], , [facility] 4 13:24:50 Essentia l hyperten yohannes 27619981 Completed 11/21/2011 Amaya Bear NP [address] [place] [address], [address] , [facility] 4 13:24:50 Essentia l hyperten yohannes 11207798 Completed 200503/17/2010 Amaya Bear NP [address] [place], [address] , [facility] 4 13:24:50 Symptom of head and neck region 834691122 Completed 03/16/2010 Not Available [facility] 3 03:09:36 Benign essentia l hyperten yohannes 4416773 Completed 200508/21/2014 Eden Washington D.O. [address] [place], [address] , [facility] 5 09:43:29 Anxiety state 353359006 Completed 08/21/2014 Eden Cody.O. [address] [place], [address] , [facility] 5 09:43:29 Anxiety state 296417481 Completed 200703/17/2010 Not Available [facility] 3 03:09:36 Dizzines s 952075007 Completed 200503/16/2010 Not Available [facility] 3 03:09:36 Vitamin D deficien cy 98442799 Completed 200803/17/2010 Not Available [facility] 3 03:09:36 Coarctat ion of aorta 9416642 Active see [employer] Not Available [facility] 1 10:25:21 Coarctat ion of aorta 9738643 Completed 200603/17/2010 Eden Washington D.O. [address] [place], [address] , [facility] 7 11:30:55 Acute stress disorder 43404525 Completed 200603/16/2010 Not Available [facility] 3 03:09:36 Panic disorder without agorapho cathy 68606205 Completed 200308/21/2014 Eden Washington D.O. [address] [place], [address] , [facility] 5 09:43:29 Chest pain 86975927 Completed 03/17/2010 Not Available [facility] 3 03:09:36 Abnormal cervical Papanico laou smear with human papillom avirus deoxyrib onucleic acid detected 856182542 Completed 08/21/2014 Eden Washington D.O. [address] [place] [address], [address] , [facility] 5 09:43:29 Abnormal cervical Papanico laou smear with human papillom avirus deoxyrib onucleic acid detected 804404741 Completed 03/17/2010 Not Available [facility] 3 03:09:36 Impaired fasting glycemia 295662893 Completed 06/12/2023 Amaya Bear NP [address] [place] [address], [address] , [facility] 4 13:24:44 Low back pain 649230655 Completed 200606/02/2014 Eden Washington D.O. [address] [place] [address], [address] , [facility] 5 19:54:32 Migraine 65823054 Active Not Available [facility] 1 10:25:21 Acute bronchit is 46798106 Completed 200503/16/2010 Not Available [facility] 3 03:09:36 Malaise and fatigue 356441944 Completed 200603/16/2010 Not Available [facility] 3 03:09:36 Notes:Some problems listed i n Document: #[id number] could not be added to this patient's chart. Please review this document and add these problems to the patient's chart manually as needed. Problem Notes None recorded. Procedures Surgical History Date Name Laterality Status Provider Name and Address Organization Details Recorded Time 11/24/19 22 41512: Therapeutic Exercise completed Alphonse Martinez DPT [address] [place] [address], [address], [facility] 11/23/2021 15:08:02 11/24/19 22 63666: Manual Therapy completed Alphonse Martinez DPT [address] [place] [address], [address], [facility] 11/23/2021 15:08:03 11/24/19 22 Neuromuscular re-education completed Alphonse Martinez DPT [address] [place], [address], [facility] 11/23/2021 15:08:03 11/19/19 22 26577: Therapeutic Exercise completed AMINATA ResendezT [address] [place], [address], [facility] 11/18/2021 15:45:36 11/19/19 22 37052: Manual Therapy completed Alphonse Martinez DPT [address] [place], [address], [facility] 11/18/2021 15:45:36 11/19/19 22 Neuromuscular re-education completed Alphonse aMrtinez DPT [address] [place], [address], [facility] 11/18/2021 15:45:36 11/19/19 22 Treatment and Advice completed Alphonse Martinez DPT [address] [place], [address], [facility] 11/18/2021 16:04:43 11/10/19 22 38276: Therapeutic Exercise completed Alphonse Martinez DPT [address] [place], [address], [facility] 11/09/2021 12:51:26 11/10/19 22 68950: Manual Therapy completed Alphonse Martinez DPT [address] [place], [address], [facility] 11/09/2021 12:52:07 11/10/19 22 Neuromuscular re-education completed Alphonse Martinez DPT [address] [place], [address], [facility] 11/09/2021 13:45:24 11/10/19 22 Treatment and Advice completed Alphonse Martinez DPT [address] [place], [address], [facility] 11/09/2021 12:49:44 11/04/19 25676: Therapeutic Exercise completed AMINATA ResendezT [address] [place], [address], [facility] 11/03/2021 15:02:00 11/04/19 Neuromuscular re-education completed AMINATA ResendezT [address] [place], [address], [facility] 11/03/2021 23:25:50 11/04/19 Treatment and Advice completed Alphonse Martinez DPT [address] [place], [address], [facility] 11/03/2021 23:22:49 10/28/19 79173: Therapeutic Exercise completed Alphonse Martinez DPT [address] [place], [address], [facility] 10/27/2021 15:01:27 10/28/19 Neuromuscular re-education completed Alphonse Martinez DPT [address] [place], [address], [facility] 10/27/2021 15:01:40 10/28/19 Smoking Cessation Counselling completed Alphonse Martinez DPT [address] [place], [address], [facility] 10/27/2021 14:33:50 10/28/19 Physical Activity Counselling completed Alphonse Martinez DPT [address] [place], [address], [facility] 10/27/2021 14:33:50 10/28/19 22 Treatment and Advice completed Alphonse Martinez DPT [address] [place], [address], [facility] 10/27/2021 15:01:18 10/26/19 22 75648: Therapeutic Exercise completed Alphonse Martinez DPT [address] [place], [address], [facility] 10/25/2021 11:39:14 10/26/19 Smoking Cessation Counselling completed Alphonse Martinez DPT [address] [place], [address], [facility] 10/25/2021 11:39:14 10/26/19 22 Physical Activity Counselling completed Alphonse Martinez DPT [address] [place], [address], [facility] 10/25/2021 11:39:14 10/26/19 22 Treatment and Advice completed Alphonse Martinez DPT [address] [place], [address], [facility] 10/25/2021 11:39:14 10/21/19 22 76589: Therapeutic Exercise completed Alphonse Martinez DPT [address] [place], [address], [facility] 10/20/2021 12:53:24 10/21/19 22 Smoking Cessation Counselling completed Alphonse Martinez DPT [address] [place], [address], [facility] 10/20/2021 12:46:29 10/21/19 22 Physical Activity Counselling completed Alphonse Martinez DPT [address] [place], [address], [facility] 10/20/2021 12:46:29 10/21/19 22 Treatment and Advice completed Alphonse Martinez DPT [address] [place], [address], [facility] 10/20/2021 12:51:57 10/19/19 22 26908: Therapeutic Exercise completed Alphonse Martinez DPT [address] [place], [address], [facility] 10/18/2021 13:58:42 10/19/19 22 Smoking Cessation Counselling completed Alphonse Martinez DPT [address] [place], [address], [facility] 10/18/2021 12:41:42 10/19/19 22 Physical Activity Counselling completed Alphonse Martinez DPT [address] [place], [address], [facility] 10/18/2021 12:41:42 10/19/19 22 Treatment and Advice completed Alphonse Martinez DPT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 shoulder joint 2888097583 3833364 M25.511 Pain of le ft hip joint 1516523894 79979 M25.253 [id number] AUGUST VICKI HUERTA, [facility], OFFICE [address] [place] [address] 11/10/2022 14:53:30 11/10/2022 15:34:06 Cramp in lower limb 615452481 R25.2 cramping b/l lower extremitie s increasing in frequency, noted more with sitting, driving, sleepingwa lking improves pain--no calf pain, erythema or warmth with comparison , pulses intact, +CMS--no varicosis- -will check labs r/o vitamin deficienci es, iron deficiency anemia and electrolyt e abnormalit ies--f/u 1 week to review Pain in left foot 811284 7941 18324 M79.672 pain to palpation along arch. +ROM, +CMSsuspec t plantar fasciitis as pain is worse with bearing weight and improves with sitting--h as been wearing more supportive footwear-- given handouts on stretching exercises, icef/u 1 week to reasses [id number] AUGUST VICKI HUERTA, [facility], OFFICE [address] [place] [address] 11/17/2022 13:28:47 11/17/2022 15:00:11 Iron deficiency 71565110 E61.1 last OV 11/10 presented with leg [...] for RA; refer to rheum if abnormal [id number] Florina Quevedo RN Endoscopy , [facility] [address] [facility] [place] [address] 12/02/2022 11:53:27 12/02/2022 14:02:53 [id number] AUGUST AKHIL SOSA DNP FP, [facility], OFFICE [address] [place] [address] 12/19/2022 09:19:08 12/19/2022 10:08:32 Iron deficiency anemia 62371842 D50.9 endoscopy/ colonoscop y unremarkab le apart from celiac diseaseane danilo improving- -continue taking iron supplement --recheck levels in 1 monthdiscu ssed return precaution s Celiac disease 490140826 K90.0 dx recently on endoscopy/ colonoscop y--trying to incorporat e gluten free foods into her diet--has f/u with nutrition and GI to discuss further Benign ess ential hypertension 4370046 I10 You have chronic hypertensi on that [...] at least 1-2 times each month at [facility] the same time of day with 10-15 minutes of quiet rest prior to taking blood pressure. Make sure that your feet are flat on the floor and back upright resting on chair. Empty your bladder before taking your blood pressure. Please update us if your home blood pressures are not at goal. Call with any concerns or questions. [id number] Tricia Maxwell RDN, [facility], [facility] [address] [place] [address] 01/17/2023 09:54:56 01/18/2023 15:46:39 Celiac disease 663765502 K90.0 [id number] AUGUST AKHIL SOSA DNP , [facility], OFFICE [address] [place] [address] 02/15/2023 10:27:27 02/15/2023 15:31:28 Iron deficiency anemia 80988513 D50.9 endoscopy/ colonoscop y unremarkab le apart [...] 2 weeks Edema of l ower extremity 219478875 R60.0 over the weekend, severe LE edema, unsure of pitting. Resolved, none on exam today. Continues with LE pain and cramping. No symptoms or risk factors concerning for CHF--no calf tenderness , erythema, warmth--ch jim BMP leg edema--OMAYRA r/o claudicati onf/u 2 weeks Fatigue 16270214 R53.83 Unintentio nal weight gain 1770474998 25589 R63.5 9# weight gain from 12/19 despite transition ing to gluten free diet and healthier eating habitsno recent TSH, will check today Screening mammography 24 419232 Z12.31 Multiple joint pain 3567 8005 M25.50 shoulder/h ip/elbow painALK phos elevated, GGT normalauto immune labs [facility] reach out to endo to discuss if this is something they work with [id number] Tricia Maxwell RDN, [facility], [facility] [address] [facility] [place] [address] 02/21/2023 08:59:17 03/03/2023 16:13:21 Celiac disease 591883351 K90.0 Iron defic iency anemia 81275002 D50.9 [id number] AUGUST AKHIL SOSA DNP , [facility], OFFICE [address] [place] [address] 03/01/2023 10:54:57 03/01/2023 12:54:52 Iron deficiency 21436683 E61.1 continues with iron deficiency anemiahas been [...] and/or order iron infusion ([facility]) Celiac disease 811262100 K90.0 dx recently with GIworking with nutrition and GI for dietary changessus pect contributi ng to iron def anemiainco rporating iron rich food sources in her diet Cramp in lower limb 4499 79352 R25.2 cramping b/l lower extremitie sstill present but improvingm ay be related to ongoing anemiadid have in conjunctio n with LE edema with normal lung/heart examschedu led for OMAYRA 03/14 Edema of l ower extremity 768555549 R60.0 scheduled for OMAYRA 03/14resol sol Foot pain 28179071 M79.6 73 b/l arch foot painnew sneakers with no improvemen tprolonged standing- on concrete floorsdisc ussed exercises for plantar fasciitis previously consider orthotics [id number] Sara Gooden er, [employer] FP, [facility], OFFICE [address] [place] [address] 04/14/2023 13:20:01 04/18/2023 09:08:55 Imaging result abnormal 546638576 R93.[address] scan of abdomen [...] watchers and nume to patient. Celiac disease 592769505 K90.0 Pt has had ongoing abdominal pain and nausea, followed by [facility] for this ongoing issue. Patient has been keeping a food diary, as well as following a gluten free diet, unfortunat cheryl has not found a specific trigger. Pt had CT scan and MRI completed that was negative for acute intrabdomi nal process.-- Continue to follow up with [facility]. Iron defic iency anemia 83083772 D50.9 Pt is followed by hematologi st at [facility] and receives periodic iron infusions, last one completed a few weeks prior. Will be obtaining follow up labs to recheck iron panel after allowing time for the iron infusion to stabilize levels. Pt does have upcoming follow up appointmen t with hematologi st specialist .--Continu e to follow up with [facility] hematology . [id number] Amaya Bear NP , [facility], OFFICE [address] [place] [address] 06/12/2023 10:47:08 06/12/2023 17:30:56 Migraine 55883696 G43.909 stabledoes well with sumatripta n Active or passive immunization 556712399 Z23 Celiac disease 070838947 K90.0 dx 3doing well with no gluten though does have occasional sxsfollowe d by [facility] GIhas f/u next month Type 2 heriberto betes mellitus without complication 880640131 E11.9 new dx with fbs 141, 150A1c 6.5strong family hx of DMdiscusse d tx optionswil l work on diet and exerciseno meds nowsent metergoal fbs < 120 and 2 hrs after meals < 140f/u 3 months Steatosis of liver 1007 K76.0 discussed impact of weight- c/t work on diet and exercisedo es no ETOH Essential hypertension 49541076 I10 BP at goalc/w medsc/w low salt diet, regular exercise Iron defic iency anemia 78988073 D50.9 ferritin 151s/p 3 iron transfusio nsfollowed by Hem [id number] Amaya Bear NP , [facility], OFFICE [address] [place] [address] 08/23/2023 14:53:22 08/23/2023 16:05:30 Type 2 diabetes mellitus without complication 693861497 E11.9 new dx 05/2023fbs 121 down from fbs 141, 150 1A1c 6.3 down from 6.5great job, work!c/t work on diet, exercisego al fbs < 120 and 2 hrs after meals < 140will do labs at 3 monthspha in 6 months with labs Active immunization 3387 9002 Z23 Elevated blood-pressure reading without diagnosis of hypertension 736917651 R03.0 bp not at goaljust elevatedwi ll start checking at homewill send in readings in next few weeks [id number] MD CAMRYN LEACH, [facility], OFFICE [address] [place] [address] 01/31/2024 10:13:15 01/31/2024 12:19:05 Pain of left hip joint 2630559287 54778 M25.552 Will have her see a specialist as she has tried cortisone shots already and has seen rheum. She requested repeat x-ray, will obtain to assess for any new joint space narrowing. Headache 34130767 R51.9 Chronic headaches. Family history of brain aneurysm in father. Uncle also had it. [id number] AMBER LAROSE MD , [facility], OFFICE [address] [place] [address] 04/08/2024 10:16:44 04/08/2024 11:44:27 Adult health examination 625975298 Z00.00 Doing well. Up to date with screenings . Continue healthy lifestyle measures including a diet rich in fruits and vegetables as well as regular exercise. Depression screening 171 090247 Z13.31 depression screening tool administer ed Screening for alcohol abuse 183575784 Z13.39 Alcohol use screening tool administer ed Type 2 heriberto betes mellitus without complication 777285166 E11.9 At goal A1c < 7. Managing with lifestyle. Recent A1c is pending. Discussed starting a medication to improving her fasting sugars further, she will decide if she wants to follow up. Influenza vaccination declined 114438090 Z28.21 Pain of ri ght elbow joint 7501395965 3728257 M25.521 Would like a second opinion for injury in her R elbow and subsequent neuropathy . Celiac disease 743789254 K90.0 Gluten-carlee e diet. Stable. [id number] AMBER LAROSE MD , [facility], OFFICE [address] [place] [address] 05/01/2024 14:03:34 05/01/2024 14:57:36 Steatosis of liver 429744221 K76.0 Type 2 heriberto betes mellitus without complication 373472133 E11.9 Not at goal of A1c < 7, last checked was 7.3%. Managing with lifestyle. Obesity 855945118 E66.81 2 Patient is here today for [...] Amber Larose MD, am certified by the [place] [employer] to provide obesity care. Essential hypertension 37511766 I10 At goal <130/80. Will monitor as she loses weight. [id number] AMBER LAROSE MD , [facility], [address]ICE [address] [place] [address] 06/10/2024 16:10:34 06/11/2024 10:47:39 Obesity 734197448 E66.9 Tolerating the 2.5 mg dose. Initially had some burping but this resolved after a few days. Decrease in appetite. Weight still the same. Will increase to 5 mg. Continue healthy eating, gym and hydration. ?I am seeing patient regularly to monitor medication and ongoing weight goals.?I, Amber Larose MD, am certified by the [place] [employer] to provide obesity care. Type 2 heriberto betes mellitus without complication 185313961 E11.9 Last A1c in March was 7.3%. Repeat today. Essential hypertension 32531137 I10 At goal <130/80. Will monitor. Health [...] ACO (MEDICAID REPLACEMENT - HMO) Fernanda Hui [id number] Fernanda Hui 01/31/2024 1 [employer] - DOS ON OR AFTER 2022 - [employer] (MEDICAID REPLACEMENT - HMO) Fernanda Hui [id number] Fernanda Hui 04/08/2024 1 [employer] - DOS ON OR AFTER 2022 - [employer] (MEDICAID REPLACEMENT - HMO) Fernanda Hui [id number] Fernanda Hui 05/01/2024 1 [employer] HP - DOS ON OR AFTER 2022 - [employer] (MEDICAID REPLACEMENT - HMO) Fernanda Hui [id number] Fernanda Hui 06/10/2024 1 [employer] - DOS ON OR AFTER 2022 - LOCATED WITHIN [facility] (MEDICAID REPLACEMENT - HMO) Fernanda Hui [id number] Fernanda Hui Notes Date Note Type Note Provider Name and Address Organization Details Recorded Time 4 text/html f/u on dm dxmore monitoring of foods - reduced soda to no sodamore veggieschallenging with celiac- gluten freeexercise - walking 2-6 miles everyday with daughterout of work d/t elbow Amaya Bear NP [address] [place], [address], [facility] 08/23/2023 16:23:18 4 text/html Left hip and low back painful x yearsGetting worse more recentlyHas had cortisone injections in the hip but not super helpfulHas lidoderm patchesCalves also sore, hands and feet swollenSeen rheum, no diagnosis Also has headaches, chest pain, abdominal painDebilitating headaches bothering her all night longSeen GI, has celiac, no improvement since stopping gluten AMBER LAROSE MD [address] [place], [address], [facility] 01/31/2024 13:02:29 4 text/html Physical Exam/FemaleReported bypatient.PHAPatient [...] other menopause symptoms.Sexually active: no issues.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 headaches: seeing neurologistback pain: using the brace AMBER LAROSE MD [address] [place], [address], [facility] 04/08/2024 11:03:55 4 text/html Was losing some [...] about 80 lbs AMBER LAROSE MD [address] [place], [address], [facility] 05/01/2024 14:34:58 5 text/html Appetite is down but weight has not changed yetGoing back to the gym, hopefully will comeStill eating protein, veggiesDrinkign water Went to ortho for the kneesOsteoarthritis bilaterallyDoing PT right nowR elbow saw the same doctor, thinks its cubital compartment syndromeW[place] to [place] doctorHas a plan for an EMGGoing to [facility] Due for eye exam, plan to have this done in August AMBER LAROSE MD [address] [place], [address], [facility] 06/10/2024 16:59:16 OBGyn Episode No OBEpisode recorded.
--- OUTSIDE RECORDS SUMMARY | 2024-08-27 12:07 | XMS_ITS | Data Portability ---
Author Organization 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 [phone] Assessment Encounter Date Assessment Date Assessment LastModified [...] Details Appointments Weightlo ss F-Up 2024 02:30P Jake LAROSE MD Not available Not available Not available Lab hemoglob in A1C/hemo globin total, QN, blood [facility]24 [email or web address] [address] [facility], [place], [address], 07/03/2024 10:02:28 HbA1c (hemoglo bin A1c), blood 2023 024 [facility], [address] [facility], [place], [address], 04/08/2024 11:47:49 Referral orthoped ic surgeon referral 2023 024 [email or web address] [facility], [address] [place] [address] [place], [address], 04/17/2024 11:11:22 neurolog ist referral 2023 024 KAYE Lloyd MD, [address] [place] [address], [address], 04/19/2024 03:18:27 physical medicine and rehabili tation referral 2023 024 [email or web address] Melvin Wallace MD, [address], [place], [address], 01/31/2024 13:11:26 Procedures None recorded . Surgeries None recorded . Imaging XR, hip + pelvis, unilater al, 2 or 3 view 2023 024 [email or web address] [facility] (Imaging), [address], [place], [address], 01/31/2024 12:19:05 Medication Orders Zepbound 5 mg/0.5 mL subcutan eous pen injector [address] [id number], [address] [place], [address], 06/10/2024 16:41:49 Zepbound 2.5 mg/0.5 mL subcutan eous pen injector [address] [id number], [address] [place], [address], 05/01/2024 14:32:14 ondanset lizy 4 mg disinteg rating tablet [address] [id number], [address] [place], [address], 05/01/2024 14:32:14 Patient TargetsNo targets recorded. Patient Instructions Encounter Date Encounter Id Patient Instructions Last Modified By Organization Details Last Modified Time 05/01/2024 [id number] You have been prescribed a new medication [...] containers from your insurance company or most [facility] have them available for free. - If [...] left hip joint Referring Physician: Amber Larose [facility], Encounter Date: 01/31/2024 Neurologist Referral for Hea dache Referring Physician: Amber Larose [facility], Encounter Date: 01/31/2024 Orthopedic Surgeon Referral for Pain of right elbow joint Referring Physician: Amber Larose [facility], Encounter Date: 04/08/2024 Results Created Date Observation Date Name Description Value Unit Range Abnormal Flag Note LastModifiedBy Organization Detail LastModifiedTime 08/16/19 24 08/16/2023 MICRO ALBUM IN/CR EATIN INE RATIO PANEL , URINE microalbumin 16.9 mg/L 1.3-20 .0 Not Available [address], [address], 08/16/2023 16:46:53 08/16/19 24 08/16/2023 MICRO ALBUM IN/CR EATIN INE RATIO PANEL , URINE creatinine urine 104.9 mg/dL 30.0-1 25.0 Not Available [address], [address], 08/16/2023 16:46:53 08/16/19 24 08/16/2023 MICRO ALBUM IN/CR EATIN INE RATIO PANEL , URINE microalb/cre at ratio 16.1 mg/g_ creat 0.0-29 .0 Not Available [address], [address], 08/16/2023 16:46:53 08/16/19 24 08/17/2023 HGB A1C [...] furth er confi rmati on Not Available [address], [address], 08/17/2023 10:15:54 08/16/19 24 08/17/2023 HGB A1C estimated average glucose 134.1 mg/dL Not Available [address], [address], 08/17/2023 10:15:54 08/16/19 24 08/17/2023 COMP. METAB OLIC PANEL glucose 121 mg/dL 70-100 high Not Available [address], [address], 08/17/2023 12:22:55 08/16/19 24 08/17/2023 COMP. METAB OLIC PANEL BUN 15 mg/dL 7-18 Not Available [address], [address], 08/17/2023 12:22:55 08/16/19 24 08/17/2023 COMP. METAB OLIC PANEL creatinine 0.7 mg/dL 0.8-1. 3 low Not Available [address], [address], 08/17/2023 12:22:55 08/16/19 24 08/17/2023 COMP. METAB OLIC PANEL B/C 21.4 ratio Not Available [address], [address], 08/17/2023 12:22:55 08/16/19 24 08/17/2023 COMP. METAB [...] Colla borat ion (CKD- EPI) Equat ion (Charlae r et. al 2020) as recom lynn d by the [place] [facility] . eGFR is based on age, serum creat inine , and sex. CKD-E PI does not calcu late eGFR by race, does not apply to child amaury (age <18 years ), and shoul d not be used in pregn lanie. Not Available [address], [address], 08/17/2023 12:22:55 08/16/19 24 08/17/2023 COMP. METAB OLIC PANEL sodium 140 mmol/ L 136-14 5 Not Available [address], [address], 08/17/2023 12:22:55 08/16/19 24 08/17/2023 COMP. METAB OLIC PANEL potassium 4.1 mmol/ L 3.5-5. 1 Not Available [address], [address], 08/17/2023 12:22:55 08/16/19 24 08/17/2023 COMP. METAB OLIC PANEL chloride 102 mmol/ L 96-107 Not Available [address], [address], 08/17/2023 12:22:55 08/16/19 24 08/17/2023 COMP. METAB OLIC PANEL anion gap 12.4 5.0-15 .0 Not Available [address], [address], 08/17/2023 12:22:55 08/16/19 24 08/17/2023 COMP. METAB OLIC PANEL CO2 26 mmol/ L 21-32 Not Available [address], [address], 08/17/2023 12:22:55 08/16/19 24 08/17/2023 COMP. METAB OLIC PANEL calcium 9.5 mg/dL 8.5-10 .3 Not Available [address], [address], 08/17/2023 12:22:55 08/16/19 24 08/17/2023 COMP. METAB OLIC PANEL total protein 7.2 g/dL 6.4-8. 2 Not Available [address], [address], 08/17/2023 12:22:55 08/16/19 24 08/17/2023 COMP. METAB OLIC PANEL albumin 3.7 g/dL 3.4-5. 0 Not Available [address], [address], 08/17/2023 12:22:55 08/16/19 24 08/17/2023 COMP. METAB OLIC PANEL globulin 3.5 g/dL Not Available [address], [address], 08/17/2023 12:22:55 08/16/19 24 08/17/2023 COMP. METAB OLIC PANEL A/G 1.1 ratio 0.8-2. 0 Not Available [address], [address], 08/17/2023 12:22:55 08/16/19 24 08/17/2023 COMP. METAB OLIC PANEL total bilirubin 0.40 mg/dL 0.00-1 .00 Not Available [address], [address], 08/17/2023 12:22:55 08/16/19 24 08/17/2023 COMP. METAB OLIC PANEL AST 28 U/L 0-37 Not Available [address], [address], 08/17/2023 12:22:55 08/16/19 24 08/17/2023 COMP. METAB OLIC PANEL ALT 56 U/L 6-63 Not Available [address], [address], 08/17/2023 12:22:55 08/16/19 24 08/17/2023 COMP. METAB OLIC PANEL alk. phos. 135 U/L 50-136 Not Available [address], [address], 08/17/2023 12:22:55 08/16/19 24 08/17/2023 LIPID PANEL cholesterol 189 mg/dL <200 mg/dl Allen able 200-2 39 mg/dl Borde rline High >240 mg/dl High Not Available [address], [address], 08/17/2023 12:22:56 08/16/19 24 08/17/2023 LIPID PANEL triglyceride s 174 mg/dL <150 mg/dL Jerica l 150-1 99 mg/dL Borde rline High 200-4 99 mg/dL High >500 mg/dL Very High Not Available [address], [address], 08/17/2023 12:22:56 08/16/19 24 08/17/2023 LIPID PANEL direct HDL 48 mg/dL <40 mg/dl - Major Risk for CHD >60 mg/dl - Negat diomedes Risk for CHD Not Available [address], [address], 08/17/2023 12:22:56 08/16/19 24 08/17/2023 LDL - [...] r is not neces gina. Not Available [facility] [address] , [place], [address], 08/17/2023 12:22:58 10/06/19 24 10/10/2023 ANATO RAKEL PATHO LOGY path report [facility] [address] [facility] [place] [address] Lab Direc tor: Anahi davila MD Surgi [...] tyler MD, POST- BA, BA Not Available [facility] (Outpatient) [address] [place] [address], [address], 10/10/2023 17:20:06 04/06/20 24 04/08/2024 HGB A1C [...] furth er confi rmati on Not Available [address], [address], 04/08/2024 11:47:49 04/06/2004/08/2024 HGB A1C estimated average glucose 162.8 mg/dL Not Available [address], [address], 04/08/2024 11:47:49 04/06/2004/09/2024 BASIC METAB OLIC PANEL glucose 179 mg/dL 70-100 high Not Available [address], [address], 04/09/2024 16:36:15 04/06/20 24 04/09/2024 BASIC METAB OLIC PANEL BUN 14 mg/dL 7-18 Not Available [address], [address], 04/09/2024 16:36:15 04/06/20 24 04/09/2024 BASIC METAB OLIC PANEL creatinine 0.9 mg/dL 0.8-1. 3 Not Available [address], [address], 04/09/2024 16:36:15 04/06/20 24 04/09/2024 BASIC METAB OLIC PANEL B/C 15.6 ratio Not Available [address], [address], 04/09/2024 16:36:15 04/06/20 24 04/09/2024 BASIC METAB [...] be used in pregn lanie. Not Available [address], [address], 04/09/2024 16:36:15 04/06/20 24 04/09/2024 BASIC METAB OLIC PANEL sodium 143 mmol/ L 136-14 5 Not Available [address], [address], 04/09/2024 16:36:15 04/06/20 24 04/09/2024 BASIC METAB OLIC PANEL potassium 4.1 mmol/ L 3.5-5. 1 Not Available [address], [address], 04/09/2024 16:36:15 04/06/20 24 04/09/2024 BASIC METAB OLIC PANEL chloride 105 mmol/ L 96-107 Not Available [address], [address], 04/09/2024 16:36:15 04/06/20 24 04/09/2024 BASIC METAB OLIC PANEL anion gap 9.7 5.0-15 .0 Not Available [address], [address], 04/09/2024 16:36:15 04/06/20 24 04/09/2024 BASIC METAB OLIC PANEL CO2 28 mmol/ L 21-32 Not Available [address], [address], 04/09/2024 16:36:15 04/06/20 24 04/09/2024 BASIC METAB OLIC PANEL calcium 9.3 mg/dL 8.5-10 .3 Not Available [address], [place], [address], 04/09/2024 16:36:15 06/22/19 25 06/23/2024 CBC (INCL UDES DIFF/ PLT) white blood cell count 5.7 thous and/u L 3.8-10 .8 normal Not Available [facility] [address], [place], [address], 06/23/2024 08:43:39 06/22/19 25 06/23/2024 CBC (INCL UDES DIFF/ PLT) red blood cell count 4.94 priscilla on/uL 3.80-5 .10 normal Not Available [facility] [place] [facility] [address], [place], [address], 06/23/2024 08:43:39 06/22/19 25 06/23/2024 CBC (INCL UDES DIFF/ PLT) hemoglobin 14.4 g/dL 11.7-1 5.5 normal Not Available [facility] [address], [place], [address], 06/23/2024 08:43:39 06/22/19 25 06/23/2024 CBC (INCL UDES DIFF/ PLT) hematocrit 43.7 % 35.0-4 5.0 normal Not Available [facility] [address], [place], [address], 06/23/2024 08:43:39 06/22/19 25 06/23/2024 CBC (INCL UDES DIFF/ PLT) MCV 88.5 fL 80.0-1 00.0 normal Not Available [facility] [address], [place], [address], 06/23/2024 08:43:39 06/22/19 25 06/23/2024 CBC (INCL UDES DIFF/ PLT) MCH 29.1 pg 27.0-3 3.0 normal Not Available [facility] [place] [facility] [address] [place], [place], [address], 06/23/2024 08:43:39 06/22/19 25 06/23/2024 CBC (INCL UDES DIFF/ PLT) MCHC 33.0 g/dL 32.0-3 6.0 normal For adult s, a sligh t decre ase in the calcu lated MCHC value (in the range of 30 to 32 g/dL) is most likel y not clini arianna signi brian t; jeanine er, it shoul d be inter prete d with cauti on in [facility] n with other red cell jaspreet eters and the patie nt's clini mini condi tion. Not Available [facility] [place] [facility] [address] [place], [place], [address], 06/23/2024 08:43:39 06/22/19 25 06/23/2024 CBC (INCL UDES DIFF/ PLT) RDW 12.8 % 11.0-1 5.0 normal Not Available [facility] [place] [facility] [address], [place], [address], 06/23/2024 08:43:39 06/22/19 25 06/23/2024 CBC (INCL UDES DIFF/ PLT) platelet count 251 thous and/u L 140-40 0 normal Not Available [facility] [place] [facility] [address], [place], [address], 06/23/2024 08:43:39 06/22/19 25 06/23/2024 CBC (INCL UDES DIFF/ PLT) MPV 11.8 fL 7.5-12 .5 normal Not Available [facility] [place] [facility] [address], [place], [address], 06/23/2024 08:43:39 06/22/19 25 06/23/2024 CBC (INCL UDES DIFF/ PLT) absolute neutrophils 3329 cells /uL 1500-7 800 normal Not Available [facility] [place] [facility] [address], [place], [address], 06/23/2024 08:43:39 06/22/19 25 06/23/2024 CBC (INCL UDES DIFF/ PLT) absolute lymphocytes 1693 cells /uL 850-39 00 normal Not Available [facility] [place] [facility] [address], [place], [address], 06/23/2024 08:43:39 06/22/19 25 06/23/2024 CBC (INCL UDES DIFF/ PLT) absolute monocytes 502 cells /uL 200-95 0 normal Not Available [facility] [place] [facility] [address], [place], [address], 06/23/2024 08:43:39 06/22/19 25 06/23/2024 CBC (INCL UDES DIFF/ PLT) absolute eosinophils 154 cells /uL 15-500 normal Not Available [facility] [place] [facility] [address], [place], [address], 06/23/2024 08:43:39 06/22/19 25 06/23/2024 CBC (INCL UDES DIFF/ PLT) absolute basophils 23 cells /uL 0-200 normal Not Available [facility] [place] [facility] [address], [place], [address], 06/23/2024 08:43:39 06/22/19 25 06/23/2024 CBC (INCL UDES DIFF/ PLT) neutrophils 58.4 % normal Not Available [facility] [place] [facility] [address], [place], [address], 06/23/2024 08:43:39 06/22/19 25 06/23/2024 CBC (INCL UDES DIFF/ PLT) lymphocytes 29.7 % normal Not Available [facility] [address], [place], [address], 06/23/2024 08:43:39 06/22/19 25 06/23/2024 CBC (INCL UDES DIFF/ PLT) monocytes 8.8 % normal Not Available [facility] [place] [facility] [address], [place], [address], 06/23/2024 08:43:39 06/22/19 25 06/23/2024 CBC (INCL UDES DIFF/ PLT) eosinophils 2.7 % normal Not Available [facility] [place] [facility] [address], [place], [address], 06/23/2024 08:43:39 06/22/19 25 06/23/2024 CBC (INCL UDES DIFF/ PLT) basophils 0.4 % normal Not Available [facility] [address], [place], [address], 06/23/2024 08:43:39 06/22/19 25 06/24/2024 MICRO ALBUM IN/CR EATIN INE RATIO PANEL , URINE microalbumin 5.9 mg/L 1.3-20 .0 Not Available [address], [address], 06/24/2024 10:52:46 06/22/19 25 06/24/2024 MICRO ALBUM IN/CR EATIN INE RATIO PANEL , URINE creatinine urine 133.5 mg/dL 30.0-1 25.0 high Not Available [address], [address], 06/24/2024 10:52:46 06/22/19 25 06/24/2024 MICRO ALBUM IN/CR EATIN INE RATIO PANEL , URINE microalb/cre at ratio 4.4 mg/g_ creat 0.0-29 .0 Not Available [address], [address], 06/24/2024 10:52:46 06/22/19 25 06/24/2024 HGB A1C [...] furth er confi rmati on Not Available [address], [address], 06/24/2024 12:23:17 06/22/19 25 06/24/2024 HGB A1C estimated average glucose 148.5 mg/dL Not Available [address], [address], 06/24/2024 12:23:17 06/22/19 25 06/24/2024 BASIC METAB OLIC PANEL glucose 150 mg/dL 70-100 high Not Available [address], [address], 06/24/2024 15:23:10 06/22/19 25 06/24/2024 BASIC METAB OLIC PANEL BUN 15 mg/dL 7-18 Not Available [address], [address], 06/24/2024 15:23:10 06/22/19 25 06/24/2024 BASIC METAB OLIC PANEL creatinine 0.9 mg/dL 0.8-1. 3 Not Available [address], [address], 06/24/2024 15:23:10 06/22/19 25 06/24/2024 BASIC METAB OLIC PANEL B/C 16.7 ratio Not Available [address], [address], 06/24/2024 15:23:10 06/22/19 25 06/24/2024 BASIC METAB [...] be used in pregn lanie. Not Available [address], [address], 06/24/2024 15:23:10 06/22/19 25 06/24/2024 BASIC METAB OLIC PANEL sodium 143 mmol/ L 136-14 5 Not Available [address], [address], 06/24/2024 15:23:10 06/22/19 25 06/24/2024 BASIC METAB OLIC PANEL potassium 4.1 mmol/ L 3.5-5. 1 Not Available [address], [address], 06/24/2024 15:23:10 06/22/19 25 06/24/2024 BASIC METAB OLIC PANEL chloride 104 mmol/ L 96-107 Not Available [address], [address], 06/24/2024 15:23:10 06/22/19 25 06/24/2024 BASIC METAB OLIC PANEL anion gap 11.4 5.0-15 .0 Not Available [address], [address], 06/24/2024 15:23:10 06/22/19 25 06/24/2024 BASIC METAB OLIC PANEL CO2 28 mmol/ L 21-32 Not Available [address], [address], 06/24/2024 15:23:10 06/22/19 25 06/24/2024 BASIC METAB OLIC PANEL calcium 9.4 mg/dL 8.5-10 .3 Not Available [address], [address], 06/24/2024 15:23:10 06/22/19 25 06/24/2024 LIPID PANEL cholesterol 191 mg/dL <200 mg/dl Allen able 200-2 39 mg/dl Borde rline High >240 mg/dl High Not Available [address], [address], 06/24/2024 15:23:11 06/22/19 25 06/24/2024 LIPID PANEL triglyceride s 125 mg/dL <150 mg/dL Jerica l 150-1 99 mg/dL Borde rline High 200-4 99 mg/dL High >500 mg/dL Very High Not Available [address], [address], 06/24/2024 15:23:11 06/22/19 25 06/24/2024 LIPID PANEL direct HDL 48 mg/dL <40 mg/dl - Major Risk for CHD >60 mg/dl - Negat diomedes Risk for CHD Not Available [address], [address], 06/24/2024 15:23:11 06/22/19 25 06/24/2024 LDL - [...] 0-1 risk facto r is not necnoris gina. Not Available [address], [address], 06/24/2024 15:23:12 01/31/20 24 01/31/2024 XR, hip [...] ality. Readin g Physic belkis: Tom Montez [facility] (Imaging) [address], [place], [address], 01/31/2024 17:22:29 Result Notes None recorded. Procedures Surgical History Date Name Laterality Status Provider Name and Address Organization Details Recorded Time 3 Kristen - Colonoscopy completed Isidro Peterson MD [address] [place] [address], [phone], [facility] 12/02/2022 13:59:37 3 Kristen - EGD completed Isidro Peterson MD [address] [place] [address], [phone], [facility] 12/02/2022 13:59:07 Imaging Results Imaging Date Name Status LastModified by Organiz ation Details LastModified Time 01/31/2024 XR, hip + pelvis, unilateral , 2 or 3 view completed [facility] ([facility]) [address] [place], [address], 01/31/2024 17:22:29 Procedure Notes None recorded. Medical [...] Available Not Available Not Avai lable FreeStyle Sebec Lite kit USE DIRECTED TO CHECK BLOOD [...] What Is Your Occupation? [employer] Information not available 01/28/2022 How Many Days [...] Form Given To Pt 03/31/11, 09/22/14, 06/16/15 [email or web address] Information not available 06/14/2023 Marital Status Helping [...] 70 [email or web address] Not available 2014 14:14:19 Brother [place] son-White pattern 48 [email or web address] Not available 2016 [...] SNOMED-CT Code Diagnosis ICD10 Code Diagnosis Note [id number] [facility], OFFICE [address] [place] [address] 04/13/2004 13:15:09 04/13/2004 13:52:33 [id number] [facility], [address] [place] [address] 10/06/2005 14:44:39 10/06/2005 17:44:16 [id number] [facility] - [address] [place] [address] 10/06/2005 15:16:59 10/06/2005 15:17:09 [id number] [facility] OFFICE [address] [place] [address] [place] [address] 10/17/2005 09:39:34 10/17/2005 11:47:03 [id number] [facility], [address] [place] [address] 10/24/2005 09:56:34 06/04/2008 02:02:29 [id number] [facility] [address] [place] [address] 11/22/2005 09:04:17 11/22/2005 16:06:53 [id number] [facility] - [address] [place] [address] 11/22/2005 09:27:56 11/22/2005 09:28:05 [id number] [facility] [address] [place] [address] 04/04/2006 16:15:39 04/04/2006 17:01:09 [id number] [facility] [address] [place] [address] 08/16/2006 10:02:59 08/18/2006 07:49:02 [id number] [facility], [address] [place] [address] 08/30/2006 14:48:37 08/30/2006 17:32:27 [id number] [facility] - [facility] [address] [place] [address] 08/30/2006 15:54:11 08/30/2006 15:54:16 [id number] [facility], OFFICE [address] [place] [address] [place] [address] 10/13/2006 10:18:52 10/13/2006 13:12:41 [id number] FP, [facility], OFFICE [address] [place] [address] [place] [address] 11/03/2006 10:10:13 11/03/2006 11:36:58 [id number] [facility], OFFICE [address] [place] [address] [place] [address] 02/16/2007 10:19:36 06/04/2008 02:02:29 [id number] [facility], [address] [place] [address] 01/26/2007 10:01:13 01/26/2007 15:25:44 [id number] , [facility], [address] [place] [address] 12/17/2007 10:14:12 06/04/2008 02:02:29 [id number] [facility], [address] [place] [address] 06/05/2008 15:35:46 06/17/2008 02:02:00 [id number] Araceli Schuster LPN [facility], [address] [place] [address] 08/06/2008 12:16:07 08/07/2008 08:35:57 [id number] FP, [facility], [address] [place] [address] 09/05/2008 11:42:18 09/08/2008 08:21:27 [id number] FP, [facility], [place] [address] [place] [address] 12/08/2008 16:32:50 12/09/2008 14:05:05 [id number] FP, [facility], [address] [place] [address] 12/23/2008 10:20:23 12/23/2008 16:02:28 [id number] FP, [facility], [address] [place] [address] 03/11/2009 14:47:03 03/11/2009 17:01:54 [id number] LAB - [address] [place] [address] 07/30/2008 09:10:41 07/30/2008 09:10:47 [id number] LAB - [address] [place] [address] 12/10/2008 10:17:14 12/10/2008 10:17:19 [id number] FP, [facility], [place] [address] 09/01/2009 07:59:36 09/01/2009 09:05:09 [id number] [facility], [address] [place] [address] 09/03/2009 09:31:25 09/04/2009 08:20:06 [id number] [facility], [address] [place] [address] 11/23/2009 09:27:05 11/23/2009 12:22:11 [id number] FP, [facility], [address] [place] [address] 12/14/2009 15:28:34 12/14/2009 16:21:22 [id number] [facility], [place] [address] [place] [address] 03/18/2010 09:21:43 03/18/2010 10:46:30 [id number] [facility], [place] [address] [place] [address] 06/30/2010 16:24:46 06/30/2010 17:25:41 [id number] Araceli Schuster LPN [facility], [place] [address] [place] [address] 01/20/2011 10:19:33 01/20/2011 11:02:24 [id number] [facility], [place] [address] [place] [address] 03/31/2011 15:41:03 03/31/2011 16:54:54 [id number] FP [facility], [address] [place] [address] 09/13/2011 16:09:22 09/13/2011 16:43:30 [id number] GLENROY Reyes, [facility], [address] [place] [address] 10/12/2011 15:55:37 10/12/2011 16:24:26 [id number] Araceli Schuster LPN FP, [facility], OFFICE [address] [place] [address] [place] [address] 10/26/2011 15:55:14 10/26/2011 16:08:12 [id number] GLENROY Reyes, [facility], OFFICE [address] [place] [address] [place] [address] 07/16/2012 11:45:25 07/16/2012 12:22:07 [id number] Lisa Jesus LPN [facility], [address] [place] [address] 07/19/2012 10:20:12 07/19/2012 10:30:27 [id number] Stephanie Giraldo LPN , [address] [place] [address] 12/25/2012 16:14:20 12/26/2012 07:30:58 [id number] Araceli Schuster LPN , [address] [place] [address] 03/04/2013 15:53:01 03/04/2013 16:53:56 [id number] Nathen Chávez , [address] [place] [address] 06/05/2013 10:45:47 06/05/2013 11:36:26 [id number] Bertha Razo , [address] [place] [address] 06/24/2013 15:47:39 06/25/2013 10:20:00 [id number] Marta Mcghee , [facility] [address] [place] [address] [place] [address] 09/18/2013 13:41:57 09/18/2013 14:35:[id number] [place] [address] 4 10/24/2013 13:30:56 10/24/2013 14:58:27 [id number] Stephanie House , [address] [place] [address] 1 08/21/2014 09:15:37 08/21/2014 12:58:29 [id number] Jaimie Montero [address] [place] [address] 1 09/22/2014 13:45:57 10/09/2014 16:20:03 [id number] Rohandiallo Robert [address] [place] [address] 1 06/16/2015 10:15:14 06/17/2015 11:26:38 [id number] Eden Cody.ODarcy [address] [place] [address] 1 06/24/2016 13:45:51 06/27/2016 09:56:23 [id number] Eden Cody.ODarcy [address] [place] [address] 1 09/30/2016 10:41:57 09/30/2016 11:49:43 [id number] Miguel Angel Jim MD [address] [place] [address] 1 04/21/2017 16:26:41 04/24/2017 12:38:25 [id number] Eden ByrdODarcy [address] [place] [address] 1 10/24/2017 08:44:30 10/24/2017 09:30:25 [id number] Douglas Willis PA-C [address] [place] [address] 1 10/26/2017 13:39:56 10/26/2017 14:41:19 [id number] Eden Washington D.O. [address] [place] [address] 1 04/23/2018 14:36:20 04/23/2018 16:11:35 [id number] MARISSA Ortiz [address] [place] [address] 1 08/14/2018 09:28:25 08/14/2018 11:12:59 [id number] Eden Cody.ODarcy [address] [place] [address] 1 10/25/2018 08:47:16 10/25/2018 09:22:10 [id number] Eden Cody.ODarcy [address] [place] [address] 1 04/25/2019 09:47:24 04/25/2019 10:25:45 [id number] Eden Washington D.O. [facility], [address] [place] [address] 1 10/29/2019 08:12:09 10/29/2019 09:15:59 [id number] Gertrudis Roche RN [address] [place] [address] 1 03/20/2020 07:34:17 03/26/2020 16:52:10 [id number] STEVAN PEREZ MD [address] [place] [address] 1 11/06/2020 08:44:51 11/06/2020 10:09:53 [id number] Nataly Multani DPM Podiatry, [address] [place] [address] 1 01/22/2021 09:01:08 01/22/2021 15:38:52 [id number] Eden Washington D.O. [address] [place] [address] 1 01/26/2021 08:57:23 01/26/2021 09:35:25 [id number] Matilde Rubio MD [address] [place] [address] 1 10/08/2021 12:02:47 10/08/2021 12:27:01 [id number] Alphonse Martinez DPT Physical Therapy, [address] [place] [address] 1 10/13/2021 13:52:59 10/14/2021 13:07:36 [id number] Alphonse Martinez DPT Physical Therapy, [address] [place] [address] 1 10/18/2021 13:10:11 10/18/2021 14:16:22 [id number] Alphonse Martinez DPT Physical Therapy, [address] [place] [address] 1 10/20/2021 10:32:00 10/20/2021 14:08:36 [id number] Alphonse Martinez DPT Physical Therapy, [facility] [place] [address] 1 10/25/2021 11:26:03 10/25/2021 15:32:52 [id number] Alphonse Martinez DPT Physical Therapy, [facility] [place] [address] 1 10/27/2021 14:28:08 10/27/2021 15:25:05 [id number] Zheng Figueroa MD Sports Medicine, [address] [address] 11/03/2021 13:32:18 11/03/2021 14:02:41 [id number] Alphonse Martinez DPT Physical Therapy, [facility] [place] [address] 1 11/03/2021 14:36:56 11/04/2021 10:24:32 [id number] Alphonse Martinez DPT Physical Therapy, [facility] [place] [address] 1 11/09/2021 13:06:11 11/09/2021 13:59:30 [id number] Alphonse Martinez DPT Physical Therapy, [facility] [place] [address] 1 11/18/2021 15:34:59 11/18/2021 16:09:31 [id number] Alphonse Martinez DPT Physical Therapy, [facility] [place] [address] 1 11/23/2021 15:00:55 11/23/2021 15:37:44 [id number] Zheng Figueroa MD Sports Medicine, [facility] [place] [address] 1 12/13/2021 13:28:52 12/13/2021 14:00:37 [id number] Eden Washington D.O. , [facility], [address] [place] [address] 1 01/28/2022 08:18:22 01/28/2022 13:39:11 [id number] MRAISSA Sal, [facility], OFFICE [address] [place] [address] 6 04/14/2022 11:51:53 04/19/2022 14:24:28 [id number] Eden COWAN, [facility], OFFICE [address] [place] [address] 1 05/02/2022 10:10:17 05/03/2022 10:34:49 [id number] Zheng Figueroa MD Sports Medicine, [facility] [address] [place] [address] 05/03/2022 11:04:00 05/03/2022 11:21:52 [id number] Nataly Dickey i, PT Physical Therapy, [facility] [place] [address] 1 05/31/2022 14:26:57 05/31/2022 15:55:33 [id number] Nataly Dickey i, PT Physical Therapy, [address] [place] [address] 1 06/06/2022 14:58:22 06/07/2022 13:01:15 [id number] VICKI ADRIAN, [facility], OFFICE [address] [place] [address] 1 11/10/2022 14:53:30 11/10/2022 15:34:06 [id number] VICKI ADRIAN, [facility], OFFICE [address] [place] [address] 1 11/17/2022 13:28:47 11/17/2022 15:00:11 [id number] Florina Quevedo RN Endoscopy , [address] [place] [address] 1 12/02/2022 11:53:27 12/02/2022 14:02:53 [id number] MARCE VICKI HUERTA, [facility], OFFICE [address] [place] [address] 1 12/19/2022 09:19:08 12/19/2022 10:08:32 [id number] Tricia Maxwell RDN, LDN, CDCES Nutrition -[facility] [address] [place] [address] 01/17/2023 09:54:56 01/18/2023 15:46:39 [id number] VICKI ADRIAN, [facility], OFFICE [address] [place] [address] 1 02/15/2023 10:27:27 02/15/2023 15:31:28 [id number] Tricia Maxwell, RDN, LDN, CDCES Nutrition -[facility] [address] [place] [address] 4 02/21/2023 08:59:17 03/03/2023 16:13:21 [id number] AUGUST VICKI HUERTA, [facility], OFFICE [address] [place], [place] [address] 1 03/01/2023 10:54:57 03/01/2023 12:54:52 [id number] Sara marx NP FP, [facility], OFFICE [address] [place] [address] [place], [place] [address] 1 04/14/2023 13:20:01 04/18/2023 09:08:55 [id number] LUCA Gil, [facility], OFFICE [address] [place] [address] [place], [place] [address] 1 06/12/2023 10:47:08 06/12/2023 17:30:56 [id number] LUCA Gil, [facility], OFFICE [address] [place] [address] [place], [place] [address] 1 08/23/2023 14:53:22 08/23/2023 16:05:30 [id number] MD CAMRYN LEACH, [facility], OFFICE [address] [place] [address] [place] [address] 1 01/31/2024 10:13:15 01/31/2024 12:19:05 [id number] MD CAMRYN LEACH, [facility], OFFICE [address] [place] [address] [place] [address] 1 04/08/2024 10:16:44 04/08/2024 11:44:27 [id number] MD CAMRYN LEACH, [facility], OFFICE [address] [place] [address] [place] [address] 1 05/01/2024 14:03:34 05/01/2024 14:57:36 [id number] MD CAMRYN LEACH, [facility], OFFICE [address] [place] [address] 1 06/10/2024 16:10:34 06/11/2024 10:47:39 Health Concerns [...] ACO (MEDICAID REPLACEMENT - HMO) Fernanda Patry [id number] Fernanda Patry 01/31/2024 1 [employer] - DOS ON OR AFTER 2022 - [employer] ACO (MEDICAID REPLACEMENT - HMO) Fernanda Patry [id number] Fernanda Patry 04/08/2024 1 [employer] - DOS ON OR AFTER 2022 - [employer] A[employer] (MEDICAID REPLACEMENT - HMO) Fernanda Patry [id number] Fernanda Patry 05/01/2024 1 [employer] - DOS ON OR AFTER 2022 - [employer] A[employer] (MEDICAID REPLACEMENT - HMO) Fernanda Patry [id number] Fernanda Patry 06/10/2024 1 [employer] - DOS ON OR AFTER 2022 - [employer] ACO (MEDICAID REPLACEMENT - HMO) Fernanda Patry [id number] Fernanda Patry OBGyn Episode No OBEpisode recorded.
== END 2024-08-27 10:55 | disposition home or self-care (01) ==
LOC: HO.HOS 10:12
PROVIDERS: PCP Internal Medicine; Visit Provider Physical Medicine & Rehabilitation
DX: M53.3 Sacrococcygeal disorders, not elsewhere classified (principal); G57.02 Lesion of sciatic nerve, left lower limb; M76.32 Iliotibial band syndrome, left leg
CPT/HCPCS: 99214

== ENCOUNTER 2024-09-11 13:20 | Outpatient (REF) | payer OTHER, SELFPAY ==
--- NOTE | 2024-09-11 13:22 | EMG_ITS ---
Chief complaint: Left hand numbness Reason for referral: Evaluate for Carpal Tunnel Syndrome Referred by: Geovanny ANN Procedure done: Left upper extremity NCS/EMG Precautions and/or limitations: None The limb temperature was monitored continuously and remained between 32-36 degrees C during the performance of the NCS. Nerve Conduction Studies Anti Sensory Summary Table ?Stim Site NR Onset (ms) Norm Onset (ms) Peak (ms) Norm Peak (ms) O-P Amp (?V) Norm O-P Amp Site1 Site2 Delta-0 (ms) Dist (cm) [place] (m/s) Norm [place] (m/s) Left Median Anti Sensory (2nd Digit) Wrist ? 3.1 3.8 <3.6 16.1 >10 Wrist 2nd Digit 3.1 14.0 45 Left Radial Anti Sensory (Thumb) Forearm ? 1.4 2.2 <3.1 18.8 Forearm Thumb 1.4 0.0 Left Ulnar Anti Sensory (5th Digit) Wrist ? 2.4 3.0 <3.7 16.1 >15.0 Wrist 5th Digit 2.4 14.0 58 Motor Summary Table ?Stim Site NR Onset (ms) Norm Onset (ms) O-P Amp (mV) Norm O-P Amp iAmp (mV) Amp (1st) (%) Site1 Site2 Delta-0 (ms) Dist (cm) [place] (m/s) Norm [place] (m/s) Left Median Motor (Abd Poll Brev) Wrist ? 4.1 <3.9 6.1 >4.5 7.3 100.0 Elbow Wrist 3.5 19.5 56 >45 Elbow ? 7.6 6.2 7.4 101.6 Left Ulnar Motor (Abd Dig Minimi) Wrist ? 2.8 <3.0 8.5 >5 10.6 100.0 B Elbow Wrist 2.7 16.5 61 >45 B Elbow ? 5.5 7.4 9.9 87.1 A Elbow B Elbow 1.5 10.0 67 >45 A Elbow ? 7.0 7.1 9.3 83.5 EMG ?Side Muscle Nerve Root Ins Act Fibs Psw Amp Dur Poly Recrt Int Pat Comment Left 1stDorInt Ulnar C8-T1 Nml Nml Nml Nml Nml 0 Nml Complete Left FlexCarRad Median C6-7 Nml Nml Nml Nml Nml 0 Nml Complete Left Biceps Musculocut C5-6 Nml Nml Nml Nml Nml 0 Nml Complete Left Triceps Radial C6-7-8 Nml Nml Nml Nml Nml 0 Nml Complete Left Deltoid Axillary C5-6 Nml Nml Nml Nml Nml 0 Nml Complete FINDINGS: Left median motor nerve showed prolonged distal latency, normal amplitude and normal conduction velocity. Left median sensory nerve showed prolonged peak latency. All other nerves tested were within normal. Concentric needle EMG was performed in selected muscles of the left upper extremity. Study did not reveal signs of electric abnormalities as shown in the table above. IMPRESSION: 1. This is an abnormal study. 2. There is electrodiagnostic evidence for left moderate-severe median neuropathy at the wrist, consistent with carpal tunnel syndrome. 3. There is no electrodiagnostic evidence for ulnar neuropathy, brachial plexopathy, or cervical radiculopathy. Thank you for your kind referral. Carolyn Parks MD, CHANCE Board Certified, [place] [employer] and [employer] (ABPMR) Board Certified, [place] [employer] of Electrodiagnostic Medicine (ABEM) [place] [id number] [facility]
--- OUTSIDE RECORDS SUMMARY | 2024-09-11 14:40 | XMS_ITS | Data Portability ---
Author Organization [facility], , [facility], OFFICE Address [address] [place] [address] Care Team Providers Care Lace And Textiles Restorer Name Role Phone JERAMY ERWIN OTHER ALBERTA HOUSER Orthopedic Surgeon GAMA MEDEIROS Building Energy Retrofit Technician ALEX MAXWELL Concierge Receptionist CECI VAZQUEZ Hematology/Oncology [phone] [facility] Government Program Manager AMAYA BEAR Primary Care Provider [facility] Orthopedic Surgeon NATALY LLOYD Neurologist [facility] [phone] Assessment Encounter Date Assessment Date Assessment LastModified [...] A1C/hemo globin total, QN, blood 2024 [email or web address] [address] [facility], [place], [address], 07/03/2024 10:02:28 HbA1c (hemoglo bin A1c), blood 2023 024 [facility], [address] [facility], [place], [address], 04/08/2024 11:47:49 Referral orthoped ic surgeon referral 2023 024 [email or web address] [facility], [address] [place] [address] [place], [address], 04/17/2024 11:11:22 neurolog ist referral 2023 024 KAYE Lloyd MD, [address] [place] [address], [address], 04/19/2024 03:18:27 physical medicine and rehabili tation referral 2023 024 [email or web address] Melvin Wallace MD, [address], [place], [address], 01/31/2024 13:11:26 Procedures None recorded . Surgeries None recorded . Imaging XR, hip + pelvis, unilater al, 2 or 3 view 2023 024 [email or web address] [facility] (Imaging), [address], [place], [address], 01/31/2024 12:19:05 Medication Orders Zepbound 5 mg/0.5 mL subcutan eous pen injector [address] [facility] #[id number], [address] [place], [address], 06/10/2024 16:41:49 Zepbound 2.5 mg/0.5 mL subcutan eous pen injector [address] [facility] #[id number], [address] [place], [address], 05/01/2024 14:32:14 [email or web address] dennis 4 mg disinteg rating tablet [address] [facility] #[id number], [address] [place], [address], 05/01/2024 14:32:14 Patient TargetsNo targets recorded. Patient Instructions Encounter Date Encounter Id Patient Instructions Last Modified By Organization Details Last Modified Time 05/01/2024 [id number] You have been prescribed a new medication [...] containers from your insurance company or most [facility] have them available for free. - [...] left hip joint Referring Physician: Amber Larose [facility], Encounter Date: 01/31/2024 Neurologist Referral for Hea dache Referring Physician: Amber Larose [facility], Encounter Date: 01/31/2024 Orthopedic Surgeon Referral for Pain of right elbow joint Referring Physician: Amber Larose [facility], Encounter Date: 04/08/2024 Results Created Date Observation Date Name Description Value Unit Range Abnormal Flag Note LastModifiedBy Organization Detail LastModifiedTime 08/16/19 24 08/16/2023 MICRO ALBUM IN/CR EATIN INE RATIO PANEL , URINE microalbumin 16.9 mg/L 1.3-20 .0 Not Available [address], [address], 08/16/2023 16:46:53 08/16/19 24 08/16/2023 MICRO ALBUM IN/CR EATIN INE RATIO PANEL , URINE creatinine urine 104.9 mg/dL 30.0-1 25.0 Not Available [address], [address], 08/16/2023 16:46:53 08/16/19 24 08/16/2023 MICRO ALBUM IN/CR EATIN INE RATIO PANEL , URINE microalb/cre at ratio 16.1 mg/g_ creat 0.0-29 .0 Not Available [address], [address], 08/16/2023 16:46:53 08/16/19 24 08/17/2023 HGB A1C [...] furth er confi rmati on Not Available [address], [address], 08/17/2023 10:15:54 08/16/19 24 08/17/2023 HGB A1C estimated average glucose 134.1 mg/dL Not Available [address], [address], 08/17/2023 10:15:54 08/16/19 24 08/17/2023 COMP. METAB OLIC PANEL glucose 121 mg/dL 70-100 high Not Available [address], [address], 08/17/2023 12:22:55 08/16/19 24 08/17/2023 COMP. METAB OLIC PANEL BUN 15 mg/dL 7-18 Not Available [address], [address], 08/17/2023 12:22:55 08/16/19 24 08/17/2023 COMP. METAB OLIC PANEL creatinine 0.7 mg/dL 0.8-1. 3 low Not Available [address], [address], 08/17/2023 12:22:55 08/16/19 24 08/17/2023 COMP. METAB OLIC PANEL B/C 21.4 ratio Not Available [address], [address], 08/17/2023 12:22:55 08/16/19 24 08/17/2023 COMP. METAB [...] be used in pregn lanie. Not Available [address], [address], 08/17/2023 12:22:55 08/16/19 24 08/17/2023 COMP. METAB OLIC PANEL sodium 140 mmol/ L 136-14 5 Not Available [address], [address], 08/17/2023 12:22:55 08/16/19 24 08/17/2023 COMP. METAB OLIC PANEL potassium 4.1 mmol/ L 3.5-5. 1 Not Available [address], [address], 08/17/2023 12:22:55 08/16/19 24 08/17/2023 COMP. METAB OLIC PANEL chloride 102 mmol/ L 96-107 Not Available [address], [address], 08/17/2023 12:22:55 08/16/19 24 08/17/2023 COMP. METAB OLIC PANEL anion gap 12.4 5.0-15 .0 Not Available [address], [address], 08/17/2023 12:22:55 08/16/19 24 08/17/2023 COMP. METAB OLIC PANEL CO2 26 mmol/ L 21-32 Not Available [address], [address], 08/17/2023 12:22:55 08/16/19 24 08/17/2023 COMP. METAB OLIC PANEL calcium 9.5 mg/dL 8.5-10 .3 Not Available [address], [address], 08/17/2023 12:22:55 08/16/19 24 08/17/2023 COMP. METAB OLIC PANEL total protein 7.2 g/dL 6.4-8. 2 Not Available [address], [address], 08/17/2023 12:22:55 08/16/19 24 08/17/2023 COMP. METAB OLIC PANEL albumin 3.7 g/dL 3.4-5. 0 Not Available [address], [address], 08/17/2023 12:22:55 08/16/19 24 08/17/2023 COMP. METAB OLIC PANEL globulin 3.5 g/dL Not Available [address], [address], 08/17/2023 12:22:55 08/16/19 24 08/17/2023 COMP. METAB OLIC PANEL A/G 1.1 ratio 0.8-2. 0 Not Available [address], [address], 08/17/2023 12:22:55 08/16/19 24 08/17/2023 COMP. METAB OLIC PANEL total bilirubin 0.40 mg/dL 0.00-1 .00 Not Available [address], [address], 08/17/2023 12:22:55 08/16/19 24 08/17/2023 COMP. METAB OLIC PANEL AST 28 U/L 0-37 Not Available [address], [address], 08/17/2023 12:22:55 08/16/19 24 08/17/2023 COMP. METAB OLIC PANEL ALT 56 U/L 6-63 Not Available [address], [address], 08/17/2023 12:22:55 08/16/19 24 08/17/2023 COMP. METAB OLIC PANEL alk. phos. 135 U/L 50-136 Not Available [address], [address], 08/17/2023 12:22:55 08/16/19 24 08/17/2023 LIPID PANEL cholesterol 189 mg/dL <200 mg/dl Allen able 200-2 39 mg/dl Borde rline High >240 mg/dl High Not Available [address], [address], 08/17/2023 12:22:56 08/16/19 24 08/17/2023 LIPID PANEL triglyceride s 174 mg/dL <150 mg/dL Jerica l 150-1 99 mg/dL Borde rline High 200-4 99 mg/dL High >500 mg/dL Very High Not Available [address], [address], 08/17/2023 12:22:56 08/16/19 24 08/17/2023 LIPID PANEL direct HDL 48 mg/dL <40 mg/dl - Major Risk for CHD >60 mg/dl - Negat diomedes Risk for CHD Not Available [address], [address], 08/17/2023 12:22:56 08/16/19 24 08/17/2023 LDL - [...] r is not neces gina. Not Available [facility] [address] , [place], [address], 08/17/2023 12:22:58 10/06/19 24 10/10/2023 ANATO RAKEL PATHO LOGY path report [facility] [address] [facility] [place] [address] Lab Direc tor: Anahi davila MD Surgi [...] tyler MD, POST- BA, BA Not Available [facility] (Outpatient) [address] [place] [address], [address], 10/10/2023 17:20:06 04/06/20 24 04/08/2024 HGB A1C [...] furth er confi rmati on Not Available [address], [address], 04/08/2024 11:47:49 04/06/2004/08/2024 HGB A1C estimated average glucose 162.8 mg/dL Not Available [address], [address], 04/08/2024 11:47:49 04/06/2004/09/2024 BASIC METAB OLIC PANEL glucose 179 mg/dL 70-100 high Not Available [address], [address], 04/09/2024 16:36:15 04/06/20 24 04/09/2024 BASIC METAB OLIC PANEL BUN 14 mg/dL 7-18 Not Available [address], [address], 04/09/2024 16:36:15 04/06/20 24 04/09/2024 BASIC METAB OLIC PANEL creatinine 0.9 mg/dL 0.8-1. 3 Not Available [address], [address], 04/09/2024 16:36:15 04/06/20 24 04/09/2024 BASIC METAB OLIC PANEL B/C 15.6 ratio Not Available [address], [address], 04/09/2024 16:36:15 04/06/20 24 04/09/2024 BASIC METAB [...] be used in pregn lanie. Not Available [address], [address], 04/09/2024 16:36:15 04/06/20 24 04/09/2024 BASIC METAB OLIC PANEL sodium 143 mmol/ L 136-14 5 Not Available [address], [address], 04/09/2024 16:36:15 04/06/20 24 04/09/2024 BASIC METAB OLIC PANEL potassium 4.1 mmol/ L 3.5-5. 1 Not Available [address], [address], 04/09/2024 16:36:15 04/06/20 24 04/09/2024 BASIC METAB OLIC PANEL chloride 105 mmol/ L 96-107 Not Available [address], [address], 04/09/2024 16:36:15 04/06/20 24 04/09/2024 BASIC METAB OLIC PANEL anion gap 9.7 5.0-15 .0 Not Available [address], [address], 04/09/2024 16:36:15 04/06/20 24 04/09/2024 BASIC METAB OLIC PANEL CO2 28 mmol/ L 21-32 Not Available [address], [address], 04/09/2024 16:36:15 04/06/20 24 04/09/2024 BASIC METAB OLIC PANEL calcium 9.3 mg/dL 8.5-10 .3 Not Available [address], [place], [address], 04/09/2024 16:36:15 06/22/19 25 06/23/2024 CBC (INCL UDES DIFF/ PLT) white blood cell count 5.7 thous and/u L 3.8-10 .8 normal Not Available [facility] [address], [place], [address], 06/23/2024 08:43:39 06/22/19 25 06/23/2024 CBC (INCL UDES DIFF/ PLT) red blood cell count 4.94 priscilla on/uL 3.80-5 .10 normal Not Available [facility] [place] [facility] [address], [place], [address], 06/23/2024 08:43:39 06/22/19 25 06/23/2024 CBC (INCL UDES DIFF/ PLT) hemoglobin 14.4 g/dL 11.7-1 5.5 normal Not Available [facility] [address], [place], [address], 06/23/2024 08:43:39 06/22/19 25 06/23/2024 CBC (INCL UDES DIFF/ PLT) hematocrit 43.7 % 35.0-4 5.0 normal Not Available [facility] [address], [place], [address], 06/23/2024 08:43:39 06/22/19 25 06/23/2024 CBC (INCL UDES DIFF/ PLT) MCV 88.5 fL 80.0-1 00.0 normal Not Available [facility] [address], [place], [address], 06/23/2024 08:43:39 06/22/19 25 06/23/2024 CBC (INCL UDES DIFF/ PLT) MCH 29.1 pg 27.0-3 3.0 normal Not Available [facility] [place] [facility] [address] [place], [place], [address], 06/23/2024 08:43:39 06/22/19 25 06/23/2024 CBC (INCL UDES DIFF/ PLT) MCHC 33.0 g/dL 32.0-3 6.0 normal For adult s, a sligh t decre ase in the calcu lated MCHC value (in the range of 30 to 32 g/dL) is most likel y not clini arianna signi brian t; jeanine er, it shoul d be inter prete d with cauti on in [facility] n with other red cell jaspreet eters and the patie nt's clini mini condi tion. Not Available [facility] [place] [facility] [address] [place], [place], [address], 06/23/2024 08:43:39 06/22/19 25 06/23/2024 CBC (INCL UDES DIFF/ PLT) RDW 12.8 % 11.0-1 5.0 normal Not Available [facility] [place] [facility] [address], [place], [address], 06/23/2024 08:43:39 06/22/19 25 06/23/2024 CBC (INCL UDES DIFF/ PLT) platelet count 251 thous and/u L 140-40 0 normal Not Available [facility] [place] [facility] [address], [place], [address], 06/23/2024 08:43:39 06/22/19 25 06/23/2024 CBC (INCL UDES DIFF/ PLT) MPV 11.8 fL 7.5-12 .5 normal Not Available [facility] [place] [facility] [address], [place], [address], 06/23/2024 08:43:39 06/22/19 25 06/23/2024 CBC (INCL UDES DIFF/ PLT) absolute neutrophils 3329 cells /uL 1500-7 800 normal Not Available [facility] [place] [facility] [address], [place], [address], 06/23/2024 08:43:39 06/22/19 25 06/23/2024 CBC (INCL UDES DIFF/ PLT) absolute lymphocytes 1693 cells /uL 850-39 00 normal Not Available [facility] [place] [facility] [address], [place], [address], 06/23/2024 08:43:39 06/22/19 25 06/23/2024 CBC (INCL UDES DIFF/ PLT) absolute monocytes 502 cells /uL 200-95 0 normal Not Available [facility] [place] [facility] [address], [place], [address], 06/23/2024 08:43:39 06/22/19 25 06/23/2024 CBC (INCL UDES DIFF/ PLT) absolute eosinophils 154 cells /uL 15-500 normal Not Available [facility] [place] [facility] [address], [place], [address], 06/23/2024 08:43:39 06/22/19 25 06/23/2024 CBC (INCL UDES DIFF/ PLT) absolute basophils 23 cells /uL 0-200 normal Not Available [facility] [place] [facility] [address], [place], [address], 06/23/2024 08:43:39 06/22/19 25 06/23/2024 CBC (INCL UDES DIFF/ PLT) neutrophils 58.4 % normal Not Available [facility] [place] [facility] [address], [place], [address], 06/23/2024 08:43:39 06/22/19 25 06/23/2024 CBC (INCL UDES DIFF/ PLT) lymphocytes 29.7 % normal Not Available [facility] [address], [place], [address], 06/23/2024 08:43:39 06/22/19 25 06/23/2024 CBC (INCL UDES DIFF/ PLT) monocytes 8.8 % normal Not Available [facility] [place] [facility] [address], [place], [address], 06/23/2024 08:43:39 06/22/19 25 06/23/2024 CBC (INCL UDES DIFF/ PLT) eosinophils 2.7 % normal Not Available [facility] [place] [facility] [address], [place], [address], 06/23/2024 08:43:39 06/22/19 25 06/23/2024 CBC (INCL UDES DIFF/ PLT) basophils 0.4 % normal Not Available [facility] [address], [place], [address], 06/23/2024 08:43:39 06/22/19 25 06/24/2024 MICRO ALBUM IN/CR EATIN INE RATIO PANEL , URINE microalbumin 5.9 mg/L 1.3-20 .0 Not Available [address], [address], 06/24/2024 10:52:46 06/22/19 25 06/24/2024 MICRO ALBUM IN/CR EATIN INE RATIO PANEL , URINE creatinine urine 133.5 mg/dL 30.0-1 25.0 high Not Available [address], [address], 06/24/2024 10:52:46 06/22/19 25 06/24/2024 MICRO ALBUM IN/CR EATIN INE RATIO PANEL , URINE microalb/cre at ratio 4.4 mg/g_ creat 0.0-29 .0 Not Available [address], [address], 06/24/2024 10:52:46 06/22/19 25 06/24/2024 HGB A1C [...] furth er confi rmati on Not Available [address], [address], 06/24/2024 12:23:17 06/22/19 25 06/24/2024 HGB A1C estimated average glucose 148.5 mg/dL Not Available [address], [address], 06/24/2024 12:23:17 06/22/19 25 06/24/2024 BASIC METAB OLIC PANEL glucose 150 mg/dL 70-100 high Not Available [address], [address], 06/24/2024 15:23:10 06/22/19 25 06/24/2024 BASIC METAB OLIC PANEL BUN 15 mg/dL 7-18 Not Available [address], [address], 06/24/2024 15:23:10 06/22/19 25 06/24/2024 BASIC METAB OLIC PANEL creatinine 0.9 mg/dL 0.8-1. 3 Not Available [address], [address], 06/24/2024 15:23:10 06/22/19 25 06/24/2024 BASIC METAB OLIC PANEL B/C 16.7 ratio Not Available [address], [address], 06/24/2024 15:23:10 06/22/19 25 06/24/2024 BASIC METAB [...] be used in pregn lanie. Not Available [address], [address], 06/24/2024 15:23:10 06/22/19 25 06/24/2024 BASIC METAB OLIC PANEL sodium 143 mmol/ L 136-14 5 Not Available [address], [address], 06/24/2024 15:23:10 06/22/19 25 06/24/2024 BASIC METAB OLIC PANEL potassium 4.1 mmol/ L 3.5-5. 1 Not Available [address], [address], 06/24/2024 15:23:10 06/22/19 25 06/24/2024 BASIC METAB OLIC PANEL chloride 104 mmol/ L 96-107 Not Available [address], [address], 06/24/2024 15:23:10 06/22/19 25 06/24/2024 BASIC METAB OLIC PANEL anion gap 11.4 5.0-15 .0 Not Available [address], [address], 06/24/2024 15:23:10 06/22/19 25 06/24/2024 BASIC METAB OLIC PANEL CO2 28 mmol/ L 21-32 Not Available [address], [address], 06/24/2024 15:23:10 06/22/19 25 06/24/2024 BASIC METAB OLIC PANEL calcium 9.4 mg/dL 8.5-10 .3 Not Available [address], [address], 06/24/2024 15:23:10 06/22/19 25 06/24/2024 LIPID PANEL cholesterol 191 mg/dL <200 mg/dl Allen able 200-2 39 mg/dl Borde rline High >240 mg/dl High Not Available [address], [address], 06/24/2024 15:23:11 06/22/19 25 06/24/2024 LIPID PANEL triglyceride s 125 mg/dL <150 mg/dL Jerica l 150-1 99 mg/dL Borde rline High 200-4 99 mg/dL High >500 mg/dL Very High Not Available [address], [address], 06/24/2024 15:23:11 06/22/19 25 06/24/2024 LIPID PANEL direct HDL 48 mg/dL <40 mg/dl - Major Risk for CHD >60 mg/dl - Negat diomedes Risk for CHD Not Available [address], [address], 06/24/2024 15:23:11 06/22/19 25 06/24/2024 LDL - [...] r is not necnoris gina. Not Available [address], [address], 06/24/2024 15:23:12 01/31/20 24 01/31/2024 XR, hip [...] ality. Readin g Physic belkis: Tom Montez [facility] ([facility]) [address], [place], [address], 01/31/2024 17:22:29 Result Notes None recorded. Procedures Surgical History Date Name Laterality Status Provider Name and Address Organization Details Recorded Time 3 Kristen - Colonoscopy completed Isidro Peterson MD [address] [place] [address], [phone], [facility] 12/02/2022 13:59:37 3 Kristen - EGD completed Isidro Peterson MD [address] [place] [address], [phone], [facility] 12/02/2022 13:59:07 Imaging Results Imaging Date Name Status LastModified by Organiz ation Details LastModified Time 01/31/2024 XR, hip + pelvis, unilateral , 2 or 3 view completed [facility]) [address] [place], [address], 01/31/2024 17:22:29 Procedure Notes None recorded. Medical [...] Not Available Not Available Not Available oxycodone -acetamin ophen 5 mg-325 mg tablet TAKE 1 TAB ORALLY EVERY 6 HOURS NEEDED FOR PAIN, SEVERE active Not Available Not Available No t Available citalopra m 20 mg tablet TAKE [...] BY MOUTH 3 TIMES A WEEK DIRECTED active Not Available Not Available No [...] Not Available Not Avai lable FreeStyle Lite Meter kit USE DIRECTED TO CHECK BLOOD SUGAR DAILY active Not Available Not Available No t Available FreeStyle Lite Strips USE 1 STRIP BY MISC ROUTE EVERY DAY DIRECTED active Not Available Not Available No t Available diclofena c 1 % topical gel APPLY A THIN LAYER TO THE AFFECTED AREA FOUR TIMES DAILY NEEDED FOR PAIN 2024 active Not Available Not Available Not Avai lable Multi Vitamin active Not Available Not Available [...] Do You Have An Advance Directive? No [email or web address] Information not available 03/31/2011 What Is Your [...] What Is Your Occupation? [employer] Information not available 01/28/2022 How Many Days In The Past Year Have You Had A Heavy Drinking Consumption (4+ Female, 5+ Male)? 0 Information not available 08/21/2014 Are There Any Guns Present In Your Home? No Information not available 03/31/2011 Live Alone Or With Others? With Others 3 Children, Her Mother, Zahira And His 3 Children. Lost Father And Former Fiscotte [email or web address] Information not available 03/16/2010 Patient Has Health Care Proxy Signed And In Chart Yes Form Given To Pt 03/31/11, 09/22/14, 06/16/15 [id number] Information not available 06/14/2023 Marital Status Helping [...] 70 [email or web address] Not available 2014 14:14:19 Brother [employer] son-White pattern 48 [email or web address] Not available 2016 [...] SNOMED-CT Code Diagnosis ICD10 Code Diagnosis Note [id number] Dennis Dixon PA-C , [facility], OFFICE [address] [place] [address] 04/13/2004 13:15:09 04/13/2004 13:52:33 [id number] Alex León , [facility], OFFICE [address] [place] [address] [place] [address] 10/06/2005 14:44:39 10/06/2005 17:44:16 [id number] [facility] - [address] [place] [address] 10/06/2005 15:16:59 10/06/2005 15:17:09 [id number] Vlad Carmona III, MD , [facility], OFFICE [address] [place] [address] [place] [address] 10/17/2005 09:39:34 10/17/2005 11:47:03 [id number] Dasia Schulte NP , [address] [place] [address] 10/24/2005 09:56:34 06/04/2008 02:02:29 [id number] Alex León , [address] [place] [address] 11/22/2005 09:04:17 11/22/2005 16:06:53 [id number] [facility] - [facility] [address] [place] [address] 11/22/2005 09:27:56 11/22/2005 09:28:05 [id number] Amaya Jin , [facility] OFFICE [address] [place] [address] [place] [address] 04/04/2006 16:15:39 04/04/2006 17:01:09 [id number] Ana Lilia Jin , [facility], OFFICE [address] [place] [address] 08/16/2006 10:02:59 08/18/2006 07:49:02 [id number] LUCA Hook, [facility], [place] [address] 08/30/2006 14:48:37 08/30/2006 17:32:27 [id number] [facility] - [address] [place] [address] 08/30/2006 15:54:11 08/30/2006 15:54:16 [id number] LUCA Hook, [facility], OFFICE [address] [place] [address] [place] [address] 10/13/2006 10:18:52 10/13/2006 13:12:41 [id number] LUCA Hook, [facility], OFFICE [address] [place] [address] [place] [address] 11/03/2006 10:10:13 11/03/2006 11:36:58 [id number] LUCA Hook, [facility], [address] [place] [address] 02/16/2007 10:19:36 06/04/2008 02:02:29 [id number] LUCA Hook, [facility], [address] [place] [address] 01/26/2007 10:01:13 01/26/2007 15:25:44 [id number] LUCA Gil, [facility], [address] [place] [address] 12/17/2007 10:14:12 06/04/2008 02:02:29 [id number] LUCA Gil, [facility], [address] [place] [address] 06/05/2008 15:35:46 06/17/2008 02:02:00 [id number] LUCA Hook, [facility], [place] [address] [place] [address] 08/06/2008 12:16:07 08/07/2008 08:35:57 [id number] LUCA Hook, [facility], OFFICE [address] [place] [address] [place] [address] 09/05/2008 11:42:18 09/08/2008 08:21:27 [id number] LUCA Gil, [facility], OFFICE [address] [place] [address] 12/08/2008 16:32:50 12/09/2008 14:05:05 [id number] LUCA Gil, [facility], OFFICE [address] [place] [address] 12/23/2008 10:20:23 12/23/2008 16:02:28 [id number] LUCA Hook, [facility], OFFICE [address] [place] [address] [place] [address] 03/11/2009 14:47:03 03/11/2009 17:01:54 [id number] [facility] - [facility] [address] [place] [id number] 07/30/2008 09:10:41 07/30/2008 09:10:47 [id number] [facility] - [facility] [address] [place] [id number] 12/10/2008 10:17:14 12/10/2008 10:17:19 [id number] LUCA Hook, [facility] [place] [place], OFFICE [address] [place] [address] MARGARETPatsySAMARA [id number] 1 09/01/2009 07:59:36 09/01/2009 09:05:09 [id number] FP TREATMENT NURSE [facility] CAMRYN, [facility] [place] [place], OFFICE [address] [place] [address] MARGARETPatsy SAMARA [id number] 1 09/03/2009 09:31:25 09/04/2009 08:20:06 [id number] LUCA Paez, [facility] [place] [place], OFFICE [address] [place] [address] DR NIEVESCHEMAPatsy SAMARA [id number] 1 11/23/2009 09:27:05 11/23/2009 12:22:11 [id number] LUCA Paez, [facility] [place], [address] NIEVESCHEMAPatsy SAMARA [id number] 1 12/14/2009 15:28:34 12/14/2009 16:21:22 [id number] LUCA Paez, [facility] [place] [place], OFFICE [address] [place] [address] DR NIEVESCHEMAPatsy SAMARA [id number] 1 03/18/2010 09:21:43 03/18/2010 10:46:30 [id number] LUCA Gil, [facility] [place] [place], OFFICE [address] [place] [address] DR NIEVESCHEMAPatsy SAMARA [id number] 1 06/30/2010 16:24:46 06/30/2010 17:25:41 [id number] Eden Najeracolo D.O. , [facility] [place] OFFICE [address] [place] [address] [place] MORILLO [id number] 1 01/20/2011 10:19:33 01/20/2011 11:02:24 [id number] Eden Reinaldocolo D.O. , [facility] OFFICE [address] [place] [address] [place] MORILLO [id number] 1 03/31/2011 15:41:03 03/31/2011 16:54:54 [id number] Eden Reinaldocolo D.O. , [address] [place] [address] 1 09/13/2011 16:09:22 09/13/2011 16:43:30 [id number] Eden Reinaldocolo D.O. [address] [place]Patsy [place] [address] 1 10/12/2011 15:55:37 10/12/2011 16:24:26 [id number] Eden Alvaradolo D.O. [address] [place] [address] 1 10/26/2011 15:55:14 10/26/2011 16:08:12 [id number] Eden Alvaradolo D.O. [address] [place] [address] 1 07/16/2012 11:45:25 07/16/2012 12:22:07 [id number] TREATMENT NURSE [facility], [address] [place] [address] 1 07/19/2012 10:20:12 07/19/2012 10:30:27 [id number] Miguel Angel Jim MD , [address] [place] [address] 1 12/25/2012 16:14:20 12/26/2012 07:30:58 [id number] Eden Washington D.O. [address] NIEVESCHEMAPatsy [place] [address]892 1 03/04/2013 15:53:01 03/04/2013 16:53:56 [id number] Eden Najeracolo D.O. [address] [place]MAPatsy [place] [address]041 1 06/05/2013 10:45:47 06/05/2013 11:36:26 [id number] Eden Furcolo D.O. [facility] OFFICE [address] [place] [address] [place] [address] 1 06/24/2013 15:47:39 06/25/2013 10:20:00 [id number] Eden Furcolo D.O. [facility], OFFICE [address] [place] [address] 1 09/18/2013 13:41:57 09/18/2013 14:35:40 [id number] Tricia Maxwell, RDN, LDN, [facility] Nutrition -[facility] [address] [place] [address] 4 10/24/2013 13:30:56 10/24/2013 14:58:27 [id number] Eden Furcolo D.O. [facility] OFFICE [address] [place] [address] [place] [address] 1 08/21/2014 09:15:37 08/21/2014 12:58:29 [id number] Eden Furcolo D.O. [facility] OFFICE [address] [place] [address] [place] [address] 1 09/22/2014 13:45:57 10/09/2014 16:20:03 [id number] Eden Furcolo D.O. [address] [place] [address] 1 06/16/2015 10:15:14 06/17/2015 11:26:38 [id number] Eden Furcolo D.O. [address] [place] [address] 1 06/24/2016 13:45:51 06/27/2016 09:56:23 [id number] Eden Furcolo D.O. [address] [place] [address] 1 09/30/2016 10:41:57 09/30/2016 11:49:43 [id number] Miguel Angel Jim MD [address] [place] [address] 1 04/21/2017 16:26:41 04/24/2017 12:38:25 [id number] Eden Furcolo D.O. [address] [place] [address] 1 10/24/2017 08:44:30 10/24/2017 09:30:25 [id number] Douglas Willis PA-C [address] [place] [address] 1 10/26/2017 13:39:56 10/26/2017 14:41:19 [id number] Eden Furcolo D.O. [address] [place] [address] 1 04/23/2018 14:36:20 04/23/2018 16:11:35 [id number] Eden Furcolo D.O. [address] [place] [address] 1 08/14/2018 09:28:25 08/14/2018 11:12:59 [id number] Eden Furcolo D.O. [address] [place] [address] 1 10/25/2018 08:47:16 10/25/2018 09:22:10 [id number] Eden Furcolo D.O. [address] [place] [address] 1 04/25/2019 09:47:24 04/25/2019 10:25:45 [id number] Eden Furcolo D.O. [address] [place] [address] 1 10/29/2019 08:12:09 10/29/2019 09:15:59 [id number] Miguel Angel Jim MD [address] [place] [address] 1 03/20/2020 07:34:17 03/26/2020 16:52:10 [id number] STEVAN PEREZ MD [address] [place] [address] 1 11/06/2020 08:44:51 11/06/2020 10:09:53 [id number] Rylan Alarcon MD Podiatry, [address] [place] [address] 1 01/22/2021 09:01:08 01/22/2021 15:38:52 [id number] Eden Furcolo D.O. [address] [place] [address] 1 01/26/2021 08:57:23 01/26/2021 09:35:25 [id number] Matilde Rubio MD , [facility], OFFICE [address] [place] [address] 1 10/08/2021 12:02:47 10/08/2021 12:27:01 [id number] Daysi Levi Physical Therapy, [facility] [address] [place] [address] 1 10/13/2021 13:52:59 10/14/2021 13:07:36 [id number] Daysi Levi Physical Therapy, [facility] [address] [place] [address] 1 10/18/2021 13:10:11 10/18/2021 14:16:22 [id number] Daysi Levi Physical Therapy, [facility] [address] [place] [address] 1 10/20/2021 10:32:00 10/20/2021 14:08:36 [id number] Daysi Levi Physical Therapy, [facility] [place] [address] 1 10/25/2021 11:26:03 10/25/2021 15:32:52 [id number] Daysi Levi Physical Therapy, [facility] [place] [address] 1 10/27/2021 14:28:08 10/27/2021 15:25:05 [id number] Zheng Figueroa MD Sports Medicine, [address] [place] [address] 6 11/03/2021 13:32:18 11/03/2021 14:02:41 [id number] Daysi Levi Physical Therapy, [facility] [place] [address] 1 11/03/2021 14:36:56 11/04/2021 10:24:32 [id number] Daysi Levi Physical Therapy, [facility] [place] [address] 1 11/09/2021 13:06:11 11/09/2021 13:59:30 [id number] Daysi Levi Physical Therapy, [facility] [place] [address] 1 11/18/2021 15:34:59 11/18/2021 16:09:31 [id number] Daysi Levi Physical Therapy, [address] [address] 1 11/23/2021 15:00:55 11/23/2021 15:37:44 [id number] Zheng Figueroa MD Sports Medicine, [address] [address] 1 12/13/2021 13:28:52 12/13/2021 14:00:37 [id number] Eden Washington D.O. [facility], OFFICE [address] [place] [address] 1 01/28/2022 08:18:22 01/28/2022 13:39:11 [id number] MARISSA Sal , [facility], OFFICE [address] [place] [address] 6 04/14/2022 11:51:53 04/19/2022 14:24:28 [id number] Eden Washington D.O. [facility], OFFICE [address] [place] [address] 1 05/02/2022 10:10:17 05/03/2022 10:34:49 [id number] Zheng Figueroa MD Sports Medicine, [facility] [address] [place] [address] 6 05/03/2022 11:04:00 05/03/2022 11:21:52 [id number] Nataly Dickey i, PT Physical Therapy, [address] [address] 1 05/31/2022 14:26:57 05/31/2022 15:55:33 [id number] Nataly Dickey i, PT Physical Therapy, [address] [address] 1 06/06/2022 14:58:22 06/07/2022 13:01:15 [id number] Eden Washington D.O. [facility], OFFICE [address] [place] [address] 1 11/10/2022 14:53:30 11/10/2022 15:34:06 [id number] Eden Washington D.O. [facility], OFFICE [address] [place] [address] 1 11/17/2022 13:28:47 11/17/2022 15:00:11 [id number] Isidro Peterson MD [facility] , [facility] [address] [place] [address] 1 12/02/2022 11:53:27 12/02/2022 14:02:53 [id number] Eden Washington D.O. , [facility], OFFICE [address] [place] [address] 1 12/19/2022 09:19:08 12/19/2022 10:08:32 [id number] Tricia Maxwell RDN, LDN, [facility] Nutrition -[address] [place] [address] 4 01/17/2023 09:54:56 01/18/2023 15:46:39 [id number] Matilde Rubio MD , [facility], [address] [place] [address] 1 02/15/2023 10:27:27 02/15/2023 15:31:28 [id number] Tricia Maxwell RDN, LDN, [facility] Nutrition -[address] [place] [address] 4 02/21/2023 08:59:17 03/03/2023 16:13:21 [id number] Matilde Rubio MD , [facility], OFFICE [address] [place] [address] [place] [address] 1 03/01/2023 10:54:57 03/01/2023 12:54:52 [id number] Viyda Dumont . , [facility], OFFICE [address] [place] [address] [place] [address] 1 04/14/2023 13:20:01 04/18/2023 09:08:55 [id number] Miguel Angel Jim MD , [facility], OFFICE [address] [place] [address] [place] [address] 1 06/12/2023 10:47:08 06/12/2023 17:30:56 [id number] Miguel Angel Jim MD , [facility], OFFICE [address] [place] [address] [place] [address] 1 08/23/2023 14:53:22 08/23/2023 16:05:30 [id number] AMBER LAROSE MD , [facility], OFFICE [address] [place] [address] 1 01/31/2024 10:13:15 01/31/2024 12:19:05 [id number] AMBER LAROSE MD , [facility], OFFICE [address] [place] [address] 1 04/08/2024 10:16:44 04/08/2024 11:44:27 [id number] MD CAMRYN LEACH, [facility], OFFICE [address] [place] [address] 1 05/01/2024 14:03:34 05/01/2024 14:57:36 [id number] MD CAMRYN LEACH, [facility], OFFICE [address] [place] [address] 1 06/10/2024 16:10:34 06/11/2024 10:47:39 Health Concerns [...] ACO (MEDICAID REPLACEMENT - HMO) Fernanda Patry [id number] Fernanda Patry 01/31/2024 1 [employer] - DOS ON OR AFTER 2022 - [employer] (MEDICAID REPLACEMENT - HMO) Fernanda Patry [id number] Fernanda Patry 04/08/2024 1 [employer] - DOS ON OR AFTER 2022 - [employer] (MEDICAID REPLACEMENT - HMO) Fernanda Patry [id number] Fernanda Patry 05/01/2024 1 [employer] - DOS ON OR AFTER 2022 - [employer] (MEDICAID REPLACEMENT - HMO) Fernanda Patry [id number] Fernanda Patry 06/10/2024 1 [employer] - DOS ON OR AFTER 2022 - [employer] A[employer] (MEDICAID REPLACEMENT - HMO) Fernanda Patry [id number] Fernanda Patry OBGyn Episode No OBEpisode recorded.
--- OUTSIDE RECORDS SUMMARY | 2024-09-11 14:41 | XMS_ITS | Data Portability ---
Author Organization [facility], FORMERLY [facility] Address [address] [place] [address] Care Team Providers Care Utility Accounts Director Name Role Phone JERAMY ERWIN OTHER ALBERTA HOUSER Orthopedic Surgeon GAMA MEDEIROS Carroter ALEX MAXWELL Solar Energy Advisor CECI VAZQUEZ Hematology/Oncology [phone] [place] [address] GASTROENTEROLOGY Evs Manager AMAYA BEAR Primary Care Provider [phone] [facility] Orthopedic Surgeon NATALY LLOYD Neurologist [facility] Phys. Med. & Rehab [phone] Assessment Encounter Date Assessment Date Assessment LastModified [...] A1C/hemo globin total, QN, blood 2024 025 [email or web address] [address], [place], [address], 07/03/2024 10:02:28 HbA1c (hemoglo bin A1c), blood [address] [facility], [address], [place], [address], 04/08/2024 11:47:49 Referral orthoped ic surgeon referral 2023 024 [email or web address] [facility], [address] [place] [address] [place], [address], 04/17/2024 11:11:22 neurolog ist referral 2023 024 KAYE Lloyd MD, [address] [place] [address], [address], 04/19/2024 03:18:27 physical medicine and rehabili tation referral 2023 024 [email or web address] Melvin Wallace MD, [address], [place], [address], 01/31/2024 13:11:26 Procedures None recorded . Surgeries None recorded . Imaging XR, hip + pelvis, unilater al, 2 or 3 view 2023 024 [email or web address] [facility] (Imaging), [address], [place], [address], 01/31/2024 12:19:05 Medication Orders Zepbound 5 mg/0.5 mL subcutan eous pen injector 2024 025 [id number], [address] [place], [address], 06/10/2024 16:41:49 Zepbound 2.5 mg/0.5 mL subcutan eous pen injector 2023 024 [id number], [address] [place], [address], 05/01/2024 14:32:14 [email or web address] dennis 4 mg disinteg rating tablet 2023 024 [id number], [address] [place], [address], 05/01/2024 14:32:14 Patient TargetsNo targets recorded. Patient Instructions Encounter Date Encounter Id Patient Instructions Last Modified By Organization Details Last Modified Time 05/01/2024 [id number] You have been prescribed a new medication [...] containers from your insurance company or most [facility] have them available for free. - [...] left hip joint Referring Physician: Amber Larose [facility] Medicine, Encounter Date: 01/31/2024 Neurologist Referral for Hea dache Referring Physician: Amber Larose [facility] Medicine, Encounter Date: 01/31/2024 Orthopedic Surgeon Referral for Pain of right elbow joint Referring Physician: Amber Larose [facility] Medicine, Encounter Date: 04/08/2024 Results Created Date Observation Date Name Description Value Unit Range Abnormal Flag Note LastModifiedBy Organization Detail LastModifiedTime 08/16/19 24 08/16/2023 MICRO ALBUM IN/CR EATIN INE RATIO PANEL , URINE microalbumin 16.9 mg/L 1.3-20 .0 Not Available [address], [address], 08/16/2023 16:46:53 08/16/19 24 08/16/2023 MICRO ALBUM IN/CR EATIN INE RATIO PANEL , URINE creatinine urine 104.9 mg/dL 30.0-1 25.0 Not Available [address], [address], 08/16/2023 16:46:53 08/16/19 24 08/16/2023 MICRO ALBUM IN/CR EATIN INE RATIO PANEL , URINE microalb/cre at ratio 16.1 mg/g_ creat 0.0-29 .0 Not Available [address], [address], 08/16/2023 16:46:53 08/16/19 24 08/17/2023 HGB A1C [...] furth er confi rmati on Not Available [address], [address], 08/17/2023 10:15:54 08/16/19 24 08/17/2023 HGB A1C estimated average glucose 134.1 mg/dL Not Available [address], [address], 08/17/2023 10:15:54 08/16/19 24 08/17/2023 COMP. METAB OLIC PANEL glucose 121 mg/dL 70-100 high Not Available [address], [address], 08/17/2023 12:22:55 08/16/19 24 08/17/2023 COMP. METAB OLIC PANEL BUN 15 mg/dL 7-18 Not Available [address], [address], 08/17/2023 12:22:55 08/16/19 24 08/17/2023 COMP. METAB OLIC PANEL creatinine 0.7 mg/dL 0.8-1. 3 low Not Available [address], [address], 08/17/2023 12:22:55 08/16/19 24 08/17/2023 COMP. METAB OLIC PANEL B/C 21.4 ratio Not Available [address], [address], 08/17/2023 12:22:55 08/16/19 24 08/17/2023 COMP. METAB [...] be used in pregn lanie. Not Available [address], [address], 08/17/2023 12:22:55 08/16/19 24 08/17/2023 COMP. METAB OLIC PANEL sodium 140 mmol/ L 136-14 5 Not Available [address], [address], 08/17/2023 12:22:55 08/16/19 24 08/17/2023 COMP. METAB OLIC PANEL potassium 4.1 mmol/ L 3.5-5. 1 Not Available [address], [address], 08/17/2023 12:22:55 08/16/19 24 08/17/2023 COMP. METAB OLIC PANEL chloride 102 mmol/ L 96-107 Not Available [address], [address], 08/17/2023 12:22:55 08/16/19 24 08/17/2023 COMP. METAB OLIC PANEL anion gap 12.4 5.0-15 .0 Not Available [address], [address], 08/17/2023 12:22:55 08/16/19 24 08/17/2023 COMP. METAB OLIC PANEL CO2 26 mmol/ L 21-32 Not Available [address], [address], 08/17/2023 12:22:55 08/16/19 24 08/17/2023 COMP. METAB OLIC PANEL calcium 9.5 mg/dL 8.5-10 .3 Not Available [address], [address], 08/17/2023 12:22:55 08/16/19 24 08/17/2023 COMP. METAB OLIC PANEL total protein 7.2 g/dL 6.4-8. 2 Not Available [address], [address], 08/17/2023 12:22:55 08/16/19 24 08/17/2023 COMP. METAB OLIC PANEL albumin 3.7 g/dL 3.4-5. 0 Not Available [address], [address], 08/17/2023 12:22:55 08/16/19 24 08/17/2023 COMP. METAB OLIC PANEL globulin 3.5 g/dL Not Available [address], [address], 08/17/2023 12:22:55 08/16/19 24 08/17/2023 COMP. METAB OLIC PANEL A/G 1.1 ratio 0.8-2. 0 Not Available [address], [address], 08/17/2023 12:22:55 08/16/19 24 08/17/2023 COMP. METAB OLIC PANEL total bilirubin 0.40 mg/dL 0.00-1 .00 Not Available [address], [address], 08/17/2023 12:22:55 08/16/19 24 08/17/2023 COMP. METAB OLIC PANEL AST 28 U/L 0-37 Not Available [address], [address], 08/17/2023 12:22:55 08/16/19 24 08/17/2023 COMP. METAB OLIC PANEL ALT 56 U/L 6-63 Not Available [address], [address], 08/17/2023 12:22:55 08/16/19 24 08/17/2023 COMP. METAB OLIC PANEL alk. phos. 135 U/L 50-136 Not Available [address], [address], 08/17/2023 12:22:55 08/16/19 24 08/17/2023 LIPID PANEL cholesterol 189 mg/dL <200 mg/dl Allen able 200-2 39 mg/dl Borde rline High >240 mg/dl High Not Available [address], [address], 08/17/2023 12:22:56 08/16/19 24 08/17/2023 LIPID PANEL triglyceride s 174 mg/dL <150 mg/dL Jerica l 150-1 99 mg/dL Borde rline High 200-4 99 mg/dL High >500 mg/dL Very High Not Available [address], [address], 08/17/2023 12:22:56 08/16/19 24 08/17/2023 LIPID PANEL direct HDL 48 mg/dL <40 mg/dl - Major Risk for CHD >60 mg/dl - Negat diomedes Risk for CHD Not Available [address], [address], 08/17/2023 12:22:56 08/16/19 24 08/17/2023 LDL - [...] r is not neces gina. Not Available [facility] [address], [place], [address], 08/17/2023 12:22:58 10/06/19 24 10/10/2023 ANATO RAKEL PATHO LOGY path report [facility] [address] [address] Lab Direc tor: Anahi davila MD Surgi [...] tyler MD, POST- BA, BA Not Available [facility] (Outpatient) [address] [place] [address], [address], 10/10/2023 17:20:06 04/06/20 24 04/08/2024 HGB A1C [...] furth er confi rmati on Not Available [address], [address], 04/08/2024 11:47:49 04/06/2004/08/2024 HGB A1C estimated average glucose 162.8 mg/dL Not Available [address], [address], 04/08/2024 11:47:49 04/06/2004/09/2024 BASIC METAB OLIC PANEL glucose 179 mg/dL 70-100 high Not Available [address], [address], 04/09/2024 16:36:15 04/06/20 24 04/09/2024 BASIC METAB OLIC PANEL BUN 14 mg/dL 7-18 Not Available [address], [address], 04/09/2024 16:36:15 04/06/20 24 04/09/2024 BASIC METAB OLIC PANEL creatinine 0.9 mg/dL 0.8-1. 3 Not Available [address], [address], 04/09/2024 16:36:15 04/06/2004/09/2024 BASIC METAB OLIC PANEL B/C 15.6 ratio Not Available [address], [address], 04/09/2024 16:36:15 04/06/20 24 04/09/2024 BASIC METAB [...] be used in pregn lanie. Not Available [address], [address], 04/09/2024 16:36:15 04/06/20 24 04/09/2024 BASIC METAB OLIC PANEL sodium 143 mmol/ L 136-14 5 Not Available [address], [address], 04/09/2024 16:36:15 04/06/20 24 04/09/2024 BASIC METAB OLIC PANEL potassium 4.1 mmol/ L 3.5-5. 1 Not Available [address], [address], 04/09/2024 16:36:15 04/06/20 24 04/09/2024 BASIC METAB OLIC PANEL chloride 105 mmol/ L 96-107 Not Available [address], [address], 04/09/2024 16:36:15 04/06/20 24 04/09/2024 BASIC METAB OLIC PANEL anion gap 9.7 5.0-15 .0 Not Available [address], [address], 04/09/2024 16:36:15 04/06/20 24 04/09/2024 BASIC METAB OLIC PANEL CO2 28 mmol/ L 21-32 Not Available [address], [address], 04/09/2024 16:36:15 04/06/20 24 04/09/2024 BASIC METAB OLIC PANEL calcium 9.3 mg/dL 8.5-10 .3 Not Available [address], [place], [address], 04/09/2024 16:36:15 06/22/19 25 06/23/2024 CBC (INCL UDES DIFF/ PLT) white blood cell count 5.7 thous and/u L 3.8-10 .8 normal Not Available [facility] [address] [place], [place], [address], 06/23/2024 08:43:39 06/22/19 25 06/23/2024 CBC (INCL UDES DIFF/ PLT) red blood cell count 4.94 priscilla on/uL 3.80-5 .10 normal Not Available [facility] [place] [facility] [address], [place], [address], 06/23/2024 08:43:39 06/22/19 25 06/23/2024 CBC (INCL UDES DIFF/ PLT) hemoglobin 14.4 g/dL 11.7-1 5.5 normal Not Available [facility] [address], [place], [address], 06/23/2024 08:43:39 06/22/19 25 06/23/2024 CBC (INCL UDES DIFF/ PLT) hematocrit 43.7 % 35.0-4 5.0 normal Not Available [facility] [address], [place], [address], 06/23/2024 08:43:39 06/22/19 25 06/23/2024 CBC (INCL UDES DIFF/ PLT) MCV 88.5 fL 80.0-1 00.0 normal Not Available [facility] [address], [place], [address], 06/23/2024 08:43:39 06/22/19 25 06/23/2024 CBC (INCL UDES DIFF/ PLT) MCH 29.1 pg 27.0-3 3.0 normal Not Available [facility] [place] [facility] [address] [place], [place], [address], 06/23/2024 08:43:39 06/22/19 25 06/23/2024 CBC (INCL UDES DIFF/ PLT) MCHC 33.0 g/dL 32.0-3 6.0 normal For adult s, a sligh t decre ase in the calcu lated MCHC value (in the range of 30 to 32 g/dL) is most likel y not clini arianna keithi brian t; jeanine er, it shoul d be inter prete d with cauti on in [facility] n with other red cell jaspreet eters and the patie nt's clini mini condi tion. Not Available [facility] [place] [facility] [address] [place], [place], [address], 06/23/2024 08:43:39 06/22/19 25 06/23/2024 CBC (INCL UDES DIFF/ PLT) RDW 12.8 % 11.0-1 5.0 normal Not Available [facility] [place] [facility] [address], [place], [address], 06/23/2024 08:43:39 06/22/19 25 06/23/2024 CBC (INCL UDES DIFF/ PLT) platelet count 251 thous and/u L 140-40 0 normal Not Available [facility] [place] [facility] [address], [place], [address], 06/23/2024 08:43:39 06/22/19 25 06/23/2024 CBC (INCL UDES DIFF/ PLT) MPV 11.8 fL 7.5-12 .5 normal Not Available [facility] [place] [facility] [address], [place], [address], 06/23/2024 08:43:39 06/22/19 25 06/23/2024 CBC (INCL UDES DIFF/ PLT) absolute neutrophils 3329 cells /uL 1500-7 800 normal Not Available [facility] [place] [facility] [address], [place], [address], 06/23/2024 08:43:39 06/22/19 25 06/23/2024 CBC (INCL UDES DIFF/ PLT) absolute lymphocytes 1693 cells /uL 850-39 00 normal Not Available [facility] [place] [facility] [address], [place], [address], 06/23/2024 08:43:39 06/22/19 25 06/23/2024 CBC (INCL UDES DIFF/ PLT) absolute monocytes 502 cells /uL 200-95 0 normal Not Available [facility] [place] [facility] [address], [place], [address], 06/23/2024 08:43:39 06/22/19 25 06/23/2024 CBC (INCL UDES DIFF/ PLT) absolute eosinophils 154 cells /uL 15-500 normal Not Available [facility] [place] [facility] [address], [place], [address], 06/23/2024 08:43:39 06/22/19 25 06/23/2024 CBC (INCL UDES DIFF/ PLT) absolute basophils 23 cells /uL 0-200 normal Not Available [facility] [place] [facility] [address], [place], [address], 06/23/2024 08:43:39 06/22/19 25 06/23/2024 CBC (INCL UDES DIFF/ PLT) neutrophils 58.4 % normal Not Available [facility] [place] [facility] [address], [place], [address], 06/23/2024 08:43:39 06/22/19 25 06/23/2024 CBC (INCL UDES DIFF/ PLT) lymphocytes 29.7 % normal Not Available [facility] [place] [facility] [address], [place], [address], 06/23/2024 08:43:39 06/22/19 25 06/23/2024 CBC (INCL UDES DIFF/ PLT) monocytes 8.8 % normal Not Available [facility] [place] [facility] [address], [place], [address], 06/23/2024 08:43:39 06/22/19 25 06/23/2024 CBC (INCL UDES DIFF/ PLT) eosinophils 2.7 % normal Not Available [facility] [place] [facility] [address], [place], [address], 06/23/2024 08:43:39 06/22/19 25 06/23/2024 CBC (INCL UDES DIFF/ PLT) basophils 0.4 % normal Not Available [facility] [place] [facility] [address], [place], [address], 06/23/2024 08:43:39 06/22/19 25 06/24/2024 MICRO ALBUM IN/CR EATIN INE RATIO PANEL , URINE microalbumin 5.9 mg/L 1.3-20 .0 Not Available [address], [address], 06/24/2024 10:52:46 06/22/19 25 06/24/2024 MICRO ALBUM IN/CR EATIN INE RATIO PANEL , URINE creatinine urine 133.5 mg/dL 30.0-1 25.0 high Not Available [address], [address], 06/24/2024 10:52:46 06/22/19 25 06/24/2024 MICRO ALBUM IN/CR EATIN INE RATIO PANEL , URINE microalb/cre at ratio 4.4 mg/g_ creat 0.0-29 .0 Not Available [address], [address], 06/24/2024 10:52:46 06/22/19 25 06/24/2024 HGB A1C [...] furth er confi rmati on Not Available [address], [address], 06/24/2024 12:23:17 06/22/19 25 06/24/2024 HGB A1C estimated average glucose 148.5 mg/dL Not Available [address], [address], 06/24/2024 12:23:17 06/22/19 25 06/24/2024 BASIC METAB OLIC PANEL glucose 150 mg/dL 70-100 high Not Available [address], [address], 06/24/2024 15:23:10 06/22/19 25 06/24/2024 BASIC METAB OLIC PANEL BUN 15 mg/dL 7-18 Not Available [address], [address], 06/24/2024 15:23:10 06/22/19 25 06/24/2024 BASIC METAB OLIC PANEL creatinine 0.9 mg/dL 0.8-1. 3 Not Available [address], [address], 06/24/2024 15:23:10 06/22/19 25 06/24/2024 BASIC METAB OLIC PANEL B/C 16.7 ratio Not Available [address] [place], [address], 06/24/2024 15:23:10 06/22/19 25 06/24/2024 BASIC METAB [...] be used in pregn lanie. Not Available [address], [address], 06/24/2024 15:23:10 06/22/19 25 06/24/2024 BASIC METAB OLIC PANEL sodium 143 mmol/ L 136-14 5 Not Available [address], [address], 06/24/2024 15:23:10 06/22/19 25 06/24/2024 BASIC METAB OLIC PANEL potassium 4.1 mmol/ L 3.5-5. 1 Not Available [address], [address], 06/24/2024 15:23:10 06/22/19 25 06/24/2024 BASIC METAB OLIC PANEL chloride 104 mmol/ L 96-107 Not Available [address], [address], 06/24/2024 15:23:10 06/22/19 25 06/24/2024 BASIC METAB OLIC PANEL anion gap 11.4 5.0-15 .0 Not Available [address], [address], 06/24/2024 15:23:10 06/22/19 25 06/24/2024 BASIC METAB OLIC PANEL CO2 28 mmol/ L 21-32 Not Available [address], [address], 06/24/2024 15:23:10 06/22/19 25 06/24/2024 BASIC METAB OLIC PANEL calcium 9.4 mg/dL 8.5-10 .3 Not Available [address], [address], 06/24/2024 15:23:10 06/22/19 25 06/24/2024 LIPID PANEL cholesterol 191 mg/dL <200 mg/dl Allen able 200-2 39 mg/dl Borde rline High >240 mg/dl High Not Available [address], [address], 06/24/2024 15:23:11 06/22/19 25 06/24/2024 LIPID PANEL triglyceride s 125 mg/dL <150 mg/dL Jerica l 150-1 99 mg/dL Borde rline High 200-4 99 mg/dL High >500 mg/dL Very High Not Available [address], [address], 06/24/2024 15:23:11 06/22/19 25 06/24/2024 LIPID PANEL direct HDL 48 mg/dL <40 mg/dl - Major Risk for CHD >60 mg/dl - Negat diomedes Risk for CHD Not Available [address], [address], 06/24/2024 15:23:11 06/22/19 25 06/24/2024 LDL - [...] r is not neces gina. Not Available [address], [address], 06/24/2024 15:23:12 01/31/20 24 01/31/2024 XR, hip [...] ality. Readin g Physic belkis: Tom Montez [facility] (Imaging) [address] , [place], [address], 01/31/2024 17:22:29 Result Notes None recorded. Problems Name Problem SNOMED Code Status Onset Date Resolution Date Notes Provider Name and Address Organization Details Recorded Time Obesity 128594066 Active Not Available [facility] 1 10:25:21 [facility] hyperten yohannes 09593667 Active Amaya Bear, LUCA [address] [place] [address], [address] , [facility] 4 13:24:50 Iron deficien cy anemia 70953787 Active 2022 AKHIL SOSA DNP [address] [place] [address], [address] , [facility] 3 09:04:25 Celiac disease 525087844 Active 2022 AKHIL SOSA DNP [address] [place], [address] , [facility] 3 09:04:30 Osteopen ia 915210028 Active 2022 Sara marx NP [address] [place] [address], , [facility] 3 20:29:41 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 916682116 Completed 202206/12/2023 Neg for autoimmu ne hep - GI workup normal Amaya Bear NP [address] [place] [address], , [facility] 4 13:25:06 Steatoti c liver disease 974357497 Active 2022 Amaya Bear NP [address] [place] [address], , [facility] 4 13:24:59 Type 2 diabetes mellitus without complica tion 377326361 Active 2023 Amaya Bear NP [address] [place] [address], [address] , [facility] 4 11:37:25 Headache 96967058 Completed 11/09/2011 Not Available [facility] 3 03:09:36 Headache 28694727 Completed 200603/16/2010 Not Available [facility] 3 03:09:36 Precordi al pain 45596075 Completed 200603/17/2010 Not Available [facility] 3 03:09:36 [facility]ia l hyperten yohannes 46740578 Completed 06/02/2014 Amaya Bear NP [address] [place] [address], [address] , [facility] 4 13:24:50 Essentia l hyperten yohannes 48569281 Completed 11/21/2011 Amaya Bear NP [address] [place] [address], [address] , [facility] 4 13:24:50 Essentia l hyperten yohannes 78968769 Completed 200503/17/2010 Amaya Bear NP [address] [place], [address] , [facility] 4 13:24:50 Symptom of head and neck region 006258119 Completed 03/16/2010 Not Available [facility] 3 03:09:36 Benign essentia l hyperten yohannes 5760038 Completed 200508/21/2014 Eden Washington D.O. [address] [place], [address] , [facility] 5 09:43:29 Anxiety state 698090066 Completed 08/21/2014 Eden Cody.O. [address] [place], [address] , [facility] 5 09:43:29 Anxiety state 125168504 Completed 200703/17/2010 Not Available [facility] 3 03:09:36 Dizzines s 087947455 Completed 200503/16/2010 Not Available [facility] 3 03:09:36 Vitamin D deficien cy 34791972 Completed 200803/17/2010 Not Available [facility] 3 03:09:36 Coarctat ion of aorta 4735719 Active see inksterstate cards Not Available [facility] 1 10:25:21 Coarctat ion of aorta 8994820 Completed 200603/17/2010 Eden Washington D.O. [address] [place], [address] , [facility] 7 11:30:55 Acute stress disorder 79586482 Completed 200603/16/2010 Not Available [facility] 3 03:09:36 Panic disorder without agorapho cathy 44258726 Completed 200308/21/2014 Eden Washington D.O. [address] [place], [address] , [facility] 5 09:43:29 Chest pain 01222905 Completed 03/17/2010 Not Available [facility] 3 03:09:36 Abnormal cervical Papanico laou smear with human papillom avirus deoxyrib onucleic acid detected 370835187 Completed 08/21/2014 Eden Washington D.O. [address] [place] [address], [address] , [facility] 5 09:43:29 Abnormal cervical Papanico laou smear with human papillom avirus deoxyrib onucleic acid detected 656505704 Completed 03/17/2010 Not Available [facility] 3 03:09:36 Impaired fasting glycemia 456279924 Completed 06/12/2023 Amaya Bear NP [address] [place] [address], [address] , [facility] 4 13:24:44 Low back pain 428397469 Completed 200606/02/2014 Eden Washington D.O. [address] [place] [address], [address] , [facility] 5 19:54:32 Migraine 51263387 Active Not Available [facility] 1 10:25:21 Acute bronchit is 19470718 Completed 200503/16/2010 Not Available [facility] 3 03:09:36 Malaise and fatigue 298455202 Completed 200603/16/2010 Not Available [facility] 3 03:09:36 Notes:Some problems listed i n Document: #[id number] could not be added to this patient's chart. Please review this document and add these problems to the patient's chart manually as needed. Problem Notes None recorded. Procedures Surgical History Date Name Laterality Status Provider Name and Address Organization Details Recorded Time 11/24/19 22 94454: Therapeutic Exercise completed Alphonse Martinez DPT [address] [place] [address], [address], [facility] 11/23/2021 15:08:02 11/24/19 22 02075: Manual Therapy completed Alphonse Martinez DPT [address] [place] [address], [address], [facility] 11/23/2021 15:08:03 11/24/19 22 Neuromuscular re-education completed Alphonse Martinez DPT [address] [place], [address], [facility] 11/23/2021 15:08:03 11/19/19 22 84819: Therapeutic Exercise completed AMINATA ResendezT [address] [place], [address], [facility] 11/18/2021 15:45:36 11/19/19 22 17718: Manual Therapy completed Alphonse Martinez DPT [address] [place], [address], [facility] 11/18/2021 15:45:36 11/19/19 22 Neuromuscular re-education completed Alphonse Martinez DPT [address] [place], [address], [facility] 11/18/2021 15:45:36 11/19/19 22 Treatment and Advice completed Alphonse Martinez DPT [address] [place], [address], [facility] 11/18/2021 16:04:43 11/10/19 22 49891: Therapeutic Exercise completed Alphonse Martinez DPT [address] [place], [address], [facility] 11/09/2021 12:51:26 11/10/19 22 60858: Manual Therapy completed Alphonse Martinez DPT [address] [place], [address], [facility] 11/09/2021 12:52:07 11/10/19 22 Neuromuscular re-education completed Alphonse Martinez DPT [address] [place], [address], [facility] 11/09/2021 13:45:24 11/10/19 22 Treatment and Advice completed Alphonse Martinez DPT [address] [place], [address], [facility] 11/09/2021 12:49:44 11/04/19 93798: Therapeutic Exercise completed AMINATA ResendezT [address] [place], [address], [facility] 11/03/2021 15:02:00 11/04/19 Neuromuscular re-education completed AMINATA ResendezT [address] [place], [address], [facility] 11/03/2021 23:25:50 11/04/19 Treatment and Advice completed Alphonse Martinez DPT [address] [place], [address], [facility] 11/03/2021 23:22:49 10/28/19 51958: Therapeutic Exercise completed Alphonse Martinez DPT [address] [place], [address], [facility] 10/27/2021 15:01:27 10/28/19 Neuromuscular re-education completed Alphonse Martinez DPT [address] [place], [address], [facility] [place] 10/27/2021 15:01:40 10/28/19 Smoking Cessation Counselling completed Alphonse Martinez DPT [address] [place], [address], [facility] [place] 10/27/2021 14:33:50 10/28/19 Physical Activity Counselling completed Alphonse Martinez DPT [address] [place], [address], [facility] [place] 10/27/2021 14:33:50 10/28/19 22 Treatment and Advice completed Alphonse Martinez DPT [address] [place], [address], [facility] 10/27/2021 15:01:18 10/26/19 22 85953: Therapeutic Exercise completed Alphonse Martinez DPT [address] [place], [address], [facility] 10/25/2021 11:39:14 10/26/19 Smoking Cessation Counselling completed Alphonse Martinez DPT [address] [place], [address], [facility] 10/25/2021 11:39:14 10/26/19 22 Physical Activity Counselling completed Alphonse Martinez DPT [address] [place], [address], [facility] 10/25/2021 11:39:14 10/26/19 22 Treatment and Advice completed Alphonse Martinez DPT [address] [place], [address], [facility] 10/25/2021 11:39:14 10/21/19 22 49996: Therapeutic Exercise completed Alphonse Martinez DPT [address] [place], [address], [facility] 10/20/2021 12:53:24 10/21/19 22 Smoking Cessation Counselling completed Alphonse Martinez DPT [address] [place], [address], [facility] 10/20/2021 12:46:29 10/21/19 22 Physical Activity Counselling completed Alphonse Martinez DPT [address] [place], [address], [facility] 10/20/2021 12:46:29 10/21/19 22 Treatment and Advice completed Alphonse Martinez DPT [address] [place], [address], [facility] 10/20/2021 12:51:57 10/19/19 22 69986: Therapeutic Exercise completed Alphonse Martinez DPT [address] [place], [address], [facility] 10/18/2021 13:58:42 10/19/19 22 Smoking Cessation Counselling completed Alphonse Martinez DPT [address] [place], [address], [facility] 10/18/2021 12:41:42 10/19/19 22 Physical Activity Counselling completed Alphonse Martinez DPT [address] [place], [address], [facility] 10/18/2021 12:41:42 10/19/19 22 Treatment and Advice completed Alphonse Martinez DPT [address] [place] [address], [address], [facility] 10/18/2021 13:55:32 10/14/19 22 Smoking Cessation Counselling completed Alphonse Martinez DPT [address] [place] [address], [address], [facility] 10/13/2021 20:25:31 10/14/19 22 Physical Activity Counselling completed Alphonse Martinez DPT [address] [place] [address], [address], [facility] 10/13/2021 20:25:31 10/14/19 22 11769: PT Eval Low Complexity completed Alphonse Martinez DPT [address] [place] [address], [address], [facility] 10/13/2021 20:25:31 10/14/19 22 Treatment and Advice completed Alphonse Martinez DPT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 sitting, driving, sleepingwa lking improves pain--no calf pain, erythema or warmth with comparison , pulses intact, +CMS--no varicosis- -will check labs r/o vitamin deficienci es, iron deficiency anemia and electrolyt e abnormalit ies--f/u 1 week to review Pain in left foot 788807 5687 41470 M79.672 pain to palpation along arch. +ROM, +CMSsuspec t plantar fasciitis as pain is worse with bearing weight and improves with sitting--h as been wearing more supportive footwear-- given handouts on stretching exercises, icef/u 1 week to reasses [id number] Eden Washington D.O. , [facility] [place] [address] [place] [address] 11/17/2022 13:28:47 11/17/2022 15:00:11 Iron deficiency 52893337 E61.1 last OV 11/10 presented with leg [...] jim labs with f/u in 1 month Pain of mu ltiple joints 11546368 M25.50 FH RA--oldest sister with autoimmune and other sister with RA--diffus e multiple joint pain over the last few years- has worked with PT for numerous joint pain--will check labs for RA; refer to rheum if abnormal [id number] Isidro Peterson MD Endoscopy , [facility] [place] [address] [place] [address] 12/02/2022 11:53:27 12/02/2022 14:02:53 [id number] Eden Washington D.O. , [facility] [place] [address] [place] [address] 12/19/2022 09:19:08 12/19/2022 10:08:32 Iron deficiency anemia 45864012 D50.9 endoscopy/ colonoscop y unremarkab le apart from celiac diseaseane danilo improving- -continue taking iron supplement --recheck levels in 1 monthdiscu ssed return precaution s Celiac disease 838241673 K90.0 dx recently on endoscopy/ colonoscop y--trying to incorporat e gluten free foods into her diet--has f/u with nutrition and GI to discuss further Benign ess ential hypertension 5721044 I10 You have chronic hypertensi on that [...] [facility] same time of day with 10-15 minutes of quiet rest prior to taking blood pressure. Make sure that your feet are flat on the floor and back upright resting on chair. Empty your bladder before taking your blood pressure. Please update us if your home blood pressures are not at goal. Call with any concerns or questions. [id number] Tricia Maxwell RDN, LDN, CDCES Nutrition -[address] [address] 01/17/2023 09:54:56 01/18/2023 15:46:39 Celiac disease 473799253 K90.0 [id number] Matilde Rubio MD , [facility] [place] [address] [place] [address] 02/15/2023 10:27:27 02/15/2023 15:31:28 Iron deficiency anemia 71700922 D50.9 endoscopy/ colonoscop y unremarkab le apart [...] 2 weeks Edema of l ower extremity 776190780 R60.0 over the weekend, severe LE edema, unsure of pitting. Resolved, none on exam today. Continues with LE pain and cramping. No symptoms or risk factors concerning for CHF--no calf tenderness , erythema, warmth--ch jim BMP leg edema--OMAYRA r/o claudicati onf/u 2 weeks Fatigue 49409615 R53.83 Unintentio nal weight gain 5204996357 15228 R63.5 9# weight gain from 12/19 despite transition ing to gluten free diet and healthier eating habitsno recent TSH, will check today Screening mammography 24 765061 Z12.31 Pain of mu ltiple joints 74877158 M25.50 shoulder/h ip/elbow painALK phos elevated, GGT normalauto immune labs unremarkab chong reach out to endo to discuss if this is something they work with [id number] Tricia Maxwell, GARETHN, LDN, CDCES Nutrition [place] [place] [address] [place] [address] 02/21/2023 08:59:17 03/03/2023 16:13:21 Celiac disease 830364047 K90.0 Iron defic iency anemia 86266237 D50.9 [id number] Matilde Rubio MD , [facility] [place] [address] [place] [address] 03/01/2023 10:54:57 03/01/2023 12:54:52 Iron deficiency 99543943 E61.1 continues with iron deficiency anemiahas been [...] and/or order iron infusion ([facility]) Celiac disease 116840030 K90.0 dx recently with GIworking with nutrition and GI for dietary changessus pect contributi ng to iron def anemiainco rporating iron rich food sources in her diet Cramp in lower limb 4499 80949 R25.2 cramping b/l lower extremitie sstill present but improvingm ay be related to ongoing anemiadid have in conjunctio n with LE edema with normal lung/heart examschedu led for OMAYRA 03/14 Edema of l ower extremity 739196031 R60.0 scheduled for OMAYRA 03/14resol sol Foot pain 20861626 M79.6 73 b/l arch foot painnew sneakers with no improvemen tprolonged standing- on concrete floorsdisc ussed exercises for plantar fasciitis previously consider orthotics [id number] Vidya Shoranjeet . , [facility] [place] [address] [place], [place] [address] 04/14/2023 13:20:01 04/18/2023 09:08:55 Imaging result abnormal 980251447 R93.[address] scan of abdomen [...] watchers and nume to patient. Celiac disease 814589849 K90.0 Pt has had ongoing abdominal pain and nausea, followed by [place] [facility] for this ongoing issue. Patient has been keeping a food diary, as well as following a gluten free diet, unfortunat cheryl has not found a specific trigger. Pt had CT scan and MRI completed that was negative for acute intrabdomi nal process.-- Continue to follow up with [place] [facility]. Iron defic iency anemia 03282969 D50.9 Pt is followed by hematologi st at [facility] and receives periodic iron infusions, last one completed a few weeks prior. Will be obtaining follow up labs to recheck iron panel after allowing time for the iron infusion to stabilize levels. Pt does have upcoming follow up appointmen t with hematologi st specialist .--Continu e to follow up with [facility] hematology . [id number] Miguel Angel Jim MD , [facility] [place] [address] [place] [address] 06/12/2023 10:47:08 06/12/2023 17:30:56 Migraine 81696734 G43.909 stabledoes well with sumatripta n Active or passive immunization 283864919 Z23 Celiac disease 185965474 K90.0 dx oing well with no gluten though does have occasional sxsfollowe d by Marie GIshivs f/u next month Type 2 heriberto betes mellitus without complication 928891957 E11.9 new dx with fbs 141, 150A1c 6.5strong family hx of DMdiscusse d tx optionswil l work on diet and exerciseno meds nowsent metergoal fbs < 120 and 2 hrs after meals < 140f/u 3 months Steatotic liver disease 533895643 K76.0 discussed impact of weight- c/t work on diet and exercisedo es no ETOH Essential hypertension 05866237 I10 BP at goalc/w medsc/w low salt diet, regular exercise Iron defic iency anemia 71056363 D50.9 ferritin 151s/p 3 iron transfusio nsfollowed by Hem [id number] Miguel Angel Jim MD , [facility] [place] [address] [place] [address] 08/23/2023 14:53:22 08/23/2023 16:05:30 Type 2 diabetes mellitus without complication 350620682 E11.9 new dx 05/2023fbs 121 down from fbs 141, 150 1A1c 6.3 down from 6.5great job, work!c/t work on diet, exercisego al fbs < 120 and 2 hrs after meals < 140will do labs at 3 monthspha in 6 months with labs Active immunization 3387 9002 Z23 Elevated blood-pressure reading without diagnosis of hypertension 025484944 R03.0 bp not at goaljust elevatedwi ll start checking at [facility] send in readings in next few weeks [id number] AMBER LAROSE MD , [facility] [place] [address] [place] [address] 01/31/2024 10:13:15 01/31/2024 12:19:05 Pain of left hip joint 9605957827 33440 M25.552 Will have her see a specialist as she has tried cortisone shots already and has seen rheum. She requested repeat x-ray, will obtain to assess for any new joint space narrowing. Headache 03668737 R51.9 Chronic headaches. Family history of brain aneurysm in father. Uncle also had it. [id number] AMBER LAROSE MD , [facility] [place] [address] [place] [address] 04/08/2024 10:16:44 04/08/2024 11:44:27 Adult health examination 746968893 Z00.00 Doing well. Up to date with screenings . Continue healthy lifestyle measures including a diet rich in fruits and vegetables as well as regular exercise. Depression screening 171 421363 Z13.31 depression screening tool administer ed Screening for alcohol abuse 113832795 Z13.39 Alcohol use screening tool administer ed Type 2 heriberto betes mellitus without complication 371609562 E11.9 At goal A1c < 7. Managing with lifestyle. Recent A1c is pending. Discussed starting a medication to improving her fasting sugars further, she will decide if she wants to follow up. Influenza vaccination declined 358839457 Z28.21 Pain of ri ght elbow joint 1372619666 2073217 M25.521 Would like a second opinion for injury in her R elbow and subsequent neuropathy . Celiac disease 229134749 K90.0 Gluten-carlee e diet. Stable. [id number] AMBER LAROSE MD , [facility] [place] [address] [place] [address] 05/01/2024 14:03:34 05/01/2024 14:57:36 Steatotic liver disease 765649043 K76.0 Type 2 heriberto betes mellitus without complication 506524448 E11.9 Not at goal of A1c < 7, last checked was 7.3%. Managing with lifestyle. Obesity 060733902 E66.81 2 Patient is here today for a their first weight management visit.-the y deny any personal or family history of MEN 2 or medullary thyroid cancer-the y deny any personal history of severe gastropare sis or chronic/se amador pancreatit is-they have engaged in lifestyle modificati ons for over 3 months prior to starting their medication (low calorie diet, regular activity)?Geena nt's medical conditions that require weight loss are the following: DM II, MASH, HTN Starting weight: 227 lbsMedicat ion plan: Start Zepbound Activity plan: continue regular activity with grandkidsN utrition plan: higher protein, veggies, healthy fatsHydrat ion plan: stay hydrated?I am seeing patient regularly to monitor medication and ongoing weight goals.?I, Amber Larose MD, am certified by the [place] [employer] to provide obesity care. Essential hypertension 68100224 I10 At goal <130/80. Will monitor as she loses weight. [id number] AMBER LAROSE MD , [facility] [place] [address] [place] [address] 06/10/2024 16:10:34 06/11/2024 10:47:39 Obesity 276770718 E66.9 Tolerating the 2.5 mg dose. Initially had some burping but this resolved after a few days. Decrease in appetite. Weight still the same. Will increase to 5 mg. Continue healthy eating, gym and hydration. ?I am seeing patient regularly to monitor medication and ongoing weight goals.?I, Amber Larose MD, am certified by the [place] [employer] to provide obesity care. Type 2 heriberto betes mellitus without complication 358627206 E11.9 Last A1c in March was 7.3%. Repeat today. Essential hypertension 30333103 I10 At goal <130/80. Will monitor. Health Concerns Section Related Observation LastModified by Organization Detai ls LastModified Time None Recorded Concern Status LastModified by Organization Details LastModified Time None Recorded Advance Directives Directive N: Payers Encounter Date Sequence Insurance Name Policy Number Policy [employer] Covered Member ID Zapata Member ID Guarantor Name 08/23/2023 1 [facility] - DOS ON OR AFTER 2022 - [employer] (MEDICAID REPLACEMENT - HMO) Fernanda Patry [id number] Fernanda Patry 01/31/2024 1 [employer] - DOS ON OR AFTER 2022 - [employer] (MEDICAID REPLACEMENT - HMO) Fernanda Patry [id number] Fernanda Patry 04/08/2024 1 [employer] - DOS ON OR AFTER 2022 - [employer] (MEDICAID REPLACEMENT - HMO) Fernanda Patry [id number] Fernanda Patry 05/01/2024 1 [employer] - DOS ON OR AFTER 2022 - [employer] (MEDICAID REPLACEMENT - HMO) Fernanda Patry [id number] Fernanda Patry 06/10/2024 1 [employer] - DOS ON OR AFTER 2022 - [employer] (MEDICAID REPLACEMENT - HMO) Fernanda Patry [id number] Fernanda Patry Notes Date Note Type Note Provider Name and Address Organization Details Recorded Time 4 text/html f/u on dm dxmore monitoring of foods - reduced soda to no sodamore veggieschallenging with celiac- gluten freeexercise - walking 2-6 miles everyday with daughterout of work d/t elbow Amaya Bear NP [address] [place] [address], [phone], [facility] [place] 08/23/2023 16:23:18 4 text/html Left hip and low back painful x yearsGetting worse more recentlyHas had cortisone injections in the hip but not super helpfulHas lidoderm patchesCalves also sore, hands and feet swollenSeen rheum, no diagnosis Also has headaches, chest pain, abdominal painDebilitating headaches bothering her all night longSeen GI, has celiac, no improvement since stopping gluten AMBER LAROSE MD [address] [place] [address], [phone], [facility] 01/31/2024 13:02:29 4 text/html Physical Exam/FemaleReported bypatient.PHAPatient [...] other menopause symptoms.Sexually active: no issues.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 headaches: seeing neurologistback pain: using the brace AMBER LAROSE MD [address] [place] [address], [phone], [facility] 04/08/2024 11:03:55 4 text/html Was losing some weight but then diagnosed with celiacHas previously gone to the gym regularlyHusband rayna when she goes so she stoppedWithin the last year gained about 50 lbsCan't account for the weight gain Currently eating a low calorie dietNo alcohol useOn topamax for migraines just recentlyNot much of an appetite in generalBored watching TV sometimes will eat cerealEating a lot of veggies Would like to lose about 80 lbs AMBER LAROSE MD [address] [place] [address], [phone], [facility] 05/01/2024 14:34:58 5 text/html Appetite is down but weight has not changed yetGoing back to the gym, hopefully will comeStill eating protein, veggiesDrinkign water Went to ortho for the kneesOsteoarthritis bilaterallyDoing PT right nowR elbow saw the same doctor, thinks its cubital compartment syndromeWent to Nancy for this doctorHas a plan for an EMGGoing to [facility] Due for eye exam, plan to have this done in August AMBER LAROSE MD [address] [place] [address], [phone], [facility] 06/10/2024 16:59:16 OBGyn Episode No OBEpisode recorded.
== END 2024-09-11 13:21 | disposition home or self-care (01) ==
LOC: HO.NEURO 13:20
PROVIDERS: PCP Internal Medicine
DX: R20.0 Anesthesia of skin (principal); R20.2 Paresthesia of skin; R94.131 Abnormal electromyogram [EMG]
CPT/HCPCS: 95886; 95909

== ENCOUNTER → 2024-09-11 13:22 | Outpatient (BNV) | payer OTHER, SELFPAY | PROVIDERS: PCP Internal Medicine; Visit Provider Physical Medicine & Rehabilitation | DX: G56.02 Carpal tunnel syndrome, left upper limb (principal) | CPT/HCPCS: 95886; 95909 ==

== ENCOUNTER 2024-09-20 11:30 | Outpatient (RCR) | payer OTHER, SELFPAY ==
--- NOTE | 2024-08-14 11:17 | MHC.OT.EP ---
[address] [phone] Occupational Therapy Plan of Care Patient Name: Fernanda Hill Date of Evaluation: 08/14/24 Diagnosis: Pain Location: R wrist - dull ache Pain Score: 4 Pain Scale Used: Numeric (0 - 10) Aggravating Factors: Alleviating Factors: Assessment: Pt is a R hand dominant female who reports CT sx's for a few years. She recently had CTR surgery (07/23), and reports she is pleased w/ the results.. she has mild pain and paresthesia in her thumb, but reports the rest of the hand feels good . Her scar is light pink in color, flat, and appears to be healing well. 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 Thank you once again for your referral.
== END 2025-03-13 14:28 | disposition home or self-care (01) ==
LOC: HO.OT 11:30
PROVIDERS: PCP Internal Medicine
DX: G89.18 Other acute postprocedural pain (principal)
CPT/HCPCS: 97035; 97140; 97165; 97535

== ENCOUNTER 2024-10-23 13:04 | Outpatient (AMB) | payer OTHER, SELFPAY ==
--- NOTE | 2024-10-23 13:12 | A.OFFVIS_ITS ---
Vital Signs 10/23/24 13:15 Height 5 ft 5 in Weight 216 lb BMI 35.9 Intake Visit Reasons: OV- L UE EMG review Intake Note: Fernanda is a 48 year old right hand dominant female who presents today for an EMG review of her left upper extremity. EMG/NCS done on 09/11/24 IMPRESSION: 1. This is an abnormal study. 2. There is electrodiagnostic evidence for left moderate-severe median neuropathy at the wrist, consistent with carpal tunnel syndrome. 3. There is no electrodiagnostic evidence for ulnar neuropathy, brachial plexopathy, or cervical radiculopathy. Allergies No Known Allergies Allergy (Verified 10/23/24 13:16) HPI HPI OV- L UE EMG review: Details: Fernanda is a 48 year old right hand dominant female who presents today for an EMG review of her left upper extremity. SYmptoms have remained consistent since previous evaluation. EMG/NCS done on 09/11/24 IMPRESSION: 1. This is an abnormal study. 2. There is electrodiagnostic evidence for left moderate-severe median neuropathy at the wrist, consistent with carpal tunnel syndrome. 3. There is no electrodiagnostic evidence for ulnar neuropathy, brachial plexopathy, or cervical radiculopathy. [facility] Medical History (Updated 10/27/24 @ 21:37 by MARISSA Moffett) Migraine Hypertension Surgical History History of surgical removal of ganglion cyst Hx of tubal ligation Hx of appendectomy Hx of colonoscopy Hx of elbow surgery Social History (Updated 08/27/24 @ 10:26 by YUKO Basilio) Are you a primary career placement specialist to a significant other at home: No Do you presently have visiting nurse or other home services: No Alcohol intake: never Patient Tobacco Use Status: Never used Tobacco Current occupational status: unemployed Current occupation: right hand dominant Review of Systems Const All systems reviewed & are unremarkable except as noted in HPI and below Physical Exam Vital Signs: BMI result Body Mass Index 35.9 Extrem Other: Neuro: Decreased sensation in the thumb and index finger of the left hand. Normal sensation of the tips of all of the digits No thenar or intrinsic wasting. Good APB muscle firing and good finger cross. Vascular: Capillary refill brisk. ROM: Patient can make a fist and extend all their digits. Skin: No lacerations or abrasions noted. General: No ecchymosis. No erythema or evidence of infection. Assessment & Plan Assessment & Plan (1) Left carpal tunnel syndrome: Code(s): G56.02 - Carpal tunnel syndrome, left upper limb Category: Medical Plan 1. Carpal tunnel syndrome, left Symptoms intermittent, daily, worse at night I educated the patient about the condition. I discussed both operative and nonoperative treatment options. The patient would like to proceed with surgery. The risks and benefits of operative treatment were discussed with the patient and the patient wishes to proceed with surgery. These risks include, but are not limited to, risk of damage to blood vessels, nerves, tendons, infection, recurrence, incomplete relief of preoperative symptoms, persistent pain, possible need for further surgery, and the risks associated with regional blocks and/or anesthesia. Plan is to take the patient to the operating room at some point in the next few weeks for the following procedures: 1. Left carpal tunnel release under local All of the preoperative paperwork including the consent was discussed today. All of the patient's questions were answered in the clinic today. The patient understands that they will be in contact with our surgical processor to discuss scheduling their procedure. Patient denies diabetes, blood thinners, asthma, heart issues, lung issues, kidney issues, or current smoking. Coding Level of Care Code Est Pt Level 4 (57291) Diagnoses Left carpal tunnel syndrome G56.02
[2024-10-23 13:15] VITALS: BMI 35.9
--- OUTSIDE RECORDS SUMMARY | 2024-10-23 14:41 | XMS_ITS | Data Portability ---
Author Organization [facility], , [facility], OFFICE Address [address] [place] [address] Care Team Providers Care Technician Test Systems Name Role Phone JERAMY ERWIN OTHER ALBERTA HOUSER Orthopedic Surgeon [phone] GAMA MEDEIROS Industrial Machine System Technician ALEX MAXWELL Choker Hooker CECI VAZQUEZ Hematology/Oncology [phone] [facility] Lump Machine Operator AMAYA BEAR Primary Care Provider [facility] Orthopedic Surgeon [phone] NATALY RAMOS Neurologist [facility] Phys. Med. & Rehab Assessment No assessment recorded. Plan of Treatment Reminders Order Date Submit Date Provider Last Modified By Organization Details Last Modified Time Details Appointments LAB Follow-U p 2024 07:50A M [facility] Lab Not available Not available Not available Lab hemoglob in A1C/hemo globin total, QN, blood [facility]24 [facility] [address] [facility], [place], [address], 07/03/2024 10:02:28 Referral orthoped ic surgeon referral 2023 024 [email or web address] [facility], [address] [place] [address] [place], [address], 04/17/2024 11:11:22 Procedures None recorded . Surgeries None recorded . Imaging None recorded . Medication Orders Zepbound 7.5 mg/0.5 mL subcutan eous pen injector 2024 025 [facility][id number], [address] [place], [address], 09/18/2024 14:54:13 Zepbound 5 mg/0.5 mL subcutan eous pen injector 2024 025 [id number] [address] [place], [address], 09/22/2024 20:08:39 Zepbound 2.5 mg/0.5 mL subcutan eous pen injector 2023 025 [id number] [address] [place], [address], 09/12/2024 14:26:54 ondanset lizy 4 mg disinteg rating tablet 2023 024 [id number] [address] [place], [address], 05/01/2024 14:32:14 Patient TargetsNo targets recorded. Patient Instructions Encounter Date Encounter Id Patient Instructions Last Modified By Organization Details Last Modified Time 05/01/2024 [id number] You have been prescribed a new medication [...] containers from your insurance company or most [facility] have them available for free. - If [...] Not available 05/01/2024 14:33:23 Reason for Referral Orthopedic Surgeon Referral for Pain of right elbow joint Referring Physician: Marcella Larose, Family Medicine, Encounter Date: 04/08/2024 Results Created Date Observation Date Name Description Value Unit Range Abnormal Flag Note LastModifiedBy Organization Detail LastModifiedTime 04/06/20 24 04/08/2024 HGB A1C hemoglobin A1C [...] furth er confi rmati on Not Available [facility] [address] [facility], [place], [address], 04/08/2024 11:47:49 04/06/20 24 04/08/2024 HGB A1C estimated average glucose 162.8 mg/dL Not Available [address], [address], 04/08/2024 11:47:49 04/06/20 24 04/09/2024 BASIC METAB OLIC PANEL glucose 179 mg/dL 70-100 high Not Available [address], [address], 04/09/2024 16:36:15 04/06/20 24 04/09/2024 BASIC METAB OLIC PANEL BUN 14 mg/dL 7-18 Not Available [address], [address], 04/09/2024 16:36:15 04/06/20 24 04/09/2024 BASIC METAB OLIC PANEL creatinine 0.9 mg/dL 0.8-1. 3 Not Available [address], [address], 04/09/2024 16:36:15 04/06/20 24 04/09/2024 BASIC METAB OLIC PANEL B/C 15.6 ratio Not Available [address], [address], 04/09/2024 16:36:15 04/06/20 24 04/09/2024 BASIC METAB [...] be used in pregn lanie. Not Available [address], [address], 04/09/2024 16:36:15 04/06/20 24 04/09/2024 BASIC METAB OLIC PANEL sodium 143 mmol/ L 136-14 5 Not Available [address], [address], 04/09/2024 16:36:15 04/06/20 24 04/09/2024 BASIC METAB OLIC PANEL potassium 4.1 mmol/ L 3.5-5. 1 Not Available [address], [address], 04/09/2024 16:36:15 04/06/20 24 04/09/2024 BASIC METAB OLIC PANEL chloride 105 mmol/ L 96-107 Not Available [address], [address], 04/09/2024 16:36:15 04/06/20 24 04/09/2024 BASIC METAB OLIC PANEL anion gap 9.7 5.0-15 .0 Not Available [address], [address], 04/09/2024 16:36:15 04/06/20 24 04/09/2024 BASIC METAB OLIC PANEL CO2 28 mmol/ L 21-32 Not Available [address], [address], 04/09/2024 16:36:15 04/06/20 24 04/09/2024 BASIC METAB OLIC PANEL calcium 9.3 mg/dL 8.5-10 .3 Not Available [address], [address], 04/09/2024 16:36:15 06/22/19 25 06/23/2024 CBC (INCL UDES DIFF/ PLT) white blood cell count 5.7 thous and/u L 3.8-10 .8 normal Not Available [facility] [address], [place], [address], 06/23/2024 08:43:39 06/22/19 25 06/23/2024 CBC (INCL UDES DIFF/ PLT) red blood cell count 4.94 priscilla on/uL 3.80-5 .10 normal Not Available [facility] [address], [place], [address], 06/23/2024 08:43:39 06/22/19 25 06/23/2024 CBC (INCL UDES DIFF/ PLT) hemoglobin 14.4 g/dL 11.7-1 5.5 normal Not Available [facility] [address], [place], [address], 06/23/2024 08:43:39 06/22/19 25 06/23/2024 CBC (INCL UDES DIFF/ PLT) hematocrit 43.7 % 35.0-4 5.0 normal Not Available [facility] [address], [place], [address], 06/23/2024 08:43:39 06/22/19 25 06/23/2024 CBC (INCL UDES DIFF/ PLT) MCV 88.5 fL 80.0-1 00.0 normal Not Available [facility] [address], [place], [address], 06/23/2024 08:43:39 06/22/19 25 06/23/2024 CBC (INCL UDES DIFF/ PLT) MCH 29.1 pg 27.0-3 3.0 normal Not Available [facility] [address], [place], [address], 06/23/2024 08:43:39 06/22/19 25 06/23/2024 CBC (INCL [...] jaspreet eters and the patie nt's clini tone condi tion. Not Available [facility] [address], [place], [address], 06/23/2024 08:43:39 06/22/1906/23/2024 CBC (INCL UDES DIFF/ PLT) RDW 12.8 % 11.0-1 5.0 normal Not Available [facility] [address], [place], [address], 06/23/2024 08:43:39 06/22/19 25 06/23/2024 CBC (INCL UDES DIFF/ PLT) platelet count 251 thous and/u L 140-40 0 normal Not Available [facility] [address], [place], [address], 06/23/2024 08:43:39 06/22/19 25 06/23/2024 CBC (INCL UDES DIFF/ PLT) MPV 11.8 fL 7.5-12 .5 normal Not Available [facility] [address], [place], [address], 06/23/2024 08:43:39 06/22/19 25 06/23/2024 CBC (INCL UDES DIFF/ PLT) absolute neutrophils 3329 cells /uL 1500-7 800 normal Not Available [facility] [address], [place], [address], 06/23/2024 08:43:39 06/22/19 25 06/23/2024 CBC (INCL UDES DIFF/ PLT) absolute lymphocytes 1693 cells /uL 850-39 00 normal Not Available [facility] [address], [place], [address], 06/23/2024 08:43:39 06/22/19 25 06/23/2024 CBC (INCL UDES DIFF/ PLT) absolute monocytes 502 cells /uL 200-95 0 normal Not Available [facility] [address], [place], [address], 06/23/2024 08:43:39 06/22/19 25 06/23/2024 CBC (INCL UDES DIFF/ PLT) absolute eosinophils 154 cells /uL 15-500 normal Not Available [facility] [address], [place], [address], 06/23/2024 08:43:39 06/22/19 25 06/23/2024 CBC (INCL UDES DIFF/ PLT) absolute basophils 23 cells /uL 0-200 normal Not Available [facility] [address], [place], [address], 06/23/2024 08:43:39 06/22/19 25 06/23/2024 CBC (INCL UDES DIFF/ PLT) neutrophils 58.4 % normal Not Available [facility] [address], [place], [address], 06/23/2024 08:43:39 06/22/19 25 06/23/2024 CBC (INCL UDES DIFF/ PLT) lymphocytes 29.7 % normal Not Available [facility] [address], [place], [address], 06/23/2024 08:43:39 06/22/19 25 06/23/2024 CBC (INCL UDES DIFF/ PLT) monocytes 8.8 % normal Not Available [facility] [address], [place], [address], 06/23/2024 08:43:39 06/22/19 25 06/23/2024 CBC (INCL UDES DIFF/ PLT) eosinophils 2.7 % normal Not Available [facility] [address], [place], [address], 06/23/2024 08:43:39 06/22/19 25 06/23/2024 CBC (INCL UDES DIFF/ PLT) basophils 0.4 % normal Not Available [facility] [address], [place], [address], 06/23/2024 08:43:39 06/22/19 25 06/24/2024 MICRO ALBUM IN/CR EATIN INE RATIO PANEL , URINE microalbumin 5.9 mg/L 1.3-20 .0 Not Available [address], [address], 06/24/2024 10:52:46 06/22/19 25 06/24/2024 MICRO ALBUM IN/CR EATIN INE RATIO PANEL , URINE creatinine urine 133.5 mg/dL 30.0-1 25.0 high Not Available [address], [address], 06/24/2024 10:52:46 06/22/19 25 06/24/2024 MICRO ALBUM IN/CR EATIN INE RATIO PANEL , URINE microalb/cre at ratio 4.4 mg/g_ creat 0.0-29 .0 Not Available [address], [address], 06/24/2024 10:52:46 06/22/19 25 06/24/2024 HGB A1C [...] furth er confi rmati on Not Available [address], [address], 06/24/2024 12:23:17 06/22/19 25 06/24/2024 HGB A1C estimated average glucose 148.5 mg/dL Not Available [address], [address], 06/24/2024 12:23:17 06/22/19 25 06/24/2024 BASIC METAB OLIC PANEL glucose 150 mg/dL 70-100 high Not Available [address], [address], 06/24/2024 15:23:10 06/22/19 25 06/24/2024 BASIC METAB OLIC PANEL BUN 15 mg/dL 7-18 Not Available [address], [address], 06/24/2024 15:23:10 06/22/19 25 06/24/2024 BASIC METAB OLIC PANEL creatinine 0.9 mg/dL 0.8-1. 3 Not Available [address], [address], 06/24/2024 15:23:10 06/22/19 25 06/24/2024 BASIC METAB OLIC PANEL B/C 16.7 ratio Not Available [address], [address], 06/24/2024 15:23:10 06/22/19 25 06/24/2024 BASIC METAB [...] be used in pregn lanie. Not Available [address], [address], 06/24/2024 15:23:10 06/22/19 25 06/24/2024 BASIC METAB OLIC PANEL sodium 143 mmol/ L 136-14 5 Not Available [address], [address], 06/24/2024 15:23:10 06/22/19 25 06/24/2024 BASIC METAB OLIC PANEL potassium 4.1 mmol/ L 3.5-5. 1 Not Available [address], [address], 06/24/2024 15:23:10 06/22/19 25 06/24/2024 BASIC METAB OLIC PANEL chloride 104 mmol/ L 96-107 Not Available [address], [address], 06/24/2024 15:23:10 06/22/19 25 06/24/2024 BASIC METAB OLIC PANEL anion gap 11.4 5.0-15 .0 Not Available [address], [address], 06/24/2024 15:23:10 06/22/19 25 06/24/2024 BASIC METAB OLIC PANEL CO2 28 mmol/ L 21-32 Not Available [address], [address], 06/24/2024 15:23:10 06/22/19 25 06/24/2024 BASIC METAB OLIC PANEL calcium 9.4 mg/dL 8.5-10 .3 Not Available [address], [address], 06/24/2024 15:23:10 06/22/19 25 06/24/2024 LIPID PANEL cholesterol 191 mg/dL <200 mg/dl Allen able 200-2 39 mg/dl Borde rline High >240 mg/dl High Not Available [address], [address], 06/24/2024 15:23:11 06/22/19 25 06/24/2024 LIPID PANEL triglyceride s 125 mg/dL <150 mg/dL Jerica l 150-1 99 mg/dL Borde rline High 200-4 99 mg/dL High >500 mg/dL Very High Not Available [address], [address], 06/24/2024 15:23:11 06/22/19 25 06/24/2024 LIPID PANEL direct HDL 48 mg/dL <40 mg/dl - Major Risk for CHD >60 mg/dl - Negat diomedes Risk for CHD Not Available [address], [address], 06/24/2024 15:23:11 06/22/19 25 06/24/2024 LDL - [...] r is not lee gina. Not Available [address], [address], 06/24/2024 15:23:12 Result Notes None recorded. Procedures Surgical History Date Name Laterality Status Provider Name and Address Organization Details Recorded Time 3 Kristen - Colonoscopy completed Isidro Peterson MD [address] [place] [address], [phone], [facility] 12/02/2022 13:59:37 3 Kristen - EGD completed Isidro Peterson MD [address] [place] [address], [phone], [facility] 12/02/2022 13:59:07 Imaging Results None recorded. Procedure Notes None [...] Available Not Available Not Avai lable atenolol 25 mg tablet Take 2 tablets [...] Not Available Not Available Not Avai lable amoxicill in 500 mg tablet Take 2 tablets every 12 hours by oral route for 7 days. 01/01 completed Not Available Not Available Not Available oxycodone -acetamin ophen 5 mg-325 mg tablet TAKE 1 TAB ORALLY EVERY 6 HOURS NEEDED FOR PAIN, SEVERE 09/12 completed Not Available Not Available Not Available [...] Not Available Not Available Not Avai lable gabapenti n 100 mg capsule TAKE 1 [...] MG SUBCUTAN EOUSLY WEEKLY FOR 28 DAYS 09/22 completed Not Available Not Available Not Available Zepbound 2.5 mg/0.5 mL subcutane ous pen injector active Not Available Not Available Not Available Zepbound 7.5 mg/0.5 mL subcutane ous pen injector INJECT 7.5 MG SUBCUTAN EOUSLY ONE TIME PER WEEK FOR 28 DAYS active Not Available Not Available No t Available Vitals None Recorded Social History Question Answer Notes LastModified by Organization Details LastModified Time Do You Have An Advance Directive? No Information not available 03/31/2011 What Is Your Level Of Caffeine Consumption? Moderate Information not available 09/22/2014 What Type Of Diet Are You Following? REGULAR [id number] Information not available 03/31/2011 Education 12 Information not available 03/31/2011 How Many Days In The Past Year Have You Had A Heavy Drinking Consumption (4+ Female, 5+ Male)? 0 Information not available 08/21/2014 Are There Any Guns Present In Your Home? No Information not available 03/31/2011 Live Alone Or With Others? With Others 3 Children, Her Mother, Zahira And His 3 Children. Lost Father And Former Fiscotte Information not available 03/16/2010 Patient Has Health Care Proxy Signed And In Chart Yes Form Given To Pt 03/31/11, 09/22/14, 06/16/15 [email or web address] Information not available 06/14/2023 Marital Status Helping With Daycare For 2 Grandchildren Information not available 10/25/2018 Mosquito Repellent Used Routinely No Information not available 03/31/2011 What Was The Date Of Your Most Recent Tobacco Screening? 09/12/2024 01/28/22 CJ, 11/10/22mh, 11/17/22mh, 12/19/22mh, 02/15/23mh [email or web address] Information not available 09/12/2024 How Many Children Do You Have? 3 [...] Information not available 06/16/2015 Do You Use Sunscreen Routinely? Yes Information not available 03/31/2011 Sex: Female Functional Status Question Answer Note LastModified by Organizat ion Details LastModified Time Do you use any illicit or recreational drugs? No 01/22/2021 KM Information not available 01/22/2021 Do you or have you ever used any other forms of tobacco or nicotine? No 01/22/2021 KM Information not available 01/22/2021 What is your level of alcohol consumption? None checked kb 06-12-23 [email or web address] Information not available 06/12/2023 Are you currently employed? 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 Family History Relationship [...] 70 [email or web address] Not available 2014 14:14:19 Brother [place] son-White pattern 48 [email or web address] Not available 2016 [...] SNOMED-CT Code Diagnosis ICD10 Code Diagnosis Note [id number] Lizy Dixon PA-C , [facility] [place] [address] [place] [address] 04/13/2004 13:15:09 04/13/2004 13:52:33 [id number] Alex León , [facility] [place]ICE [address] [place] [address] 10/06/2005 14:44:39 10/06/2005 17:44:16 [id number] [facility] - [facility] [address] [place] [address] 10/06/2005 15:16:59 10/06/2005 15:17:09 [id number] Vlad Carmona III, MD , [facility] [place]ICE [address] [place] [address] 10/17/2005 09:39:34 10/17/2005 11:47:03 [id number] Dasia Schulte NP , [facility] [place]ICE [address] [place] [address] 10/24/2005 09:56:34 06/04/2008 02:02:29 [id number] Alex León , [facility] OFFICE [address] [place] [address] 11/22/2005 09:04:17 11/22/2005 16:06:53 [id number] [facility] - [facility] [address] [place] [address] 11/22/2005 09:27:56 11/22/2005 09:28:05 [id number] Amaya Jin , [facility] OFFICE [address] [place] [address] [place] [address] 04/04/2006 16:15:39 04/04/2006 17:01:09 [id number] Ana Lilia Jin, [address] [place] [address] 08/16/2006 10:02:59 08/18/2006 07:49:02 [id number] Dasia Schulte NP , [address] [place] [address] 08/30/2006 14:48:37 08/30/2006 17:32:27 [id number] [facility] - [address] [place] [address] 08/30/2006 15:54:11 08/30/2006 15:54:16 [id number] LUCA Hook, [address] [place] [address] 10/13/2006 10:18:52 10/13/2006 13:12:41 [id number] LUCA Hook, [address] [place] [address] 11/03/2006 10:10:13 11/03/2006 11:36:58 [id number] LUCA Hook, [address] [place] [address] 02/16/2007 10:19:36 06/04/2008 02:02:29 [id number] LUCA Hook, [address] [place] [address] 01/26/2007 10:01:13 01/26/2007 15:25:44 [id number] LUCA Gil, [facility]ICE [address] [place] [address] 12/17/2007 10:14:12 06/04/2008 02:02:29 [id number] LUCA Gil, [facility] OFFICE [address] [place] [address] 06/05/2008 15:35:46 06/17/2008 02:02:00 [id number] LUCA Hook, [facility] OFFICE [address] [place] [address] M[place]ETPatsy, [place] [address] 08/06/2008 12:16:07 08/07/2008 08:35:57 [id number] LUCA Hook, [facility] OFFICE [address] [place] [address] [place] [address] 09/05/2008 11:42:18 09/08/2008 08:21:27 [id number] LUCA Gil, [facility] OFFICE [address] [place] [address] MARGARETPatsy [place] [address] 12/08/2008 16:32:50 12/09/2008 14:05:05 [id number] LUCA Gil, [facility] OFFICE [address] [place] [address] [place] [address] 12/23/2008 10:20:23 12/23/2008 16:02:28 [id number] LUCA Hook, [facility] OFFICE [address] [place] [address] [place] [address] 03/11/2009 14:47:03 03/11/2009 17:01:54 [id number] [facility] - [address] [place] [address] 07/30/2008 09:10:41 07/30/2008 09:10:47 [id number] [facility] - [address] [place] [address] 12/10/2008 10:17:14 12/10/2008 10:17:19 [id number] LUCA Hook, [facility] OFFICE [address] [place] [address] M[place]Patsy [place] [address] 09/01/2009 07:59:36 09/01/2009 09:05:09 [id number] FP TREATMENT NURSE [facility] CAMRYN, [facility] OFFICE [address] [place] [address] DR NIEVESCHEMAPatsy [place] [address] 09/03/2009 09:31:25 09/04/2009 08:20:06 [id number] LUCA Paez [facility] OFFICE [address] [place] [address] [place] [address] 11/23/2009 09:27:05 11/23/2009 12:22:11 [id number] LUCA Paez, [facility] OFFICE [address] [place] [address] [place] [address] 12/14/2009 15:28:34 12/14/2009 16:21:22 [id number] LUCA Paez, [facility] OFFICE [address] [place] [address] [place] [address] 03/18/2010 09:21:43 03/18/2010 10:46:30 [id number] LUCA Gil, [facility], [address] [place] [address] 06/30/2010 16:24:46 06/30/2010 17:25:41 [id number] Eden Najeracolo D.O. CAMRYN [address] [place] [address] 01/20/2011 10:19:33 01/20/2011 11:02:24 [id number] Eden Furcolo D.O. [facility]N [address] [place] [address] 03/31/2011 15:41:03 03/31/2011 16:54:54 [id number] Eden Furcolo D.O. CAMRYN [address] [place] [address] 09/13/2011 16:09:22 09/13/2011 16:43:30 [id number] Eden Furcolo D.O. CAMRYN [address] [place] [address] 10/12/2011 15:55:37 10/12/2011 16:24:26 [id number] Eden Furcolo D.O. CAMRYN [address] [place] [address] 10/26/2011 15:55:14 10/26/2011 16:08:12 [id number] Eden Furcolo D.O. CMARYN [address] [place] [address] 07/16/2012 11:45:25 07/16/2012 12:22:07 [id number] FP TREATMENT NURSE [facility] CAMRYN, [facility] [place]ICE [address] [place] [address] 07/19/2012 10:20:12 07/19/2012 10:30:27 [id number] MD CAMRYN Milton [facility], [address] [place] [address] 12/25/2012 16:14:20 12/26/2012 07:30:58 [id number] Eden Alvaradolo D.O. , [facility], [address] [place] [address] 03/04/2013 15:53:01 03/04/2013 16:53:56 [id number] Eden Washington D.O. [address] [place] [address] 06/05/2013 10:45:47 06/05/2013 11:36:26 [id number] Eden Washington D.O. [address] [place] [address] 06/24/2013 15:47:39 06/25/2013 10:20:00 [id number] Eden Washington D.O. [address] [place] [address] 09/18/2013 13:41:57 09/18/2013 14:35:40 [id number] Tricia Maxwell, RDN, LDN, [facility] Nutrition -[facility] [address] [place] [address] 10/24/2013 13:30:56 10/24/2013 14:58:27 [id number] Eden Washington D.O. [address] [place] [address] 08/21/2014 09:15:37 08/21/2014 12:58:29 [id number] Eden Washington D.O. [address] [place] [address] 09/22/2014 13:45:57 10/09/2014 16:20:03 [id number] Eden Alvaradolo D.O. CAMRYN [address] [place] [address] 06/16/2015 10:15:14 06/17/2015 11:26:38 [id number] Eden Furcolo D.O. [address] [place] [address] 06/24/2016 13:45:51 06/27/2016 09:56:23 [id number] Eden Furcolo D.O. [address] [place] [address] 1 09/30/2016 10:41:57 09/30/2016 11:49:43 [id number] Miguel Angel Jim MD [address] [place] [address] 04/21/2017 16:26:41 04/24/2017 12:38:25 [id number] Eden Furcolo D.O. [address] [place] [address] 10/24/2017 08:44:30 10/24/2017 09:30:25 [id number] Douglas Willis PA-C [address] [place] [address] 1 10/26/2017 13:39:56 10/26/2017 14:41:19 [id number] Eden Furcolo D.O. [address] [place] [address] 1 04/23/2018 14:36:20 04/23/2018 16:11:35 [id number] Eden Furcolo D.O. [address] [place] [address] 1 08/14/2018 09:28:25 08/14/2018 11:12:59 [id number] Eden Furcolo D.O. [address] [place] [address] 1 10/25/2018 08:47:16 10/25/2018 09:22:10 [id number] Eden Furcolo D.O. [address] [place] [address] 1 04/25/2019 09:47:24 04/25/2019 10:25:45 [id number] Eden Furcolo D.O. [address] [place] [address] 1 10/29/2019 08:12:09 10/29/2019 09:15:59 [id number] Miguel Angel Jim MD , [facility] [place] [address] [place] [address] 03/20/2020 07:34:17 03/26/2020 16:52:10 [id number] STEVAN PEREZ MD [facility] [place], OFFICE [address] [place] [address] 1 11/06/2020 08:44:51 11/06/2020 10:09:53 [id number] Rylan Alarcon MD Podiatry, [facility] [place] [address] [place] [address] 01/22/2021 09:01:08 01/22/2021 15:38:52 [id number] Eden Washington D.O. [facility] [place], OFFICE [address] [place] [address] 1 01/26/2021 08:57:23 01/26/2021 09:35:25 [id number] Matilde Rubio MD [facility] [place], OFFICE [address] [place] [address] 1 10/08/2021 12:02:47 10/08/2021 12:27:01 [id number] [facility], [address] [place] [address] 10/13/2021 13:52:59 10/14/2021 13:07:36 [id number] [facility], [address] [place] [address] 1 10/18/2021 13:10:11 10/18/2021 14:16:22 [id number] [facility], [address] [place] [address] 10/20/2021 10:32:00 10/20/2021 14:08:36 [id number] [facility], [address] [place] [address] 10/25/2021 11:26:03 10/25/2021 15:32:52 [id number] [facility], [address] [place] [address] 10/27/2021 14:28:08 10/27/2021 15:25:05 [id number] Zheng Figueroa MD Sports Medicine, [address] [address] 11/03/2021 13:32:18 11/03/2021 14:02:41 [id number] [facility], [address] [place] [address] 11/03/2021 14:36:56 11/04/2021 10:24:32 [id number] [facility], [address] [place] [address] 1 11/09/2021 13:06:11 11/09/2021 13:59:30 [id number] [facility], [address] [place] [address] 11/18/2021 15:34:59 11/18/2021 16:09:31 [id number] [facility], [address] [place] [address] 11/23/2021 15:00:55 11/23/2021 15:37:44 [id number] Zheng Figueroa MD Sports Medicine, [address] [place] [address] 12/13/2021 13:28:52 12/13/2021 14:00:37 [id number] [place] , [facility] [address] [place] [address] 01/28/2022 08:18:22 01/28/2022 13:39:11 [id number] MARISSA Sal , [facility], OFFICE [address] [place] [address] 04/14/2022 11:51:53 04/19/2022 14:24:28 [id number] [place] , [facility] [address] [place] [address] 05/02/2022 10:10:17 05/03/2022 10:34:49 [id number] Zheng Figueroa MD Sports Medicine, [address] [address] 05/03/2022 11:04:00 05/03/2022 11:21:52 [id number] Nataly Dickey i, PT Physical Therapy, [address] [place] [address] 05/31/2022 14:26:57 05/31/2022 15:55:33 [id number] Nataly Dickey i, PT Physical Therapy, [address] [place] [address] 06/06/2022 14:58:22 06/07/2022 13:01:15 [id number] [place] , [facility]ICE [address] [place] [address] 1 11/10/2022 14:53:30 11/10/2022 15:34:06 [id number] [place] [facility], OFFICE [address] [place] [address] 1 11/17/2022 13:28:47 11/17/2022 15:00:11 [id number] Isidro Peterson MD [facility] , [address] [place] [address] 12/02/2022 11:53:27 12/02/2022 14:02:53 [id number] [place] [facility], OFFICE [address] [place] [address] 1 12/19/2022 09:19:08 12/19/2022 10:08:32 [id number] Tricia Maxwell RDN, LDN, [facility] Nutrition -[address] [place] [address] 01/17/2023 09:54:56 01/18/2023 15:46:39 [id number] Matilde Rubio MD , [facility], OFFICE [address] [place] [address] 02/15/2023 10:27:27 02/15/2023 15:31:28 [id number] Tricia Maxwell RDN, LDN, [facility] Nutrition -[address] [place] [address] 02/21/2023 08:59:17 03/03/2023 16:13:21 [id number] Matilde Rubio MD , [facility], OFFICE [address] [place] [address] [place] [address] 03/01/2023 10:54:57 03/01/2023 12:54:52 [id number] Vidya Dumont . MD [facility], [facility], OFFICE [address] [place] [address] [place] [address] 04/14/2023 13:20:01 04/18/2023 09:08:55 [id number] MD CAMRYN Milton, [facility], OFFICE [address] [place] [address] [place] [address] 06/12/2023 10:47:08 06/12/2023 17:30:56 [id number] MD CAMRYN Milton, [facility], OFFICE [address] [place] [address] [place] [address] 08/23/2023 14:53:22 08/23/2023 16:05:30 [id number] MD CAMRYN LEACH, [facility], OFFICE [address] [place] [address] [place] [address] 01/31/2024 10:13:15 01/31/2024 12:19:05 [id number] MARCELLA LAROSE MD , [facility], OFFICE [address] [place] [address] [place] [address] 04/08/2024 10:16:44 04/08/2024 11:44:27 [id number] MARCELLA LAROSE MD , [address] [place] [address] 05/01/2024 14:03:34 05/01/2024 14:57:36 [id number] MD CAMRYN LEACH, [address] [place] [address] 06/10/2024 16:10:34 06/11/2024 10:47:39 [id number] MD CAMRYN LEACH, [address] [place] [address] 09/18/2024 14:35:43 09/23/2024 07:48:11 [id number] MD CAMRYN Goodwin, [facility], [address] [place] [address] 09/12/2024 14:01:48 09/14/2024 09:00:52 Health Concerns Section Related Observation LastModified by Organization Detai ls LastModified Time None Recorded Concern Status LastModified by Organization Details LastModified Time None Recorded Advance Directives Directive N: Payers Encounter Date Sequence Insurance Name Policy Number Policy [employer] Covered Member ID Zapata Member ID Guarantor Name 04/08/2024 1 [employer] - DOS ON OR AFTER 2022 - [employer] (MEDICAID REPLACEMENT - HMO) Fernanda Durhamry [id number] Fernanda Patry 05/01/2024 1 [employer] - DOS ON OR AFTER 2022 - [employer] (MEDICAID REPLACEMENT - HMO) Fernanda Marvary [id number] Fernanda Patry 06/10/2024 1 [employer] - DOS ON OR AFTER 2022 - [employer] (MEDICAID REPLACEMENT - HMO) Fernanda Marvary [id number] Fernanda Patry 09/12/2024 1 [employer] - DOS ON OR AFTER 2022 - [employer] (MEDICAID REPLACEMENT - HMO) Fernanda Hill [id number] Fernanda Patry 09/18/2024 1 [employer] - DOS ON OR AFTER 2022 - [employer] (MEDICAID REPLACEMENT - HMO) Fernanda Hill [id number] Fernanda Hill OBGyn Episode No OBEpisode recorded.
== END 2024-10-23 13:34 | disposition home or self-care (01) ==
LOC: HO.HOS 13:05
PROVIDERS: PCP Internal Medicine
DX: G56.02 Carpal tunnel syndrome, left upper limb (principal)
CPT/HCPCS: 99214

== ENCOUNTER 2024-10-31 09:56 | Day surgery (SDC) | payer MEDICAID, SELFPAY ==
--- NOTE | 2024-10-31 10:18 | MHC.SHP ---
Pre-Procedural Eval Section A - 24 Hr Update-Section A only Date of Service: 10/31/24 The patient is an INPATIENT: No Changes since office visit: No Cold of Flu in the past 2 weeks, No New Medical Problems, No Changes in Medication and No Patient answered all questions The patient has been examined within 24 hours of the surgical procedure. The History & Physical has been completed within 30 days and I have reviewed it.: Yes Section B - Complete if H&P > 30 days Chief Complaint: Carpal tunnel syndrome, left upper limb Allergies: Allergies Allergy/AdvReac Type Severity Reaction Status Date / Time No Known Allergies Allergy Verified 10/23/24 13:16 Plan Diagnosis/Plan: Unchanged I have reviewed the history and physical and performed a pertinent physical examination on my patient. No changes have occurred unless specified. Time Spent With Patient Time: Total time managing care of this patient today ____ minutes.
[2024-10-31 10:19] VITALS: BP 158/82; PULSE 78; RESP 16; TEMP 37.1; O2SAT 98; BMI 36.5
--- NOTE | 2024-10-31 10:19 | P.OP_ITS ---
Operative Note Operative Note Date of Service: 10/31/24 Narrative: Preop diagnosis: 1. Left Carpal tunnel syndrome Postop diagnosis: same Procedure: 1. Left Carpal tunnel release Surgeon: Cary Smiley MD Inspector Canvas Products: None Anesthesia: local block using 1% lidocaine with epinephrine Findings: Thickened transverse carpal ligament. EBL: Less than 5 mL Specimens: None Complications: None Disposition: Brought to recovery room in stable condition Plan: Follow-up for 10-14 days for wound check and suture removal Indications: The patient is 48 years old, with left carpal tunnel syndrome that has been unresponsive to nonoperative management. The risks and benefits of operative treatment including but not limited to risk of damage to blood vessels, nerves, tendons, infection, persistent pain, persistent symptoms, or possible need for additional surgery were discussed with the patient and the patient wishes to proceed with surgery. Procedure: Once consent was obtained a local block was performed using a combination of 1% lidocaine with epinephrine. The patient was then brought back to the operating suite and placed on the operative table in supine position. The left upper extremity was prepped and draped in a standard surgical fashion. Once assured that we had a good block, a 2.0 cm longitudinal incision was made centered over the carpal tunnel. The incision was made through the skin to the subcutaneous tissues using a #15 blade. Dissection was made down to the level of the transverse carpal ligament with care being taken to protect the palmar cutaneous nerve. Once the transverse carpal ligament was clearly visualized, a longitudinal incision was made in the transverse carpal ligament 1st using a #15 blade, then using tenotomy scissors under direct visualization. Care was taken to look for and protect the motor branch of the median nerve when seen in this area. Once satisfied with our carpal tunnel release the wound was copiously irrigated with normal saline and hemostasis was obtained with a brief period of local pressure. The skin edges were reapproximated with some 5.0 nylon suture material and a sterile dressing was applied. The patient appears to have tolerated the procedure well and with no complicatio ns. All digits were well vascularized at the conclusion of the case.
[2024-10-31 12:14] VITALS: BP 158/69; PULSE 68; RESP 18; TEMP 36.2
== END 2024-10-31 12:26 | disposition home or self-care (01) ==
PROVIDERS: PCP Internal Medicine; Visit Provider Orthopaedic Surgery
PROC: (CPT 64721; principal; 2024-10-31 11:30)
DX: G56.02 Carpal tunnel syndrome, left upper limb (principal); I10 Essential (primary) hypertension; G43.909 Migraine, unspecified, not intractable, without status migrainosus; Z98.890 Other specified postprocedural states; Z56.0 Unemployment, unspecified
CPT/HCPCS: 64721; J0171; J2003

== ENCOUNTER → 2024-10-31 09:56 | Outpatient (BNV) | payer MEDICAID, SELFPAY | PROVIDERS: PCP Internal Medicine; Visit Provider Orthopaedic Surgery | DX: G56.02 Carpal tunnel syndrome, left upper limb (principal) | CPT/HCPCS: 64721 ==

== ENCOUNTER 2024-11-13 11:46 | Outpatient (AMB) | payer OTHER, SELFPAY ==
--- NOTE | 2024-11-13 11:55 | A.OFFVIS_ITS ---
Vital Signs 11/13/24 12:04 Handedness Right Intake Visit Reasons: PO-Lt CTR 10/31/24 Intake Note: Fernanda is a 48 year old right hand dominant female who presents today for a post operative visit status post left carpal tunnel release , DOS: 10/31/24, by Dr Cary Smiley. Patient reports he numbness and tingling has resolved. Expresses some tenderness at the site of her incision. States her left thumb feel extremely sensitive, painful and stiff. Sutures removed and steri strips applied. Denies any drainage or pus discharge. Allergies No Known Allergies Allergy (Verified 11/13/24 12:03) HPI HPI PO-Lt CTR 10/31/24: Details: Fernanda is a 48 year old right hand dominant female who presents today for a post operative visit status post left carpal tunnel release , DOS: 10/31/24, by Dr Cary Smiley. Patient reports he numbness and tingling has resolved. Expresses some tenderness at the site of her incision. States her left thumb feel fairly sensitive, painful and stiff. Sutures removed and steri strips applied. Denies any drainage or pus discharge. [facility] Medical History Migraine Hypertension Surgical History History of surgical removal of ganglion cyst Hx of tubal ligation Hx of appendectomy Hx of colonoscopy Hx of elbow surgery Social History Are you a primary ambulatory care nurse to a significant other at home: No Do you presently have visiting nurse or other home services: No Alcohol intake: never Patient Tobacco Use Status: Never used Tobacco Current occupational status: unemployed Current occupation: right hand dominant Review of Systems Const All systems reviewed & are unremarkable except as noted in HPI and below Physical Exam Extrem Other: Neuro: Normal sensation of the tips of all digits of the left hand in the office today No thenar or intrinsic wasting. Good APB muscle firing and good finger cross. Vascular: Capillary refill brisk. ROM: Patient can make a fist and extend all their digits. Skin: Well approximated and well healing incision site noted on the volar left wrist No lacerations or abrasions noted. General: No ecchymosis. No erythema or evidence of infection. Assessment & Plan Assessment & Plan (1) Left carpal tunnel syndrome: Code(s): G56.02 - Carpal tunnel syndrome, left upper limb Category: Medical Plan 1. Status post left carpal tunnel release With symptom resolution postoperatively DOS 10/31/2024 Patient appears to be recovering well postoperatively Patient is educated about the typical recovery course No acute follow-up necessary, as patient appears to be recovering very well Patient is amenable to this plan Follow-up as needed Coding Level of Care Code Global (22952) Diagnoses Left carpal tunnel syndrome G56.02
--- OUTSIDE RECORDS SUMMARY | 2024-11-13 12:33 | XMS_ITS | Data Portability ---
Author Organization [facility], , [place], OFFICE Address [address] [place] [address] Care Team Providers Care Physician/Internist Name Role Phone DL ERWINTONY OTHER ALBERTA HOUSER Orthopedic Surgeon GAMA MEDEIROS Shuttle Fixer ALEX MAXWELL Food Service Specialist CECI VAZQUEZ Hematology/Oncology [phone] [facility] Brewing Technician AMAYA BEAR Primary Care Provider [phone] [facility] Orthopedic Surgeon [phone] NATALY RAMOS Neurologist [facility] Phys. Med. & Rehab Assessment No assessment recorded. Plan of Treatment Reminders Order Date Submit Date Provider Last Modified By Organization Details Last Modified Time Details Appointments None recorded. Lab hemoglobi n A1C/hemog lobin total, QN, blood 2024 0[facility] [address] [facility] [address], [place], [address], 5 10:02:28 Referral orthopedi c surgeon referral 2023 024 [email or web address] [facility], [address] [place] [address] [place], [address], 4 11:11:22 Procedures None recorded. Surgeries None recorded. Imaging None recorded. Medication Orders Zepbound 7.5 mg/0.5 mL subcutane ous pen injector 2024 025 [id number], [address] [place], [address], 5 14:54:13 Zepbound 5 mg/0.5 mL subcutane ous pen injector 2024 025 [id number], [address] [place], [address], 5 20:08:39 Zepbound 2.5 mg/0.5 mL subcutane ous pen injector 2023 025 [id number] [address] [place], [address], 5 14:26:54 ondansetr on 4 mg disintegr ating tablet 2023 024 [id number], [address] [place], [address], 4 14:32:14 Patient TargetsNo targets recorded. Patient Instructions Encounter Date Encounter Id Patient Instructions Last Modified By Organization Details Last Modified Time 05/01/2024 [id number] You have been prescribed a new medication [...] for 10 seconds. You should hear two clicks. - Place the entire pen into a sharps container. You can receive sharps containers from your insurance company or most [facility] have them available for free. - [...] risk for progr essio n to diabe uhber Two a1c value s of 6.5% or highe r is consi stent with a diagn osis of diabe huber but may need furth er confi rmati on Not Available [address], [place], [address], 04/08/2024 11:47:49 04/06/20 24 04/08/2024 HGB A1C estimated average glucose 162.8 mg/dL Not Available [address], [address], 04/08/2024 11:47:49 04/06/2004/09/2024 BASIC METAB OLIC PANEL glucose 179 mg/dL 70-100 high Not Available [address], [address], 04/09/2024 16:36:15 04/06/2004/09/2024 BASIC METAB OLIC PANEL BUN 14 mg/dL 7-18 Not Available [address], [address], 04/09/2024 16:36:15 04/06/2004/09/2024 BASIC METAB OLIC PANEL creatinine 0.9 mg/dL 0.8-1. 3 Not Available [address], [address], 04/09/2024 16:36:15 04/06/20 24 04/09/2024 BASIC METAB OLIC PANEL B/C 15.6 ratio Not Available [address], [address], 04/09/2024 16:36:15 04/06/2004/09/2024 BASIC METAB OLIC PANEL [...] be used in pregn lanie. Not Available [address], [address], 04/09/2024 16:36:15 04/06/20 24 04/09/2024 BASIC METAB OLIC PANEL sodium 143 mmol/ L 136-14 5 Not Available [address], [address], 04/09/2024 16:36:15 04/06/20 24 04/09/2024 BASIC METAB OLIC PANEL potassium 4.1 mmol/ L 3.5-5. 1 Not Available [address], [address], 04/09/2024 16:36:15 04/06/20 24 04/09/2024 BASIC METAB OLIC PANEL chloride 105 mmol/ L 96-107 Not Available [address], [address], 04/09/2024 16:36:15 04/06/20 24 04/09/2024 BASIC METAB OLIC PANEL anion gap 9.7 5.0-15 .0 Not Available [address], [address], 04/09/2024 16:36:15 04/06/20 24 04/09/2024 BASIC METAB OLIC PANEL CO2 28 mmol/ L 21-32 Not Available [address], [address], 04/09/2024 16:36:15 04/06/20 24 04/09/2024 BASIC METAB OLIC PANEL calcium 9.3 mg/dL 8.5-10 .3 Not Available [address], [address], 04/09/2024 16:36:15 06/22/19 25 06/23/2024 CBC (INCL UDES DIFF/ PLT) white blood cell count 5.7 thous and/u L 3.8-10 .8 normal Not Available [facility] [address], [place], [address], 06/23/2024 08:43:39 06/22/19 25 06/23/2024 CBC (INCL UDES DIFF/ PLT) red blood cell count 4.94 priscilla on/uL 3.80-5 .10 normal Not Available [facility] [address] [place], [place], [address], 06/23/2024 08:43:39 06/22/19 25 06/23/2024 CBC (INCL UDES DIFF/ PLT) hemoglobin 14.4 g/dL 11.7-1 5.5 normal Not Available [facility] [address] [place], [place], [address], 06/23/2024 08:43:39 06/22/19 25 06/23/2024 CBC (INCL UDES DIFF/ PLT) hematocrit 43.7 % 35.0-4 5.0 normal Not Available [facility] [address], [place], [address], 06/23/2024 08:43:39 06/22/19 25 06/23/2024 CBC (INCL UDES DIFF/ PLT) MCV 88.5 fL 80.0-1 00.0 normal Not Available [facility] [address] B, [place], [address], 06/23/2024 08:43:39 06/22/19 25 06/23/2024 CBC (INCL UDES DIFF/ PLT) MCH 29.1 pg 27.0-3 3.0 normal Not Available [facility] [address] [place], [place], [address], 06/23/2024 08:43:39 06/22/19 25 06/23/2024 CBC (INCL UDES DIFF/ PLT) MCHC 33.0 g/dL 32.0-3 6.0 normal For adult s, a sligh t decre ase in the calcu lated MCHC value (in the range of 30 to 32 g/dL) is most likel y not clini arianna signi brian t; jeanine er, it shoul d be inter prete d with cauti on in [facility] n with other red cell jaspreet eters and the patie nt's clini tone condi tion. Not Available [facility] [address], [place], [address], 06/23/2024 08:43:39 06/22/19 25 06/23/2024 CBC (INCL UDES DIFF/ PLT) RDW 12.8 % 11.0-1 5.0 normal Not Available [facility] [address], [place], [address], 06/23/2024 08:43:39 06/22/19 25 06/23/2024 CBC (INCL UDES DIFF/ PLT) platelet count 251 thous and/u L 140-40 0 normal Not Available [facility] [address], [place], [address], 06/23/2024 08:43:39 06/22/19 25 06/23/2024 CBC (INCL UDES DIFF/ PLT) MPV 11.8 fL 7.5-12 .5 normal Not Available [facility] [address], [place], [address], 06/23/2024 08:43:39 06/22/19 25 06/23/2024 CBC (INCL UDES DIFF/ PLT) absolute neutrophils 3329 cells /uL 1500-7 800 normal Not Available [facility] [address], [place], [address], 06/23/2024 08:43:39 06/22/19 25 06/23/2024 CBC (INCL UDES DIFF/ PLT) absolute lymphocytes 1693 cells /uL 850-39 00 normal Not Available [facility] [address], [place], [address], 06/23/2024 08:43:39 06/22/19 25 06/23/2024 CBC (INCL UDES DIFF/ PLT) absolute monocytes 502 cells /uL 200-95 0 normal Not Available [facility] [address], [place], [address], 06/23/2024 08:43:39 06/22/19 25 06/23/2024 CBC (INCL UDES DIFF/ PLT) absolute eosinophils 154 cells /uL 15-500 normal Not Available [facility] [address], [place], [address], 06/23/2024 08:43:39 06/22/19 25 06/23/2024 CBC (INCL UDES DIFF/ PLT) absolute basophils 23 cells /uL 0-200 normal Not Available [facility] [address], [place], [address], 06/23/2024 08:43:39 06/22/19 25 06/23/2024 CBC (INCL UDES DIFF/ PLT) neutrophils 58.4 % normal Not Available [facility] [address], [place], [address], 06/23/2024 08:43:39 06/22/19 25 06/23/2024 CBC (INCL UDES DIFF/ PLT) lymphocytes 29.7 % normal Not Available [facility] [address], [place], [address], 06/23/2024 08:43:39 06/22/19 25 06/23/2024 CBC (INCL UDES DIFF/ PLT) monocytes 8.8 % normal Not Available [facility] [address], [place], [address], 06/23/2024 08:43:39 06/22/19 25 06/23/2024 CBC (INCL UDES DIFF/ PLT) eosinophils 2.7 % normal Not Available [facility] [address], [address], 06/23/2024 08:43:39 06/22/19 25 06/23/2024 CBC (INCL UDES DIFF/ PLT) basophils 0.4 % normal Not Available [facility] [address], [place], [address], 06/23/2024 08:43:39 06/22/19 25 06/24/2024 MICRO ALBUM IN/CR EATIN INE RATIO PANEL , URINE microalbumin 5.9 mg/L 1.3-20 .0 Not Available [address], [address], 06/24/2024 10:52:46 06/22/19 25 06/24/2024 MICRO ALBUM IN/CR EATIN INE RATIO PANEL , URINE creatinine urine 133.5 mg/dL 30.0-1 25.0 high Not Available [address], [address], 06/24/2024 10:52:46 06/22/19 25 06/24/2024 MICRO ALBUM IN/CR EATIN INE RATIO PANEL , URINE microalb/cre at ratio 4.4 mg/g_ creat 0.0-29 .0 Not Available [address], [address], 06/24/2024 10:52:46 06/22/19 25 06/24/2024 HGB A1C [...] furth er confi rmati on Not Available [address], [address], 06/24/2024 12:23:17 06/22/19 25 06/24/2024 HGB A1C estimated average glucose 148.5 mg/dL Not Available [address], [address], 06/24/2024 12:23:17 06/22/19 25 06/24/2024 BASIC METAB OLIC PANEL glucose 150 mg/dL 70-100 high Not Available [address], [address], 06/24/2024 15:23:10 06/22/19 25 06/24/2024 BASIC METAB OLIC PANEL BUN 15 mg/dL 7-18 Not Available [address], [address], 06/24/2024 15:23:10 06/22/19 25 06/24/2024 BASIC METAB OLIC PANEL creatinine 0.9 mg/dL 0.8-1. 3 Not Available [address], [address], 06/24/2024 15:23:10 06/22/19 25 06/24/2024 BASIC METAB OLIC PANEL B/C 16.7 ratio Not Available [address], [address], 06/24/2024 15:23:10 06/22/19 25 06/24/2024 BASIC METAB [...] be used in pregn lanie. Not Available [address], [address], 06/24/2024 15:23:10 06/22/19 25 06/24/2024 BASIC METAB OLIC PANEL sodium 143 mmol/ L 136-14 5 Not Available [address], [address], 06/24/2024 15:23:10 06/22/19 25 06/24/2024 BASIC METAB OLIC PANEL potassium 4.1 mmol/ L 3.5-5. 1 Not Available [address], [address], 06/24/2024 15:23:10 06/22/19 25 06/24/2024 BASIC METAB OLIC PANEL chloride 104 mmol/ L 96-107 Not Available [address], [address], 06/24/2024 15:23:10 06/22/19 25 06/24/2024 BASIC METAB OLIC PANEL anion gap 11.4 5.0-15 .0 Not Available [address], [address], 06/24/2024 15:23:10 06/22/19 25 06/24/2024 BASIC METAB OLIC PANEL CO2 28 mmol/ L 21-32 Not Available [address], [address], 06/24/2024 15:23:10 06/22/19 25 06/24/2024 BASIC METAB OLIC PANEL calcium 9.4 mg/dL 8.5-10 .3 Not Available [address] [place], [address], 06/24/2024 15:23:10 06/22/19 25 06/24/2024 LIPID PANEL cholesterol 191 mg/dL <200 mg/dl Allen able 200-2 39 mg/dl Borde rline High >240 mg/dl High Not Available [address], [address], 06/24/2024 15:23:11 06/22/19 25 06/24/2024 LIPID PANEL triglyceride s 125 mg/dL <150 mg/dL Jerica l 150-1 99 mg/dL Borde rline High 200-4 99 mg/dL High >500 mg/dL Very High Not Available [address], [address], 06/24/2024 15:23:11 06/22/19 25 06/24/2024 LIPID PANEL direct HDL 48 mg/dL <40 mg/dl - Major Risk for CHD >60 mg/dl - Negat diomedes Risk for CHD Not Available [address], [address], 06/24/2024 15:23:11 06/22/1906/24/2024 LDL - CALCU LATED LDL - calculated 118 RISK CATEG ORY LDL GOAL _ CHD or CHD Risk Equiv alent s <100 mg/dl (10-y ear risk >20%) 2+ Risk Facto rs <130 mg/dl (10-y ear risk <= 20%) 0-1 Risk Facto r <160 mg/dl Almo st all peopl e with 0-1 risk facto r have a 10 year risk <10%, thus 10 year risk asses ment in peopl e with 0-1 risk facto r is not neces gina. Not Available [address], [address], 06/24/2024 15:23:12 10/26/19 25 10/25/2024 COMP. METAB OLIC PANEL glucose 101 mg/dL 70-100 high Not Available [address], [address], 10/25/2024 14:23:30 10/26/19 25 10/25/2024 COMP. METAB OLIC PANEL BUN 13 mg/dL 7-18 Not Available [address], [address], 10/25/2024 14:23:30 10/26/19 25 10/25/2024 COMP. METAB OLIC PANEL creatinine 0.9 mg/dL 0.8-1. 3 Not Available [address], [address], 10/25/2024 14:23:30 10/26/19 25 10/25/2024 COMP. METAB OLIC PANEL B/C 14.4 ratio Not Available [address], [address], 10/25/2024 14:23:30 10/26/19 25 10/25/2024 COMP. METAB OLIC PANEL GFR >=60ML /MIN [...] be used in pregn lanie. Not Available [address], [address], 10/25/2024 14:23:30 10/26/19 25 10/25/2024 COMP. METAB OLIC PANEL sodium 144 mmol/ L 136-14 5 Not Available [address], [address], 10/25/2024 14:23:30 10/26/19 25 10/25/2024 COMP. METAB OLIC PANEL potassium 3.7 mmol/ L 3.5-5. 1 Not Available [address], [address], 10/25/2024 14:23:30 10/26/19 25 10/25/2024 COMP. METAB OLIC PANEL chloride 106 mmol/ L 96-107 Not Available [address], [address], 10/25/2024 14:23:30 10/26/19 25 10/25/2024 COMP. METAB OLIC PANEL anion gap 13.3 5.0-15 .0 Not Available [address], [address], 10/25/2024 14:23:30 10/26/19 25 10/25/2024 COMP. METAB OLIC PANEL CO2 25 mmol/ L 21-32 Not Available [address], [address], 10/25/2024 14:23:30 10/26/19 25 10/25/2024 COMP. METAB OLIC PANEL calcium 8.9 mg/dL 8.5-10 .3 Not Available [address], [address], 10/25/2024 14:23:30 10/26/19 25 10/25/2024 COMP. METAB OLIC PANEL total protein 6.9 g/dL 6.4-8. 2 Not Available [address], [address], 10/25/2024 14:23:30 10/26/19 25 10/25/2024 COMP. METAB OLIC PANEL albumin 3.7 g/dL 3.4-5. 0 Not Available [address], [address], 10/25/2024 14:23:30 10/26/19 25 10/25/2024 COMP. METAB OLIC PANEL globulin 3.2 g/dL Not Available [address], [address], 10/25/2024 14:23:30 10/26/19 25 10/25/2024 COMP. METAB OLIC PANEL A/G 1.2 ratio 0.8-2. 0 Not Available [address], [address], 10/25/2024 14:23:30 10/26/19 25 10/25/2024 COMP. METAB OLIC PANEL total bilirubin 0.50 mg/dL 0.00-1 .00 Not Available [address], [address], 10/25/2024 14:23:30 10/26/19 25 10/25/2024 COMP. METAB OLIC PANEL AST 23 U/L 0-37 Not Available [address], [address], 10/25/2024 14:23:30 10/26/19 25 10/25/2024 COMP. METAB OLIC PANEL ALT 53 U/L 6-63 Not Available [address], [address], 10/25/2024 14:23:30 10/26/19 25 10/25/2024 COMP. METAB OLIC PANEL alk. phos. 106 U/L 50-136 Not Available [address], [address], 10/25/2024 14:23:30 Result Notes None recorded. Procedures Surgical History Date Name Laterality Status Provider Name and Address Organization Details Recorded Time 3 Kristen - Colonoscopy completed Isidro Peterson MD [address] [place] [address], [phone], [facility] 12/02/2022 13:59:37 3 Kristen - EGD completed Isidro Peterson MD [address] [place] [address], [phone], [facility] 12/02/2022 13:59:07 Imaging Results None recorded. Procedure [...] DAILY (MAY WEAR UP TO 12 HOURS) 2024 active Not Available Not Available Not Avai lable hydrochlo rothiazid e 25 mg tablet TAKE [...] Form Given To Pt 03/31/11, 09/22/14, 06/16/15 [id number] Information not available 06/14/2023 Marital Status Helping With Daycare For 2 Grandchildren Information not available 10/25/2018 Mosquito Repellent Used Routinely No Information not available 03/31/2011 What Was The Date Of Your Most Recent Tobacco Screening? 09/12/2024 01/28/22 CJ, 11/10/22mh, 11/17/22mh, 12/19/22mh, 02/15/23mh [email or web address] Information not available 09/12/2024 How Many Children [...] level of alcohol consumption? None checked kb 1-29-24 [email or web address] Information not available 06/12/2023 Are you currently employed? 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 Obstetrics History GPAL:G 0 P 0 0 0 0 Past Encounters Encounter ID Performer Location Encounter Start Date Encounter Closed Date Diagnosis/Indication Diagnosis SNOMED-CT Code Diagnosis ICD10 Code Diagnosis Note [id number] Dennis Dixon PA-C , [place], [place] [address] [place] [address] 04/13/2004 13:15:09 04/13/2004 13:52:33 [id number] Alex COWAN, [place], [place] [address] [place] [address] 10/06/2005 14:44:39 10/06/2005 17:44:16 [id number] [place] [facility] [place] [address] [place] [address] 10/06/2005 15:16:59 10/06/2005 15:17:09 [id number] MD CAMRYN Chisholm III, [place], [place]ICE [address] [place] [address] 10/17/2005 09:39:34 10/17/2005 11:47:03 [id number] Dasia Schulte NP , [place], [place] [address] [place] [address] 10/24/2005 09:56:34 06/04/2008 02:02:29 [id number] Alex COWAN, [place], OFFICE [address] [place] [address] 11/22/2005 09:04:17 11/22/2005 16:06:53 [id number] [place] [facility] [place] [address] [place] [address] 11/22/2005 09:27:56 11/22/2005 09:28:05 [id number] Amaya Jin , [place], [address]ICE [address] [place] [address] 04/04/2006 16:15:39 04/04/2006 17:01:09 [id number] Ana Lilia Jin, [place], OFFICE [address] [place] [address] [place] [address] 08/16/2006 10:02:59 08/18/2006 07:49:02 [id number] LUCA Hook, [place], [address] [place] [address] 08/30/2006 14:48:37 08/30/2006 17:32:27 [id number] [place] [facility] [place] [address] [place] [address] 08/30/2006 15:54:11 08/30/2006 15:54:16 [id number] LUCA Hook, [address] [place] [address] 10/13/2006 10:18:52 10/13/2006 13:12:41 [id number] LUCA Hook, [address] [place] [address] 11/03/2006 10:10:13 11/03/2006 11:36:58 [id number] LUCA Hook, [address] [place] [address] 02/16/2007 10:19:36 06/04/2008 02:02:29 [id number] LUCA Hook, [address] [place] [address] 01/26/2007 10:01:13 01/26/2007 15:25:44 [id number] LUCA Gil, [place], [address] [place] [address] 12/17/2007 10:14:12 06/04/2008 02:02:29 [id number] LUCA Gil, [place], [address] [place] [address] 06/05/2008 15:35:46 06/17/2008 02:02:00 [id number] LUCA Hook, [place], [address] [place] [address] 08/06/2008 12:16:07 08/07/2008 08:35:57 [id number] LUCA Hook, [place], [address] [place] [address] 09/05/2008 11:42:18 09/08/2008 08:21:27 [id number] LUCA Gil, [place], OFFICE [address] [place] [address] [place], [place] [address] 12/08/2008 16:32:50 12/09/2008 14:05:05 [id number] LUCA Gil, [place], [address] [place] [address] 12/23/2008 10:20:23 12/23/2008 16:02:28 [id number] LUCA Hook, [place], [address] [place] [address] 03/11/2009 14:47:03 03/11/2009 17:01:54 [id number] [place] [facility] - [address] [place] [address] 07/30/2008 09:10:41 07/30/2008 09:10:47 [id number] [place] [facility] - [address] [place] [address] 12/10/2008 10:17:14 12/10/2008 10:17:19 [id number] LUCA Hook, [place], [address] [place] [address] 09/01/2009 07:59:36 09/01/2009 09:05:09 [id number] FP TREATMENT NURSE [place] CAMRYN, [place], [address] [place] [address] 09/03/2009 09:31:25 09/04/2009 08:20:06 [id number] LUCA Paez, [place], [address] NIEV[place]MAPatsy [place] [address] 11/23/2009 09:27:05 11/23/2009 12:22:11 [id number] LUCA Paez, [address] [place] [address] 12/14/2009 15:28:34 12/14/2009 16:21:22 [id number] Kee Hernadez NP , [address] [place] [address] 03/18/2010 09:21:43 03/18/2010 10:46:30 [id number] Amaya Bear NP , [address] [place] [address] 06/30/2010 16:24:46 06/30/2010 17:25:41 [id number] Eden Furcolo D.O. [address] [place] [address] 1 01/20/2011 10:19:33 01/20/2011 11:02:24 [id number] Eden Furcolo D.O. [address] [place] [address] 03/31/2011 15:41:03 03/31/2011 16:54:54 [id number] Eden Furcolo D.O. [address] [place] [address] 09/13/2011 16:09:22 09/13/2011 16:43:30 [id number] Eden Furcolo D.O. [address] [place] [address] 10/12/2011 15:55:37 10/12/2011 16:24:26 [id number] Eden Furcolo D.O. [address] [place] [address] 10/26/2011 15:55:14 10/26/2011 16:08:12 [id number] Eden Furcolo D.O. [address] [place] [address] 07/16/2012 11:45:25 07/16/2012 12:22:07 [id number] TREATMENT NURSE [facility], [address] [place] [address] 07/19/2012 10:20:12 07/19/2012 10:30:27 [id number] MD CAMRYN Milton [address] [place] [address] 12/25/2012 16:14:20 12/26/2012 07:30:58 [id number] Eden Furcolo D.O. [place], [address] [place] [address] 03/04/2013 15:53:01 03/04/2013 16:53:56 [id number] Eden Furcolo D.O. [place], [address] [place] [address] 06/05/2013 10:45:47 06/05/2013 11:36:26 [id number] Eden Furcolo D.O. [facility] OFFICE [address] [place] [address] [place] [address] 06/24/2013 15:47:39 06/25/2013 10:20:00 [id number] Eden Furcolo D.O. [facility] OFF[facility] [address] [place] [address] [place] [address] 09/18/2013 13:41:57 09/18/2013 14:35:40 [id number] Tricia Maxwell, GARETHN, LDN, [facility] [address] [place] [address] 10/24/2013 13:30:56 10/24/2013 14:58:27 [id number] Eden Alvaradolo D.O. [address] [place] [address] 08/21/2014 09:15:37 08/21/2014 12:58:29 [id number] Eden Najeracolo D.O. [address] [place] [address] 1 09/22/2014 13:45:57 10/09/2014 16:20:03 [id number] Eden Furcolo D.O. [address] [place] [address] 1 06/16/2015 10:15:14 06/17/2015 11:26:38 [id number] Eden Furcolo D.O. [address] [place] [address] 1 06/24/2016 13:45:51 06/27/2016 09:56:23 [id number] Eden Christianolo D.O. CAMRYN [address] [place] [address] 1 09/30/2016 10:41:57 09/30/2016 11:49:43 [id number] Miguel Angel Jim MD [address] [place] [address] 1 04/21/2017 16:26:41 04/24/2017 12:38:25 [id number] Eden Furcolo D.O. [address] [place] [address] 1 10/24/2017 08:44:30 10/24/2017 09:30:25 [id number] Douglas Willis PA-C [address] [place] [address] 1 10/26/2017 13:39:56 10/26/2017 14:41:19 [id number] Eden Furcolo D.O. [address] [place] [address] 1 04/23/2018 14:36:20 04/23/2018 16:11:35 [id number] Eden Furcolo D.O. [address] [place] [address] 1 08/14/2018 09:28:25 08/14/2018 11:12:59 [id number] Eden Furcolo D.O. [address] [place] [address] 1 10/25/2018 08:47:16 10/25/2018 09:22:10 [id number] Eden Furcolo D.O. [address] [place] [address] 1 04/25/2019 09:47:24 04/25/2019 10:25:45 [id number] Eden Furcolo D.O. [address] [place] [address] 1 10/29/2019 08:12:09 10/29/2019 09:15:59 [id number] Miguel Angel Jim MD [address] [place] [address] 1 03/20/2020 07:34:17 03/26/2020 16:52:10 [id number] STEVAN PEREZ MD [address] [place] [address] 1 11/06/2020 08:44:51 11/06/2020 10:09:53 [id number] Rylan Alarcon MD Podiatry, [address] [place] [address] 1 01/22/2021 09:01:08 01/22/2021 15:38:52 [id number] Eden Washington D.O. , [place], [address] [place] [address] 1 01/26/2021 08:57:23 01/26/2021 09:35:25 [id number] Matilde Rubio MD , [place], OFFICE [address] [place] [address] 1 10/08/2021 12:02:47 10/08/2021 12:27:01 [id number] [facility], [address] [place] [address] 1 10/13/2021 13:52:59 10/14/2021 13:07:36 [id number] [facility], [address] [place] [address] 1 10/18/2021 13:10:11 10/18/2021 14:16:22 [id number] [facility], [address] [place] [address] 1 10/20/2021 10:32:00 10/20/2021 14:08:36 [id number] [facility], [address] [place] [address] 1 10/25/2021 11:26:03 10/25/2021 15:32:52 [id number] [facility], [address] [place] [address] 1 10/27/2021 14:28:08 10/27/2021 15:25:05 [id number] Zheng Figueroa MD Sports Medicine, [address] [place] [address] 11/03/2021 13:32:18 11/03/2021 14:02:41 [id number] [facility], [address] [place] [address] 1 11/03/2021 14:36:56 11/04/2021 10:24:32 [id number] [facility], [address] [place] [address] 1 11/09/2021 13:06:11 11/09/2021 13:59:30 [id number] [facility], [address] [place] [id number] 11/18/2021 15:34:59 11/18/2021 16:09:31 [id number] [facility], [address] [place] [id number] 11/23/2021 15:00:55 11/23/2021 15:37:44 [id number] Zheng Figueroa MD Sports Medicine, [address] [place] [address] 12/13/2021 13:28:52 12/13/2021 14:00:37 [id number] Eden Washington D.O. , [place], OFFICE [address] [place] [address] 01/28/2022 08:18:22 01/28/2022 13:39:11 [id number] MARISSA Sal , [facility], OFFICE [address] [place] [address] 04/14/2022 11:51:53 04/19/2022 14:24:28 [id number] Eden Washington D.O. [facility], OFFICE [address] [place] [address] 05/02/2022 10:10:17 05/03/2022 10:34:49 [id number] Zheng Figueroa MD Sports Medicine, [facility] [address] [place] [address] 05/03/2022 11:04:00 05/03/2022 11:21:52 [id number] Nataly Dickey i, PT Physical Therapy, [address] [place] [address] 05/31/2022 14:26:57 05/31/2022 15:55:33 [id number] Nataly Dickey i PT Physical Therapy, [address] [place] [address] 06/06/2022 14:58:22 06/07/2022 13:01:15 [id number] Eden Washington D.O. [facility], OFFICE [address] [place] [address] 11/10/2022 14:53:30 11/10/2022 15:34:06 [id number] Eden Washington D.O. [facility], OFFICE [address] [place] [address] 1 11/17/2022 13:28:47 11/17/2022 15:00:11 [id number] Isidro Peterson MD [facility] , [place] [address] [place] [address] 12/02/2022 11:53:27 12/02/2022 14:02:53 [id number] Eden Washington D.O. [facility], OFFICE [address] [place] [address] 12/19/2022 09:19:08 12/19/2022 10:08:32 [id number] Tricia Maxwell RDN, LDN, [facility] -[address] [place] [address] 01/17/2023 09:54:56 01/18/2023 15:46:39 [id number] Matilde Rubio MD , [place], OFFICE [address] [place] [address] 02/15/2023 10:27:27 02/15/2023 15:31:28 [id number] Tricia Maxwell RDN, LDN, [facility] Nutrition -[address] [place] [address] 02/21/2023 08:59:17 03/03/2023 16:13:21 [id number] Matilde Rubio MD , [place], OFFICE [address] [address] [place] [address] 03/01/2023 10:54:57 03/01/2023 12:54:52 [id number] Vidya Taveras MD , [place], OFFICE [address] [place] [address] 04/14/2023 13:20:01 04/18/2023 09:08:55 [id number] Miguel Angel Jim MD , [place], OFFICE [address] [place] [address] [place] [id number] 06/12/2023 10:47:08 06/12/2023 17:30:56 [id number] Miguel Angel Jim MD , [address] [place] [address] 08/23/2023 14:53:22 08/23/2023 16:05:30 [id number] MARCELLA LAROSE MD , [address] [place] [id number] 1 01/31/2024 10:13:15 01/31/2024 12:19:05 [id number] MARCELLA LAROSE MD , [address] [place] [id number] 04/08/2024 10:16:44 04/08/2024 11:44:27 [id number] MARCELLA LAROSE MD , [address] [place] [id number] 05/01/2024 14:03:34 05/01/2024 14:57:36 [id number] MARCELLA LAROSE MD , [address] [place] [id number] 06/10/2024 16:10:34 06/11/2024 10:47:39 [id number] MARCELLA LAROSE MD , [address] [place] [id number] 09/18/2024 14:35:43 09/23/2024 07:48:11 [id number] Matilde Rubio MD , [address] [place] [id number] 09/12/2024 14:01:48 09/14/2024 09:00:52 Health Concerns Section Related Observation LastModified by Organization Detai ls LastModified Time None Recorded Concern Status LastModified by Organization Details LastModified Time None Recorded Advance Directives Directive N: Payers Insurance Date Sequence Insurance Name Policy Number Policy Zapata Covered Member ID Zapata Member ID Guarantor Name 01/31/2024 1 MEDICAID-[facility] PRIOR TO 08/13/2022 - LOCATED WITHIN [facility] (MEDICAID) Fernanda Hill [id number] Fernanda Hill 10/25/2024 1 [facility] - DOS ON OR AFTER 2022 - [facility] (MEDICAID REPLACEMENT - HMO) Fernanda Patry [id number] Fernanda Patry 09/07/2009 1 *SELF PAY* Sa ndra Patry 01/31/2024 2 [place] Fernanda G Patry [id number] Fernanda Patry 10/06/2005 1 *SELF PAY* Sa ndra Patry 01/31/2024 [employer] Fernanda Patry Fernanda Patry 01/31/2024 1 [place] [facility] [id number] Fernanda Kenzie [id number] Fernanda Patry 01/31/2024 1 [facility] NET PL[facility] (MEDICAID HMO) Fernanda Kenzie [id number] Fernanda Patry 01/31/2024 1 [facility] NET [facility] (MEDICAID HMO) Fernanda Kenzie [id number] Fernanda Patry 01/31/2024 1 [place] [facility] Fernanda Kenzie [id number] Fernanda Patry 11/11/2013 1 UNSPECIFIED REMIT PAYOR Fernanda Patry 02/23/2007 1 *SELF PAY* Sa ndra Patry 01/31/2024 1 [facility] NET PLAN (MEDICAID HMO) Fernanda Kenzie [id number] Fernanda Patry 01/31/2024 2 [place] [facility] Fernanda Kenzie [id number] Fernanda Patry 01/31/2024 1 [place] [facility] PLAN [id number] Fernanda G Kenzie [id number] Fernanda Patry 01/31/2024 1 [place] Fernanda Kenzie [id number] Fernanda Patry 01/31/2024 1 [place] [facility] PL[facility] Fernanda G Patry [id number] Fernanda Patry OBGyn Episode No OBEpisode recorded.
== END 2024-11-13 13:00 | disposition home or self-care (01) ==
LOC: HO.HOS 11:47
PROVIDERS: PCP Internal Medicine
DX: G56.02 Carpal tunnel syndrome, left upper limb (principal)
CPT/HCPCS: 99024